=== PATIENT | male | born 1960 | race African-American/Black ===

== ENCOUNTER 2017-05-13 09:16 | Inpatient (IN) | payer OTHER ==
[2017-05-13 09:23] VITALS: BMI 32.0
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
[2017-05-13] MEDS ORDERED: hydrOXYzine PAMOATE 50 MG CAPSULE (FP) PO PRN (10:23)
[2017-05-13] MEDS ORDERED: MAGNESIUM CITRATE 300 ML BOTTLE PO PRN (10:23)
[2017-05-13] MEDS ORDERED: MAGNESIUM HYDROX 2400MG/30ML ORAL SUSPENSION 30 ML CUP PO PRN (10:23)
[2017-05-13] MEDS ORDERED: P-EPHED 60MG/TRIPROLIDI 2.5MG TABLET PO PRN (10:23)
[2017-05-13] MEDS ORDERED: IBUPROFEN 400 MG TABLET (FP) PO PRN (10:23)
[2017-05-13] MEDS ORDERED: MENTHOL/PHENOL 1 EACH UD MM PRN (10:23)
[2017-05-13] MEDS ORDERED: ACETAMINOPHEN 325 MG TABLET (FP) PO PRN (10:23)
[2017-05-13] MEDS ORDERED: MAG HYDROX/AL HYDROX/SIMETH 30 ML UNIT-DOSE CUP PO PRN (10:23)
[2017-05-13] MEDS ORDERED: LOPERAMIDE HCL 2 MG CAPSULE PO PRN (10:23)
[2017-05-13] MEDS ORDERED: guaiFENesin/D-METHORPHAN HB 10 ML UNIT-DOSE CUPS PO PRN (10:23)
[2017-05-13] MEDS ORDERED: NICOTINE POLACRILEX 2 MG GUM BUC PRN (10:23)
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
[2017-05-13] MEDS ORDERED: TUBERCULIN PPD 5 TU/0.1ML VIAL ID ONE (12:07)
[2017-05-13 13:15] LABS: HEMOGLOBIN 14.4 GM/dL (11.7-16.9); MCH 25.6 pg (25.7-33.7); MCHC 32.1 g/dl (32.0-35.9); MEAN CELL VOLUME 79.7 fl (80-96); PLATELET COUNT 255 K/MM3 (134-434); RBC 5.65 M/mm3 (4.00-5.60); RDW 15.2 % (11.9-15.9); WHITE BLOOD COUNT 7.7 K/mm3 (4.0-10.0)
[2017-05-13 13:21] LABS: ALBUMIN 3.9 g/dl (3.4-5.0); ANION GAP 10 (8-16); BILIRUBIN,TOTAL 0.5 mg/dL (0.2-1.0); BLOOD UREA NITROGEN 17 mg/dL (7-18); CALCIUM 9.5 mg/dL (8.5-10.1); CHLORIDE 107 mmol/L (98-107); CO2 27 mmol/L (21-32); CREATININE 1.3 mg/dL (0.7-1.3); GLUCOSE,RANDOM 107 mg/dL (74-106); POTASSIUM 4.2 mmol/L (3.5-5.1); SGOT/AST 160 U/L (15-37); SGPT/ALT 186 U/L (12-78); SODIUM 144 mmol/L (136-145)
[2017-05-13 13:22] LABS: ALK PHOS 106 U/L (45-117); TOT PROT 8.2 g/dl (6.4-8.2)
[2017-05-13] MEDS: NICOTINE 14 MG/24 HOURS TOPICAL PATCH TD SCH (13:36)
[2017-05-13 17:06] LABS: URINE APPEARANCE CLEAR; URINE BILIRUBIN NEGATIVE (NEGATIVE); URINE BLOOD NEGATIVE (NEGATIVE); URINE COLOR YELLOW; URINE GLUCOSE (UA) NEGATIVE (NEGATIVE); URINE KETONE NEGATIVE (NEGATIVE); URINE LEUK ESTERASE NEGATIVE (NEGATIVE); URINE NITRITE NEGATIVE (NEGATIVE); URINE PROTEIN NEGATIVE (NEGATIVE); URINE UROBILINOGEN 4.0 E.U/dl mg/dL (0.2-1.0)
[2017-05-13] MEDS: busPIRone HCL 10 MG TABLET (FP) PO SCH (21:29)
[2017-05-13] MEDS: ATORVASTATIN CA 10 MG TABLET (FP) PO SCH (21:29)
[2017-05-13] MEDS: QUEtiapine FUMARATE 300 MG TABLET PO SCH (21:29)
[2017-05-13] MEDS: THIAMINE HCL 100 MG TABLET (FP) PO SCH (21:29)
[2017-05-13] MEDS: METOPROLOL TARTRATE 25 MG TABLET (FP) PO SCH (21:47)
[2017-05-14] MEDS: PRENATAL VITAMINS W/ FOLIC ACID TABLET (FP) PO SCH (10:08)
[2017-05-14] MEDS: NICOTINE 14 MG/24 HOURS TOPICAL PATCH TD SCH (10:09)
[2017-05-14] MEDS: busPIRone HCL 10 MG TABLET (FP) PO SCH ×2 (10:09→21:30)
[2017-05-14] MEDS: METOPROLOL TARTRATE 25 MG TABLET (FP) PO SCH ×2 (10:09→21:30)
[2017-05-14] MEDS: amLODIPine BESYLATE 10 MG TABLET (FP) PO SCH (10:09)
[2017-05-14] MEDS: ASPIRIN COATED 81 MG TABLET.EC PO SCH (10:09)
--- NOTE | 2017-05-14 11:27 | EKG ---
Test Reason : Blood Pressure : / mmHG Vent. Rate : 065 BPM Atrial Rate : 065 BPM P-R Int : 174 ms QRS Dur : 086 ms QT Int : 396 ms P-R-T Axes : 063 050 032 degrees QTc Int : 411 ms NORMAL SINUS RHYTHM NORMAL ECG NO PREVIOUS ECGS AVAILABLE BASELINE ARTIFACT Confirmed by ABY CEJA, JOCE ([id number] on 05/14/2017 11:27:22 AM Referred By: Stanislaw CISNEROS Confirmed By:JOCE BADILLO MD
[2017-05-14] MEDS ORDERED: FLU VACCINE QUAD 60 MCG/0.5 ML (MDV 17-18) IM ONE (12:00)
[2017-05-14] MEDS: ATORVASTATIN CA 10 MG TABLET (FP) PO SCH (21:30)
[2017-05-14] MEDS: QUEtiapine FUMARATE 300 MG TABLET PO SCH (21:30)
[2017-05-14] MEDS: THIAMINE HCL 100 MG TABLET (FP) PO SCH (21:30)
[2017-05-15] MEDS: busPIRone HCL 10 MG TABLET (FP) PO SCH ×2 (09:44→21:53)
[2017-05-15] MEDS: ASPIRIN COATED 81 MG TABLET.EC PO SCH (09:44)
[2017-05-15] MEDS: PRENATAL VITAMINS W/ FOLIC ACID TABLET (FP) PO SCH (09:44)
[2017-05-15] MEDS: NICOTINE 14 MG/24 HOURS TOPICAL PATCH TD SCH (09:44)
[2017-05-15] MEDS: METOPROLOL TARTRATE 25 MG TABLET (FP) PO SCH ×2 (09:44→21:53)
[2017-05-15] MEDS: amLODIPine BESYLATE 10 MG TABLET (FP) PO SCH (09:44)
[2017-05-15] MEDS: ATORVASTATIN CA 10 MG TABLET (FP) PO SCH (21:54)
[2017-05-15] MEDS: THIAMINE HCL 100 MG TABLET (FP) PO SCH (21:54)
[2017-05-15] MEDS: QUEtiapine FUMARATE 300 MG TABLET PO SCH (21:54)
[2017-05-16] MEDS: PRENATAL VITAMINS W/ FOLIC ACID TABLET (FP) PO SCH (09:56)
[2017-05-16] MEDS: NICOTINE 14 MG/24 HOURS TOPICAL PATCH TD SCH (09:57)
[2017-05-16] MEDS: busPIRone HCL 10 MG TABLET (FP) PO SCH ×2 (09:57→21:28)
[2017-05-16] MEDS: ASPIRIN COATED 81 MG TABLET.EC PO SCH (09:57)
[2017-05-16] MEDS: amLODIPine BESYLATE 10 MG TABLET (FP) PO SCH (09:57)
[2017-05-16] MEDS: METOPROLOL TARTRATE 25 MG TABLET (FP) PO SCH ×2 (11:00→21:28)
[2017-05-16] MEDS: ATORVASTATIN CA 10 MG TABLET (FP) PO SCH (21:28)
[2017-05-16] MEDS: THIAMINE HCL 100 MG TABLET (FP) PO SCH (21:29)
[2017-05-16] MEDS: QUEtiapine FUMARATE 300 MG TABLET PO SCH (21:29)
[2017-05-17] MEDS: PRENATAL VITAMINS W/ FOLIC ACID TABLET (FP) PO SCH (10:08)
[2017-05-17] MEDS: amLODIPine BESYLATE 10 MG TABLET (FP) PO SCH (10:08)
[2017-05-17] MEDS: ASPIRIN COATED 81 MG TABLET.EC PO SCH (10:08)
[2017-05-17] MEDS: NICOTINE 14 MG/24 HOURS TOPICAL PATCH TD SCH (10:08)
[2017-05-17] MEDS: busPIRone HCL 10 MG TABLET (FP) PO SCH ×2 (10:08→21:43)
[2017-05-17] MEDS: METOPROLOL TARTRATE 25 MG TABLET (FP) PO SCH ×2 (10:09→21:43)
[2017-05-17] MEDS: QUEtiapine FUMARATE 300 MG TABLET PO SCH (21:43)
[2017-05-17] MEDS: ATORVASTATIN CA 10 MG TABLET (FP) PO SCH (21:43)
[2017-05-17] MEDS: THIAMINE HCL 100 MG TABLET (FP) PO SCH (21:43)
[2017-05-18] MEDS: busPIRone HCL 10 MG TABLET (FP) PO SCH ×2 (09:48→21:37)
[2017-05-18] MEDS: NICOTINE 14 MG/24 HOURS TOPICAL PATCH TD SCH (09:48)
[2017-05-18] MEDS: METOPROLOL TARTRATE 25 MG TABLET (FP) PO SCH ×2 (09:48→21:37)
[2017-05-18] MEDS: amLODIPine BESYLATE 10 MG TABLET (FP) PO SCH (09:48)
[2017-05-18] MEDS: ASPIRIN COATED 81 MG TABLET.EC PO SCH (09:48)
[2017-05-18] MEDS: PRENATAL VITAMINS W/ FOLIC ACID TABLET (FP) PO SCH (09:49)
[2017-05-18] MEDS: THIAMINE HCL 100 MG TABLET (FP) PO SCH (21:37)
[2017-05-18] MEDS: QUEtiapine FUMARATE 300 MG TABLET PO SCH (21:37)
[2017-05-18] MEDS: ATORVASTATIN CA 10 MG TABLET (FP) PO SCH (21:37)
[2017-05-19] MEDS: amLODIPine BESYLATE 10 MG TABLET (FP) PO SCH (10:19)
[2017-05-19] MEDS: busPIRone HCL 10 MG TABLET (FP) PO SCH ×2 (10:19→21:47)
[2017-05-19] MEDS: ASPIRIN COATED 81 MG TABLET.EC PO SCH (10:19)
[2017-05-19] MEDS: PRENATAL VITAMINS W/ FOLIC ACID TABLET (FP) PO SCH (10:19)
[2017-05-19] MEDS: NICOTINE 14 MG/24 HOURS TOPICAL PATCH TD SCH (10:19)
[2017-05-19] MEDS: METOPROLOL TARTRATE 25 MG TABLET (FP) PO SCH ×2 (10:19→22:48)
[2017-05-19] MEDS: THIAMINE HCL 100 MG TABLET (FP) PO SCH (21:47)
[2017-05-19] MEDS: QUEtiapine FUMARATE 300 MG TABLET PO SCH (21:47)
[2017-05-19] MEDS: ATORVASTATIN CA 10 MG TABLET (FP) PO SCH (21:47)
[2017-05-20] MEDS: PRENATAL VITAMINS W/ FOLIC ACID TABLET (FP) PO SCH (10:05)
[2017-05-20] MEDS: ASPIRIN COATED 81 MG TABLET.EC PO SCH (10:06)
[2017-05-20] MEDS: busPIRone HCL 10 MG TABLET (FP) PO SCH ×2 (10:06→21:40)
[2017-05-20] MEDS: NICOTINE 14 MG/24 HOURS TOPICAL PATCH TD SCH (10:06)
[2017-05-20] MEDS: METOPROLOL TARTRATE 25 MG TABLET (FP) PO SCH ×2 (10:06→21:40)
[2017-05-20] MEDS: amLODIPine BESYLATE 10 MG TABLET (FP) PO SCH (10:06)
--- NOTE | 2017-05-20 11:25 | PN ---
S Progress Note (SOAP) Subjective: reqeusting reveiwe of labwork on admission Objective: 05/20/17 11:23 no complaints Vital Signs - 24 hr 05/20/17 05/20/17 05/20/17 00:30 03:30 07:12 Temperature 98.1 F Pulse Rate 101 H Respiratory 16 17 18 Rate Blood Pressure 144/79 Laboratory Tests 05/13/17 05/13/17 05/13/17 11:00 11:00 11:00 WBC 7.7 D RBC 5.65 H Hgb 14.4 Hct 45.0 MCV 79.7 L MCH 25.6 L MCHC 32.1 RDW 15.2 Plt Count 255 MPV 9.0 D Sodium 144 Potassium 4.2 Chloride 107 Carbon Dioxide 27 Anion Gap 10 BUN 17 Creatinine 1.3 D Creat Clearance w eGFR 57.31 POC Glucometer Random Glucose 107 H D Calcium 9.5 Total Bilirubin 0.5 D AST 160 H D ALT 186 H D Alkaline Phosphatase 106 D Total Protein 8.2 Albumin 3.9 Urine Color Urine Appearance Urine pH Ur Specific [place] Urine Protein Urine Glucose (UA) Urine Ketones Urine Blood Urine Nitrite Urine Bilirubin Urine Urobilinogen Ur Leukocyte Esterase RPR Titer Nonreactive Hepatitis C Antibody HIV 1&2 Antibody Screen HIV P24 Antigen 05/13/17 05/13/17 05/13/17 11:00 11:00 13:00 WBC RBC Hgb Hct MCV MCH MCHC RDW Plt Count MPV Sodium Potassium Chloride Carbon Dioxide Anion Gap BUN Creatinine Creat Clearance w eGFR POC Glucometer Random Glucose Calcium Total Bilirubin AST ALT Alkaline Phosphatase Total Protein Albumin Urine Color Yellow Urine Appearance Clear Urine pH 5.0 Ur Specific [place] 1.016 Urine Protein Negative Urine Glucose (UA) Negative Urine Ketones Negative Urine Blood Negative Urine Nitrite Negative Urine Bilirubin Negative Urine Urobilinogen 4.0 e.u/dl Ur Leukocyte Esterase Negative RPR Titer Hepatitis C Antibody <0.1 HIV 1&2 Antibody Screen Negative HIV P24 Antigen Negative 05/14/17 05/15/17 05/16/17 06:32 06:18 06:24 WBC RBC Hgb Hct MCV MCH MCHC RDW Plt Count MPV Sodium Potassium Chloride Carbon Dioxide Anion Gap BUN Creatinine Creat Clearance w eGFR POC Glucometer 120 114 133 Random Glucose Calcium Total Bilirubin AST ALT Alkaline Phosphatase Total Protein Albumin Urine Color Urine Appearance Urine pH Ur Specific [place] Urine Protein Urine Glucose (UA) Urine Ketones Urine Blood Urine Nitrite Urine Bilirubin Urine Urobilinogen Ur Leukocyte Esterase RPR Titer Hepatitis C Antibody HIV 1&2 Antibody Screen HIV P24 Antigen 05/17/17 05/18/17 05/19/17 06:20 06:19 06:29 WBC RBC Hgb Hct MCV MCH MCHC RDW Plt Count MPV Sodium Potassium Chloride Carbon Dioxide Anion Gap BUN Creatinine Creat Clearance w eGFR POC Glucometer 139 121 134 Random Glucose Calcium Total Bilirubin AST ALT Alkaline Phosphatase Total Protein Albumin Urine Color Urine Appearance Urine pH Ur Specific [place] Urine Protein Urine Glucose (UA) Urine Ketones Urine Blood Urine Nitrite Urine Bilirubin Urine Urobilinogen Ur Leukocyte Esterase RPR Titer Hepatitis C Antibody HIV 1&2 Antibody Screen HIV P24 Antigen 05/19/17 05/20/17 16:46 06:23 WBC RBC Hgb Hct MCV MCH MCHC RDW Plt Count MPV Sodium Potassium Chloride Carbon Dioxide Anion Gap BUN Creatinine Creat Clearance w eGFR POC Glucometer 151 174 Random Glucose Calcium Total Bilirubin AST ALT Alkaline Phosphatase Total Protein Albumin Urine Color Urine Appearance Urine pH Ur Specific [place] Urine Protein Urine Glucose (UA) Urine Ketones Urine Blood Urine Nitrite Urine Bilirubin Urine Urobilinogen Ur Leukocyte Esterase RPR Titer Hepatitis C Antibody HIV 1&2 Antibody Screen HIV P24 Antigen Assessment: 05/20/17 11:24 hiv/hcv neg, elevated lfts, 05/20/17 11:28 dehydration, water at bedside
[2017-05-20] MEDS: ATORVASTATIN CA 10 MG TABLET (FP) PO SCH (21:40)
[2017-05-20] MEDS: QUEtiapine FUMARATE 300 MG TABLET PO SCH (21:41)
[2017-05-20] MEDS: THIAMINE HCL 100 MG TABLET (FP) PO SCH (21:41)
[2017-05-21] MEDS: METOPROLOL TARTRATE 25 MG TABLET (FP) PO SCH ×2 (10:25→21:36)
[2017-05-21] MEDS: ASPIRIN COATED 81 MG TABLET.EC PO SCH (10:25)
[2017-05-21] MEDS: busPIRone HCL 10 MG TABLET (FP) PO SCH ×2 (10:26→21:36)
[2017-05-21] MEDS: PRENATAL VITAMINS W/ FOLIC ACID TABLET (FP) PO SCH (10:26)
[2017-05-21] MEDS: NICOTINE 14 MG/24 HOURS TOPICAL PATCH TD SCH (10:26)
[2017-05-21] MEDS: amLODIPine BESYLATE 10 MG TABLET (FP) PO SCH (10:26)
[2017-05-21 11:01] LABS: BASO % 0.7 % (0-2.0); EOS % 2.1 % (0-4.5); HEMATOCRIT 43.2 % (35.4-49); HEMOGLOBIN 13.6 GM/dL (11.7-16.9); LYMPH % 26.7 % (8-40); MCH 25.1 pg (25.7-33.7); MCHC 31.6 g/dl (32.0-35.9); MEAN CELL VOLUME 79.6 fl (80-96); MEAN PLT VOLUME 9.1 fl (7.5-11.1); MONO % 9.5 % (3.8-10.2); PLATELET COUNT 198 K/MM3 (134-434); RBC 5.42 M/mm3 (4.00-5.60); RDW 15.4 % (11.9-15.9); WHITE BLOOD COUNT 5.5 K/mm3 (4.0-10.0)
[2017-05-21 11:05] LABS: ALBUMIN 3.5 g/dl (3.4-5.0); ANION GAP 6 (8-16); BILIRUBIN,TOTAL 0.6 mg/dL (0.2-1.0); BLOOD UREA NITROGEN 15 mg/dL (7-18); CALCIUM 9.3 mg/dL (8.5-10.1); CHLORIDE 107 mmol/L (98-107); CO2 30 mmol/L (21-32); GLUCOSE,RANDOM 129 mg/dL (74-106); POTASSIUM 4.3 mmol/L (3.5-5.1); SGOT/AST 50 U/L (15-37); SGPT/ALT 155 U/L (12-78); SODIUM 143 mmol/L (136-145)
[2017-05-21 11:06] LABS: ALK PHOS 77 U/L (45-117)
[2017-05-21] MEDS: THIAMINE HCL 100 MG TABLET (FP) PO SCH (21:36)
[2017-05-21] MEDS: ATORVASTATIN CA 10 MG TABLET (FP) PO SCH (21:36)
[2017-05-21] MEDS: QUEtiapine FUMARATE 300 MG TABLET PO SCH (21:37)
[2017-05-22 06:36] LABS: SERUM IRON SATURATION 30 % (15-55); TOTAL IRON BINDING CAPACITY 258 ug/dL (250-450); UIBC 181 ug/dL (111-343)
[2017-05-22] MEDS: ASPIRIN COATED 81 MG TABLET.EC PO SCH (10:00)
[2017-05-22] MEDS: PRENATAL VITAMINS W/ FOLIC ACID TABLET (FP) PO SCH (10:00)
[2017-05-22] MEDS: NICOTINE 14 MG/24 HOURS TOPICAL PATCH TD SCH (10:00)
[2017-05-22] MEDS: busPIRone HCL 10 MG TABLET (FP) PO SCH ×2 (10:00→21:27)
[2017-05-22] MEDS: METOPROLOL TARTRATE 25 MG TABLET (FP) PO SCH ×2 (10:02→21:27)
[2017-05-22] MEDS: amLODIPine BESYLATE 10 MG TABLET (FP) PO SCH (10:02)
[2017-05-22] MEDS: ATORVASTATIN CA 10 MG TABLET (FP) PO SCH (21:27)
[2017-05-22] MEDS: THIAMINE HCL 100 MG TABLET (FP) PO SCH (21:27)
[2017-05-22] MEDS: QUEtiapine FUMARATE 300 MG TABLET PO SCH (21:28)
[2017-05-23] MEDS: busPIRone HCL 10 MG TABLET (FP) PO SCH ×2 (10:13→21:42)
[2017-05-23] MEDS: NICOTINE 14 MG/24 HOURS TOPICAL PATCH TD SCH (10:13)
[2017-05-23] MEDS: amLODIPine BESYLATE 10 MG TABLET (FP) PO SCH (10:13)
[2017-05-23] MEDS: METOPROLOL TARTRATE 25 MG TABLET (FP) PO SCH ×2 (10:13→21:42)
[2017-05-23] MEDS: ASPIRIN COATED 81 MG TABLET.EC PO SCH (10:13)
[2017-05-23] MEDS: PRENATAL VITAMINS W/ FOLIC ACID TABLET (FP) PO SCH (10:14)
[2017-05-23] MEDS: THIAMINE HCL 100 MG TABLET (FP) PO SCH (21:42)
[2017-05-23] MEDS: ATORVASTATIN CA 10 MG TABLET (FP) PO SCH (21:42)
[2017-05-23] MEDS: QUEtiapine FUMARATE 300 MG TABLET PO SCH (21:43)
[2017-05-23] MEDS: TOLNAFTATE 1% CREAM 15 GM TUBE TP SCH (21:43)
[2017-05-24] MEDS: TOLNAFTATE 1% CREAM 15 GM TUBE TP SCH ×3 (09:23→21:51)
[2017-05-24] MEDS: PRENATAL VITAMINS W/ FOLIC ACID TABLET (FP) PO SCH (10:09)
[2017-05-24] MEDS: ASPIRIN COATED 81 MG TABLET.EC PO SCH (10:10)
[2017-05-24] MEDS: busPIRone HCL 10 MG TABLET (FP) PO SCH ×2 (10:10→21:50)
[2017-05-24] MEDS: NICOTINE 14 MG/24 HOURS TOPICAL PATCH TD SCH (10:10)
[2017-05-24] MEDS: METOPROLOL TARTRATE 25 MG TABLET (FP) PO SCH ×2 (10:10→21:50)
[2017-05-24] MEDS: amLODIPine BESYLATE 10 MG TABLET (FP) PO SCH (10:10)
[2017-05-24] MEDS: THIAMINE HCL 100 MG TABLET (FP) PO SCH (21:50)
[2017-05-24] MEDS: QUEtiapine FUMARATE 300 MG TABLET PO SCH (21:50)
[2017-05-24] MEDS: ATORVASTATIN CA 10 MG TABLET (FP) PO SCH (21:50)
[2017-05-25] MEDS: ASPIRIN COATED 81 MG TABLET.EC PO SCH (10:04)
[2017-05-25] MEDS: busPIRone HCL 10 MG TABLET (FP) PO SCH ×2 (10:04→21:38)
[2017-05-25] MEDS: METOPROLOL TARTRATE 25 MG TABLET (FP) PO SCH ×2 (10:04→21:38)
[2017-05-25] MEDS: PRENATAL VITAMINS W/ FOLIC ACID TABLET (FP) PO SCH (10:04)
[2017-05-25] MEDS: NICOTINE 14 MG/24 HOURS TOPICAL PATCH TD SCH (10:05)
[2017-05-25] MEDS: TOLNAFTATE 1% CREAM 15 GM TUBE TP SCH ×2 (10:05→21:38)
[2017-05-25] MEDS: amLODIPine BESYLATE 10 MG TABLET (FP) PO SCH (10:05)
[2017-05-25] MEDS: ATORVASTATIN CA 10 MG TABLET (FP) PO SCH (21:37)
[2017-05-25] MEDS: THIAMINE HCL 100 MG TABLET (FP) PO SCH (21:37)
[2017-05-25] MEDS: QUEtiapine FUMARATE 300 MG TABLET PO SCH (21:38)
[2017-05-26 06:45] VITALS: BP 126/73; PULSE 74; TEMP 98
--- NOTE | 2017-05-26 08:27 | PN ---
Psychiatric Progress Note Vital Signs: Vital Signs Period Temp Pulse Resp BP Sys/Randolph Pulse Ox Last 24 Hr 98.0 F 74-88 18-20 126-155/73-86 Date of Session: 05/26/17 Chief Complaint:: discharge visit HPI: Patient has addressed alcohol dependence, cocaine abuse comorbid Psychosis NOS. ROS: HTN medically managed. Current Medications: Active Medications Generic Name Dose Route Start Last Admin Trade Name Freq PRN Reason Stop Dose Admin Acetaminophen 650 mg 05/13/17 10:23 Tylenol - PO Q4H PRN PAIN Al Hydroxide/Mg Hydroxide 30 ml 05/13/17 10:23 Mylanta Oral Suspension - PO Q6H PRN DYSPEPSIA Amlodipine Besylate 10 mg 05/14/17 10:00 05/25/17 10:05 Norvasc - PO 10 mg DAILY AROLDO Administration Aspirin 81 mg 05/14/17 10:00 05/25/17 10:04 Ecotrin - PO 81 mg DAILY AROLDO Administration Atorvastatin Calcium 10 mg 05/13/17 22:00 05/25/17 21:37 Lipitor - PO 10 mg HS AROLDO Administration Buspirone HCl 10 mg 05/13/17 22:00 05/25/17 21:38 Buspar - PO 10 mg BID AROLDO Administration Eucalyptus/Menthol/Phenol/Sorbitol 1 each 05/13/17 10:23 Cepastat Lozenge - MM Q4H PRN SORE THROAT Guaifenesin 10 ml 05/13/17 10:23 Robitussin Dm - PO Q6H PRN COUGH Hydroxyzine Pamoate 50 mg 05/13/17 10:23 Vistaril - PO Q4H PRN AGITATION Ibuprofen 400 mg 05/13/17 10:23 Motrin - PO Q6H PRN SEVERE PAIN Loperamide HCl 4 mg 05/13/17 10:23 Imodium - PO Q6H PRN DIARRHEA Magnesium Citrate 300 ml 05/13/17 10:23 Citroma - PO Q48H PRN CONSTIPATION Magnesium Hydroxide 30 ml 05/13/17 10:23 Milk Of Magnesia - PO DAILY PRN CONSTIPATION Metoprolol Tartrate 25 mg 05/13/17 22:00 05/25/17 21:38 Lopressor - PO 25 mg BID AROLDO Administration Nicotine 14 mg 05/13/17 10:51 05/25/17 10:05 Nicoderm Patch - TD Not Given DAILY AROLDO Nicotine Polacrilex 2 mg 05/13/17 10:23 Nicorette Gum - BUC Q2H PRN NICOTINE REPLACEMENT RX Multivit/Folic Acid/Iron 1 tab 05/14/17 10:00 05/25/17 10:04 Vitamins ([facility]) - PO 1 tab DAILY AROLDO Administration Pseudoephedrine/Triprolidine 1 combo 05/13/17 10:23 Actifed - PO TID PRN NASAL CONGESTION Quetiapine Fumarate 300 mg 05/13/17 22:00 05/25/17 21:38 Seroquel - PO 300 mg HS AROLDO Administration Thiamine HCl 100 mg 05/13/17 22:00 05/25/17 21:37 Vitamin B1 - PO 100 mg HS AROLDO Administration Tolnaftate 1 applic 05/23/17 14:30 05/25/17 21:38 Tinactin 1% Cream - TP Not Given BID AROLDO Current Side Effect: No Lab tests ordered: No Lab tests reviewed: Yes Provider note:: Patient has completed today his treatment and met his goals, [facility]He verbalized understanding of the consequence of his addiction and the need to make positive changes to his lifestyle in order to maintain abstience. Patient continues to finding well to [facility] and [facility]. Scripts for 30 days supply were electronically transferred to [facility] pharmacy. He is stable for discharge today. Total face to face time:: 20 Mental Status Exam - Mental Status Exam Alert and Oriented to: Time, Place, Person Cognitive Function: Good Patient Appearance: Well Groomed Mood: Hopeful Affect: Appropriate, Mood Congruent Patient Behavior: Appropriate, Cooperative Speech Pattern: Clear, Appropriate Voice Loudness: Normal Thought Process: Intact Thought Disorder: Not Present Hallucinations: Denies Suicidal Ideation: Denies Homicidal Ideation: Denies Insight/Judgement: Fair Sleep: Fair Appetite: Fair Muscle strength/Tone: Normal Gait/Station: Normal Psychiatric Treatment Plan - Problem List (1) Unspecified psychosis Current Visit: Yes (2) Alcohol abuse Current Visit: Yes (3) Cocaine dependence Current Visit: No
[2017-05-26] MEDS: METOPROLOL TARTRATE 25 MG TABLET (FP) PO SCH (10:13)
[2017-05-26] MEDS: ASPIRIN COATED 81 MG TABLET.EC PO SCH (10:13)
[2017-05-26] MEDS: busPIRone HCL 10 MG TABLET (FP) PO SCH (10:13)
[2017-05-26] MEDS: amLODIPine BESYLATE 10 MG TABLET (FP) PO SCH (10:13)
[2017-05-26] MEDS: PRENATAL VITAMINS W/ FOLIC ACID TABLET (FP) PO SCH (10:13)
[2017-05-26] MEDS: NICOTINE 14 MG/24 HOURS TOPICAL PATCH TD SCH (10:13)
[2017-05-26] MEDS: TOLNAFTATE 1% CREAM 15 GM TUBE TP SCH (10:14)
== END 2017-05-26 10:25 | disposition home or self-care (01) | DRG 775 ==
LOC: YASAS 09:16 → Y5N 10:47
PROVIDERS: ADMIT Psychiatry & Neurology Psychiatry; ATTEND Psychiatry & Neurology Psychiatry
PROC: HZ42ZZZ Group Counseling for Substance Abuse Treatment, Cognitive-Behavioral (ICD-10-PCS; principal; 2017-05-13)
DX: F10.10 Alcohol abuse, uncomplicated (principal); F29 Unspecified psychosis not due to a substance or known physiological condition; I10 Essential (primary) hypertension; E78.00 Pure hypercholesterolemia, unspecified; E11.9 Type 2 diabetes mellitus without complications; Z79.84 Long term (current) use of oral hypoglycemic drugs; R76.11 Nonspecific reaction to tuberculin skin test without active tuberculosis
CPT/HCPCS: 36415; 71046-TC; 80053; 81003; 82962; 83036; 83540; 83550; 85025; 85027; 86593; 86803; 87389; 90688; 93005; 93010; G0008

== ENCOUNTER 2018-02-16 12:09 | Inpatient (IN) | payer OTHER ==
[2018-02-16 13:51] VITALS: BMI 31.7
[2018-02-16] MEDS ORDERED: NICOTINE POLACRILEX 2 MG GUM BUC PRN (14:35)
[2018-02-16] MEDS ORDERED: chlordiazePOXIDE HCL 25 MG CAPSULE PO PRN (14:35)
[2018-02-16] MEDS ORDERED: P-EPHED 60MG/TRIPROLIDI 2.5MG TABLET PO PRN (14:35)
[2018-02-16] MEDS ORDERED: LOPERAMIDE HCL 2 MG CAPSULE PO PRN (14:35)
[2018-02-16] MEDS ORDERED: MAG HYDROX/AL HYDROX/SIMETH 30 ML UNIT-DOSE CUP PO PRN (14:35)
[2018-02-16] MEDS ORDERED: hydrOXYzine PAMOATE 50 MG CAPSULE (FP) PO PRN (14:35)
[2018-02-16] MEDS ORDERED: IBUPROFEN 400 MG TABLET (FP) PO PRN (14:35)
[2018-02-16] MEDS ORDERED: MAGNESIUM HYDROX 2400MG/30ML ORAL SUSPENSION 30 ML CUP PO PRN (14:35)
[2018-02-16] MEDS ORDERED: guaiFENesin/D-METHORPHAN HB 10 ML UNIT-DOSE CUPS PO PRN (14:35)
[2018-02-16] MEDS ORDERED: MENTHOL/PHENOL 1 EACH UD MM PRN (14:35)
[2018-02-16] MEDS ORDERED: ACETAMINOPHEN 325 MG TABLET (FP) PO PRN (14:35)
[2018-02-16] MEDS ORDERED: MAGNESIUM CITRATE 300 ML BOTTLE PO PRN (14:35)
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
[2018-02-16] MEDS: chlordiazePOXIDE HCL 25 MG CAPSULE PO SCH ×2 (18:21→22:05)
[2018-02-16] MEDS ORDERED: MELATONIN 5 MG TABLETS PO PRN (22:00)
[2018-02-16] MEDS: THIAMINE HCL 100 MG TABLET (FP) PO SCH (22:05)
[2018-02-17] MEDS: chlordiazePOXIDE HCL 25 MG CAPSULE PO SCH ×4 (06:23→22:26)
[2018-02-17] MEDS: ASPIRIN COATED 81 MG TABLET.EC PO SCH (10:10)
[2018-02-17] MEDS: amLODIPine BESYLATE 10 MG TABLET (FP) PO SCH (10:10)
[2018-02-17] MEDS: METOPROLOL TARTRATE 25 MG TABLET (FP) PO SCH (10:10)
[2018-02-17] MEDS: NICOTINE 14 MG/24 HOURS TOPICAL PATCH TD SCH (10:11)
[2018-02-17] MEDS: PRENATAL VITAMINS W/ FOLIC ACID TABLET (FP) PO SCH (10:11)
--- NOTE | 2018-02-17 10:36 | CONSULT ---
[facility] Psychiatric Consult - Data Date of interview: 02/17/18 Admission source: [facility] Identifying data: Patient is a 57 year old single male, without children, domiciled, and is currently homeless. Patient admitted to for alcohol, PCP, and cocaine dependence. Substance Abuse History: Smoking Cessation. Smoking history: Current every day smoker. Have you smoked in the past 12 months: Yes. Aproximately how many cigarettes per day: 5. Cigars Per Day: 0. Hx Chewing Tobacco Use: No. Initiated information on smoking cessation: Yes. 'Breaking Loose' booklet given : 02/16/18. - Substance & Tx. History. Hx Alcohol Use: Yes. Hx Substance Use : Yes. Substance Use Type: Alcohol. Hx Substance Use Treatment: Yes (Last rehab [facility] May 2017.). - Substances Abused. Crack. Route: Smoking. Frequency: 1-2 times per week. Amount used: $100. Age of first use: 27. Date of Last Use: 02/14/18. PCP. Route: Smoking. Frequency: 1-3 times last 30 days. Amount used: $10. Age of first use: 19. Date of Last Use: 02/14/18. * * Alcohol-vodka/beer. Route: Oral. Frequency: 3-6 times per week. Amount used : 1 gal./1 1/2-6 pks. Age of first use: 19. Date of Last Use: 02/14/18 Medical History: hypertension, hypercholesterolemia Psychiatric History: Patient denies h/o psychiatric hospitalization. Patient reports h/o psychiatric care at [facility] in [place] approximately one year ago. He than received treated at the [facility] and was seen by Dr. Lowe who prescribed him buspar 10mg TID + Seroquel 300mg qhs. He was also tried on risperdal 0.25. Patient reports a history of auditory hallucinations of voices telling him "people are watching him". Last heard voices last week. Reports that voices started 7 months ago which contradicts what he reported to Dr. Turk in 2017. Patient reports nonadherence to OPD but is agreeable to restarting seroquel 50mg qhs. Patient denies h/o suicide atttempt. Physical/Sexual Abuse/Trauma History: denies. Mental Status Exam - Mental Status Exam Alert and Oriented to: Time, Place, Person Cognitive Function: Good Patient Appearance: Well Groomed Mood: Euthymic Affect: Mood Congruent Patient Behavior: Appropriate, Cooperative Speech Pattern: Appropriate Voice Loudness: Normal Thought Process: Intact, Goal Oriented Thought Disorder: Not Present Hallucinations: Denies Suicidal Ideation: Denies Homicidal Ideation: Denies Insight/Judgement: Poor Sleep: Poorly Appetite: Fair Muscle strength/Tone: Normal Gait/Station: Normal Psychiatric Findings - Problem List ([place] 1, 2,3) (1) Alcohol dependence with withdrawal Current Visit: Yes Status: Acute Qualifiers: Complication of substance-induced condition: uncomplicated Qualified Code(s ): F10.230 - Alcohol dependence with withdrawal, uncomplicated (2) Cocaine dependence Current Visit: No Status: Chronic (3) Substance induced mood disorder Current Visit: Yes Status: Acute (4) Schizoaffective disorder Current Visit: No Status: Suspected Qualifiers: Schizoaffective disorder type: unspecified Qualified Code(s): F25.9 - Schizoaffective disorder, unspecified - Initial Treatment Plan Initial Treatment Plan: Psychoeducation provided. Detoxification in progress. Will order Seroquel 50mg qhs. Benefits and side effects discussed. Verbal consent given.
[2018-02-17 10:58] LABS: HEMOGLOBIN 14.1 GM/dL (11.7-16.9); MCH 25.9 pg (25.7-33.7); MCHC 32.1 g/dl (32.0-35.9); MEAN CELL VOLUME 80.8 fl (80-96); MEAN PLT VOLUME 9.9 fl (7.5-11.1); PLATELET COUNT 205 K/MM3 (134-434); RBC 5.45 M/mm3 (4.00-5.60); RDW 15.5 % (11.9-15.9); WHITE BLOOD COUNT 6.2 K/mm3 (4.0-10.0)
[2018-02-17 11:51] LABS: ALBUMIN 3.8 g/dl (3.4-5.0); ALK PHOS 86 U/L (45-117); ANION GAP 10 MMOL/L (8-16); BILIRUBIN,TOTAL 0.4 mg/dL (0.2-1); BLOOD UREA NITROGEN 18 mg/dL (7-18); CALCIUM 9.7 mg/dL (8.5-10.1); CHLORIDE 110 mmol/L (98-107); CO2 26 mmol/L (21-32); CREATININE 1.3 mg/dL (0.55-1.3); GLUCOSE,RANDOM 72 mg/dL (74-106); POTASSIUM 4.7 mmol/L (3.5-5.1); SGOT/AST 47 U/L (15-37); SGPT/ALT 69 U/L (13-61); SODIUM 146 mmol/L (136-145); TOT PROT 7.8 g/dl (6.4-8.2)
[2018-02-17] MEDS ORDERED: FLU VACCINE QUAD 60 MCG/0.5 ML (MDV 18-19) IM ONE (12:00)
--- NOTE | 2018-02-17 12:33 | PN ---
[facility] CIWA - CIWA Score Nausea/Vomitin-No Nausea/No Vomiting Muscle Tremors: 1-None Visible, but [place] Anxiety: 1-Mildly Anxious Agitation: 0-Normal Activity Paroxysmal Sweats: 2 Orientation: 1-Uncertain about Date Tacttile Disturbances: 0-None Auditory Disturbances: 0-None Visual Disturbances: 0-None Headache: 1-Very Mild CIWA-Ar Total Score: 6 BHS Progress Note (SOAP) Subjective: MILD SHAKES, ANXIETY AND HEADACHE Objective: 02/17/18 12:31 Vital Signs Temperature 97.2 F L 02/17/18 09:41 Pulse Rate 70 02/17/18 09:41 Respiratory Rate 20 02/17/18 09:41 Blood Pressure 140/97 02/17/18 09:41 O2 Sat by Pulse Oximetry (%) Laboratory Tests 02/17/18 02/17/18 02/17/18 06:00 06:00 06:00 WBC 6.2 RBC 5.45 Hgb 14.1 Hct 44.0 MCV 80.8 MCH 25.9 MCHC 32.1 RDW 15.5 Plt Count 205 MPV 9.9 Sodium 146 H Potassium 4.7 Chloride 110 H Carbon Dioxide 26 Anion Gap 10 BUN 18 Creatinine 1.3 Creat Clearance w eGFR 57.10 POC Glucometer Random Glucose 72 L Calcium 9.7 Total Bilirubin 0.4 AST 47 H ALT 69 H Alkaline Phosphatase 86 Total Protein 7.8 Albumin 3.8 RPR Titer Nonreactive 02/17/18 06:29 WBC RBC Hgb Hct MCV MCH MCHC RDW Plt Count MPV Sodium Potassium Chloride Carbon Dioxide Anion Gap BUN Creatinine Creat Clearance w eGFR POC Glucometer 119 Random Glucose Calcium Total Bilirubin AST ALT Alkaline Phosphatase Total Protein Albumin RPR Titer ALERT AND ORIENTED AMB AD DAVE IN NAD EXT MILD TREMORS FELT Assessment: 02/17/18 12:32 WITHDRAWAL SYNDROME Plan: CONTINUE DETOX ORDERED CONTINUE TO MONITOR CLINICALLY ENCOURAGE ORAL FLUIDS
[2018-02-17 17:41] LABS: URINE APPEARANCE CLOUDY; URINE BILIRUBIN NEGATIVE (<2.0 mg/dL); URINE GLUCOSE (UA) NEGATIVE (NEGATIVE); URINE KETONE NEGATIVE (NEGATIVE); URINE LEUK ESTERASE NEGATIVE (NEGATIVE); URINE NITRITE NEGATIVE (NEGATIVE); URINE PROTEIN NEGATIVE (NEGATIVE); URINE UROBILINOGEN 4.0 E.U/dl mg/dL (0.2-1.0)
[2018-02-17 17:47] LABS: URINE COLOR YELLOW
[2018-02-17] MEDS: QUEtiapine FUMARATE 50 MG TABLET PO SCH (22:26)
[2018-02-17] MEDS: THIAMINE HCL 100 MG TABLET (FP) PO SCH (22:26)
[2018-02-18] MEDS: chlordiazePOXIDE HCL 25 MG CAPSULE PO SCH ×2 (05:41→10:31)
[2018-02-18] MEDS: PRENATAL VITAMINS W/ FOLIC ACID TABLET (FP) PO SCH (10:31)
[2018-02-18] MEDS: NICOTINE 14 MG/24 HOURS TOPICAL PATCH TD SCH (10:31)
[2018-02-18] MEDS: amLODIPine BESYLATE 10 MG TABLET (FP) PO SCH (10:31)
[2018-02-18] MEDS: METOPROLOL TARTRATE 25 MG TABLET (FP) PO SCH (10:31)
[2018-02-18] MEDS: ASPIRIN COATED 81 MG TABLET.EC PO SCH (10:31)
--- NOTE | 2018-02-18 12:14 | PN ---
[facility] CIWA - CIWA Score Nausea/Vomitin-No Nausea/No Vomiting Muscle Tremors: 1-None Visible, but [place] Anxiety: 2 Agitation: 2 Paroxysmal Sweats: No Perspiration Orientation: 0-Oriented Tacttile Disturbances: 0-None Auditory Disturbances: 0-None Visual Disturbances: 0-None Headache: 0-None Present CIWA-Ar Total Score: 5 S Progress Note (SOAP) Subjective: ANXIETY, MILD SHAKES Objective: 02/18/18 12:12 Laboratory Tests 02/17/18 02/17/18 02/17/18 06:00 06:00 06:00 WBC 6.2 RBC 5.45 Hgb 14.1 Hct 44.0 MCV 80.8 MCH 25.9 MCHC 32.1 RDW 15.5 Plt Count 205 MPV 9.9 Sodium 146 H Potassium 4.7 Chloride 110 H Carbon Dioxide 26 Anion Gap 10 BUN 18 Creatinine 1.3 Creat Clearance w eGFR 57.10 POC Glucometer Random Glucose 72 L Calcium 9.7 Total Bilirubin 0.4 AST 47 H ALT 69 H Alkaline Phosphatase 86 Total Protein 7.8 Albumin 3.8 Urine Color Urine Appearance Urine pH Ur Specific [place] Urine Protein Urine Glucose (UA) Urine Ketones Urine Blood Urine Nitrite Urine Bilirubin Urine Urobilinogen Ur Leukocyte Esterase RPR Titer Nonreactive 02/17/18 02/17/18 02/18/18 06:29 16:30 07:00 WBC RBC Hgb Hct MCV MCH MCHC RDW Plt Count MPV Sodium Potassium Chloride Carbon Dioxide Anion Gap BUN Creatinine Creat Clearance w eGFR POC Glucometer 119 149 Random Glucose Calcium Total Bilirubin AST ALT Alkaline Phosphatase Total Protein Albumin Urine Color Yellow Urine Appearance Cloudy Urine pH 6.0 Ur Specific [place] 1.026 Urine Protein Negative Urine Glucose (UA) Negative Urine Ketones Negative Urine Blood Negative Urine Nitrite Negative Urine Bilirubin Negative Urine Urobilinogen 4.0 e.u/dl Ur Leukocyte Esterase Negative RPR Titer Vital Signs Temperature 97.7 F 02/18/18 10:33 Pulse Rate 98 H 02/18/18 10:33 Respiratory Rate 18 02/18/18 10:33 Blood Pressure 154/95 02/18/18 10:33 O2 Sat by Pulse Oximetry (%) SKIN WARM AND DRY AMB AD DAVE EXT FULL ROM, MILD TREMORS 02/18/18 12:14 Assessment: 02/18/18 12:14 WITHDRAWAL SYMPTOMS Plan: CONTINUE DETOX ENCOURAGE ORAL FLUIDS CONTINUE TO MONITOR CLINICALLY
--- NOTE | 2018-02-18 17:33 | EKG ---
Test Reason : Blood Pressure : / mmHG Vent. Rate : 057 BPM Atrial Rate : 057 BPM P-R Int : 170 ms QRS Dur : 086 ms QT Int : 416 ms P-R-T Axes : 062 031 021 degrees QTc Int : 404 ms SINUS BRADYCARDIA OTHERWISE NORMAL ECG WHEN COMPARED WITH ECG OF 13-MAY-2017 21:02, NO SIGNIFICANT CHANGE WAS FOUND BASELINE ARTIFACT Confirmed by JOCE BADILLO MD ([id number]) on 02/18/2018 5:32:53 PM Referred By: Confirmed By:JOCE BADILLO MD
[2018-02-18] MEDS: chlordiazePOXIDE 5 MG CAPSULE PO SCH ×2 (18:01→23:26)
[2018-02-18] MEDS: THIAMINE HCL 100 MG TABLET (FP) PO SCH (23:26)
[2018-02-18] MEDS: QUEtiapine FUMARATE 50 MG TABLET PO SCH (23:26)
[2018-02-19] MEDS: chlordiazePOXIDE 5 MG CAPSULE PO SCH ×2 (06:03→10:32)
[2018-02-19] MEDS: NICOTINE 14 MG/24 HOURS TOPICAL PATCH TD SCH (10:32)
[2018-02-19] MEDS: ASPIRIN COATED 81 MG TABLET.EC PO SCH (10:32)
[2018-02-19] MEDS: PRENATAL VITAMINS W/ FOLIC ACID TABLET (FP) PO SCH (10:32)
[2018-02-19] MEDS: amLODIPine BESYLATE 10 MG TABLET (FP) PO SCH (10:32)
[2018-02-19] MEDS: METOPROLOL TARTRATE 25 MG TABLET (FP) PO SCH (10:32)
--- NOTE | 2018-02-19 12:46 | PN ---
BHS Progress Note (SOAP) Subjective: feeling better no tremor less sweat social with peers in day room Objective: 02/19/18 12:45 Vital Signs Temperature 97.9 F 02/19/18 10:29 Pulse Rate 92 H 02/19/18 10:29 Respiratory Rate 18 02/19/18 10:29 Blood Pressure 139/91 02/19/18 10:29 O2 Sat by Pulse Oximetry (%) Laboratory Last Values WBC 6.2 K/mm3 (4.0-10.0) 02/17/18 06:00 RBC 5.45 M/mm3 (4.00-5.60) 02/17/18 06:00 Hgb 14.1 GM/dL (11.7-16.9) 02/17/18 06:00 Hct 44.0 % (35.4-49) 02/17/18 06:00 MCV 80.8 fl (80-96) 02/17/18 06:00 MCH 25.9 pg (25.7-33.7) 02/17/18 06:00 MCHC 32.1 g/dl (32.0-35.9) 02/17/18 06:00 RDW 15.5 % (11.9-15.9) 02/17/18 06:00 Plt Count 205 K/MM3 (134-434) 02/17/18 06:00 MPV 9.9 fl (7.5-11.1) 02/17/18 06:00 Sodium 146 mmol/L (136-145) H 02/17/18 06:00 Potassium 4.7 mmol/L (3.5-5.1) 02/17/18 06:00 Chloride 110 mmol/L (98-107) H 02/17/18 06:00 Carbon Dioxide 26 mmol/L (21-32) 02/17/18 06:00 Anion Gap 10 MMOL/L (8-16) 02/17/18 06:00 BUN 18 mg/dL (7-18) 02/17/18 06:00 Creatinine 1.3 mg/dL (0.55-1.3) 02/17/18 06:00 Creat Clearance w eGFR 57.10 (>60) 02/17/18 06:00 POC Glucometer 137 UNITS (80-120) 02/19/18 06:05 Random Glucose 72 mg/dL (74-106) L 02/17/18 06:00 Calcium 9.7 mg/dL (8.5-10.1) 02/17/18 06:00 Total Bilirubin 0.4 mg/dL (0.2-1) 02/17/18 06:00 AST 47 U/L (15-37) H 02/17/18 06:00 ALT 69 U/L (13-61) H 02/17/18 06:00 Alkaline Phosphatase 86 U/L (45-117) 02/17/18 06:00 Total Protein 7.8 g/dl (6.4-8.2) 02/17/18 06:00 Albumin 3.8 g/dl (3.4-5.0) 02/17/18 06:00 Urine Color Yellow 02/17/18 16:30 Urine Appearance Cloudy 02/17/18 16:30 Urine pH 6.0 (5.0-8.0) 02/17/18 16:30 Ur Specific [place] 1.026 (1.010-1.035) 02/17/18 16:30 Urine Protein Negative (NEGATIVE) 02/17/18 16:30 Urine Glucose (UA) Negative (NEGATIVE) 02/17/18 16:30 Urine Ketones Negative (NEGATIVE) 02/17/18 16:30 Urine Blood Negative (NEGATIVE) 02/17/18 16:30 Urine Nitrite Negative (NEGATIVE) 02/17/18 16:30 Urine Bilirubin Negative (<2.0 mg/dL) 02/17/18 16:30 Urine Urobilinogen 4.0 e.u/dl mg/dL (0.2-1.0) 02/17/18 16:30 Ur Leukocyte Esterase Negative (NEGATIVE) 02/17/18 16:30 RPR Titer Nonreactive (NONREACTIVE) 02/17/18 06:00 lab noted Assessment: 02/19/18 12:45 mild withdrawal sx Plan: medically supervised detox
[2018-02-19] MEDS: chlordiazePOXIDE HCL 10 MG CAPSULE PO SCH ×2 (17:57→22:07)
[2018-02-19] MEDS: QUEtiapine FUMARATE 50 MG TABLET PO SCH (22:07)
[2018-02-19] MEDS: THIAMINE HCL 100 MG TABLET (FP) PO SCH (22:07)
[2018-02-20] MEDS: chlordiazePOXIDE HCL 10 MG CAPSULE PO SCH ×2 (05:50→10:44)
[2018-02-20 09:22] VITALS: BP 145/80; PULSE 90; TEMP 97.7
--- NOTE | 2018-02-20 09:50 | DS ---
[facility] Detox Discharge Summary Admission Date: 02/16/18 Discharge Date: 02/20/18 - History Present History: Alcohol Dependence Additional Comments: 57 years old male admitted on02/16/18 for alcohol withdrawal sx completed alcohol detox regimen tolerated well denies alcohol withdrawal sx alert oriented x 3 no acute distress aftercare [facility] - Physical Exam Results Vital Signs: Vital Signs Temperature 97.7 F 02/20/18 09:21 Pulse Rate 90 02/20/18 09:21 Respiratory Rate 18 02/20/18 09:21 Blood Pressure 145/80 02/20/18 09:21 O2 Sat by Pulse Oximetry (%) Pertinent Admission Physical Exam Findings: alcohol withdrawal sx Vital Signs Temperature 97.7 F 02/20/18 09:21 Pulse Rate 90 02/20/18 09:21 Respiratory Rate 18 02/20/18 09:21 Blood Pressure 145/80 02/20/18 09:21 O2 Sat by Pulse Oximetry (%) Laboratory Last Values WBC 6.2 K/mm3 (4.0-10.0) 02/17/18 06:00 RBC 5.45 M/mm3 (4.00-5.60) 02/17/18 06:00 Hgb 14.1 GM/dL (11.7-16.9) 02/17/18 06:00 Hct 44.0 % (35.4-49) 02/17/18 06:00 MCV 80.8 fl (80-96) 02/17/18 06:00 MCH 25.9 pg (25.7-33.7) 02/17/18 06:00 MCHC 32.1 g/dl (32.0-35.9) 02/17/18 06:00 RDW 15.5 % (11.9-15.9) 02/17/18 06:00 Plt Count 205 K/MM3 (134-434) 02/17/18 06:00 MPV 9.9 fl (7.5-11.1) 02/17/18 06:00 Sodium 146 mmol/L (136-145) H 02/17/18 06:00 Potassium 4.7 mmol/L (3.5-5.1) 02/17/18 06:00 Chloride 110 mmol/L (98-107) H 02/17/18 06:00 Carbon Dioxide 26 mmol/L (21-32) 02/17/18 06:00 Anion Gap 10 MMOL/L (8-16) 02/17/18 06:00 BUN 18 mg/dL (7-18) 02/17/18 06:00 Creatinine 1.3 mg/dL (0.55-1.3) 02/17/18 06:00 Creat Clearance w eGFR 57.10 (>60) 02/17/18 06:00 POC Glucometer 210 UNITS (80-120) 02/20/18 05:54 Random Glucose 72 mg/dL (74-106) L 02/17/18 06:00 Calcium 9.7 mg/dL (8.5-10.1) 02/17/18 06:00 Total Bilirubin 0.4 mg/dL (0.2-1) 02/17/18 06:00 AST 47 U/L (15-37) H 02/17/18 06:00 ALT 69 U/L (13-61) H 02/17/18 06:00 Alkaline Phosphatase 86 U/L (45-117) 02/17/18 06:00 Total Protein 7.8 g/dl (6.4-8.2) 02/17/18 06:00 Albumin 3.8 g/dl (3.4-5.0) 02/17/18 06:00 Urine Color Yellow 02/17/18 16:30 Urine Appearance Cloudy 02/17/18 16:30 Urine pH 6.0 (5.0-8.0) 02/17/18 16:30 Ur Specific [place] 1.026 (1.010-1.035) 02/17/18 16:30 Urine Protein Negative (NEGATIVE) 02/17/18 16:30 Urine Glucose (UA) Negative (NEGATIVE) 02/17/18 16:30 Urine Ketones Negative (NEGATIVE) 02/17/18 16:30 Urine Blood Negative (NEGATIVE) 02/17/18 16:30 Urine Nitrite Negative (NEGATIVE) 02/17/18 16:30 Urine Bilirubin Negative (<2.0 mg/dL) 02/17/18 16:30 Urine Urobilinogen 4.0 e.u/dl mg/dL (0.2-1.0) 02/17/18 16:30 Ur Leukocyte Esterase Negative (NEGATIVE) 02/17/18 16:30 RPR Titer Nonreactive (NONREACTIVE) 02/17/18 06:00 lab noted - Treatment Hospital Course: Detox Protocol Followed, Detoxed Safely, Responded well, Discharged Condition Good, Rehab Referral Accepted Patient has Accepted a Rehab Referral to: [facility] - Medication Discharge Medications: Ambulatory Orders Aspirin Coated [Ecotrin -] 81 mg PO DAILY #30 tablet.ec 05/25/17 Amlodipine Besylate [Norvasc -] 10 mg PO DAILY #30 tablet MDD 1 02/19/18 Metoprolol Tartrate [Lopressor -] 25 mg PO DAILY #30 tablet 02/19/18 Simvastatin [Zocor -] 20 mg PO HS #30 tablet 02/19/18 - Diagnosis (1) Alcohol dependence with withdrawal Status: Acute Qualifiers: Complication of substance-induced condition: uncomplicated Qualified Code(s ): F10.230 - Alcohol dependence with withdrawal, uncomplicated (2) Diabetes mellitus type 2 in nonobese Status: Chronic (3) Hypercholesterolemia Status: Chronic (4) PPD positive Status: Resolved (5) Essential hypertension Status: Chronic (6) Schizoaffective disorder Status: Suspected Qualifiers: Schizoaffective disorder type: unspecified Qualified Code(s): F25.9 - Schizoaffective disorder, unspecified - AMA Did Patient Leave Against Medical Advice: No
[2018-02-20] MEDS: amLODIPine BESYLATE 10 MG TABLET (FP) PO SCH (10:43)
[2018-02-20] MEDS: ASPIRIN COATED 81 MG TABLET.EC PO SCH (10:43)
[2018-02-20] MEDS: METOPROLOL TARTRATE 25 MG TABLET (FP) PO SCH (10:43)
[2018-02-20] MEDS: PRENATAL VITAMINS W/ FOLIC ACID TABLET (FP) PO SCH (10:44)
[2018-02-20] MEDS: NICOTINE 14 MG/24 HOURS TOPICAL PATCH TD SCH (10:44)
== END 2018-02-20 10:45 | disposition home or self-care (01) | DRG 774 ==
LOC: YASAS 12:09 → Y6N 15:35
PROC: HZ2ZZZZ Detoxification Services for Substance Abuse Treatment (ICD-10-PCS; principal; 2018-02-16)
DX: F10.230 Alcohol dependence with withdrawal, uncomplicated (principal); F14.20 Cocaine dependence, uncomplicated; F25.9 Schizoaffective disorder, unspecified; F19.24 Other psychoactive substance dependence with psychoactive substance-induced mood disorder; I10 Essential (primary) hypertension; E11.9 Type 2 diabetes mellitus without complications; E78.00 Pure hypercholesterolemia, unspecified; R76.11 Nonspecific reaction to tuberculin skin test without active tuberculosis
CPT/HCPCS: 36415; 80053; 81003; 82962; 85027; 86593; 90688; 93005; 93010; G0008

== ENCOUNTER 2020-02-07 08:33 | Inpatient (IN) | payer OTHER ==
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
--- OUTSIDE RECORDS SUMMARY | 2020-02-07 08:55 | XMS ---
:1960 Author Organization [facility] Care Team Providers Name Role Phone AGUSTINA MARR PATRICIA Unavailable AGUSTINA MARR PATRICIA Unavailable Zofia Gutiérrez Unavailable Nico Olea Unavailable Unavailable OYEKOLA LUMBER MATERIAL HANDLER, MOBOLAJI Unavailable OYEKOLA LUMBER MATERIAL HANDLER, MOBOLAJI Unavailable OYEKOLA LUMBER MATERIAL HANDLER, MOBOLAJI Unavailable OYEKOLA LUMBER MATERIAL HANDLER, MOBOLAJI Unavailable AGYEPONG LUMBER MATERIAL HANDLER, ISAIAS Unavailable AGYEPONG LUMBER MATERIAL HANDLER, ISAIAS Unavailable ALFREDO CRANE Unavailable Unavailable RUMA JACKSON Unavailable Unavailable NIA FLOWER Unavailable Unavailable [id number], [id number] Unavailable Unavailable ED STAFF PHYSICIAN Unavailable Unavailable SCOTT DEAN MD Unavailable SCOTT DEAN MD Unavailable GEORGE HU HABIB Unavailable Unavailable JOHNNIE CALLOWAY Unavailable Unavailable FARZANEH ADHIKARI MD Unavailable Unavailable HHCCC Unavailable Unavailable WENDY Unavailable Unavailable OKA Unavailable Unavailable MD VANESSA Unavailable ED STAFF PHYSICIAN Unavailable Unavailable SHELBYYVES MARRERO Unavailable Unavailable ALPESH CEJA, A Unavailable ALPESH CEJA, A Unavailable ALPESH CEJA, A Unavailable ALPESH CEJA, A Unavailable ALPESH ECJA, A Unavailable ALPESH CEJA, A Unavailable ALPESH CEJA, A Unavailable ALPESH CEJA, A Unavailable ALPESH CEJA, A Unavailable ALPESH CEJA, A Unavailable ALPESH CEJA, A Unavailable ALPESH CEJA, A Unavailable ALPESH CEJA, A Unavailable ALPESH CEJA, A Unavailable Other Unavailable Unavailable Hu Unavailable Unavailable SABILLON Unavailable Unavailable RUFINO CEJA Unavailable RUFINO CEJA Unavailable RUFINO CEJA Unavailable RUFINO CEJA Unavailable RUFINO CEJA Unavailable OMID CEJA Unavailable MD MANUEL Unavailable Unavailable MD MANUEL Unavailable Unavailable MD MANUEL Unavailable Unavailable MD MANUEL Unavailable Unavailable MD MANUEL Unavailable Unavailable MD MANUEL Unavailable Unavailable MD MANUEL Unavailable Unavailable MD MANUEL Unavailable Unavailable MD MANUEL Unavailable Unavailable MD MANUEL Unavailable Unavailable CARLOS EDUARDO UPTON Unavailable Unavailable Ahmet Unavailable Ahmet Unavailable Parveen Unavailable Unavailable ROSE CEJA Unavailable EMERGENCY SERVICE, X Unavailable Unavailable Shelby CEJA Unavailable Unavailable ZUNASSIGNED Unavailable Unavailable MALVIN TECH Unavailable ED STAFF PHYSICIAN Unavailable Unavailable Re-disclosure Warning The records that you are about to access may contain information from federally- assisted alcohol or drug abuse programs. If such information is present, then the following federally mandated warning applies: This information has been disclosed to you from records protected by federal confidentiality rules (42 CFR part 2). The federal rules prohibit you from making any further disclosure of this information unless further disclosure is expressly permitted by the written consent of the person to whom it pertains or as otherwise permitted by 42 CFR part 2. A general authorization for the release of medical or other information is NOT sufficient for this purpose. The Federal rules restrict any use of the information to criminally investigate or prosecute any alcohol or drug abuse patient.The records that you are about to access may contain highly sensitive health information, the redisclosure of which is protected by Article 27-F of the [facility] Public Health law. If you continue you may haveaccess to information: Regarding HIV / AIDS; Provided by facilities licensed or operated by the [facility] Office of Mental Health; or Provided by the [facility] Office for People With Developmental Disabilities. If such information is present, then the following [facility] mandated warning applies: This information has been disclosed to you from confidential records which are protected by state law. State law prohibits you from making any further disclosure of this information without the specific written consent of the person to whom it pertains, or as otherwise permitted by law. Any unauthorized further disclosure in violation of state law may result in a fine or longterm sentence or both. A general authorization for the release of medical or other information is NOT sufficient authorization for further disclosure. Allergies and Adverse Reactions Type Description Substance Reaction Status Data Source(s ) Allergy to No Known Allergies No known GREENW AY ([facility] substance allergies [facility] ) Allergy to No Known Allergies No known GREENW AY ([facility] substance allergies [facility] ) Drug allergy No Known Drug No Known Drug [facility] Allergies Allergies [facility] Allergy to No Known Allergies No known GREENW AY ([facility] substance allergies [facility] ) Allergy to No Known Allergies No known GREENW AY ([facility] substance allergies [facility] ) Allergy to No Known Allergies No known GREENW AY ([facility] substance allergies [facility] ) Allergy to No Known Allergies No known GREENW AY ([facility] substance allergies [facility] ) Allergy to No Known Allergies No known GREENW AY ([facility] substance allergies [facility] ) Allergy to No Known Allergies No known GREENW AY ([facility] substance allergies [facility] ) Allergy to No Known Allergies No known GREENW AY ([facility] substance allergies [facility] ) Allergy to No Known Allergies No known GREENW AY ([facility] substance allergies [facility] ) Allergy to No Known Allergies No known GREENW AY ([facility] substance allergies [facility] ) Allergy to No Known Allergies No known GREENW AY ([facility] substance allergies [facility] ) Allergy to No Known Allergies No known GREENW AY ([facility] substance allergies [facility] ) Allergy to No Known Allergies No known GREENW AY ([facility] substance allergies [facility] ) Allergy to No Known Allergies No known GREENW AY ([facility] substance allergies [facility] ) Allergy to No Known Allergies No known GREENW AY ([facility] substance allergies [facility] ) Encounters Encounter Providers Location Date Indications Data Source(s ) Emergency Attender: ED STAFF H 02/06/2020 [facility] PHYSICIANAttender: 08:21:00 PM Medic al Center STAFF ED STAFF EDT - PHYSICIANAdmitter: ED 02/07/2020 STAFF 04:18:00 AM PHYSICIANReferrer: EDT ZUNASSIGNED Patient discharged. Outpatient Attender: DONNELL RYAN H 01/29/2020 Jeffrey sarkar [facility] OMAIRAABAdmitter: DONNELL 12:00:00 PM EDT [facility] Center SHELBY MARRERO Attender: Donnell Ryan Positive 01/29/2020 JADE MCELROY ([facility] Directions 12:00:00 PM EDT [facility] 01/29/2020 Medical 12:00:00 PM EDT Center) Emergency Attender: ED STAFF H 12/23/2019 [facility] PHYSICIANAttender: 03:21:00 AM EDT - [facility] Center STAFF ED STAFF 12/23/2019 PHYSICIANAdmitter: ED 06:24:00 AM EDT STAFF PHYSICIAN Patient discharged. Outpatient Attender: SAVANNARClinton [facility] 12/15/2019 11:31:40 AM GSI ([facility] EDT Collaborative) Patient admitted. Emergency Attender: Zhane 5T-EMERG 12/11/2019 INTOX, LAC TO [facility] - [facility] HuAttender: Doctor 09:02:00 PM EDT - RT EYE BRO W [facility] Other 12/12/2019 12:32:00 AM EDT INTOX, LAC TO RT EYE BROW Patient discharged. Emergency Attender: 5T-EMERG 11/16/2019 04:33:00 SORES ON A IVIS S - [facility] Admission cancelled. Disregard status an d admitted date. Emergency Attender: Quique 5T-EMERG 11/16/2019 WOUND CHECK MHS - M ount LathanAttender: Doctor 02:01:00 PM EDT - [facility] Other 11/16/2019 03:35:00 PM EDT WOUND CHECK Patient discharged. Emergency Attender: Nico 5T-EMERG 11/15/2019 SUBSTANCE MHS - M ount RuvoAttender: Doctor 04:14:00 PM EDT - ABUSE, A BRASION [place] Other 11/15/2019 TO [facility] 08:14:00 PM EDT SUBSTANCE ABUSE, ABRASION TO [facility] Patient discharged. Outpatient Attender: REY [facility] 11/13/2019 04:37:57 PM GSI ([facility] EDT Collaborative) Patient admitted. Outpatient<td Attender: Marin 11/06/2019 OverweightHypertension RENSSELAER ID="encounterTypeDescriptionID0">OFFICE [place] [id number] 9:30:00 AM (systemic) ([place] VISIT</td><td>[facility]</td><td>[facility] EDT - [facility] LUMBER MATERIAL HANDLER Center 11/06/2019 Health Center</td><td>11/06/2019</td><td><content 10:3 9:56 AM Center) ID="encounterDiagnosisID0-0">Overweight</content>, EDT <content ID="encounterDiagnosisID0-1">Hypertension (systemic)</content></td> Overweight Hypertension (systemic) Outpatient Attender: 10/25/2019 [place] ROYCE, 06:00:00 AM EDT [facility] BETHAttender: Amisha UPTON Miquel CARLOS EDUARDO SeveroTorreyAdmitter: ALFREDO CRANE Outpatient Attender: CHING 10/21/[address] [facility] NEALAttender: MAYTE, 05:43:00 AM EDT [facility] HABIBAdmitter: [facility] GEORGE HU HABIB PALPITATION CHEST PAINS Emergency Attender: GEORGE HU 10/20/2019 10:35:[address] [facility] HABIBAttender: PM EDT Health Car e EMERGENCY SERVICE, Corpor ation XAdmitter: GEORGE HU HABIB PALPITATION Outpatient<td Attender: Marin 10/11/2019 Diabetes RENSSELAER ID="encounterTypeDescriptionID1">WALKINS</td><td>[facility] 02:45:00 PM MellitusDiabetes ([facility]</td><td>[facility] EDT - MellitusHypertension [facility]</td><td>10/11/2019</td><td><content LUMBER MATERIAL HANDLER Center 10/11/2019 (systemic)Hypertension Health ID="encounterDiagnosisID1-0">Hypertension 03:48 :52 PM (systemic) Center) (systemic)</content>, <content EDT ID="encounterDiagnosisID1-1">Diabetes Mellitus</content></td> Diabetes Mellitus Diabetes Mellitus Hypertension (systemic) Hypertension (systemic) Unlisted 09/03/2019 NETSMART (Ment al evaluation and 11:00:00 PM EDT - [facility] management 09/07/2019 [facility] ) service 08:00:00 PM EDT Outpatient<td Attender: Marin 08/13/2019 JOEY Gamez ount ID="encounterType [facility] 04:58:00 PM EDT [facility] DescriptionID2">* [facility] Center 08/13/2019 Neighb orhood Phone*</td><td>[place] 11:59:00 PM EDT [facility] Center) [facility] LUMBER MATERIAL HAND[facility]ER</td><td>[facility]</td><td></td><td> </td> Outpatient Attender: CNR9 08/03/2019 GSI (Tara rocha [facility] 06:24:07 AM EDT [facility]) Patient admitted. Outpatient Attender: CARLOS EDUARDO UPTON 07/19/2019 03:48:[address] [facility] AzaleaAdmitter: MANOJ UPTON [facility] CARLOS EDUARDO CORBETT Outpatient Attender: BRODIE 07/19/2019 01:45:[address] [facility] MARYAAttender: MANOJ UPTON [facility] CARLOS EDUARDO TristanAdmitter: Barrett CALLOWAY [facility] JOHNNIE CORBETT Outpatient<td Attender: Marin 06/21/2019 JOEY ID="encounterTypeDescriptionID3">*[facility] 09:59:00 A M ([place] Show*</td><td>[facility] EST - Neighborhood RD</td><td>[facility] 06/21/2019 Health Center</td><td>06/21/2019</td><td></td> 11:59:0 0 PM Center) EST Outpatient<td Attender: Marin 06/05/2019 O JOEY ID="encounterTypeDescriptionID4">OFFICE [facility] 03:00:0 0 PM b (Fabio Barrow VISIT</td><td>[facility] EST - e Neighborhood LUMBER MATERIAL HANDLER</td><td>[facility] Center 06/05/2019 Health Center</td><td>06/05/2019</td><td><rich 02:41: 07 PM i Center) nt EST t ID="encounterDiagnosisID4-0">Hypertensio y n (systemic)</content>, <content O ID="encounterDiagnosisID4-1">Obesity</co b ntent>, <content e ID="encounterDiagnosisID4-2">Hyperlipide s darren</content></td> i t y O b e s i t y O b e s i t y H y p e r l i p i d e m i a H y p e r l i p i d e m i a H y p e r l i p i d e m i a H y p e r l i p i d e m i a H y p e r t e n s i o n ( s y s t e m i c ) H y p e r t e n s i o n ( s y s t e m i c ) H y p e r t e n s i o n ( s y s t e m i c ) H y p e r t e n s i o n ( s y s t e m i c ) Obesity Obesity Obesity Obesity Hyperlipidemia Hyperlipidemia Hyperlipidemia Hyperlipidemia Hypertension (systemic) Hypertension (systemic) Hypertension (systemic) Hypertension (systemic) Unlisted evaluation 05/31/2019 06:00:00 NETSMART (Mental Health and management PM EST [facility]) Outpatient Attender: CNR9 05/25/2019 03:13:05 G SI ([facility] PM EST Care Collabora tive) Patient admitted. Outpatient<td Attender: Marin 04/26/2019 JOEY ID="encounterTypeDescriptionID5">PATIENT [facility] 01:14: 00 PM (Fabio Barrow [facility]</td><td>[facility]</td><td>[facility] 2018 Health Center</td><td>04/26/2019</td><td></td> 11:59:0 0 PM Center) EST Outpatient<td Attender: Marin 04/26/2019 O JOEY ID="encounterTypeDescriptionID6">[facility] 11[facility] AM b (Fabio Barrow /td><td>[facility] EST - e [facility]</td><td>[facility] LUMBER MATERIAL HANDLER Center 04/26/2019 s Health Center</td><td>04/26/2019</td><td><conten 11:06 :15 AM i Center) t ID="encounterDiagnosisID6-0">Elevated EST t Liver Enzymes</content>, <content y ID="encounterDiagnosisID6-1">Obesity</con E tent></td> l e v a t e d L i v e r E n z y m e s O b e s i t y E l e v a t e d L i v e r E n z y m e s O b e s i t y E l e v a t e d L i v e r E n z y m e s O b e s i t y E l e v a t e d L i v e r E n z y m e s O b e s i t y E l e v a t e d L i v e r E n z y m e s O b e s i t y E l e v a t e d L i v e r E n z y m e s Obesity Elevated Liver Enzymes Obesity Elevated Liver Enzymes Obesity Elevated Liver Enzymes Obesity Elevated Liver Enzymes Obesity Elevated Liver Enzymes Obesity Elevated Liver Enzymes Outpatient<td Attender: 04/25/2019 JOEY ID="encounterTypeDescriptionID7">*OUTREACH*</td><td>ISAIAS ESPARZA 08:45:00 AM ([facility]</td><td> [facility] </td><td>04/25/2019</td><td></td> LUMBER MATERIAL HANDLER 04/25/2019 Health 11:59:00 PM Center) EST Outpatient<td Attender: Y 04/19/2019 O JOEY ID="encounterTypeDescriptionID8">WALKINS</td><td>ISAIAS lynn 12:45:00 PM [facility]</td><td>[facility] - e [facility]</td><td>04/19/2019</td><td><content LUMBER MATERIAL HANDLER k /0 09/2018 s Health ID="encounterDiagnosisID8-0">Elevated Liver e 01: 48:05 PM i [place]) Enzymes</content>, <content r EST t ID="encounterDiagnosisID8-1">Diabetes Mellitus Type s y 2</content>, <content C E ID="encounterDiagnosisID8-2">Obesity</content></td> o l m e m v u a n t i e t d y L H i e v a e l r t E h n C z e y n m t e e s r O b e s i t y E l e v a t e d L i v e r E n z y m e s O b e s i t y E l e v a t e d L i v e r E n z y m e s O b e s i t y E l e v a t e d L i v e r E n z y m e s O b e s i t y E l e v a t e d L i v e r E n z y m e s O b e s i t y E l e v a t e d L i v e r E n z y m e s O b e s i t y E l e v a t e d L i v e r E n z y m e s O b e s i t y E l e v a t e d L i v e r E n z y m e s O b e s i t y E l e v a t e d L i v e r E n z y m e s D i a b e t e s M e l l i t u s T y p e 2 D i a b e t e s M e l l i t u s T y p e 2 D i a b e t e s M e l l i t u s T y p e 2 D i a b e t e s M e l l i t u s T y p e 2 D i a b e t e s M e l l i t u s T y p e 2 D i a b e t e s M e l l i t u s T y p e 2 D i a b e t e s M e l l i t u s T y p e 2 D i a b e t e s M e l l i t u s T y p e 2 D i a b e t e s M e l l i t u s T y p e 2 Obesity Elevated Liver Enzymes Obesity Elevated Liver Enzymes Obesity Elevated Liver Enzymes Obesity Elevated Liver Enzymes Obesity Elevated Liver Enzymes Obesity Elevated Liver Enzymes Obesity Elevated Liver Enzymes Obesity Elevated Liver Enzymes Obesity Elevated Liver Enzymes Diabetes Mellitus Type 2 Diabetes Mellitus Type 2 Diabetes Mellitus Type 2 Diabetes Mellitus Type 2 Diabetes Mellitus Type 2 Diabetes Mellitus Type 2 Diabetes Mellitus Type 2 Diabetes Mellitus Type 2 Diabetes Mellitus Type 2 Outpatient<td Attender: Marin 04/19/2019 RENSSELAER ID="encounterTypeDescriptionID9">OFFICE [facility] 12:00:0 0 PM ([place] VISIT</td><td>[facility] EST - Neighborhood RD</td><td>[facility] 04/19/2019 Health Center</td><td>04/19/2019</td><td></td> 03:05:0 5 PM Center) EST Outpatient<td Attender: Marin 03/08/2019 RENSSELAER ID="[id number]">OFFICE [facility] 03:30: 00 PM ([place] VISIT</td><td>JAQUI JOY MD Health EDT - Neighborhood MD</td><td>[facility] 03/08/2019 Health Center</td><td>03/08/2019</td><td></td> 02:59:4 5 PM Center) EDT Outpatient Attender: 03/08/2019 [place] RENETTA, 03:24:00 PM [facility] EDT Care tter: [facility] RENETTA [facility] Outpatient 02/19/2019 GSI 12:26:07 PM ([facility] EDT Health Care Collaborative ) Patient admitted. Outpatient Attender: FARZANEH ROD 02/12/2019 09:46:00 [facility] MENDEZdmitter: KINZA RAE AM EDT - 05/03/2019 [facility] 01:27:00 PM EST Patient discharged. Attender: 02/12/2019 [place] [id number] 09:46:00 AM [id number] Outpatient<td Attender: KOSTAS [facility] [place] 02/08/2019 JOEY ID="encounter Community 12:00:00 PM ([facility] onID11">NUTRI Center 02/08/2019 [facility]) TION INITIAL 01:01:17 PM VISIT</td><td EDT >KOSTAS PARRAUJA </td><td>[facility]</td><t d>02/08/2019< /td><td></td> Outpatient<td Attender: ALEJANDRINA CORRAL [place] 02/07/2019 RENSSELAER ID="encounter Community 05:32:00 PM ([facility] EDT - [facility] onID12">*OUTR Center 02/07/2019 [facility]) EACH*</td><td 11:59:00 PM >ALEJANDRINA CORRAL</td><td>Y [facility]</td><t d>02/07/2019< /td><td></td> Outpatient Attender: FARZANEH ROD 02/06/2019 Jeffrey JAMISONZOSAdmitter: RICHARD SABILLON 08:44:00 AM Hospital EDT - 02/09/2019 09:49:00 AM EDT Patient discharged. Attender: 02/06/2019 [facility] [id number] 08:44:00 AM [place] [id number] EDT Hospital Outpatient Attender: BUDDY Ray 02/01/2019 RENSSELAER <td MD Homeless 08:30:00 AM ([place] ID="encoun Accessment EDT - [facility] 02/01/2019 Health criptionID 11:59:00 PM Center) 13">OFFICE EDT VISIT</td> <td>REJI BETTS MD</td><td >Single Homeless Accessment Center</td ><td>02/01</td> <td></td> Outpatient Attender: BUDDY Ray 01/30/2019 JOEY <td MD Homeless 08:45:00 AM (Fabio Barrow ID="encoun Accessment EDT - [facility] 01/30/2019 Health criptionID 11:59:00 PM Center) 14">OFFICE EDT VISIT</td> <td>REJI BETTS MD</td><td >[facility]</td ><td>01/30</td> <td></td> Outpatient Attender: ALEJANDRINA AYALA LUMBER MATERIAL HANDLER [place] 01/29/2019 Obesi tyObe RENSSELAER <td Community 12:00:00 PM sityObesit (Fabio Barrow [facility] - [facility] 01/29/2019 [facility] criptionID 11:52:20 AM [facility]) 15">OFFICE EDT besityObes VISIT</td> ityHyperli <td>DAQUAN AYALA sityHyperl LUMBER MATERIAL HANDLER</td><t ipidemiaOb d>[facility] Health (systemic) [place]</td Hyperlipid ><td>01/29 emiaObesi</td> yHypertens <td><rich ion nt (systemic) ID="encoun Hyperlipid terDiagnos emiaObesit [id number]"> yHypertens Hypertensi ion on (systemic) (systemic) Hyperlipid </content> emiaHyperl , <content ipidemiaHy ID="encoun perlipidem terDiagnos iaHyperlip [id number]"> idemiaHype Obesity</c rlipidemia ontent>, Hyperlipid <content emiaHyperl ID="encoun ipidemiaHy terDiagnos perlipidem [id number]"> iaHyperlip Hyperlipid idemiaHype emia</cont rtension ent></td> (systemic) Hypertensi on (systemic) Hypertensi on (systemic) Hypertensi on (systemic) Hypertensi on (systemic) Hypertensi on (systemic) Hypertensi on (systemic) Hypertensi on (systemic) Hypertensi on (systemic) Hypertensi on (systemic) Obesity Obesity Obesity Obesity Obesity Obesity Obesity Obesity Obesity Hyperlipidemia Obesity Hyperlipidemia Obesity Hypertension (systemic) Hyperlipidemia Obesity Hypertension (systemic) Hyperlipidemia Obesity Hypertension (systemic) Hyperlipidemia Hyperlipidemia Hyperlipidemia Hyperlipidemia Hyperlipidemia Hyperlipidemia Hyperlipidemia Hyperlipidemia Hyperlipidemia Hypertension (systemic) Hypertension (systemic) Hypertension (systemic) Hypertension (systemic) Hypertension (systemic) Hypertension (systemic) Hypertension (systemic) Hypertension (systemic) Hypertension (systemic) Hypertension (systemic) Outpatient<td Attender: Marin 01/29/2019 JOEY ID="[id number]">EKG</td><td>[facility] 11:30:00 AM (Fabio DEAN MD</td><td>[facility] JERMAINE [facility]</td><td>01/29/2019</td><td></td> Center [address] [place] [address] 12:33:31 PM Center) EDT Unlisted evaluation and management service 01/14 NETSMART 06:00:00 PM (Mental EDT - Health 04/17/2019 Association 05:30:00 PM of [facility]) Outpatient 11/23/2018 [facility] 04:14:36 PM (Community EDT Health [facility] ) Outpatient<td Attender: Marin 07/06/2018 RENSSELAER ID="[id number]">[facility] 01:00: 00 PM (Fabio Barrow VISIT</td><td>[facility]td><td[facility] 07/[facility] Health Center</td><td>07/06/2018</td><td></td> 02:51:0 4 PM Center) EST Outpatient Attender: H 05/17/2018 [facility] MARRERO 12:00:00 PM Medical [facility] Zaira ter: DONNELL RYAN DONNELL Attender: 05/17/2018 [facility] Donnell 12:00:00 PM ([facility] [place] CEJA [facility] 05/17/2018 Medical 12:00:00 PM Center) EST Outpatient<td Attender: Marin 05/08/2018 RENSSELAER ID="[id number]">PATIENT Zofia [facility] 04:38 :00 PM ([place] ADVOCACY</td><td>Zofia Gutiérrez</td><td>[facility] 05/08/2018 Health Center</td><td>05/08/2018</td><td></td> 11:59:0 0 PM Center) EST Outpatient<td Attender: Marin 05/05/2018 O RENSSELAER ID="[id number]">OFFICE [facility] 02:30: 00 PM b ([place] VISIT</td><td>[facility] LUMBER MATERIAL HANDLER</td><td>[facility] EST [facility] Center 05/05/2018 Health Center</td><td>05/05/2018</td><td><content 02:0 2:07 PM i Center) ID="[id number]">Hypertension EST t (systemic)</content>, <content y ID="[id number]">Obesity</content></td> O b e s i t y O b e s i t y O b e s i t y O b e s i t y O b e s i t y O b e s i t y O b e s i t y O b e s i t y O b e s i t y O b e s i t y H y p e r t e n s i o n ( s y s t e m i c ) O b e s i t y H y p e r t e n s i o n ( s y s t e m i c ) O b e s i t y H y p e r t e n s i o n ( s y s t e m i c ) O b e s i t y H y p e r t e n s i o n ( s y s t e m i c ) O b e s i t y H y p e r t e n s i o n ( s y s t e m i c ) O b e s i t y H y p e r t e n s i o n ( s y s t e m i c ) H y p e r t e n s i o n ( s y s t e m i c ) H y p e r t e n s i o n ( s y s t e m i c ) H y p e r t e n s i o n ( s y s t e m i c ) H y p e r t e n s i o n ( s y s t e m i c ) H y p e r t e n s i o n ( s y s t e m i c ) H y p e r t e n s i o n ( s y s t e m i c ) H y p e r t e n s i o n ( s y s t e m i c ) H y p e r t e n s i o n ( s y s t e m i c ) H y p e r t e n s i o n ( s y s t e m i c ) H y p e r t e n s i o n ( s y s t e m i c ) Obesity Obesity Obesity Obesity Obesity Obesity Obesity Obesity Obesity Obesity Obesity Hypertension (systemic) Obesity Hypertension (systemic) Obesity Hypertension (systemic) Obesity Hypertension (systemic) Obesity Hypertension (systemic) Obesity Hypertension (systemic) Hypertension (systemic) Hypertension (systemic) Hypertension (systemic) Hypertension (systemic) Hypertension (systemic) Hypertension (systemic) Hypertension (systemic) Hypertension (systemic) Hypertension (systemic) Hypertension (systemic) Outpatient<td Attender: [place] 05/05/2018 RENSSELAER ID="[id number]">EKG</td><td>[facility] 02:00:00 PM (Fabio DEAN MD</td><td>[facility] JERMAINE CEJA Health EST - [facility]</td><td>05/05/2018</td><td></td> Center [address] [place] [address] 11:59:00 PM Center) EST Attender: 02/20/2018 [place] [id number] 04:14:00 PM Devante [id number] [facility] .[phone] [id number] Attender: 02/20/2018 [place] [id number] 12:17:00 PM Devante [id number] EDT [facility] .[phone] [id number] Outpatient<td Attender: Single 08/18/2016 JOEY ID="[id number]">OFFICE [facility] Homeless 08:30: 00 AM ([place] VISIT</td><td>[facility] RONNELL BETTS Accessment EDT - Neighborhood MD</td><td>Single Homeless Accessment [facility]</td><td>08/18/2016</td><td></td> 11:59:0 0 PM Center) EDT Outpatient<td Attender: Single 08/16/2016 JOEY ID="[id number]">OFFICE [facility] Homeless 09:00: 00 AM ([place] VISIT</td><td>[facility] RONNELL BETTS Accessment EDT - Neighborhood MD</td><td>Single Homeless Accessment [facility]</td><td>08/16/2016</td><td></td> 11:59:0 0 PM Center) EDT Outpatient<td Attender: Single 04/23/2014 RENSSELAER ID="[id number]">Follow [facility] Homeless 09:30: 00 AM ([place] Up</td><td>[facility] RONNELL BETTS MD</td><td>Single BOB BETTS Access ment EST - Neighborhood Homeless Accessment [facility] 04/23/2014 [facility]</td><td>04/23/2014</td><td></td> 11:59:0 0 PM Center) EST Outpatient<td Attender: Single 04/18/2014 RENSSELAER ID="[id number]">INITIAL [facility] Homeless 09:15 :00 AM ([place] VISIT</td><td>[facility] RONNELL BETTS Accessment EST - Neighborhood MD</td><td>Single Homeless Accessment [facility]</td><td>04/18/2014</td><td></td> 11:59:0 0 PM Center) EST Outpatient<td Attender: [facility] 10/04/2011 JOEY ID="[id number]">WALKINS</td><td>AUGUSTIN Urbanomaritza Brushn on 10:30:00 AM ([place], LUMBER MATERIAL HANDLER</td><td>[facility] EDT - [facility]</td><td>10/04/2011</td><td></td> od Health 10/04/2011 Health Center 11:59:00 PM Center) EDT Outpatient<td Attender: [facility] 10/04/2011 JOEY ID="[id number]">NUTRITION</td><td>S KOSTAS [place] 10:19:00 AM ([place] [address]SA[address]GU[address]</td><[facility]</td><td>10/04/2011</td><td></td> od Health 10/04/2011 Health Center 11:59:00 PM Center) EDT Outpatient<td Attender: [facility] 09/06/2011 JOEY ID="[id number]">NUTRITION INITIAL KOSTAS Ve rnon 11:30:00 AM ([place] VISIT</td><td>KOSTAS NGUYEN RD</td><td>[facility]arik Sanchez [facility] 09/06/2011 Healt h Center</td><td>09/06/2011</td><td></td> Center 11:59:0 0 PM Center) EDT Outpatient<td Attender: [facility] 09/06/2011 JOEY ID="[id number]">OFFICE ANUSHKA [place] 08:49: 00 AM ([place] VISIT</td><td>ANUSHKA ANNE MD</td><td>Fabio Cornejo [facility] 09/06/2011 Healt h Center</td><td>09/06/2011</td><td></td> Center 11:59:0 0 PM Center) EDT Outpatient<td Attender: [facility] 08/30/2011 JOEY ID="[id number]">OFFICE PIERCE [place] 04:35: 00 PM ([place] VISIT</td><td>PIERCE MENDEZ MD</td><td>Yohannes Gordon EDT - [facility] 08/30/2011 Health Center</td><td>08/30/2011</td><td></td> Center 11:59:0 0 PM Center) EDT Outpatient<td Attender: [facility] 08/16/2011 JOEY ID="[id number]">REGULAR BRIE [place] 12:55 :00 PM ([place] XRAY</td><td>BRIE ROSE MD</td><td>Fabio ROSE MD [facility] EDT [facility] 08/16/2011 Healt h Center</td><td>08/16/2011</td><td></td> Center 11:59:0 0 PM Center) EDT Outpatient<td Attender: [facility] 08/09/2011 JOEY ID="[id number]">REGULAR BRIE [place] 12:40 :00 PM ([place] XRAY</td><td>BRIE ROSE MD</td><td>Fabio ROSE MD [facility] EDT - [facility] 08/09/2011 Healt h Center</td><td>08/09/2011</td><td></td> Center 11:59:0 0 PM Center) EDT Outpatient<td Attender: [facility] 08/09/2011 JOEY ID="[id number]">OFFICE PIERCE [place] 12:40: 00 PM ([place] VISIT</td><td>PIERCE MENDEZ MD</td><td>Yohannes Gordon EDT - [facility] 08/09/2011 Health Center</td><td>08/09/2011</td><td></td> Center 11:59:0 0 PM Center) EDT Outpatient<td Attender: [facility] 08/09/2011 JOEY ID="[id number]">EKG</td><td>CHANDANA [place] 10:24:00 AM ([facility]</td><td>[facility] EDT - [facility]</td><td>08/09/2011</td><td></td> TECH [facility] [address] [place] [address] Center 11:59:00 PM Center) EDT Outpatient<td Attender: [facility] 08/05/2011 [facility] ID="[id number]">WALKINS</td><td>MALCOLM [place] 10:30:00 AM e ([place] MARJ JACKSON MD</td><td>[facility] EDT - t [facility]</td><td>08/05/2011</td><td><content od [facility] 07/15 a Health ID="[id number]">Hypertension Center 12:1 1:46 PM b [place]) (systemic)</content>, <content EDT o ID="[id number]">Orthopedic l Disorders</content>, <content i ID="[id number]">Metabolic c Disorders</content></td> D i s o r d e r s O r t h o p e d i c D i s o r d e r s H y p e r t e n s i o n ( s y s t e m i c ) M e t a b o l i c D i s o r d e r s O r t h o p e d i c D i s o r d e r s H y p e r t e n s i o n ( s y s t e m i c ) M e t a b o l i c D i s o r d e r s O r t h o p e d i c D i s o r d e r s H y p e r t e n s i o n ( s y s t e m i c ) M e t a b o l i c D i s o r d e r s O r t h o p e d i c D i s o r d e r s H y p e r t e n s i o n ( s y s t e m i c ) M e t a b o l i c D i s o r d e r s O r t h o p e d i c D i s o r d e r s H y p e r t e n s i o n ( s y s t e m i c ) M e t a b o l i c D i s o r d e r s O r t h o p e d i c D i s o r d e r s H y p e r t e n s i o n ( s y s t e m i c ) M e t a b o l i c D i s o r d e r s O r t h o p e d i c D i s o r d e r s H y p e r t e n s i o n ( s y s t e m i c ) M e t a b o l i c D i s o r d e r s O r t h o p e d i c D i s o r d e r s H y p e r t e n s i o n ( s y s t e m i c ) M e t a b o l i c D i s o r d e r s O r t h o p e d i c D i s o r d e r s H y p e r t e n s i o n ( s y s t e m i c ) M e t a b o l i c D i s o r d e r s O r t h o p e d i c D i s o r d e r s H y p e r t e n s i o n ( s y s t e m i c ) M e t a b o l i c D i s o r d e r s O r t h o p e d i c D i s o r d e r s H y p e r t e n s i o n ( s y s t e m i c ) M e t a b o l i c D i s o r d e r s O r t h o p e d i c D i s o r d e r s H y p e r t e n s i o n ( s y s t e m i c ) M e t a b o l i c D i s o r d e r s O r t h o p e d i c D i s o r d e r s H y p e r t e n s i o n ( s y s t e m i c ) M e t a b o l i c D i s o r d e r s O r t h o p e d i c D i s o r d e r s H y p e r t e n s i o n ( s y s t e m i c ) M e t a b o l i c D i s o r d e r s O r t h o p e d i c D i s o r d e r s H y p e r t e n s i o n ( s y s t e m i c ) M e t a b o l i c D i s o r d e r s O r t h o p e d i c D i s o r d e r s H y p e r t e n s i o n ( s y s t e m i c ) Metabolic Disorders Orthopedic Disorders Hypertension (systemic) Metabolic Disorders Orthopedic Disorders Hypertension (systemic) Metabolic Disorders Orthopedic Disorders Hypertension (systemic) Metabolic Disorders Orthopedic Disorders Hypertension (systemic) Metabolic Disorders Orthopedic Disorders Hypertension (systemic) Metabolic Disorders Orthopedic Disorders Hypertension (systemic) Metabolic Disorders Orthopedic Disorders Hypertension (systemic) Metabolic Disorders Orthopedic Disorders Hypertension (systemic) Metabolic Disorders Orthopedic Disorders Hypertension (systemic) Metabolic Disorders Orthopedic Disorders Hypertension (systemic) Metabolic Disorders Orthopedic Disorders Hypertension (systemic) Metabolic Disorders Orthopedic Disorders Hypertension (systemic) Metabolic Disorders Orthopedic Disorders Hypertension (systemic) Metabolic Disorders Orthopedic Disorders Hypertension (systemic) Metabolic Disorders Orthopedic Disorders Hypertension (systemic) Metabolic Disorders Orthopedic Disorders Hypertension (systemic) Outpatient<td Attender: [place] 07/23/2011 Essential RENSSELAER ID="[id number]">WALKINS</td><td>ALLISON P ALANAMARTHAHipolito [facility] 09:15:00 AM Hypertension ([place] NNAETUK, ANP</td><td>[facility]</td><td>07/23/2011</td><td><content ANP 01/2012 [facility] ID="[id number]">Common Cold</content>, 10:02:41 AM Hypertension Center) <content ID="[id number]">Essential EST BenignCommon Hypertension Benign</content></td> C oldEssential Hypertension BenignCommon ColdEssential Hypertension BenignCommon ColdEssential Hypertension BenignCommon ColdEssential Hypertension BenignCommon ColdEssential Hypertension BenignCommon ColdEssential Hypertension BenignCommon ColdEssential Hypertension BenignCommon ColdEssential Hypertension BenignCommon ColdEssential Hypertension BenignCommon ColdEssential Hypertension BenignCommon ColdEssential Hypertension BenignCommon ColdEssential Hypertension BenignCommon ColdEssential Hypertension BenignCommon ColdEssential Hypertension BenignCommon Cold Essential Hypertension Benign Common Cold Essential Hypertension Benign Common Cold Essential Hypertension Benign Common Cold Essential Hypertension Benign Common Cold Essential Hypertension Benign Common Cold Essential Hypertension Benign Common Cold Essential Hypertension Benign Common Cold Essential Hypertension Benign Common Cold Essential Hypertension Benign Common Cold Essential Hypertension Benign Common Cold Essential Hypertension Benign Common Cold Essential Hypertension Benign Common Cold Essential Hypertension Benign Common Cold Essential Hypertension Benign Common Cold Essential Hypertension Benign Common Cold Essential Hypertension Benign Common Cold Outpatient<td [place] 07/22/2011 RENSSELAER ID="[id number]">WALKINS</td><td> Neigh[place] rhood 01:00:00 PM ([place] </td><td>[facility]</td><td>07/22/2011</td><td></td> 07/22/2011 Health 11:59:00 PM Center) EST Immunizations Vaccine Date Status Description Data Source(s) Tdap 11/15/2019 12:00:00 completed Tdap On: 15-Nov-2019 [facility] Lot #: [id number] System As of 10/11/2019 completed Hep B, 3 10/11/2019 [facility]00 PM Adult Deltoid (Administered) [facility] ([place] [id number], a [facility] 2-dose Health hepatitis B Ce nter) schedule for adolescents (11-15 year olds) was FDA approved for Merck's Recombivax HB adult formulation. Use code 43 for the 2-dose. This code should be used for any use of standard adult formulation of hepatitis B vaccine. As of 06/05/2019 completed Hep B, 2 06/05/2019 Left Active Moun t Danial JOEY January 02:39:00 PM Adult Deltoid (Administered) [facility]ighborhood ([address] 2-dose Health hepatitis B Ce nter) schedule for adolescents (11-15 year olds) was FDA approved for Merck's Recombivax HB adult formulation. Use code 43 for the 2-dose. This code should be used for any use of standard adult formulation of hepatitis B vaccine. As of 05/03/2019 completed Hep B, 1 05/03/2019 Right Active Moun t Danial JOEY January 03:15:00 PM Adult Deltoid (Administered) [facility] ([address] 2-dose Health hepatitis B Ce nter) schedule for adolescents (11-15 year olds) was FDA approved for Merck's Recombivax HB adult formulation. Use code 43 for the 2-dose. This code should be used for any use of standard adult formulation of hepatitis B vaccine. Pneumococcal 03/03/2015 completed Pneumococcal conjugate PCV 13 On: [facility] conjugate PCV 12:00:00 AM Lot #: [id number], [id number] 03-Mar-2015 Health System 13 EDT IIV3. This 03/03/2015 completed Influenza, seaso nal, injectable, preservative free On: [facility] vaccine code is 12:00:00 AM Lot #: [id number], [employer] [facility] System one of two EDT which replace CVX 15, influenza, split virus. Medications Medication Brand Start Product Dose Route Administrative Pharmacy [facility] Indications Reaction Description Data Name Date Form Instructions Instructions Source(s) Trazodone traZOD 1.5 Oral active NETS MART Hydrochlori one 2019 Table (Mental de 50 MG hydroc 04:00: t Health Oral Tablet hlorid 00 AM Assoc iatio e EDT n of [place]) Escitalopra Escita 1.0 Oral active NE TSMART m 20 MG lopram 2019 Table (Mental Oral Tablet Oxalat 04:00: t Heal th e 00 AM Associatio EDT n of [place]) Aspirin Aspiri 10/19/ 81 mg UNK active Aspirin W estcheste Chewable n 2019 Chewable r Count y Or Chewab 11:13: Oral 81 mg Healt h le Or 17 PM PO x 4 Care EDT Corporatio n Medication administered onsite atorvastatin Atorvastatin 10/11/2019 UNIT 1 active Atorvastatin JOEY 10 MG Oral Calcium 10MG 12:00:00 AM Calcium ([place] Tablet Oral Tablet EDT [facility] Atorvastatin Health Calcium 10MG [place]) Oral Tablet Norvasc 10MG Norvasc 10MG 10/11/2019 UNIT 1 active Norvasc JOEY Oral Tablet Oral Tablet 12:00:00 AM ([facility]) Metoprolol Metoprolol 10/11/2019 UNIT 1 active Metoprolol JOEY Tartrate 25 MG Tartrate 25MG 12:00:00 AM Tartrate ([place] Oral Tablet Oral Tablet EDT [facility] Metoprolol Health Tartrate 25MG [place] ) Oral Tablet Trazodone traZODone 10/04/2019 1.0 O active NETSMART Hydrochloride hydrochloride 04:00:00 AM Tab r (Mental 50 MG Oral EDT [facility]) Escitalopram Escitalopram 10/04/2019 1.0 O active NETSMART 10 MG Oral Oxalate 04:00:00 AM Tab r (Mental Tablet EDT [facility]) atorvastatin Atorvastatin 08/13/2019 UNIT 1 suspend Atorvastatin JOEY 10 MG Oral Calcium 10MG 12:00:00 AM ed Calcium ([place] Tablet Oral Tablet EDT [facility] Atorvastatin Health Calcium 10MG [place]) Oral Tablet Metoprolol Metoprolol 08/13/2019 UNIT 1 suspend Metoprolol JOEY Tartrate 25 MG Tartrate 25MG 12:00:00 AM ed Tartrate ([place] Oral Tablet Oral Tablet EDT [facility] Metoprolol Health Tartrate 25MG [place] ) Oral Tablet Norvasc 10MG Norvasc 10MG 08/13/2019 UNIT 1 suspend Norvasc JOEY Oral Tablet Oral Tablet 12:00:00 AM ed ([facility]) Simvastatin 40 Simvastatin 06/05/2019 UNIT 1 suspend Simvastatin JOEY MG Oral Tablet 40MG Oral 12:00:00 AM ed ([place] Simvastatin Tablet EST [facility] 40MG Oral Health Tablet [place]) Norvasc 10MG Norvasc 10MG 06/05/2019 UNIT 1 suspend Norvasc JOEY Oral Tablet Oral Tablet 12:00:00 AM ed ([facility]) Metoprolol Metoprolol 06/05/2019 UNIT 1 suspend Metoprolol JOEY Tartrate 25 MG Tartrate 25MG 12:00:00 AM ed Tartrate ([place] Oral Tablet Oral Tablet EST N [facility] Metoprolol Health Tartrate 25MG [place] ) Oral Tablet atorvastatin Atorvastatin 06/05/2019 UNIT 1 suspend Atorvastatin JOEY 10 MG Oral Calcium 10MG 12:00:00 AM ed Calcium ([place] Tablet Oral Tablet EST [facility] Atorvastatin Health Calcium 10MG [place]) Oral Tablet Aspirin 81 MG Aspirin 81 04/19/2019 UNIT 1 complet [place] JOEY Chewable Oral Tablet 12:00:00 AM ed As pirin ([place] Tablet Aspirin Chewable EST N [facility] 81 Oral Tablet Healt h Chewable [place]) Simvastatin 40 Simvastatin 04/19/2019 UNIT 1 suspend Simvastatin JOEY MG Oral Tablet 40MG Oral 12:00:00 AM ed ([place] Simvastatin Tablet EST [facility] 40MG Oral Health Tablet [place]) Norvasc 10MG Norvasc 10MG 04/19/2019 UNIT 1 suspend Norvasc JOEY Oral Tablet Oral Tablet 12:00:00 AM ed ([facility]) Metoprolol Metoprolol 04/19/2019 UNIT 1 suspend Metoprolol JOEY Tartrate 25 MG Tartrate 25MG 12:00:00 AM ed Tartrate ([place] Oral Tablet Oral Tablet EST N [facility] Metoprolol Health Tartrate 25MG [place] ) Oral Tablet Simvastatin 40 Simvastatin 01/29/2019 UNIT 1 suspend Simvastatin JOEY MG Oral Tablet 40MG Oral 12:00:00 AM ed ([place] Simvastatin Tablet EDT [facility] orhood 40MG Oral Health Tablet [place]) Norvasc 10MG Norvasc 10MG 01/29/2019 UNIT 1 suspend Norvasc JOEY Oral Tablet Oral Tablet 12:00:00 AM ed ([facility]) Aspirin 81 MG Aspirin 81 01/29/2019 UNIT 1 suspend [place] JOEY Chewable Oral Tablet 12:00:00 AM ed As pirin ([place] Tablet [facility]t Healt h Chewable [place]) Norvasc 10MG Norvasc 10MG 01/29/2019 UNIT 1 suspend Norvasc JOEY Oral Tablet Oral Tablet 12:00:00 AM ed ([place] [facility]) Simvastatin 40 Simvastatin 01/29/2019 UNIT 1 suspend Simvastatin JOEY MG Oral Tablet 40MG Oral 12:00:00 AM ed ([place] Simvastatin Tablet EDT [facility] orhood 40MG Oral Health Tablet [place]) Metoprolol Metoprolol 01/29/2019 UNIT 1 suspend Metoprolol JOEY Tartrate 25 MG Tartrate 25MG 12:00:00 AM ed Tartrate ([place] Oral Tablet Oral Tablet EDT N [facility] Metoprolol Health Tartrate 25MG [place] ) Oral Tablet Metoprolol Metoprolol 01/29/2019 UNIT 1 suspend Metoprolol JOEY Tartrate 25 MG Tartrate 25MG 12:00:00 AM ed Tartrate ([place] Oral Tablet Oral Tablet EDT N [facility] Metoprolol Health Tartrate 25MG [place] ) Oral Tablet Aspirin 81 MG Aspirin 81 05/05/2018 UNIT 1 suspend [place] JOEY Chewable Oral Tablet 12:00:00 AM ed As pirin ([place] Tablet Aspirin Chewable EST N [facility] 81 Oral Tablet Healt h Chewable [place]) Metoprolol Metoprolol 05/05/2018 UNIT 1 suspend Metoprolol JOEY Tartrate 25 MG Tartrate 25MG 12:00:00 AM ed Tartrate ([place] Oral Tablet Oral Tablet EST N [facility] Metoprolol Health Tartrate 25MG [place] ) Oral Tablet Simvastatin 40 Simvastatin 05/05/2018 UNIT 1 suspend Simvastatin JOEY MG Oral Tablet 40MG Oral 12:00:00 AM ed ([place] Simvastatin Tablet EST [facility] orhood 40MG Oral Health Tablet [place]) Norvasc 10MG Norvasc 10MG 05/05/2018 UNIT 1 suspend Norvasc JOEY Oral Tablet Oral Tablet 12:00:00 AM ed ([facility]) Aspirin 81 MG Aspirin 81 05/05/2018 UNIT 1 suspend [place] JOEY Chewable Oral Tablet 12:00:00 AM ed As pirin ([place] Tablet Aspirin Chewable EST N [facility] 81 Oral Tablet Healt h Chewable [place]) Norvasc 10MG Norvasc 10MG 05/05/2018 UNIT 1 suspend Norvasc JOEY Oral Tablet Oral Tablet 12:00:00 AM ed ([place] [facility]) Metoprolol Metoprolol 05/05/2018 UNIT 1 suspend Metoprolol JOEY Tartrate 25 MG Tartrate 25MG 12:00:00 AM ed Tartrate (Fabio [place] Oral Tablet Oral Tablet EST N [facility] Metoprolol Health Tartrate 25MG [place] ) Oral Tablet Simvastatin 40 Simvastatin 05/05/2018 UNIT 1 suspend Simvastatin JOEY MG Oral Tablet 40MG Oral 12:00:00 AM ed (Fabio B[place] Simvastatin Tablet EST [facility] 40MG Oral Health Tablet [place]) Metoprolol Metoprolol 03/03/2018 1 O complet Metoprolol [facility] Tartrate 25 MG Tartrate - 25 12:00:00 AM Tab R ed Tartrate - 25 [facility] Oral Tablet MG ORAL Tablet EDT let A [facility] ORAL Hospital L Tablet Simvastatin 20 simvastatin 20 11/19/2016 1 C active Simvastatin [facility] MG Oral Tablet mg oral tablet 09:51:08 AM {ta 3 Health System simvastatin 20 EDT b(s 8 mg oral tablet )} 2 8 8 Avoid grapefruit and grapefruit juice wh ile taking this medication.Do not take this drug if you are .It is very impo rtant that you take or use this exactly as directed. Do not skip doses or disconti nue unless directed by your doctor.Obtain medical advice before taking any non-pre scription drugs as some may affect the action of this medication.Take with food or mil k. Metoprolol metoprolol 11/19/2016 1 [id number] active Metoprolol [facility] Tartrate 25 tartrate 25 09:50:54 AM {tab(s)} Tartrate Health MG Oral mg oral EDT System Tablet tablet metoprolol tartrate 25 mg oral tablet It is very important that you take or us e this exactly as directed. Do not skip doses or discontinue unless directed by your doctor.May cause drowsiness. Alcohol may intensify this effect. Use care whe n operating dangerous machinery.Some non-prescription drugs may aggravate you r condition. Read all labels carefully. If a warning appears, check with your docto r before taking.Take with food or milk.This drug may impair the ability to drive or operate machinery. Use care until you become familiar with its effects. Aspirin aspirin 11/19/2016 1 {tab(s)} [id number] active Halfprin [facility] 81 MG 81 mg 09:50:44 AM Health Oral oral EDT System Tablet tablet aspirin 81 mg oral tablet Take with food or milk. Amlodipine amLODIPine 11/19/2016 1 [id number] active AmLODIPine [facility] 10 MG Oral 10 mg oral 09:50:20 AM {tab(s)} [facility] Tablet tablet EDT System amLODIPine 10 mg oral tablet It is very important that you take or us e this exactly as directed. Do not skip doses or discontinue unless directed by your doctor.Some non-prescription drugs may aggravate your condition. Read all labe ls carefully. If a warning appears, check with your doctor before taking. Amlodipine amLODIPine 08/03/2016 1 [id number] aborted AmLODIPine [facility] 10 MG Oral 10 mg oral 01:41:47 PM {tab(s)} [facility] Tablet tablet EDT System amLODIPine 10 mg oral tablet It is very important that you take or us e this exactly as directed. Do not skip doses or discontinue unless directed by your doctor.Some non-prescription drugs may aggravate your condition. Read all labe ls carefully. If a warning appears, check with your doctor before taking. Betamethasone 0.5 MG/ML / betamethasone-clotrimazole 05/22/2015 1 [id number] aborted Lotrisone [facility] Clotrimazole 10 MG/ML 0.05%-1% topical cream 02:02:24 PM {tish} Health Topical Cream EST System betamethasone-clotrimazole 0.05%-1% topical cream For external use only. Hydrochlorothiazide hydrochlorothiazide 05/22/2015 1 [id number] aborted Hydrochlorothiazide [facility] 12.5 MG Oral Tablet 12.5 mg oral tablet 02:01:49 PM {tab(s)} Health hydrochlorothiazide EST System 12.5 mg oral tablet Furosemide Lasix 05/22/2015 1 [id number] aborted Lasix 20 mg oral tablet; 1 tab(s) orally once x 1 days Ordered: 22-May-2015 Start: 22-May-2015 End: 23-May-2015 [facility] 20 MG Oral 20 mg 01:40:52 PM {tab(s)} Qu antity: 1 Kimberly Mckeon Status: Discontinued Health Tablet oral EST Refills: 0 Ge neric Substitution Allowed System [Lasix] tablet Comme nts: Avoid prolonged or excessive exposure to direct and/or artificial sunlight while taking this medication.It is very important that you take or use this exactly as directed. Do not skip doses or disconti Lasix 20 mg oral tablet Avoid prolonged or excessive exposure to direct and/or artificial sunlight while taking this medication.It is very import ant that you take or use this exactly as directed. Do not skip doses or disconti nue unless directed by your doctor.It may be advisable to drink a full glass orange j uice or eat a banana daily while taking this medication. pneumococcal [id number] 03/03/2015 0.5 [id number] aborted Prevnar [facility] 13-valent 02:07:16 PM mL 13 Hea lth conjugate EDT System vaccine intramuscular suspension Refrigerate and shake well. Expires____ influenza virus [id number] 03/03/2015 0.5 [id number] aborted Fluzone [facility] vaccine, 02:06:17 PM mL High-Dose Health inactivated EDT [id number] Sys tem high-dose preservative-free trivalent intramuscular suspension Refrigerate and shake well. Expires____ atorvastatin atorvastatin 11/04/2014 1 [id number] aborted Lipitor [facility] 10 MG Oral 10 mg oral 03:07:39 PM {tab(s)} Health Tablet tablet EDT System atorvastatin 10 mg oral tablet Avoid grapefruit and grapefruit juice wh ile taking this medication.Do not take this drug if you are .It is very impo rtant that you take or use this exactly as directed. Do not skip doses or disconti nue unless directed by your doctor.Obtain medical advice before taking any non-pre scription drugs as some may affect the action of this medication.Take with food or mil k. Chlorpromazine chlorproMAZINE 05/20/2014 1 [id number] aborted ChlorproMAZINE [facility] hydrochloride 25 mg oral 11:31:05 AM {tab(s)} Hydrochloride Health 25 MG Oral tablet EST System Tablet chlorproMAZINE 25 mg oral tablet Avoid prolonged or excessive exposure to direct and/or artificial sunlight while taking this medication.Do not take dairy products, antacids, or iron preparations within one hour of this medication.It is very important that you take or use this exactly as directed. Do not skip doses or discontinue unless directed by your doctor.May cause drowsiness. Alcohol ma y intensify this effect. Use care when operating dangerous machinery.Obtain [facility] advice before taking any non-prescription drugs as some may affec t the action of this medication. Acetaminophen 325 MG / acetaminophen-HYDROcodone 04/13/2014 1 [id number] aborted acetaminophen-HYDROcodone 32 5 mg-5 mg oral tablet; 1 tab(s) orally every 6 hours, As Needed - PRN PAIN Ordered: 13-Apr-2014 Start: 13-Apr-2014 End: 16-Apr-2014 [facility] Hydrocodone Bitartrate 5 325 mg-5 mg oral tablet 07:29:18 PM {tab(s) } Quantity: 12 Юлия Rome Status: Discontinued Health MG Oral Tablet EST Refills: 0 Generic Substitution Allowed System acetaminophen-HYDROcodone Comments: Caution federal law prohibits the transfer of this drug to any person other than the person for whom it was prescribed.May cause drowsiness. Alcohol may intensify this effect. Use care when operating 325 mg-5 mg oral tablet Caution federal law prohibits the transf er of this drug to any person other than the person for whom it was prescribed.May ca use drowsiness. Alcohol may intensify this effect. Use care when operating dangero us machinery.This product contains acetaminophen. Do not use with any oth er product containing acetaminophen to prevent possible liver damage.Using more of this medication than prescribed may cause serious breathing problems. Levofloxacin levofloxacin 04/13/2014 1 [id number] aborte d levofloxacin 500 mg oral tablet; 1 tab(s) orally once a day Ordered: 13-Apr-2014 Start: 2013 End: 23-Apr-2014 [facility] 500 MG Oral 500 mg oral 07:23:54 PM {tab(s)} Quantity: 10 Юлия [place] Status: Discontinued Health Tablet tablet EST Refills: 0 Generic Substitution Allowed System levofloxacin Co mments: Avoid prolonged or excessive exposure to direct and/or artificial sunlight while taking this medication.Do not take dairy products, antacids, or iron preparations within one hour of this med ication.Fini 500 mg oral tablet Avoid prolonged or excessive exposure to direct and/or artificial sunlight while taking this medication.Do not take dairy products, antacids, or iron preparations within one hour of this medication.Finis h all this medication unless otherwise directed by prescriber.May cause drowsin ess or dizziness.Medication should be taken with plenty of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 high 12:00:00 [facility]) NUTRITION THERAPY INITIAL NUTRITION THERAPY 02/08/2019 [place] ([facility] INITIAL 12:00:00 [facility]) No intolerance to milk No intolerance to 02/08/2019 [place] ([facility] products milk products 12:00:00 [facility]) No prior serious illness No prior serious 01/31/2019 [place] ([facility] illness 12:00:00 [facility]) Bmi is documented above BMI > NORMAL 01/29/2019 KATHRINE CHATTERJEE ([facility] normal parameters and a DOCUMENTED W F/U 12:00:00 [place] follow-up plan is PLAN AM EDT [place] documented Health Center) EKG EKG 01/29/2019 [place] ([facility] N[facility]ITION THERAPY INITIAL NUTRITION THERAPY 07/06/2018 [place] ([facility] INITIAL 12:00:00 [facility]) No intolerance to milk No intolerance to 07/06/2018 [place] ([facility] products milk products 12:00:00 [facility]) History of Eyes: normal History of Eyes: 05/05/2018 [place] ([facility] normal 12:00:00 [facility]) Bmi is documented above BMI > NORMAL 05/05/2018 [facility] ([facility] normal parameters and a DOCUMENTED W F/U 12:00:00 [place] follow-up plan is PLAN AM EST [place] documented [facility]) Tobacco assessment or Tobacco Assessment 05/05/2018 [place] ([facility] tobacco cessation 12:00:00 Danial intervention not AM EST Yohanneso d performed, reason not Health Center) otherwise specified EKG EKG 05/05/2018 [place] ([facility] 12:00:00 [facility]) No prior serious illness No prior serious 05/05/2018 [place] ([facility] illness 12:00:00 [facility]) Venipuncture 11/19/2016 [facility] 11:01:22 System AM EDT - 11/19/2016 01:00:10 PM EDT Venipuncture 10/24/2015 [facility] 07:43:38 System AM EDT - 10/24/2015 09:00:02 AM EDT Protein, Spot Urine 10/21/2015 [facility] Protein, Spot Urine 07:52:00 System AM EDT - 10/21/2015 07:52:00 AM EDT Venipuncture 10/21/2015 [facility] 07:52:00 System AM EDT - 10/21/2015 09:00:05 AM EDT XR Chest PA and Left 07/29/2015 [facility] Lateral XR Chest PA and 09:41:00 Syst em Left Lateral AM EDT - 07/29/2015 09:41:00 AM EDT Venipuncture 05/26/2015 [facility] 08:29:00 System AM EST - 05/26/2015 10:00:06 AM EST Venipuncture 02/18/2015 [facility] 08:22:37 System AM EDT - 02/18/2015 10:00:07 AM EDT Venipuncture 11/27/2014 [facility] 08:18:41 System AM EDT - 11/27/2014 10:00:05 AM EDT Venipuncture 05/20/2014 [facility] 12:16:40 System PM EST - 05/20/2014 02:00:07 PM EST Electrocardiographic 05/20/2014 [facility] procedure (procedure) 11:56:00 System AM EST - 05/20/2014 11:57:00 AM EST US Scrotum US Scrotum 04/13/2014 [facility] 02:37:00 System PM EST - 04/13/2014 02:37:00 PM EST Venipuncture 12/06/2013 [facility] 08:28:50 System AM EDT - 12/06/2013 10:00:04 AM EDT XR Chest PA and Left 09/13/2013 [facility] Lateral XR Chest PA and 09:38:00 Syst em Left Lateral AM EDT - 09/13/2013 09:38:00 AM EDT Venipuncture 09/13/2013 [facility] 09:32:39 System AM EDT - 09/13/2013 12:00:00 AM EDT MRI Lumbar Spine without 09/16/2011 [facility] Contrast MRI Lumbar Spine 10:44:00 Sy stem without Contrast AM EDT - 09/16/2011 10:44:00 AM EDT History of No carotid History of No 08/05/2011 KATHYA DANIEL ([place] bruits carotid bruits 12:00:00 Danial AM EDT [facility]) Results ID Date Data Source [id number] 12/12/2019 02:42:12 AM EDT [facility] System Name Value Range Interpretation Description Data Sup porting Code Source(s) Document(s ) Erythrocytes 5.80 Normal (applies RBC Count [facility] [#/volume] in {10^6_uL to non-numeric Health Blood by } results) System Automated count Leukocytes 5.6 Normal (applies WBC Count [facility] [#/volume] in {10^3_uL to non-numeric Health Unspecified } results) System specimen by Automated count Hemoglobin 15.2 Normal (applies Hemoglobin, [facility] [Mass/volume] in {gm/dL} to non-numeric Whole Blood Health Blood results) System Hematocrit 46.5 % Normal (applies Hematocrit, [facility] [Volume to non-numeric Whole Blood Health Fraction] of results) System Blood Erythrocyte mean 32.7 Below low normal [facility] corpuscular {gm/dL} Health hemoglobin System concentration [Mass/volume] by Automated count Erythrocyte 15.9 % Above high normal RDW [facility] distribution Health width [Entitic System volume] by Automated count Erythrocyte mean 80.2 fl Below low normal [facility] corpuscular Health volume [Entitic System volume] by Automated count Erythrocyte mean 26.2 pg Normal (applies [facility]CH [facility] corpuscular to non-numeric Health hemoglobin results) System [Entitic mass] by Automated count Platelets 238 Normal (applies Platelet [facility] [#/volume] in {10^3_uL to non-numeric Count Health Plasma by } results) System Automated count Platelet mean 11.2 fl Above high normal [facility]PV [facility] volume [Entitic Health volume] in Blood System by Automated count Neutrophils 3.1 Normal (applies Absolute [facility] [#/volume] in {10^3_uL to non-numeric Neutrophil Health Body fluid } results) Count System Eosinophils 0.1 Normal (applies Eosinophil [facility] [#/volume] in {10^3_uL to non-numeric Count Blood Health Blood } results) System Monocytes 0.4 Normal (applies Monocyte [facility] [#/volume] in {10^3_uL to non-numeric Count Health Blood by Manual } results) System count Neutrophils/100 55.8 % Normal (applies Neutrophil % Chris kris leukocytes in to non-numeric Health Blood by results) System Automated count Lymphocyte 2.0 Normal (applies Lymphocyte [facility] percent {10^3_uL to non-numeric Absolute Health differential } results) System count (procedure) Monocytes/100 6.7 % Normal (applies Monocyte % [facility] leukocytes in to non-numeric Health Blood results) System Eosinophils/100 2.0 % Normal (applies Eosinophil % Chris kris leukocytes in to non-numeric Health Unspecified results) System specimen Basophils 0.0 Normal (applies Basophil [facility] [#/volume] in {10^3_uL to non-numeric Count Health Blood by } results) System Automated count Lymphocytes 35.1 % Normal (applies Lymphocyte % [facility] [#/volume] in to non-numeric Health Blood by results) System Automated count Basophils/100 0.4 % Normal (applies Basophil % [facility] leukocytes in to non-numeric Health Unspecified results) System specimen by Manual count ID Date Data Source [id number] 12/12/2019 02:42:12 AM EDT [facility] System Name Value Range Interpretation Description Data Sup porting Code Source(s) Document(s ) Potassium 4.7 Normal (applies Potassium, [facility] [Mass/volume] in mmol/L to non-numeric Serum Health Serum or Plasma results) System Sodium 143 Normal (applies Sodium, Serum [facility] [Moles/volume] in mmol/L to non-numeric Health Serum or Plasma results) System Chloride 106 Normal (applies Chloride, [facility] [Moles/volume] in mmol/L to non-numeric Serum Health Serum or Plasma results) System Urea nitrogen 15 Normal (applies Blood Urea [facility] [Mass/volume] in mg/dl to non-numeric Nitrogen, Health Serum or Plasma results) Serum System Carbon dioxide, 28.0 Normal (applies CO2, Serum [facility] total mmol/L to non-numeric Health [Moles/volume] in results) System Serum or Plasma TotalProtein 7.6 Normal (applies Total Protein [facility] mg/dl to non-numeric Health results) System Glucose 101 Normal (applies Glucose, [facility] [Mass/volume] in mg/dL to non-numeric Serum Health Serum or Plasma results) System Alkaline 75 Normal (applies Alkaline [facility] phosphatase {IU/L} to non-numeric Phosphatase, Health isoenzymes results) Serum System [Enzymatic activity/volume] in Serum or Plasma by Heat stability Aspartate 32 Normal (applies Aspartate [facility] aminotransferase {IU/L} to non-numeric Transaminase, Heal th [Enzymatic results) Serum System activity/volume] in Serum or Plasma by With P-5'-P Creatinine 1.50 Normal (applies Creatinine, [facility] [Mass/volume] in mg/dl to non-numeric Serum Health Serum or Plasma results) System Bilirubin.total 0.6 Normal (applies Bilirubin, [facility] [Mass/volume] in mg/dl to non-numeric Serum Total Health Serum or Plasma results) System I.Phosphorus 3.0 Normal (applies I. Phosphorus [facility] mg/dl to non-numeric Health results) System Albumin 4.1 Normal (applies Albumin, [facility] [Mass/volume] in {gm/dl} to non-numeric Serum Health Serum or Plasma results) System Alanine 54 Normal (applies Alanine [facility] aminotransferase {IU/L} to non-numeric Aminotransfer Heal th [Enzymatic results) ase, Serum System activity/volume] in Serum or Plasma Calcium 9.6 Normal (applies Calcium, [facility] [Mass/volume] in mg/dl to non-numeric Total Serum Health Serum or Plasma results) System Anion gap in Serum 9.00 Normal (applies Anion Gap Chris kris or Plasma mmol/L to non-numeric Health results) System Urate 7.4 Normal (applies Uric Acid, [facility] [Mass/volume] in mg/dl to non-numeric Serum Health Serum or Plasma results) System Glomerular 49.00 Normal (applies GFR [facility] filtration to non-numeric Health rate/1.73 sq results) System M.predicted [Volume Rate/Area] in Serum or Plasma by Creatinine-based formula (CKD-EPI) eGFR will provide clinicians with a more accurate indicator of renal function then the serum creatinine. The eGFR is automa tically calculated from an empiric formula (endorsed by the National [employer] ion) which incorporates age, sex, and race.Clinicians may notice surprisingly low GFR's with serum creatinine valueswithin normal range- particularly in elderly wo men (with low muscle mass).In the hospital setting, the eGFR should add an element of safety in drug dosing, in assessing the risk of IV contrast administration, and in assessing vascular risk.The NKF staging system is as follows:Normal: eGFR >90 with no kidney markersStage 1: eGFR >90 with kidney markers*Stage 2: eGFR 60- 89Stage 3: eGFR 30-59Stage 4: eGFR 15-29Stage 5: eGFR <15 (usually requir ing dialysis)*Markers include: Proteinuria, Hematuria, abnormal imaging-studies, or other blood or urine test abnormalities A/GRatio 1.17 Normal (applies to non-numeric A/G R atio [facility] results) ID Date Data Source [id number] 12/12/2019 02:42:12 AM EDT Tracy escobar System Name Value Range Interpretation Description Data Sup porting Code Source(s) Document(s ) Cholesterol 250 Above high normal Cholesterol, [facility] [Mass/volume] mg/dl Serum Health System in Serum or Plasma <200 mg/dL = [id number] - 239 md/dL = Borderline>240 mg/dL = High Risk Triglyceride 118 mg/dl Normal (applies Triglycerides, Serum [facility] [Mass/volume] in to non-numeric Health S ystem Serum or Plasma results) Optimal = < 100 mg/dLBoderline High = 15 0 - 199 mg/dLHigh = 200 - 499 mg/dLVery High = > 500 mg/dL Cholesterol in VLDL 23.6 Normal (applies to VLDL, Serum [facility] [Mass/volume] in non-numeric Health Syst em Serum or Plasma results) CHDRisk 6.10 Above high normal CHD Risk [facility] Cholesterol in LDL 185.4 mg/dL Normal (applies to Low Densit y [facility] [Mass/volume] in non-numeric Lipoprotein, Health S yste Serum or Plasma results) Calculated OPTIMAL: LESS THAN 100 mg/dLNEAR OPTIMAL : 100 - 129 mg/dLBODERLINE HIGH: 130 - 150 mg/dL Cholesterol in HDL 41.0 mg/dL Normal (applies HDL Cholestero l, [facility] [Mass/volume] in to non-numeric Serum Health S yste Serum or Plasma results) ID Date Data Source [id number] 12/12/2019 02:42:12 AM EDMo escobar System Name Value Range Interpretation Description Data Sup porting Code Source(s) Document(s ) Triglyceride 136 Normal (applies Triglycerides, [facility] [Mass/volume] mg/dl to non-numeric Serum Health in Serum or results) System Plasma Optimal = < 100 mg/dLBoderline High = 15 0 - 199 mg/dLHigh = 200 - 499 mg/dLVery High = > 500 mg/dL Cholesterol 185 mg/dl Normal (applies Cholesterol, Serum [facility] [Mass/volume] in to non-numeric Health [facility] [place] [facility] [place] Serum or Plasma results) <200 mg/dL = [id number] - 239 md/dL = Borderline>240 mg/dL = High Risk Cholesterol in HDL 37.0 mg/dL Normal (applies HDL Cholestero l, [facility] [Mass/volume] in to non-numeric Serum Health S yste Serum or Plasma results) Cholesterol in VLDL 27.2 Normal (applies VLDL, Serum [facility] [Mass/volume] in to non-numeric Health S yste Serum or Plasma results) Cholesterol in LDL 120.8 mg/dL Normal (applies Low Density [facility] [Mass/volume] in to non-numeric Lipoprotein, Healt h System Serum or Plasma results) Calculated OPTIMAL: LESS THAN 100 mg/dLNEAR OPTIMAL : 100 - 129 mg/dLBODERLINE HIGH: 130 - 150 mg/dL CHDRisk 5.00 Normal (applies to non-numeric CHD Risk [facility] results) ID Date Data Source [id number] 12/12/2019 02:42:12 AM EDT [facility] System Name Value Range Interpretation Description Data Sup porting Code Source(s) Document(s ) Deprecated NO GROWTH Aerobic [facility] Bacteria Culture, Urine Health System identified in Urine by Aerobe culture ID Date Data Source [id number] 12/12/2019 02:42:12 AM EDT [facility] System Name Value Range Interpretation Description Data Sup porting Code Source(s) Document(s ) Specific gravity 1.023 Normal (applies Urine Specific [facility] of Urine to non-numeric [facility] results) System Appearance of CLEAR Normal (applies Urine [facility] Urine to non-numeric Appearance Health results) System Color Yellow Normal (applies Color [facility] to non-numeric Health results) System pH.. 5.0 Normal (applies pH.. [facility] {pH_unit to non-numeric Health s} results) System Protein NEG Normal (applies Protein [facility] [Mass/volume] in to non-numeric Health Serum or Plasma results) System Glucose,UA NEG Normal (applies Glucose, UA [facility] to non-numeric Health results) System BilirubinUrine NEG Normal (applies Bilirubin [facility] to non-numeric Urine Health results) System Ketones NEG Normal (applies Ketones UA [facility] [Mass/volume] in to non-numeric Health Urine results) System Urobilinogen < 2.0 Normal (applies Urobilinogen [facility] [Mass/volume] in to non-numeric UA Health Urine results) System Reference Range: Negative or <=2.0 Leukocyte esterase NEG Normal (applies Leukocyte Adrianna ase [facility] [Units/volume] in to non-numeric Concentration [facility] System Urine results) Leukocytes 1 {/HPF} Normal (applies White Blood Cells Chris kris [#/volume] in to non-numeric Health Syst em Unspecified specimen results) by Automated count Nitrate+Nitrite Negative Normal (applies Nitrite [facility] [Mass/volume] in to non-numeric Health S ystem Unspecified specimen results) UrineBlood NEG Normal (applies Urine Blood [facility] to non-numeric [facility] System results) Mucus RARE Normal (applies Mucus [facility] to non-numeric [facility] results) Epithelial cells < 1 /HPF Normal (applies Epithelial Cells [facility] [Presence] in to non-numeric Health Syst em Unspecified specimen results) by Wet preparation ID Date Data Source [id number] 12/12/2019 02:42:12 AM EDT [facility] Name Value Range Interpretation Description Data Sup porting Code Source(s) Document(s ) Erythrocytes 5.52 10 Normal (applies RBC Count [facility] [#/volume] in to non-numeric Health Blood by results) System Automated count Leukocytes 8.3 10 Normal (applies WBC Count [facility] [#/volume] in to non-numeric Health Unspecified results) System specimen by Automated count Erythrocyte mean 79.0 fl Below low normal MCV [facility] corpuscular Health volume [Entitic System volume] by Automated count Hemoglobin 14.9 Normal (applies Hemoglobin [facility] [Mass/volume] in {gm/dL} to non-numeric Health Blood results) System Hematocrit 43.6 % Normal (applies Hematocrit [facility] [Volume to non-numeric Health Fraction] of results) System Blood Erythrocyte mean 34.2 Normal (applies MCHC [facility] corpuscular {gm/dL} to non-numeric Health hemoglobin results) System concentration [Mass/volume] by Automated count Erythrocyte 14.3 % Normal (applies RDW-CV [facility] distribution to non-numeric Health width [Entitic results) System volume] by Automated count Erythrocyte mean 27.0 pg Normal (applies MCH [facility] corpuscular to non-numeric Health hemoglobin results) System [Entitic mass] by Automated count Platelet mean 10.3 fl Normal (applies MPV [facility] volume [Entitic to non-numeric Health volume] in Blood results) System by Automated count Platelets 228 10 Normal (applies Platelet Count [facility] [#/volume] in to non-numeric Health Plasma by results) System Automated count Nucleated 0.0 Normal (applies NRBC % [facility] erythrocytes {/100_WB to non-numeric Health [#/volume] in C} results) System Body fluid Neutrophils/100 64.1 % Normal (applies Neutrophil % [facility] leukocytes in to non-numeric Health Blood by results) System Automated count NRBC# 0.00 10 Normal (applies NRBC # [facility] to non-numeric [facility] results) System Neutrophils 5.3 10 Normal (applies Neutrophil # [facility] [#/volume] in to non-numeric Health Body fluid results) System Lymphocyte 2.0 10 Normal (applies Lymphocyte # [facility] percent to non-numeric Health differential results) System count (procedure) Lymphocytes 23.9 % Normal (applies Lymphocyte % [facility] [#/volume] in to non-numeric Health Blood by results) System Automated count Monocytes/100 8.1 % Normal (applies Monocyte % [facility] leukocytes in to non-numeric [facility] Blood results) System Monocytes 0.7 10 Normal (applies Monocyte # [facility] [#/volume] in to non-numeric Health Blood by Manual results) System count Eosinophils/100 3.0 % Above high Eosinophil % [facility] leukocytes in normal Health Unspecified System specimen Basophils 0.04 10 Normal (applies Basophil # [facility] [#/volume] in to non-numeric Health Blood by results) System Automated count Eosinophils 0.25 10 Normal (applies Eosinophil # [facility] [#/volume] in to non-numeric Health Blood results) System Basophils/100 0.5 % Normal (applies Basophil % [facility] leukocytes in to non-numeric [facility] Unspecified results) System specimen by Manual count ImmatureGranuloc 0.4 % Normal (applies Immature [facility] ytes% to non-numeric Granulocytes % Health results) System ImmatureGranuloc 0.03 10 Normal (applies Immature [facility] ytes# to non-numeric Granulocytes # Health results) System ID Date Data Source [id number] 12/12/2019 02:42:12 AM EDT [facility] Name Value Range Interpretation Description Data Sup porting Code Source(s) Document(s ) Sodium 139 Normal (applies Sodium, Serum [facility] [Moles/volume] in mmol/L to non-numeric Health Serum or Plasma results) System Potassium 4.3 Normal (applies Potassium, [facility] [Mass/volume] in mmol/L to non-numeric Serum Health Serum or Plasma results) System Chloride 106 Normal (applies Chloride, [facility] [Moles/volume] in mmol/L to non-numeric Serum Health Serum or Plasma results) System Carbon dioxide, 26.9 Normal (applies CO2, Serum [facility] total mmol/L to non-numeric Health [Moles/volume] in results) System Serum or Plasma Glucose 98 Normal (applies Glucose, [facility] [Mass/volume] in mg/dL to non-numeric Serum Health Serum or Plasma results) System TotalProtein 7.2 Normal (applies Total Protein [facility] mg/dl to non-numeric Health results) System Urea nitrogen 14 Normal (applies Blood Urea [facility] [Mass/volume] in mg/dl to non-numeric Nitrogen, Health Serum or Plasma results) Serum System Alkaline 77 Normal (applies Alkaline [facility] phosphatase {IU/L} to non-numeric Phosphatase, Health isoenzymes results) Serum System [Enzymatic activity/volume] in Serum or Plasma by Heat stability Creatinine 1.14 Normal (applies Creatinine, [facility] [Mass/volume] in mg/dl to non-numeric Serum Health Serum or Plasma results) System DirectBilirubin 0.1 Normal (applies Direct [facility] mg/dl to non-numeric Bilirubin Health results) System Bilirubin.total 0.7 Normal (applies Bilirubin, [facility] [Mass/volume] in mg/dl to non-numeric Serum Total Health Serum or Plasma results) System Aspartate 38 Normal (applies Aspartate [facility] aminotransferase {IU/L} to non-numeric Transaminase, Heal th [Enzymatic results) Serum System activity/volume] in Serum or Plasma by With P-5'-P I.Phosphorus 3.6 Normal (applies I. Phosphorus [facility] mg/dl to non-numeric Health results) System Alanine 76 Above high Alanine [facility] aminotransferase {IU/L} normal Aminotransfer Health [Enzymatic ase, Serum System activity/volume] in Serum or Plasma Albumin 4.3 Normal (applies Albumin, [facility] [Mass/volume] in {gm/dl} to non-numeric Serum Health Serum or Plasma results) System Calcium 9.5 Normal (applies Calcium, [facility] [Mass/volume] in mg/dl to non-numeric Total Serum Health Serum or Plasma results) System A/GRatio 1.48 Normal (applies A/G Ratio [facility] to non-numeric Health results) System Anion gap in Serum 6.10 Normal (applies Anion Gap [facility] or Plasma mmol/L to non-numeric Health results) System Urate 5.7 Normal (applies Uric Acid, [facility] [Mass/volume] in mg/dl to non-numeric Serum Health Serum or Plasma results) System Glomerular 67.00 Normal (applies GFR [facility] filtration to non-numeric Health rate/1.73 sq results) System M.predicted [Volume Rate/Area] in Serum or Plasma by Creatinine-based formula (CKD-EPI) eGFR will provide clinicians with a more accurate indicator of renal function then the serum creatinine. The eGFR is automa tically calculated from an empiric formula (endorsed by the [employer] ion) which incorporates age, sex, and race.Clinicians may notice surprisingly low GFR's with serum creatinine valueswithin normal range- particularly in elderly wo men (with low muscle mass).In the hospital setting, the eGFR should add an element of safety in drug dosing, in assessing the risk of IV contrast administration, and in assessing vascular risk.The NKF staging system is as follows:Normal: eGFR >90 with no kidney markersStage 1: eGFR >90 with kidney markers*Stage 2: eGFR 60- 89Stage 3: eGFR 30-59Stage 4: eGFR 15-29Stage 5: eGFR <15 (usually requir ing dialysis)*Markers include: Proteinuria, Hematuria, abnormal imaging-studies, or other blood or urine test abnormalities ID Date Data Source [id number] 12/12/2019 02:42:12 AM EDT [facility] Name Value Range Interpretation Description Data Sup porting Code Source(s) Document(s ) Bacteria NO GROWTH Culture [facility] identified in Bacteria Blood Health Syst em Blood by [facility] culture ID Date Data Source [id number] 12/12/2019 02:42:12 AM EDT [facility] Name Value Range Interpretation Description Data Sup porting Code Source(s) Document(s ) Bacteria NO GROWTH Culture [facility] identified in Bacteria Blood [facility] Syst [facility] Blood by [facility] culture ID Date Data Source [id number] 12/12/2019 02:42:12 AM EDT [facility] Name Value Range Interpretation Description Data Sup porting Code Source(s) Document(s ) N.Gono Not Normal (applies N. Gonorrhea [facility] rrheab DetectedReference to non-numeric by LCR [facility] yLCR Range: Not Detected results) System This test was performed using the APTIMA COMBO2(R) Assay (GEN-PROBE(R)). Test Performed at: [facility], [place] [address] Felix Tijerina.Trac Not Normal (applies C. [facility] homati DetectedReference to non-numeric [facility] sAmp Range: Not Detected results) Amp System ID Date Data Source [id number] 12/12/2019 02:42:12 AM EDT [facility] Name Value Range Interpretation Description Data Sup porting Code Source(s) Document(s ) Erythrocytes 5.66 10 Normal (applies RBC Count [facility] [#/volume] in to non-numeric Health Blood by results) System Automated count Leukocytes 8.0 10 Normal (applies WBC Count [facility] [#/volume] in to non-numeric Health Unspecified results) System specimen by Automated count Hemoglobin 15.5 Normal (applies Hemoglobin [facility] [Mass/volume] in {gm/dL} to non-numeric Health Blood results) System Hematocrit 45.9 % Normal (applies Hematocrit [facility] [Volume to non-numeric Health Fraction] of results) System Blood Erythrocyte mean 27.4 pg Normal (applies MCH [facility] corpuscular to non-numeric Health hemoglobin results) System [Entitic mass] by Automated count Erythrocyte mean 81.1 fl Below low normal MCV [facility] corpuscular [facility] volume [Ent[facility] System volume] by Automated count Erythrocyte 15.5 % Above high normal RDW-CV [facility] distribution Health width [Entitic System volume] by Automated count Erythrocyte mean 33.8 Normal (applies MCHC [facility] corpuscular {gm/dL} to non-numeric Health hemoglobin results) System concentration [Mass/volume] by Automated count Platelets 245 10 Normal (applies Platelet [facility] [#/volume] in to non-numeric Count Health Plasma by results) System Automated count Monocytes 0.5 10 Normal (applies Monocyte # [facility] [#/volume] in to non-numeric Health Blood by Manual results) System count Platelet mean 11.5 fl Above high normal MPV [facility] volume [Entitic [facility] volume] in Blood System by Automated count Eosinophils 0.32 10 Above high normal Eosinophil # [facility] [#/volume] in Health Blood System Neutrophils 4.9 10 Normal (applies Neutrophil # [facility] [#/volume] in to non-numeric Health Body fluid results) System Basophils 0.03 10 Normal (applies Basophil # [facility] [#/volume] in to non-numeric Health Blood by results) System Automated count Neutrophils/100 61.1 % Normal (applies Neutrophil % [facility] leukocytes in to non-numeric Health Blood by results) System Automated count Lymphocyte 2.2 10 Normal (applies Lymphocyte # [facility] percent to non-numeric Health differential results) System count (procedure) Eosinophils/100 4.0 % Above high normal Eosinophil % [facility] leukocytes in [facility] Unspecified System specimen Monocytes/100 6.6 % Normal (applies Monocyte % [facility] leukocytes in to non-numeric Health Blood results) System Basophils/100 0.4 % Normal (applies Basophil % [facility] leukocytes in to non-numeric Health Unspecified results) System specimen by Manual count Lymphocytes 27.9 % Normal (applies Lymphocyte % [facility] [#/volume] in to non-numeric Health Blood by results) System Automated count ID Date Data Source [id number] 12/12/2019 02:42:12 AM EDT [facility] Name Value Range Interpretation Description Data Sup porting Code Source(s) Document(s ) Sodium 142 Normal (applies Sodium, Serum [facility] [Moles/volume] in mmol/L to non-numeric Health Serum or Plasma results) System Chloride 106 Normal (applies Chloride, [facility] [Moles/volume] in mmol/L to non-numeric Serum Health Serum or Plasma results) System Potassium 4.6 Normal (applies Potassium, [facility] [Mass/volume] in mmol/L to non-numeric Serum Health Serum or Plasma results) System Carbon dioxide, 26.0 Normal (applies CO2, Serum [facility] total mmol/L to non-numeric Health [Moles/volume] in results) System Serum or Plasma TotalProtein 8.3 Above high Total Protein [facility] mg/dl normal Health System Glucose 99 Normal (applies Glucose, [facility] [Mass/volume] in mg/dL to non-numeric Serum Health Serum or Plasma results) System Urea nitrogen 15 Normal (applies Blood Urea [facility] [Mass/volume] in mg/dl to non-numeric Nitrogen, Health Serum or Plasma results) Serum System Alkaline 100 Normal (applies Alkaline [facility] phosphatase {IU/L} to non-numeric Phosphatase, Health isoenzymes results) Serum System [Enzymatic activity/volume] in Serum or Plasma by Heat stability Creatinine 1.30 Normal (applies Creatinine, [facility] [Mass/volume] in mg/dl to non-numeric Serum Health Serum or Plasma results) System DirectBilirubin 0.4 Normal (applies Direct [facility] mg/dl to non-numeric Bilirubin Health results) System Bilirubin.total 1.1 Normal (applies Bilirubin, [facility] [Mass/volume] in mg/dl to non-numeric Serum Total Health Serum or Plasma results) System Aspartate 31 Normal (applies Aspartate [facility] aminotransferase {IU/L} to non-numeric Transaminase, Heal th [Enzymatic results) Serum System activity/volume] in Serum or Plasma by With P-5'-P Albumin 4.5 Normal (applies Albumin, [facility] [Mass/volume] in {gm/dl} to non-numeric Serum Health Serum or Plasma results) System I.Phosphorus 3.0 Normal (applies I. Phosphorus [facility] mg/dl to non-numeric Health results) System Calcium 9.7 Normal (applies Calcium, [facility] [Mass/volume] in mg/dl to non-numeric Total Serum Health Serum or Plasma results) System Alanine 49 Normal (applies Alanine [facility] aminotransferase {IU/L} to non-numeric Aminotransfer Heal th [Enzymatic results) ase, Serum System activity/volume] in Serum or Plasma Urate 6.7 Normal (applies Uric Acid, [facility] [Mass/volume] in mg/dl to non-numeric Serum Health Serum or Plasma results) System A/GRatio 1.18 Normal (applies A/G Ratio [facility] to non-numeric Health results) System Anion gap in Serum 10.00 Normal (applies Anion Gap [facility]i k[facility] or Plasma mmol/L to non-numeric Health results) System Glomerular 58.00 Normal (applies GFR [facility] filtration to non-numeric Health rate/1.73 sq results) System M.predicted [Volume Rate/Area] in Serum or Plasma by Creatinine-based formula (CKD-EPI) eGFR will provide clinicians with a more accurate indicator of renal function then the serum creatinine. The eGFR is automa tically calculated from an empiric formula (endorsed by the [employer]) which incorporates age, sex, and race.Clinicians may notice surprisingly low GFR's with serum creatinine valueswithin normal range- particularly in elderly wo men (with low muscle mass).In the hospital setting, the eGFR should add an element of safety in drug dosing, in assessing the risk of IV contrast administration, and in assessing vascular risk.The NKF staging system is as follows:Normal: eGFR >90 with no kidney markersStage 1: eGFR >90 with kidney markers*Stage 2: eGFR 60- 89Stage 3: eGFR 30-59Stage 4: eGFR 15-29Stage 5: eGFR <15 (usually requir ing dialysis)*Markers include: Proteinuria, Hematuria, abnormal imaging-studies, or other blood or urine test abnormalities ID Date Data Source [id number] 12/12/2019 02:42:12 AM [facility] System Name Value Range Interpretation Description Data Sup porting Code Source(s) Document(s ) Triglyceride 126 Normal (applies Triglycerides, [facility] [Mass/volume] mg/dl to non-numeric Serum Health in Serum or results) System Plasma Optimal = < 100 mg/dLBoderline High = 15 0 - 199 mg/dLHigh = 200 - 499 mg/dLVery High = > 500 mg/dL Cholesterol 168 mg/dl Normal (applies Cholesterol, Serum [facility] [Mass/volume] in to non-numeric Health S ystem Serum or Plasma results) <200 mg/dL = [id number] - 239 md/dL = Borderline>240 mg/dL = High Risk Cholesterol in LDL 97.8 mg/dL Normal (applies Low Density [facility] [Mass/volume] in to non-numeric Lipoprotein, Healt h System Serum or Plasma results) Calculated OPTIMAL: LESS THAN 100 mg/dLNEAR OPTIMAL : 100 - 129 mg/dLBODERLINE HIGH: 130 - 150 mg/dL Cholesterol in HDL 45.0 mg/dL Normal (applies HDL Cholestero l, [facility] [Mass/volume] in to non-numeric Serum Health S ystem Serum or Plasma results) Cholesterol in VLDL 25.2 Normal (applies VLDL, Serum [facility] [Mass/volume] in to non-numeric Health S ystem Serum or Plasma results) CHDRisk 3.73 Normal (applies CHD Risk [facility] to non-numeric Health System results) ID Date Data Source [id number] 12/12/2019 02:42:12 AM EDT [facility] Name Value Range Interpretation Code Description Data Tammy rce(s) Supporting Document(s ) HbA1C 6.4 % Above high normal HbA1C [facility] ID Date Data Source [id number] 12/12/2019 02:42:12 AM EDT [facility] Name Value Range Interpretation Description Data Sup porting Code Source(s) Document(s ) Erythrocytes 5.57 Normal (applies RBC Count [facility] [#/volume] in {10^6_uL to non-numeric Health Blood by } results) System Automated count Leukocytes 8.0 Normal (applies WBC Count [facility] [#/volume] in {10^3_uL to non-numeric Health Unspecified } results) System specimen by Automated count Hemoglobin 14.7 Normal (applies Hemoglobin [facility] [Mass/volume] in {gm/dL} to non-numeric Health Blood results) System Hematocrit 44.4 % Normal (applies Hematocrit [facility] [Volume to non-numeric Health Fraction] of results) System Blood Erythrocyte mean 79.7 fl Below low normal MCV [facility] corpuscular Health volume [Entitic System volume] by Automated count Erythrocyte mean 26.4 pg Normal (applies MCH [facility] corpuscular to non-numeric Health hemoglobin results) System [Entitic mass] by Automated count Erythrocyte 16.1 % Above high normal RDW-CV [facility] distribution Health width [Entitic System volume] by Automated count Erythrocyte mean 33.1 Normal (applies MCHC [facility] corpuscular {gm/dL} to non-numeric Health hemoglobin results) System concentration [Mass/volume] by Automated count Platelet mean 11.2 fl Above high normal MPV [facility] volume [Entitic [facility] volume] in Blood System by Automated count Platelets 235 Normal (applies Platelet [facility] [#/volume] in {10^3_uL to non-numeric Count Health Plasma by } results) System Automated count Monocytes 0.6 Normal (applies Monocyte # [facility] [#/volume] in {10^3_uL to non-numeric Health Blood by Manual } results) System count Eosinophils 0.19 Normal (applies Eosinophil # [facility] [#/volume] in {10^3_uL to non-numeric Health Blood } results) System Neutrophils 5.2 Normal (applies Neutrophil # [facility] [#/volume] in {10^3_uL to non-numeric Health Body fluid } results) System Basophils 0.03 Normal (applies Basophil # [facility] [#/volume] in {10^3_uL to non-numeric Health Blood by } results) System Automated count Neutrophils/100 64.6 % Normal (applies Neutrophil % [facility] leukocytes in to non-numeric Health Blood by results) System Automated count Lymphocyte 2.0 Normal (applies Lymphocyte # [facility] percent {10^3_uL to non-numeric Health differential } results) System count (procedure) Monocytes/100 7.2 % Normal (applies Monocyte % [facility] leukocytes in to non-numeric Health Blood results) System Eosinophils/100 2.4 % Normal (applies Eosinophil % [facility] leukocytes in to non-numeric Health Unspecified results) System specimen Lymphocytes 25.4 % Normal (applies Lymphocyte % [facility] [#/volume] in to non-numeric Health Blood by results) System Automated count Basophils/100 0.4 % Normal (applies Basophil % [facility] leukocytes in to non-numeric Health Unspecified results) System specimen by Manual count ID Date Data Source [id number] 12/12/2019 02:42:12 AM EDT [facility] System Name Value Range Interpretation Description Data Sup porting Code Source(s) Document(s ) Sodium 144 Normal (applies Sodium, Serum [facility] [Moles/volume] in mmol/L to non-numeric Health Serum or Plasma results) System Chloride 109 Above high Chloride, [facility] [Moles/volume] in mmol/L normal Serum Health Serum or Plasma System Potassium 4.3 Normal (applies Potassium, [facility] [Mass/volume] in mmol/L to non-numeric Serum Health Serum or Plasma results) System Carbon dioxide, 23.0 Normal (applies CO2, Serum [facility] total mmol/L to non-numeric Health [Moles/volume] in results) System Serum or Plasma TotalProtein 7.6 Normal (applies Total Protein [facility] mg/dl to non-numeric Health results) System Glucose 103 Normal (applies Glucose, [facility] [Mass/volume] in mg/dL to non-numeric Serum Health Serum or Plasma results) System Urea nitrogen 15 Normal (applies Blood Urea [facility] [Mass/volume] in mg/dl to non-numeric Nitrogen, Health Serum or Plasma results) Serum System Creatinine 1.40 Normal (applies Creatinine, [facility] [Mass/volume] in mg/dl to non-numeric Serum Health Serum or Plasma results) System Alkaline 80 Normal (applies Alkaline [facility] phosphatase {IU/L} to non-numeric Phosphatase, Health isoenzymes results) Serum System [Enzymatic activity/volume] in Serum or Plasma by Heat stability Bilirubin.total 0.7 Normal (applies Bilirubin, [facility] [Mass/volume] in mg/dl to non-numeric Serum Total Health Serum or Plasma results) System Aspartate 34 Normal (applies Aspartate [facility] aminotransferase {IU/L} to non-numeric Transaminase, Heal th [Enzymatic results) Serum System activity/volume] in Serum or Plasma by With P-5'-P DirectBilirubin 0.2 Normal (applies Direct [facility] mg/dl to non-numeric Bilirubin Health results) System Albumin 4.4 Normal (applies Albumin, [facility] [Mass/volume] in {gm/dl} to non-numeric Serum Health Serum or Plasma results) System I.Phosphorus 3.9 Normal (applies I. Phosphorus [facility] mg/dl to non-numeric Health results) System Alanine 43 Normal (applies Alanine [facility] aminotransferase {IU/L} to non-numeric Aminotransfer Heal th [Enzymatic results) ase, Serum System activity/volume] in Serum or Plasma Calcium 9.7 Normal (applies Calcium, [facility] [Mass/volume] in mg/dl to non-numeric Total Serum Health Serum or Plasma results) System A/GRatio 1.38 Normal (applies A/G Ratio [facility] to non-numeric Health results) System Urate 6.4 Normal (applies Uric Acid, [facility] [Mass/volume] in mg/dl to non-numeric Serum Health Serum or Plasma results) System Anion gap in Serum 12.00 Normal (applies Anion Gap [facility] k[facility] or Plasma mmol/L to non-numeric Health results) System Glomerular 53.00 Normal (applies GFR [facility] filtration to non-numeric Health rate/1.73 sq results) System M.predicted [Volume Rate/Area] in Serum or Plasma by Creatinine-based formula (CKD-EPI) eGFR will provide clinicians with a more accurate indicator of renal function then the serum creatinine. The eGFR is automa tically calculated from an empiric formula (endorsed by the [employer] ion) which incorporates age, sex, and race.Clinicians may notice surprisingly low GFR's with serum creatinine valueswithin normal range- particularly in elderly wo men (with low muscle mass).In the hospital setting, the eGFR should add an element of safety in drug dosing, in assessing the risk of IV contrast administration, and in assessing vascular risk.The NKF staging system is as follows:Normal: eGFR >90 with no kidney markersStage 1: eGFR >90 with kidney markers*Stage 2: eGFR 60- 89Stage 3: eGFR 30-59Stage 4: eGFR 15-29Stage 5: eGFR <15 (usually requir ing dialysis)*Markers include: Proteinuria, Hematuria, abnormal imaging-studies, or other blood or urine test abnormalities ID Date Data Source [id number] 12/12/2019 02:42:12 AM [facility] System Name Value Range Interpretation Description Data Sup porting Code Source(s) Document(s ) Triglyceride 91 mg/dl Normal (applies Triglycerides, [facility] [Mass/volume] to non-numeric Serum Health in Serum or results) System Plasma Optimal = < 100 mg/dLBoderline High = 15 0 - 199 mg/dLHigh = 200 - 499 mg/dLVery High = > 500 mg/dL Cholesterol 172 mg/dl Normal (applies Cholesterol, Serum [facility] [Mass/volume] in to non-numeric Health S ystem Serum or Plasma results) <200 mg/dL = [id number] - 239 md/dL = Borderline>240 mg/dL = High Risk Cholesterol in HDL 45.0 mg/dL Normal (applies HDL Cholestero l, [facility] [Mass/volume] in to non-numeric Serum Health S ystem Serum or Plasma results) Cholesterol in LDL 108.8 mg/dL Normal (applies Low Density [facility] [Mass/volume] in to non-numeric Lipoprotein, Healt h System Serum or Plasma results) Calculated OPTIMAL: LESS THAN 100 mg/dLNEAR OPTIMAL : 100 - 129 mg/dLBODERLINE HIGH: 130 - 150 mg/dL CHDRisk 3.82 Normal (applies to [facility] non-numeric results) System Cholesterol in VLDL 18.2 Normal (applies to VLDL, Serum [facility] [Mass/volume] in Serum non-numeric results) System or Plasma ID Date Data Source [id number] 12/12/2019 02:42:12 AM EDT [facility] System Name Value Range Interpretation Code Description Data Tammy rce(s) Supporting Document(s ) HbA1C 5.6 % Normal (applies to HbA1C [facility] non-numeric results) System ID Date Data Source [id number] 12/12/2019 02:42:12 AM EDT [facility] Name Value Range Interpretation Description Data Sup porting Code Source(s) Document(s ) Leukocytes 6.3 Normal (applies WBC Count [facility] [#/volume] in {10^3_uL to non-numeric Health Unspecified } results) System specimen by Automated count Erythrocytes 5.69 Normal (applies RBC Count [facility] [#/volume] in {10^6_uL to non-numeric Health Blood by } results) System Automated count Hemoglobin 15.3 Normal (applies Hemoglobin [facility] [Mass/volume] in {gm/dL} to non-numeric Health Blood results) System Hematocrit 45.5 % Normal (applies Hematocrit [facility] [Volume to non-numeric Health Fraction] of results) System Blood Erythrocyte mean 80.0 fl Below low normal MCV [facility] corpuscular Health volume [Entitic System volume] by Automated count Erythrocyte mean 26.9 pg Normal (applies MCH [facility] corpuscular to non-numeric Health hemoglobin results) System [Entitic mass] by Automated count Erythrocyte mean 33.6 Normal (applies MCHC [facility] corpuscular {gm/dL} to non-numeric Health hemoglobin results) System concentration [Mass/volume] by Automated count Platelets 276 Normal (applies Platelet [facility] [#/volume] in {10^3_uL to non-numeric Count Health Plasma by } results) System Automated count Erythrocyte 16.3 % Above high normal RDW-CV [facility] distribution Health width [Entitic System volume] by Automated count Platelet mean 11.2 fl Above high normal MPV [facility] volume [Entitic Health volume] in Blood System by Automated count Monocytes 0.5 Normal (applies Monocyte # [facility] [#/volume] in {10^3_uL to non-numeric Health Blood by Manual } results) System count Eosinophils 0.19 Normal (applies Eosinophil # [facility] [#/volume] in {10^3_uL to non-numeric Health Blood } results) System Neutrophils 3.8 Normal (applies Neutrophil # [facility] [#/volume] in {10^3_uL to non-numeric Health Body fluid } results) System Basophils 0.02 Normal (applies Basophil # [facility] [#/volume] in {10^3_uL to non-numeric Health Blood by } results) System Automated count Lymphocyte 1.8 Normal (applies Lymphocyte # [facility] percent {10^3_uL to non-numeric Health differential } results) System count (procedure) Neutrophils/100 60.4 % Normal (applies Neutrophil % [facility] k[facility] leukocytes in to non-numeric Health Blood by results) System Automated count Monocytes/100 7.3 % Normal (applies Monocyte % [facility] leukocytes in to non-numeric Health Blood results) System Basophils/100 0.3 % Normal (applies Basophil % [facility] leukocytes in to non-numeric Health Unspecified results) System specimen by Manual count Eosinophils/100 3.0 % Normal (applies Eosinophil % [facility] k[facility] leukocytes in to non-numeric Health Unspecified results) System specimen Lymphocytes 29.0 % Normal (applies Lymphocyte % [facility] [#/volume] in to non-numeric Health Blood by results) System Automated count ID Date Data Source [id number] 12/12/2019 02:42:12 AM EDT Tracy escobar System Name Value Range Interpretation Description Data Sup porting Code Source(s) Document(s ) Sodium 145 Normal (applies Sodium, Serum [facility] [Moles/volume] in mmol/L to non-numeric Health Serum or Plasma results) System Potassium 4.3 Normal (applies Potassium, [facility] [Mass/volume] in mmol/L to non-numeric Serum Health Serum or Plasma results) System Chloride 108 Above high Chloride, [facility] [Moles/volume] in mmol/L normal Serum Health Serum or Plasma System Carbon dioxide, 24.0 Normal (applies CO2, Serum [facility] total mmol/L to non-numeric Health [Moles/volume] in results) System Serum or Plasma TotalProtein 7.9 Normal (applies Total Protein [facility] mg/dl to non-numeric Health results) System Glucose 80 Normal (applies Glucose, [facility] [Mass/volume] in mg/dL to non-numeric Serum Health Serum or Plasma results) System Urea nitrogen 13 Normal (applies Blood Urea [facility] [Mass/volume] in mg/dl to non-numeric Nitrogen, Health Serum or Plasma results) Serum System Creatinine 1.18 Normal (applies Creatinine, [facility] [Mass/volume] in mg/dl to non-numeric Serum Health Serum or Plasma results) System Alkaline 85 Normal (applies Alkaline [facility] phosphatase {IU/L} to non-numeric Phosphatase, Health isoenzymes results) Serum System [Enzymatic activity/volume] in Serum or Plasma by Heat stability Bilirubin.total 0.9 Normal (applies Bilirubin, [facility] [Mass/volume] in mg/dl to non-numeric Serum Total Health Serum or Plasma results) System Aspartate 41 Above high Aspartate [facility] aminotransferase {IU/L} normal Transaminase, Health [Enzymatic Serum System activity/volume] in Serum or Plasma by With P-5'-P DirectBilirubin 0.3 Normal (applies Direct [facility] mg/dl to non-numeric Bilirubin Health results) System I.Phosphorus 3.1 Normal (applies I. Phosphorus [facility] mg/dl to non-numeric Health results) System Albumin 4.4 Normal (applies Albumin, [facility] [Mass/volume] in {gm/dl} to non-numeric Serum Health Serum or Plasma results) System Alanine 63 Above high Alanine [facility] aminotransferase {IU/L} normal Aminotransfer Health [Enzymatic ase, Serum System activity/volume] in Serum or Plasma A/GRatio 1.26 Normal (applies A/G Ratio [facility] to non-numeric Health results) System Calcium 9.6 Normal (applies Calcium, [facility] [Mass/volume] in mg/dl to non-numeric Total Serum Health Serum or Plasma results) System Urate 6.2 Normal (applies Uric Acid, [facility] [Mass/volume] in mg/dl to non-numeric Serum Health Serum or Plasma results) System Anion gap in Serum 13.00 Above high Anion Gap [facility] or Plasma mmol/L normal Health System Glomerular 65.00 Normal (applies GFR [facility] filtration to non-numeric Health rate/1.73 sq results) System M.predicted [Volume Rate/Area] in Serum or Plasma by Creatinine-based formula (CKD-EPI) eGFR will provide clinicians with a more accurate indicator of renal function then the serum creatinine. The eGFR is automa tically calculated from an empiric formula (endorsed by the National [employer] ion) which incorporates age, sex, and race.Clinicians may notice surprisingly low GFR's with serum creatinine valueswithin normal range- particularly in elderly wo men (with low muscle mass).In the hospital setting, the eGFR should add an element of safety in drug dosing, in assessing the risk of IV contrast administration, and in assessing vascular risk.The NKF staging system is as follows:Normal: eGFR >90 with no kidney markersStage 1: eGFR >90 with kidney markers*Stage 2: eGFR 60- 89Stage 3: eGFR 30-59Stage 4: eGFR 15-29Stage 5: eGFR <15 (usually requir ing dialysis)*Markers include: Proteinuria, Hematuria, abnormal imaging-studies, or other blood or urine test abnormalities ID Date Data Source [id number] 12/12/2019 02:42:12 AM EDT Tracy escobar System Name Value Range Interpretation Description Data Sup porting Code Source(s) Document(s ) Triglyceride 160 Normal (applies Triglycerides, [facility] [Mass/volume] mg/dl to non-numeric Serum Health in Serum or results) System Plasma Optimal = < 100 mg/dLBoderline High = 15 0 - 199 mg/dLHigh = 200 - 499 mg/dLVery High = > 500 mg/dL Cholesterol 186 mg/dl Normal (applies Cholesterol, Serum [facility] [Mass/volume] in to non-numeric Health S ystem Serum or Plasma results) <200 mg/dL = [id number] - 239 md/dL = Borderline>240 mg/dL = High Risk Cholesterol in LDL 105 mg/dL Normal (applies Low Density [facility] [Mass/volume] in to non-numeric Lipoprotein, Healt h System Serum or Plasma results) Calculated OPTIMAL: LESS THAN 100 mg/dLNEAR OPTIMAL : 100 - 129 mg/dLBODERLINE HIGH: 130 - 150 mg/dL Cholesterol in HDL 49.0 mg/dL Normal (applies HDL Cholestero l, [facility] [Mass/volume] in to non-numeric Serum Health S ystem Serum or Plasma results) Cholesterol in VLDL 32 Normal (applies VLDL, Serum [facility] [Mass/volume] in to non-numeric Health S yste Serum or Plasma results) CHDRisk 3.80 Normal (applies CHD Risk [facility] to non-numeric Health System results) ID Date Data Source [id number] 12/12/2019 02:42:12 AM EDT [facility] Name Value Range Interpretation Description Data Sup porting Code Source(s) Document(s ) Erythrocytes 5.80 Normal (applies RBC Count [facility] [#/volume] in {10^6_uL to non-numeric Health Blood by } results) System Automated count Leukocytes 7.3 Normal (applies WBC Count [facility] [#/volume] in {10^3_uL to non-numeric Health Unspecified } results) System specimen by Automated count Hemoglobin 15.9 Normal (applies Hemoglobin [facility] [Mass/volume] in {gm/dL} to non-numeric Health Blood results) System Hematocrit 48.2 % Normal (applies Hematocrit [facility] [Volume to non-numeric Health Fraction] of results) System Blood Erythrocyte mean 27.4 pg Normal (applies MCH [facility] corpuscular to non-numeric Health hemoglobin results) System [Entitic mass] by Automated count Erythrocyte mean 83.1 fl Normal (applies MCV [facility] corpuscular to non-numeric Health volume [Entitic results) System volume] by Automated count Erythrocyte mean 33.0 Normal (applies MCHC [facility] corpuscular {gm/dL} to non-numeric Health hemoglobin results) System concentration [Mass/volume] by Automated count Erythrocyte 16.1 % Above high normal RDW-CV [facility] distribution Health width [Entitic System volume] by Automated count Platelets 260 Normal (applies Platelet [facility] [#/volume] in {10^3_uL to non-numeric Count Health Plasma by } results) System Automated count Platelet mean 11.8 fl Above high normal MPV [facility] volume [Entitic Health volume] in Blood System by Automated count Monocytes 0.5 Normal (applies Monocyte # [facility] [#/volume] in {10^3_uL to non-numeric Health Blood by Manual } results) System count Eosinophils 0.30 Normal (applies Eosinophil # [facility] [#/volume] in {10^3_uL to non-numeric Health Blood } results) System Neutrophils 3.9 Normal (applies Neutrophil # [facility] [#/volume] in {10^3_uL to non-numeric Health Body fluid } results) System Lymphocyte 2.6 Normal (applies Lymphocyte # [facility] percent {10^3_uL to non-numeric Health differential } results) System count (procedure) Basophils 0.02 Normal (applies Basophil # [facility] [#/volume] in {10^3_uL to non-numeric Health Blood by } results) System Automated count Neutrophils/100 53.2 % Normal (applies Neutrophil % Chris kris leukocytes in to non-numeric Health Blood by results) System Automated count Eosinophils/100 4.1 % Above high normal Eosinophil % [facility] leukocytes in Health Unspecified System specimen Monocytes/100 7.4 % Normal (applies Monocyte % [facility] leukocytes in to non-numeric Health Blood results) System Basophils/100 0.3 % Normal (applies Basophil % [facility] leukocytes in to non-numeric Health Unspecified results) System specimen by Manual count Lymphocytes 35.0 % Normal (applies Lymphocyte % [facility] [#/volume] in to non-numeric Health Blood by results) System Automated count ID Date Data Source [id number] 12/12/2019 02:42:12 AM EDMo escobar System Name Value Range Interpretation Description Data Sup porting Code Source(s) Document(s ) Sodium 144 Normal (applies Sodium, Serum [facility] [Moles/volume] in mmol/L to non-numeric Health Serum or Plasma results) System Potassium 4.5 Normal (applies Potassium, [facility] [Mass/volume] in mmol/L to non-numeric Serum Health Serum or Plasma results) System Chloride 103 Normal (applies Chloride, [facility] [Moles/volume] in mmol/L to non-numeric Serum Health Serum or Plasma results) System Carbon dioxide, 29.0 Normal (applies CO2, Serum [facility] total mmol/L to non-numeric Health [Moles/volume] in results) System Serum or Plasma TotalProtein 7.8 Normal (applies Total Protein [facility] mg/dl to non-numeric Health results) System Urea nitrogen 12 Normal (applies Blood Urea [facility] [Mass/volume] in mg/dl to non-numeric Nitrogen, Health Serum or Plasma results) Serum System Glucose 109 Normal (applies Glucose, [facility] [Mass/volume] in mg/dL to non-numeric Serum Health Serum or Plasma results) System Creatinine 1.30 Normal (applies Creatinine, [facility] [Mass/volume] in mg/dl to non-numeric Serum Health Serum or Plasma results) System Bilirubin direct 1.1 Normal (applies Bilirubin, [facility] and total panel mg/dl to non-numeric Serum Total Health [Mass/volume] - results) System Serum or Plasma Alkaline 76 Normal (applies Alkaline [facility] phosphatase {IU/L} to non-numeric Phosphatase, Health isoenzymes results) Serum System [Enzymatic activity/volume] in Serum or Plasma by Heat stability DirectBilirubin 0.4 Normal (applies Direct [facility] mg/dl to non-numeric Bilirubin Health results) System Albumin 4.4 Normal (applies Albumin, [facility] [Mass/volume] in {gm/dl} to non-numeric Serum Health Serum or Plasma results) System Aspartate 28 Normal (applies Aspartate [facility] aminotransferase {IU/L} to non-numeric Transaminase, Heal th [Enzymatic results) Serum System activity/volume] in Serum or Plasma by With P-5'-P I.Phosphorus 3.5 Normal (applies I. Phosphorus [facility] mg/dl to non-numeric Health results) System Alanine 34 Normal (applies Alanine [facility] aminotransferase {IU/L} to non-numeric Aminotransfer Heal th [Enzymatic results) ase, Serum System activity/volume] in Serum or Plasma Calcium 9.9 Normal (applies Calcium, [facility] [Mass/volume] in mg/dl to non-numeric Total Serum Health Serum or Plasma results) System A/GRatio 1.29 Normal (applies A/G Ratio [facility] to non-numeric Health results) System Urate 7.1 Normal (applies Uric Acid, [facility] [Mass/volume] in mg/dl to non-numeric Serum Health Serum or Plasma results) System Anion gap in Serum 12.00 Normal (applies Anion Gap Chris kris or Plasma mmol/L to non-numeric Health results) System Glomerular 58.00 Normal (applies GFR [facility] filtration to non-numeric Health rate/1.73 sq results) System M.predicted [Volume Rate/Area] in Serum or Plasma by Creatinine-based formula (CKD-EPI) eGFR will provide clinicians with a more accurate indicator of renal function then the serum creatinine. The eGFR is automa tically calculated from an empiric formula (endorsed by the National [employer] ion) which incorporates age, sex, and race.Clinicians may notice surprisingly low GFR's with serum creatinine valueswithin normal range- particularly in elderly wo men (with low muscle mass).In the hospital setting, the eGFR should add an element of safety in drug dosing, in assessing the risk of IV contrast administration, and in assessing vascular risk.The NKF staging system is as follows:Normal: eGFR >90 with no kidney markersStage 1: eGFR >90 with kidney markers*Stage 2: eGFR 60- 89Stage 3: eGFR 30-59Stage 4: eGFR 15-29Stage 5: eGFR <15 (usually requir ing dialysis)*Markers include: Proteinuria, Hematuria, abnormal imaging-studies, or other blood or urine test abnormalities ID Date Data Source [id number] 12/12/2019 02:42:12 AM EDT Tracy escobar System Name Value Range Interpretation Description Data Sup porting Code Source(s) Document(s ) Triglyceride 92 mg/dl Normal (applies Triglycerides, [facility] [Mass/volume] to non-numeric Serum Health in Serum or results) System Plasma Optimal = < 100 mg/dLBoderline High = 15 0 - 199 mg/dLHigh = 200 - 499 mg/dLVery High = > 500 mg/dL Cholesterol 171 mg/dl Normal (applies Cholesterol, Serum [facility] [Mass/volume] in to non-numeric Health S ystem Serum or Plasma results) <200 mg/dL = [id number] - 239 md/dL = Borderline>240 mg/dL = High Risk Cholesterol in HDL 50.0 mg/dL Normal (applies HDL Cholestero l, [facility] [Mass/volume] in to non-numeric Serum Health S ystem Serum or Plasma results) Cholesterol in LDL 102.6 mg/dL Normal (applies Low Density [facility] [Mass/volume] in to non-numeric Lipoprotein, Healt h System Serum or Plasma results) Calculated OPTIMAL: LESS THAN 100 mg/dLNEAR OPTIMAL : 100 - 129 mg/dLBODERLINE HIGH: 130 - 150 mg/dL Cholesterol in VLDL 18.4 Normal (applies to VLDL, Serum [facility] [Mass/volume] in Serum non-numeric results) System or Plasma CHDRisk 3.42 Normal (applies to [facility] non-numeric results) System ID Date Data Source [id number] 12/12/2019 02:42:12 AM EDT [facility] System Name Value Range Interpretation Description Data Source(s ) Supporting Code Document(s ) Blood,Oc Negative Normal (applies to Blood, Occult [facility] cultFece non-numeric Feces Health System s results) ID Date Data Source [id number] 12/12/2019 02:42:12 AM EDT [facility] System Name Value Range Interpretation Description Data Source(s ) Supporting Code Document(s ) Microalb 3 Normal (applies to Microalbumin: [facility] umin:CRR {mcg/mg_C non-numeric CR Ratio Health System atio re} results) UNITS: mcg/mg CreatThe ADA defines abnor malities in albumin excretion asfollows:Category: Result (mcg/mg creatinine)Normal <30Microalbuminuria 30-299Clini cheryl albuminuria > or = 300The ADA recommends that at least two of three sp ecimenscollected within a 3-6 month period be abnormal before considering a patient to be within a diagnostic category. Microalbumin 0.8 mg/dL Normal (applies Microalbumin, Urine [facility] [Mass/volume] in to non-numeric Health S ystem Urine results) Reference Range: Not Established Creatinine,Urine. 241.00 Normal (applies to Creatinine , Urine. [facility] ScalIT non-numeric System results) Test Performed at:[facility] [place], [place] [address]ElzzzmkcNagi Grigsby M.D. ID Date Data Source [id number] 12/12/2019 02:42:12 AM EDT [facility] System Name Value Range Interpretation Description Data Sup porting Code Source(s) Document(s ) Color YELLOW Normal (applies Color [facility] to non-numeric Health results) System Specific gravity 1.025 Normal (applies Urine Specific [facility] of Urine to non-numeric [facility] results) System Appearance of CLEAR Normal (applies Urine [facility] Urine to non-numeric Appearance Health results) System pH.. 6.0 Normal (applies pH.. [facility] {pH_units} to non-numeric Health results) System Glucose,UA NEGATIVE Normal (applies Glucose, UA [facility] to non-numeric Health results) System BilirubinUrine NEGATIVE Normal (applies Bilirubin [facility] to non-numeric Urine Health results) System Protein NEGATIVE Normal (applies Protein [facility] [Mass/volume] in to non-numeric Health Serum or Plasma results) System Urobilinogen 0.2 mg/dL Normal (applies Urobilinogen [facility] [Mass/volume] in to non-numeric UA Health Urine results) System Ketones NEGATIVE Normal (applies Ketones UA [facility] [Mass/volume] in to non-numeric Health Urine results) System Nitrate+Nitrite NEGATIVE Normal (applies Nitrite [facility] [Mass/volume] in to non-numeric Health Unspecified results) System specimen Leukocyte NEGATIVE Normal (applies Leukocyte [facility] esterase to non-numeric Esterase Health [Units/volume] results) Concentration System in Urine Leukocytes 0-2 Normal (applies White Blood [facility] [#/volume] in to non-numeric Cells Health Unspecified results) System specimen by Automated count RedBloodCells 0-2 Normal (applies Red Blood [facility] to non-numeric Cells Health results) System UrineBlood NEGATIVE Normal (applies Urine Blood [facility] to non-numeric Health results) System ID Date Data Source [id number] 12/12/2019 02:42:12 AM EDT [facility] System Name Value Range Interpretation Description Data Sup porting Code Source(s) Document(s ) Leukocytes 5.9 Normal (applies WBC Count [facility] [#/volume] in {10^3_uL to non-numeric Health Unspecified } results) System specimen by Automated count Erythrocytes 5.23 Normal (applies RBC Count [facility] [#/volume] in {10^6_uL to non-numeric Health Blood by } results) System Automated count Hemoglobin 14.4 Normal (applies Hemoglobin [facility] [Mass/volume] in {gm/dL} to non-numeric Health Blood results) System Hematocrit 42.9 % Normal (applies Hematocrit [facility] [Volume to non-numeric Health Fraction] of results) System Blood Erythrocyte mean 82.0 fl Below low normal MCV [facility] corpuscular Health volume [Entitic System volume] by Automated count Erythrocyte mean 27.5 pg Normal (applies MCH [facility] corpuscular to non-numeric Health hemoglobin results) System [Entitic mass] by Automated count Erythrocyte 15.9 % Above high normal RDW-CV [facility] distribution Health width [Entitic System volume] by Automated count Erythrocyte mean 33.6 Normal (applies MCHC [facility] corpuscular {gm/dL} to non-numeric Health hemoglobin results) System concentration [Mass/volume] by Automated count Platelets 223 Normal (applies Platelet [facility] [#/volume] in {10^3_uL to non-numeric Count Health Plasma by } results) System Automated count Platelet mean 11.1 fl Above high normal MPV [facility] volume [Entitic Health volume] in Blood System by Automated count Monocytes 0.5 Normal (applies Monocyte # [facility] [#/volume] in {10^3_uL to non-numeric Health Blood by Manual } results) System count Neutrophils 3.3 Normal (applies Neutrophil # [facility] [#/volume] in {10^3_uL to non-numeric Health Body fluid } results) System Eosinophils 0.29 Normal (applies Eosinophil # [facility] [#/volume] in {10^3_uL to non-numeric Health Blood } results) System Basophils 0.03 Normal (applies Basophil # [facility] [#/volume] in {10^3_uL to non-numeric Health Blood by } results) System Automated count Lymphocyte 1.8 Normal (applies Lymphocyte # [facility] percent {10^3_uL to non-numeric Health differential } results) System count (procedure) Neutrophils/100 55.4 % Normal (applies Neutrophil % Chris kris leukocytes in to non-numeric Health Blood by results) System Automated count Monocytes/100 8.5 % Normal (applies Monocyte % [facility] leukocytes in to non-numeric Health Blood results) System Eosinophils/100 4.9 % Above high normal Eosinophil % [facility] leukocytes in Health Unspecified System specimen Basophils/100 0.5 % Normal (applies Basophil % [facility] leukocytes in to non-numeric Health Unspecified results) System specimen by Manual count Lymphocytes 30.7 % Normal (applies Lymphocyte % [facility] [#/volume] in to non-numeric Health Blood by results) System Automated count ID Date Data Source [id number] 12/12/2019 02:42:12 AM EDMo escobar System Name Value Range Interpretation Description Data Sup porting Code Source(s) Document(s ) Thyrotropin 2.311 Normal (applies Thyroid [facility] [Mass/volume] {mIU/mL} to non-numeric Stimulating Health Sy stem in Serum or results) Hormone, Serum Plasma ID Date Data Source [id number] 12/12/2019 02:42:12 AM EDT [facility] System Name Value Range Interpretation Description Data Sup porting Code Source(s) Document(s ) Sodium 142 Normal (applies Sodium, Serum [facility] [Moles/volume] in mmol/L to non-numeric Health Serum or Plasma results) System Potassium 4.7 Normal (applies Potassium, [facility] [Mass/volume] in mmol/L to non-numeric Serum Health Serum or Plasma results) System Chloride 109 Above high Chloride, [facility] [Moles/volume] in mmol/L normal Serum Health Serum or Plasma System Carbon dioxide, 25.0 Normal (applies CO2, Serum [facility] total mmol/L to non-numeric Health [Moles/volume] in results) System Serum or Plasma TotalProtein 6.9 Normal (applies Total Protein [facility] mg/dl to non-numeric Health results) System Glucose 110 Normal (applies Glucose, [facility] [Mass/volume] in mg/dL to non-numeric Serum Health Serum or Plasma results) System Creatinine 1.20 Normal (applies Creatinine, [facility] [Mass/volume] in mg/dl to non-numeric Serum Health Serum or Plasma results) System Urea nitrogen 14 Normal (applies Blood Urea [facility] [Mass/volume] in mg/dl to non-numeric Nitrogen, Health Serum or Plasma results) Serum System Alkaline 67 Normal (applies Alkaline [facility] phosphatase {IU/L} to non-numeric Phosphatase, Health isoenzymes results) Serum System [Enzymatic activity/volume] in Serum or Plasma by Heat stability Bilirubin direct 0.6 Normal (applies Bilirubin, [facility] and total panel mg/dl to non-numeric Serum Total Health [Mass/volume] - results) System Serum or Plasma DirectBilirubin 0.3 Normal (applies Direct [facility] mg/dl to non-numeric Bilirubin Health results) System Aspartate 35 Normal (applies Aspartate [facility] aminotransferase {IU/L} to non-numeric Transaminase, Heal th [Enzymatic results) Serum System activity/volume] in Serum or Plasma by With P-5'-P Albumin 4.1 Normal (applies Albumin, [facility] [Mass/volume] in {gm/dl} to non-numeric Serum Health Serum or Plasma results) System I.Phosphorus 3.4 Normal (applies I. Phosphorus [facility] mg/dl to non-numeric Health results) System Alanine 52 Normal (applies Alanine [facility] aminotransferase {IU/L} to non-numeric Aminotransfer Heal th [Enzymatic results) ase, Serum System activity/volume] in Serum or Plasma Calcium 9.1 Normal (applies Calcium, [facility] [Mass/volume] in mg/dl to non-numeric Total Serum Health Serum or Plasma results) System A/GRatio 1.46 Normal (applies A/G Ratio [facility] to non-numeric Health results) System Anion gap in Serum 8.00 Normal (applies Anion Gap Chris kris or Plasma mmol/L to non-numeric Health results) System Urate 5.8 Normal (applies Uric Acid, [facility] [Mass/volume] in mg/dl to non-numeric Serum Health Serum or Plasma results) System Glomerular 63.00 Normal (applies GFR [facility] filtration to non-numeric Health rate/1.73 sq results) System M.predicted [Volume Rate/Area] in Serum or Plasma by Creatinine-based formula (CKD-EPI) eGFR will provide clinicians with a more accurate indicator of renal function then the serum creatinine. The eGFR is automa tically calculated from an empiric formula (endorsed by the [employer] ion) which incorporates age, sex, and race.Clinicians may notice surprisingly low GFR's with serum creatinine valueswithin normal range- particularly in elderly wo men (with low muscle mass).In the hospital setting, the eGFR should add an element of safety in drug dosing, in assessing the risk of IV contrast administration, and in assessing vascular risk.The NKF staging system is as follows:Normal: eGFR >90 with no kidney markersStage 1: eGFR >90 with kidney markers*Stage 2: eGFR 60- 89Stage 3: eGFR 30-59Stage 4: eGFR 15-29Stage 5: eGFR <15 (usually requir ing dialysis)*Markers include: Proteinuria, Hematuria, abnormal imaging-studies, or other blood or urine test abnormalities ID Date Data Source [id number] 12/12/2019 02:42:12 AM EDMo escobar System Name Value Range Interpretation Description Data Sup porting Code Source(s) Document(s ) Triglyceride 94 mg/dl Normal (applies Triglycerides, [facility] [Mass/volume] to non-numeric Serum Health in Serum or results) System Plasma Optimal = < 100 mg/dLBoderline High = 15 0 - 199 mg/dLHigh = 200 - 499 mg/dLVery High = > 500 mg/dL Cholesterol 156 mg/dl Normal (applies Cholesterol, Serum [facility] [Mass/volume] in to non-numeric Health S yste Serum or Plasma results) <200 mg/dL = [id number] - 239 md/dL = Borderline>240 mg/dL = High Risk Cholesterol in HDL 52.0 mg/dL Normal (applies HDL Cholestero l, [facility] [Mass/volume] in to non-numeric Serum Health S yste Serum or Plasma results) Cholesterol in LDL 85.2 mg/dL Normal (applies Low Density [facility] [Mass/volume] in to non-numeric Lipoprotein, Healt h System Serum or Plasma results) Calculated OPTIMAL: LESS THAN 100 mg/dLNEAR OPTIMAL : 100 - 129 mg/dLBODERLINE HIGH: 130 - 150 mg/dL Cholesterol in VLDL 18.8 Normal (applies to VLDL, Serum [facility] [Mass/volume] in Serum non-numeric results) System or Plasma CHDRisk 3.00 Normal (applies to CHD Risk [facility] non-numeric results) System ID Date Data Source [id number] 12/12/2019 02:42:12 AM EDT [facility] System Name Value Range Interpretation Code Description Data Tammy rce(s) Supporting Document(s ) HbA1C 5.6 % Normal (applies to HbA1C TMMI ([employer] Health non-numeric results) System ID Date Data Source [id number] 12/12/2019 02:42:12 AM EDT [facility] Name Value Range Interpretation Description Data Sup porting Code Source(s) Document(s ) Creatinine 1.20 Normal (applies Creatinine, [facility] [Mass/volume] mg/dl to non-numeric Serum Health Syst em in Serum or results) Plasma Creatinine 117.5 Normal (applies Creatinine, [facility] [Mass/volume] mg/dl to non-numeric Urine Health Syst em in Urine results) TotalVolume. 200 mL Normal (applies Total Volume. [facility] to non-numeric Health System results) CreatinineCle 14 Below low normal Creatinine [facility] arance. mL/min Clearance. Health System Creatinine,24 0.24 Below low normal Creatinine, 24 [facility] HourUrine. {gm/24hr Hour Urine. Health System } ID Date Data Source [id number] 12/12/2019 02:42:12 AM EDT [facility] Name Value Range Interpretation Code Description Data Tammy rce(s) Supporting Document(s ) [id number] 189.80 Normal (applies to [id number] [facility] non-numeric results) Health Sy stem tHbWB 3788.06 Normal (applies to tHbWB [facility] non-numeric results) Health Sy stem %HbA1C 6.74 % Above high normal %HbA1C [facility] ID Date Data Source [id number] 12/12/2019 02:42:12 AM EDT [facility] System Name Value Range Interpretation Description Data Sup porting Code Source(s) Document(s ) Color YELLOW Normal (applies Color [facility] to non-numeric Health results) System Appearance of CLEAR Normal (applies Urine [facility] Urine to non-numeric Appearance Health results) System Specific gravity 1.025 Normal (applies Urine Specific [facility] of Urine to non-numeric [facility] results) System pH.. 6.0 Normal (applies pH.. [facility] {pH_units} to non-numeric Health results) System Glucose,UA NEGATIVE Normal (applies Glucose, UA [facility] to non-numeric Health results) System Protein NEGATIVE Normal (applies Protein [facility] [Mass/volume] in to non-numeric Health Serum or Plasma results) System BilirubinUrine NEGATIVE Normal (applies Bilirubin [facility] to non-numeric Urine Health results) System Urobilinogen 0.2 mg/dL Normal (applies Urobilinogen [facility] [Mass/volume] in to non-numeric UA Health Urine results) System Ketones NEGATIVE Normal (applies Ketones UA [facility] [Mass/volume] in to non-numeric Health Urine results) System Nitrate+Nitrite NEGATIVE Normal (applies Nitrite [facility] [Mass/volume] in to non-numeric Health Unspecified results) System specimen Leukocyte NEGATIVE Normal (applies Leukocyte [facility] esterase to non-numeric Esterase Health [Units/volume] results) Concentration System in Urine UrineBlood NEGATIVE Normal (applies Urine Blood [facility] to non-numeric Health results) System ID Date Data Source [id number] 12/12/2019 02:42:12 AM EDT [facility] System Name Value Range Interpretation Description Data Sup porting Code Source(s) Document(s ) Leukocytes 6.9 Normal (applies WBC Count [facility] [#/volume] in {10^3_uL to non-numeric Health Unspecified } results) System specimen by Automated count Erythrocytes 5.53 Normal (applies RBC Count [facility] [#/volume] in {10^6_uL to non-numeric Health Blood by } results) System Automated count Hemoglobin 14.6 Normal (applies Hemoglobin [facility] [Mass/volume] in {gm/dL} to non-numeric Health Blood results) System Hematocrit 44.9 % Normal (applies Hematocrit [facility] [Volume to non-numeric Health Fraction] of results) System Blood Erythrocyte mean 81.2 fl Below low normal MCV [facility] corpuscular Health volume [Entitic System volume] by Automated count Erythrocyte mean 26.4 pg Normal (applies MCH [facility] corpuscular to non-numeric Health hemoglobin results) System [Entitic mass] by Automated count Erythrocyte mean 32.5 Below low normal MCHC [facility] corpuscular {gm/dL} Health hemoglobin System concentration [Mass/volume] by Automated count Erythrocyte 15.3 % Above high RDW-CV [facility] distribution normal Health width [Entitic System volume] by Automated count Platelet mean 11.3 fl Above high MPV [facility] volume [Entitic normal Health volume] in Blood System by Automated count Platelets 225 Normal (applies Platelet Count [facility] [#/volume] in {10^3_uL to non-numeric Health Plasma by } results) System Automated count Monocytes 0.6 Normal (applies Monocyte # [facility] [#/volume] in {10^3_uL to non-numeric Health Blood by Manual } results) System count Neutrophils 4.0 Normal (applies Neutrophil # [facility] [#/volume] in {10^3_uL to non-numeric Health Body fluid } results) System Eosinophils 0.20 Normal (applies Eosinophil # [facility] [#/volume] in {10^3_uL to non-numeric Health Blood } results) System Basophils 0.03 Normal (applies Basophil # [facility] [#/volume] in {10^3_uL to non-numeric Health Blood by } results) System Automated count Lymphocyte 2.0 Normal (applies Lymphocyte # [facility] percent {10^3_uL to non-numeric Health differential } results) System count (procedure) Neutrophils/100 58.3 % Normal (applies Neutrophil % Chris kris leukocytes in to non-numeric Health Blood by results) System Automated count Monocytes/100 8.4 % Normal (applies Monocyte % [facility] leukocytes in to non-numeric Health Blood results) System Eosinophils/100 2.9 % Normal (applies Eosinophil % [facility] kris leukocytes in to non-numeric Health Unspecified results) System specimen Basophils/100 0.4 % Normal (applies Basophil % [facility] leukocytes in to non-numeric Health Unspecified results) System specimen by Manual count Lymphocytes 29.1 % Normal (applies Lymphocyte % [facility] [#/volume] in to non-numeric Health Blood by results) System Automated count ImmatureGranuloc 0.9 % Above high Immature [facility] ytes% normal Granulocytes % Health System Nucleated 0.0 Normal (applies NRBC % [facility] erythrocytes {/100_WB to non-numeric Health [#/volume] in C} results) System Body fluid ImmatureGranuloc 0.06 Normal (applies Immature [facility] ytes# {10^3_uL to non-numeric Granulocytes # Health } results) System NRBC# 0.00 Below low normal NRBC # [facility] {10^3_uL Health } System ID Date Data Source [id number] 12/12/2019 02:42:12 AM EDT [facility] System Name Value Range Interpretation Description Data Sup porting Code Source(s) Document(s ) Thyrotropin 1.826 Normal (applies Thyroid [facility] [Mass/volume] {mIU/mL} to non-numeric Stimulating Health Sy stem in Serum or results) Hormone, Serum Plasma ID Date Data Source [id number] 12/12/2019 02:42:12 AM EDT [facility] Name Value Range Interpretation Description Data Sup porting Code Source(s) Document(s ) Sodium 145 Normal (applies Sodium, Serum [facility] [Moles/volume] in mmol/L to non-numeric Health Serum or Plasma results) System Potassium 4.8 Normal (applies Potassium, [facility] [Mass/volume] in mmol/L to non-numeric Serum Health Serum or Plasma results) System Chloride 108 Above high Chloride, [facility] [Moles/volume] in mmol/L normal Serum Health Serum or Plasma System Carbon dioxide, 28.0 Normal (applies CO2, Serum [facility] total mmol/L to non-numeric Health [Moles/volume] in results) System Serum or Plasma TotalProtein 7.7 Normal (applies Total Protein [facility] mg/dl to non-numeric Health results) System Glucose 109 Normal (applies Glucose, [facility] [Mass/volume] in mg/dL to non-numeric Serum Health Serum or Plasma results) System Urea nitrogen 14 Normal (applies Blood Urea [facility] [Mass/volume] in mg/dl to non-numeric Nitrogen, Health Serum or Plasma results) Serum System Creatinine 1.30 Normal (applies Creatinine, [facility] [Mass/volume] in mg/dl to non-numeric Serum Health Serum or Plasma results) System Alkaline 79 Normal (applies Alkaline [facility] phosphatase {IU/L} to non-numeric Phosphatase, Health isoenzymes results) Serum System [Enzymatic activity/volume] in Serum or Plasma by Heat stability Bilirubin.total 0.5 Normal (applies Bilirubin, [facility] [Mass/volume] in mg/dl to non-numeric Serum Total Health Serum or Plasma results) System DirectBilirubin 0.2 Normal (applies Direct [facility] mg/dl to non-numeric Bilirubin Health results) System Aspartate 26 Normal (applies Aspartate [facility] aminotransferase {IU/L} to non-numeric Transaminase, Heal th [Enzymatic results) Serum System activity/volume] in Serum or Plasma by With P-5'-P Albumin 4.4 Normal (applies Albumin, [facility] [Mass/volume] in {gm/dl} to non-numeric Serum Health Serum or Plasma results) System I.Phosphorus 3.6 Normal (applies I. Phosphorus [facility] mg/dl to non-numeric Health results) System Alanine 47 Normal (applies Alanine [facility] aminotransferase {IU/L} to non-numeric Aminotransfer Heal th [Enzymatic results) ase, Serum System activity/volume] in Serum or Plasma Calcium 10.0 Normal (applies Calcium, [facility] [Mass/volume] in mg/dl to non-numeric Total Serum Health Serum or Plasma results) System A/GRatio 1.33 Normal (applies A/G Ratio [facility] to non-numeric Health results) System Urate 6.2 Normal (applies Uric Acid, [facility] [Mass/volume] in mg/dl to non-numeric Serum Health Serum or Plasma results) System Anion gap in Serum 9.00 Normal (applies Anion Gap Chris kris or Plasma mmol/L to non-numeric Health results) System Glomerular 57.00 Normal (applies GFR [facility] filtration to non-numeric Health rate/1.73 sq results) System M.predicted [Volume Rate/Area] in Serum or Plasma by Creatinine-based formula (CKD-EPI) eGFR will provide clinicians with a more accurate indicator of renal function then the serum creatinine. The eGFR is automa tically calculated from an empiric formula (endorsed by the National Kid[employer] ion) which incorporates age, sex, and race.Clinicians may notice surprisingly low GFR's with serum creatinine valueswithin normal range- particularly in elderly wo men (with low muscle mass).In the hospital setting, the eGFR should add an element of safety in drug dosing, in assessing the risk of IV contrast administration, and in assessing vascular risk.The NKF staging system is as follows:Normal: eGFR >90 with no kidney markersStage 1: eGFR >90 with kidney markers*Stage 2: eGFR 60- 89Stage 3: eGFR 30-59Stage 4: eGFR 15-29Stage 5: eGFR <15 (usually requir ing dialysis)*Markers include: Proteinuria, Hematuria, abnormal imaging-studies, or other blood or urine test abnormalities ID Date Data Source [id number] 12/12/2019 02:42:12 AM EDT [facility] escobar System Name Value Range Interpretation Description Data Sup porting Code Source(s) Document(s ) Triglyceride 135 Normal (applies Triglycerides, [facility] [Mass/volume] mg/dl to non-numeric Serum Health in Serum or results) System Plasma Optimal = < 100 mg/dLBoderline High = 15 0 - 199 mg/dLHigh = 200 - 499 mg/dLVery High = > 500 mg/dL Cholesterol 190 mg/dl Normal (applies Cholesterol, Serum [facility] [Mass/volume] in to non-numeric Health S ystem Serum or Plasma results) <200 mg/dL = Qortvullc309 - 239 md/dL = Borderline>240 mg/dL = High Risk Cholesterol in HDL 38.0 mg/dL Normal (applies HDL Cholestero l, [facility] [Mass/volume] in to non-numeric Serum [facility] S te Serum or Plasma results) Cholesterol in LDL 125 mg/dL Normal (applies Low Density [facility] [Mass/volume] in to non-numeric Lipoprotein, Healt h System Serum or Plasma results) Calculated OPTIMAL: LESS THAN 100 mg/dLNEAR OPTIMAL : 100 - 129 mg/dLBODERLINE HIGH: 130 - 150 mg/dL Cholesterol in VLDL 27 Normal (applies to VLDL, Serum [facility] [Mass/volume] in Serum non-numeric results) System or Plasma CHDRisk 5.00 Normal (applies to CHD Risk [facility] non-numeric results) System ID Date Data Source [id number] 12/12/2019 02:42:12 AM [facility] System Name Value Range Interpretation Description Data Sup porting Code Source(s) Document(s ) Amphetamine Negative Normal (applies Amphetamine [facility] [Mass/volume] to non-numeric Level, Urine Health in Urine results) System Cut-off = 1000 ng/mL Barbiturates Negative Normal (applies to Barbiturate [facility] [Mass/volume] in non-numeric Screen, Urine Health System Urine by Screen results) method Cut-off = 200 ng/mL Benzodiazepines Negative Normal (applies Benzodiazepines, [facility] [Mass/volume] in to non-numeric [facility]) Cut-off = 200 ng/mL Cocaine Negative Normal (applies Cocaine [facility] metabolites.other to non-numeric Metabolite Health System [Mass/volume] in Urine results) Screen, Urine Cut-off = 300 ng/mL Methadone Negative Normal (applies to Methadone Level, [facility] Health [Mass/volume] in non-numeric Urine System Urine results) Cut-off = 300 ng/mL [id number],Urine Negative Normal (applies to Opiate 300, [facility] non-numeric results) Urine System Cut-off = 300 ng/mL Phencyclidine Positive Abnormal (applies Phencyclidine, Uri ne [facility] [Mass/volume] in to non-numeric [facility]) Cut-off = 25 ng/mL Cannabinoid(THC) Negative Normal (applies to Cannabinoid (THC) [facility] non-numeric System results) Cutt-off = 50These results are for medic al treatment only. The positive findings are unconfirmed. Request confirmatory/quanti tative test if needed. ID Date Data Source [id number] 12/12/2019 02:42:12 AM EDT [facility] System Name Value Range Interpretation Description Data Sup porting Code Source(s) Document(s ) Leukocytes 12.5 Above high WBC Count [facility] [#/volume] in {10^3_uL normal Health Unspecified } System specimen by Automated count Erythrocytes 5.58 Normal (applies RBC Count [facility] [#/volume] in {10^6_uL to non-numeric Health Blood by } results) System Automated count Hemoglobin 14.8 Normal (applies Hemoglobin [facility] [Mass/volume] in {gm/dL} to non-numeric Health Blood results) System Hematocrit 45.6 % Normal (applies Hematocrit [facility] [Volume to non-numeric Health Fraction] of results) System Blood Erythrocyte mean 81.7 fl Below low normal MCV [facility] corpuscular Health volume [Entitic System volume] by Automated count Erythrocyte mean 26.5 pg Normal (applies MCH [facility] corpuscular to non-numeric Health hemoglobin results) System [Entitic mass] by Automated count Erythrocyte mean 32.5 Below low normal MCHC [facility] corpuscular {gm/dL} Health hemoglobin System concentration [Mass/volume] by Automated count Erythrocyte 15.8 % Above high RDW-CV [facility] distribution normal Health width [Entitic System volume] by Automated count Platelets 244 Normal (applies Platelet Count [facility] [#/volume] in {10^3_uL to non-numeric Health Plasma by } results) System Automated count Platelet mean 11.1 fl Above high MPV [facility] volume [Entitic normal Health volume] in Blood System by Automated count Monocytes 0.8 Normal (applies Monocyte # [facility] [#/volume] in {10^3_uL to non-numeric Health Blood by Manual } results) System count Eosinophils 0.02 Below low normal Eosinophil # [facility] [#/volume] in {10^3_uL Health Blood } System Neutrophils 10.8 Above high Neutrophil # [facility] [#/volume] in {10^3_uL normal Health Body fluid } System Basophils 0.04 Normal (applies Basophil # [facility] [#/volume] in {10^3_uL to non-numeric Health Blood by } results) System Automated count Lymphocyte 0.8 Below low normal Lymphocyte # [facility] percent {10^3_uL Health differential } System count (procedure) Neutrophils/100 86.5 % Above high Neutrophil % [facility] leukocytes in normal Health Blood by System Automated count Monocytes/100 6.4 % Normal (applies Monocyte % [facility] leukocytes in to non-numeric Health Blood results) System Eosinophils/100 0.2 % Normal (applies Eosinophil % Chris kris leukocytes in to non-numeric Health Unspecified results) System specimen Basophils/100 0.3 % Normal (applies Basophil % [facility] leukocytes in to non-numeric Health Unspecified results) System specimen by Manual count Lymphocytes 6.1 % Below low normal Lymphocyte % [facility] [#/volume] in Health Blood by System Automated count ImmatureGranuloc 0.5 % Normal (applies Immature [facility] ytes% to non-numeric Granulocytes % Health results) System Nucleated 0.0 Normal (applies NRBC % [facility] erythrocytes {/100_WB to non-numeric Health [#/volume] in C} results) System Body fluid ImmatureGranuloc 0.06 Normal (applies Immature [facility] ytes# {10^3_uL to non-numeric Granulocytes # Health } results) System NRBC# 0.00 Below low normal NRBC # [facility] {10^3_uL Health } System ID Date Data Source [id number] 12/12/2019 02:42:12 AM EDT [facility] System Name Value Range Interpretation Description Data Source(s ) Supporting Code Document(s ) AlcoholE 52.6 Normal (applies to Alcohol Ethyl, [facility] thyl,Blo mg/dl non-numeric Blood Health System od results) None Detected ID Date Data Source [id number] 12/12/2019 02:42:12 AM EDT [facility] System Name Value Range Interpretation Description Data Source(s ) Supporting Code Document(s ) Lipase 18 U/L Normal (applies to Lipase, Serum [facility] [Enzymatic non-numeric Health System activity/vo results) lume] in Serum or Plasma ID Date Data Source [id number] 12/12/2019 02:42:12 AM EDT [facility] System Name Value Range Interpretation Description Data Sup porting Code Source(s) Document(s ) Sodium 146 Above high Sodium, Serum [facility] [Moles/volume] in mmol/L normal Health Serum or Plasma System Potassium 4.1 Normal (applies Potassium, [facility] [Mass/volume] in mmol/L to non-numeric Serum Health Serum or Plasma results) System Chloride 109 Above high Chloride, [facility] [Moles/volume] in mmol/L normal Serum Health Serum or Plasma System Carbon dioxide, 23.0 Normal (applies CO2, Serum [facility] total mmol/L to non-numeric Health [Moles/volume] in results) System Serum or Plasma TotalProtein 8.0 Normal (applies Total Protein [facility] mg/dl to non-numeric Health results) System Glucose 91 Normal (applies Glucose, [facility] [Mass/volume] in mg/dL to non-numeric Serum Health Serum or Plasma results) System Urea nitrogen 12 Normal (applies Blood Urea [facility] [Mass/volume] in mg/dl to non-numeric Nitrogen, Health Serum or Plasma results) Serum System Creatinine 1.40 Normal (applies Creatinine, [facility] [Mass/volume] in mg/dl to non-numeric Serum Health Serum or Plasma results) System Alkaline 77 Normal (applies Alkaline [facility] phosphatase {IU/L} to non-numeric Phosphatase, Health isoenzymes results) Serum System [Enzymatic activity/volume] in Serum or Plasma by Heat stability Bilirubin.total 0.5 Normal (applies Bilirubin, [facility] [Mass/volume] in mg/dl to non-numeric Serum Total Health Serum or Plasma results) System DirectBilirubin 0.3 Normal (applies Direct [facility] mg/dl to non-numeric Bilirubin Health results) System Aspartate 83 Above high Aspartate [facility] aminotransferase {IU/L} normal Transaminase, Health [Enzymatic Serum System activity/volume] in Serum or Plasma by With P-5'-P Albumin 4.6 Normal (applies Albumin, [facility] [Mass/volume] in {gm/dl} to non-numeric Serum Health Serum or Plasma results) System I.Phosphorus 2.8 Normal (applies I. Phosphorus [facility] mg/dl to non-numeric Health results) System Alanine 67 Above high Alanine [facility] aminotransferase {IU/L} normal Aminotransfer Health [Enzymatic ase, Serum System activity/volume] in Serum or Plasma Calcium 9.7 Normal (applies Calcium, [facility] [Mass/volume] in mg/dl to non-numeric Total Serum Health Serum or Plasma results) System A/GRatio 1.35 Normal (applies A/G Ratio [facility] to non-numeric Health results) System Urate 7.5 Normal (applies Uric Acid, [facility] [Mass/volume] in mg/dl to non-numeric Serum Health Serum or Plasma results) System Anion gap in Serum 14.00 Above high Anion Gap [facility] or Plasma mmol/L normal Health System Glomerular 52.00 Normal (applies GFR [facility] filtration to non-numeric Health rate/1.73 sq results) System M.predicted [Volume Rate/Area] in Serum or Plasma by Creatinine-based formula (CKD-EPI) eGFR will provide clinicians with a more accurate indicator of renal function then the serum creatinine. The eGFR is automa tically calculated from an empiric formula (endorsed by the National Kidney Foundat ion) which incorporates age, sex, and race.Clinicians may notice surprisingly low GFR's with serum creatinine valueswithin normal range- particularly in elderly wo men (with low muscle mass).In the hospital setting, the eGFR should add an element of safety in drug dosing, in assessing the risk of IV contrast administration, and in assessing vascular risk.The NKF staging system is as follows:Normal: eGFR >90 with no kidney markersStage 1: eGFR >90 with kidney markers*Stage 2: eGFR 60- 89Stage 3: eGFR 30-59Stage 4: eGFR 15-29Stage 5: eGFR <15 (usually requir ing dialysis)*Markers include: Proteinuria, Hematuria, abnormal imaging-studies, or other blood or urine test abnormalities ID Date Data Source [id number] 12/12/2019 02:42:12 AM EDT [facility] alth System Name Value Range Interpretation Description Data Source(s ) Supporting Code Document(s ) Troponin 0.07 Above high normal Troponin I [facility] IQuantit ng/mL [facility] ative-MV MV Only Only The Troponin I result is consistent with Severe Cardiac Ischemia. ID Date Data Source [id number] 12/12/2019 02:42:12 AM EDT [facility] alth System Name Value Range Interpretation Description Data Sup porting Code Source(s) Document(s ) 84538-3 NEGATIVE Testing Normal (applies COVID-19.. [facility] was performed to non-numeric Health Syst em using Mejia ID results) NOW COVID-19, an isothermal nucleic acid amplification technology for the qualitative detection of nucleic acid from the SARS-CoV-2 viral RNA in respiratory specimens. The ID NOW COVID-19 test has been approved by the Food and Drug Administration (FDA) under an Emergency Use Authorization for use by authorized laboratories. Reference Range: NEGATIVE . ID Date Data Source [id number] 12/12/2019 02:42:12 AM EDT [facility] al[facility] System Name Value Range Interpretation Description Data Source(s ) Supporting Code Document(s ) PH* 7.388 Normal (applies to PH* [facility] {pH_units} non-[facility] Health System results) PCO2* 43.9 Normal (applies to PCO2* [facility] {mm_Hg} non-numeric Health System results) BaseExces 1.40 Normal (applies to Base Excess* [facility] s* {mEq/L} non-[facility] Health System results) HCO3* 26.4 Normal (applies to HCO3* [facility] mmol/L non-numeric Health System results) Chloride, 112 mmol/L Above high normal Chloride, [facility] Health System Lactate. 2.1 mmol/L Above upper panic Lactate. [facility] Result Reporting|Telephone|FRANCI VANESSA| at 10:31 PMCalled to:FRANCI Vora Name:Huey by:FRANCI VANESSA 12/11/2019 / 10:31 PM Glucose,VB 101 mg/dL Normal (applies to Glucose, [facility] non-numeric System results) Potassium,VB 4.0 mmol/L Normal (applies to Potassium, [facility] results) Sodium,VB 149 mmol/L Above high normal Sodium, [facility] System IonizedCalcium,VB 1.23 mmol/L Normal (applies to [facility]ized [facility] non-numeric Calcium, System results) [id number]* 78.50 % Normal (applies to O2 Saturation* [facility] n[facility] non-numeric System results) ID Date Data Source [id number] 12/12/2019 02:42:12 AM EDT [facility] System Name Value Range Interpretation Description Data Sup porting Code Source(s) Document(s ) Amphetamine Negative Normal (applies Amphetamine [facility] [Mass/volume] to non-numeric Level, Urine Health in Urine results) System Cut-off = 1000 ng/mL Barbiturates Negative Normal (applies to Barbiturate [facility] [Mass/volume] in non-numeric Screen, Urine Health System Urine by Screen results) method Cut-off = 200 ng/mL Benzodiazepines Negative Normal (applies Benzodiazepines, [facility] [Mass/volume] in to non-numeric Urine [facility] S yste Urine results) Cut-off = 200 ng/mL Cocaine Positive Abnormal (applies Cocaine [facility] metabolites.other to non-numeric Metabolite [facility] System [Mass/volume] in Urine results) Screen, Urine Cut-off = 300 ng/mL Methadone Negative Normal (applies to Methadone Level, [facility] [Mass/volume] in non-numeric Urine System Urine results) Cut-off = 300 ng/mL [id number],Urine Negative Normal (applies to Opiate 300, [facility] non-numeric results) Urine System Cut-off = 300 ng/mL Phencyclidine Positive Abnormal (applies Phencyclidine, Uri ne [facility] [Mass/volume] in to [facility] results) Cut-off = 25 ng/mL Cannabinoid(THC) Negative Normal (applies to Cannabinoid (THC) [facility] non-numeric System results) Cutt-off = 50These results are for medic al treatment only. The positive findings are unconfirmed. Request confirmatory/quanti tative test if needed. ID Date Data Source [id number] 12/12/2019 02:42:12 AM EDT [facility] Name Value Range Interpretation Description Data Sup porting Code Source(s) Document(s ) Leukocytes 7.4 Normal (applies WBC Count [facility] [#/volume] in {10^3_uL to non-[facility] Health Unspecified } results) System specimen by Automated count Erythrocytes 4.98 Normal (applies RBC Count [facility] [#/volume] in {10^6_uL to non-[facility] Health Blood by } results) System Automated count Hemoglobin 13.5 Below low normal Hemoglobin [facility] [Mass/volume] in {gm/dL} Health Blood System Hematocrit 41.3 % Normal (applies Hematocrit [facility] [Volume to non-numeric Health Fraction] of results) System Blood Erythrocyte mean 82.9 fl Below low normal MCV [facility] corpuscular Health volume [Entitic System volume] by Automated count Erythrocyte mean 27.1 pg Normal (applies MCH [facility] corpuscular to non-numeric Health hemoglobin results) System [Entitic mass] by Automated count Erythrocyte mean 32.7 Below low normal MCHC [facility] corpuscular {gm/dL} Health hemoglobin System concentration [Mass/volume] by Automated count Erythrocyte 17.0 % Above high RDW-CV [facility] distribution normal Health width [Entitic System volume] by Automated count Platelets 239 Normal (applies Platelet Count [facility] [#/volume] in {10^3_uL to non-numeric Health Plasma by } results) System Automated count Platelet mean 11.5 fl Above high MPV [facility] volume [Entitic normal Health volume] in Blood System by Automated count Monocytes 0.6 Normal (applies Monocyte # [facility] [#/volume] in {10^3_uL to non-numeric Health Blood by Manual } results) System count Eosinophils 0.04 Below low normal Eosinophil # [facility] [#/volume] in {10^3_uL Health Blood } System Neutrophils 4.9 Normal (applies Neutrophil # [facility] [#/volume] in {10^3_uL to non-numeric Health Body fluid } results) System Basophils 0.02 Normal (applies Basophil # [facility] [#/volume] in {10^3_uL to non-numeric Health Blood by } results) System Automated count Lymphocyte 1.7 Normal (applies Lymphocyte # [facility] percent {10^3_uL to non-numeric Health differential } results) System count (procedure) Neutrophils/100 66.8 % Normal (applies Neutrophil % Chris kris leukocytes in to non-numeric Health Blood by results) System Automated count Monocytes/100 8.2 % Normal (applies Monocyte % [facility] leukocytes in to non-numeric Health Blood results) System Eosinophils/100 0.5 % Normal (applies Eosinophil % Chris kris leukocytes in to non-numeric Health Unspecified results) System specimen Basophils/100 0.3 % Normal (applies Basophil % [facility] leukocytes in to non-numeric Health Unspecified results) System specimen by Manual count Lymphocytes 23.4 % Normal (applies Lymphocyte % [facility] [#/volume] in to non-numeric Health Blood by results) System Automated count ImmatureGranuloc 0.8 % Normal (applies Immature [facility] ytes% to non-numeric Granulocytes % Health results) System Nucleated 0.0 Normal (applies NRBC % [facility] erythrocytes {/100_WB to non-numeric Health [#/volume] in C} results) System Body fluid ImmatureGranuloc 0.06 Normal (applies Immature [facility] ytes# {10^3_uL to non-numeric Granulocytes # Health } results) System NRBC# 0.00 Below low normal NRBC # [facility] {10^3_uL Health } System ID Date Data Source [id number] 12/12/2019 02:42:12 AM EDT [facility] Name Value Range Interpretation Description Data Source(s ) Supporting Code Document(s ) AlcoholE 139.7 Normal (applies to Alcohol Ethyl, [facility] thyl,Blo mg/dl non-numeric Blood Health System od results) None Detected ID Date Data Source [id number] 12/12/2019 02:42:12 AM EDT [facility] Name Value Range Interpretation Description Data Source(s ) Supporting Code Document(s ) Lipase 19 U/L Normal (applies to Lipase, Serum [facility] [Enzymatic non-numeric Health System activity/vo results) lume] in Serum or Plasma ID Date Data Source [id number] 12/12/2019 02:42:12 AM EDT [facility] Name Value Range Interpretation Description Data Sup porting Code Source(s) Document(s ) Amylase 593 Above high normal Amylase, Serum [facility] [Enzymatic {IU/L} Health System activity/vo lume] in Serum or Plasma ID Date Data Source [id number] 12/12/2019 02:42:12 AM EDT [facility] Name Value Range Interpretation Description Data Sup porting Code Source(s) Document(s ) Sodium 144 Normal (applies Sodium, Serum [facility] [Moles/volume] in mmol/L to non-numeric Health Serum or Plasma results) System Potassium 4.2 Normal (applies Potassium, [facility] [Mass/volume] in mmol/L to non-numeric Serum Health Serum or Plasma results) System Chloride 109 Above high Chloride, [facility] [Moles/volume] in mmol/L normal Serum Health Serum or Plasma System Carbon dioxide, 21.0 Below low normal CO2, Serum [facility] total mmol/L Health [Moles/volume] in System Serum or Plasma TotalProtein 7.4 Normal (applies Total Protein [facility] mg/dl to non-numeric Health results) System Glucose 93 Normal (applies Glucose, [facility] [Mass/volume] in mg/dL to non-numeric Serum Health Serum or Plasma results) System Urea nitrogen 15 Normal (applies Blood Urea [facility] [Mass/volume] in mg/dl to non-numeric Nitrogen, Health Serum or Plasma results) Serum System Creatinine 1.30 Normal (applies Creatinine, [facility] [Mass/volume] in mg/dl to non-numeric Serum Health Serum or Plasma results) System Alkaline 71 Normal (applies Alkaline [facility] phosphatase {IU/L} to non-numeric Phosphatase, Health isoenzymes results) Serum System [Enzymatic activity/volume] in Serum or Plasma by Heat stability Bilirubin.total 0.3 Normal (applies Bilirubin, [facility] [Mass/volume] in mg/dl to non-numeric Serum Total Health Serum or Plasma results) System DirectBilirubin 0.2 Normal (applies Direct [facility] mg/dl to non-numeric Bilirubin Health results) System Aspartate 31 Normal (applies Aspartate [facility] aminotransferase {IU/L} to non-numeric Transaminase, Heal th [Enzymatic results) Serum System activity/volume] in Serum or Plasma by With P-5'-P Albumin 4.1 Normal (applies Albumin, [facility] [Mass/volume] in {gm/dl} to non-numeric Serum Health Serum or Plasma results) System I.Phosphorus 4.2 Normal (applies I. Phosphorus [facility] mg/dl to non-numeric Health results) System Alanine 32 Normal (applies Alanine [facility] aminotransferase {IU/L} to non-numeric Aminotransfer Heal th [Enzymatic results) ase, Serum System activity/volume] in Serum or Plasma Calcium 9.5 Normal (applies Calcium, [facility] [Mass/volume] in mg/dl to non-numeric Total Serum Health Serum or Plasma results) System A/GRatio 1.24 Normal (applies A/G Ratio [facility] to non-numeric Health results) System Urate 7.4 Normal (applies Uric Acid, [facility] [Mass/volume] in mg/dl to non-numeric Serum Health Serum or Plasma results) System Anion gap in Serum 14.00 Above high Anion Gap [facility] or Plasma mmol/L normal Health System Glomerular 57.00 Normal (applies GFR [facility] filtration to non-numeric Health rate/1.73 sq results) System M.predicted [Volume Rate/Area] in Serum or Plasma by Creatinine-based formula (CKD-EPI) eGFR will provide clinicians with a more accurate indicator of renal function then the serum creatinine. The eGFR is automa tically calculated from an empiric formula (endorsed by the National Kidney Foundat ion) which incorporates age, sex, and race.Clinicians may notice surprisingly low GFR's with serum creatinine valueswithin normal range- particularly in elderly wo men (with low muscle mass).In the hospital setting, the eGFR should add an element of safety in drug dosing, in assessing the risk of IV contrast administration, and in assessing vascular risk.The NKF staging system is as follows:Normal: eGFR >90 with no kidney markersStage 1: eGFR >90 with kidney markers*Stage 2: eGFR 60- 89Stage 3: eGFR 30-59Stage 4: eGFR 15-29Stage 5: eGFR <15 (usually requir ing dialysis)*Markers include: Proteinuria, Hematuria, abnormal imaging-studies, or other blood or urine test abnormalities ID Date Data Source [id number] 12/12/2019 02:42:12 AM EDT [facility] Name Value Range Interpretation Description Data Source(s ) Supporting Code Document(s ) Troponin 0.04 Normal (applies to Troponin I [facility] IQuantit ng/mL non-numeric Quantitative - Health System ative-MV results) MV Only Only ID Date Data Source [id number] 12/12/2019 02:42:12 AM EDT [facility] Name Value Range Interpretation Description Data Sup porting Code Source(s) Document(s ) aPTT in Blood 24.9 Normal (applies Activated [facility] by Coagulation {Seconds to non-numeric Partial Health assay } results) Thromboplastin System Time ID Date Data Source [id number] 12/12/2019 02:42:12 AM EDT [facility] Name Value Range Interpretation Description Data Sup porting Code Source(s) Document(s ) Prothrombintim 10.90 Normal (applies Prothrombin [facility](PT) {seconds to non-numeric time (PT) Health System } results) INR in Blood 1.04 Normal (applies INR Result [facility] by Coagulation {Ratio} to non-numeric Health Sys tem assay results) Normal = 0.7-1.1Therapeutic = 2.0-3.0Mec hanical Heart = 3.0-4.5 ID Date Data Source [id number] 12/11/2019 10:14:00 PM EDT [facility] HISTORY: right facial laceration s/p fal l;CT scan of the facial bones without contrast, 520 images.Coronal and sagitta l reformatted images obtained.FINDINGS:The bony structures are intactwith no fractu res.The mandible is intact and the mandibular condyles are welllocated bilaterally.The paranasal sinuses are well aerated.The orbits are bilaterally symmetrical.The retro-or bital fat is withinnormal limits.There is minimal soft tissue swelling over the ri ght orbit. Noradiopaque foreign bodies areidentified.IMPRESSION:No osseous abno rmalities of the facial bones. There are nofracturesidentified.Minimal soft tissu e swelling over the right orbit.Individualized dose optimization t echniqueswere used for thisCT. at 2314Reported and signed by: Zack Bishop MDEntanner medical center villa ricaion [facility] DR ZACK BISHOP [phone] Mariajose d:Zack Bishop MD at 23:12 [phone], Service support [phone], [phone] Name Value Range Interpretation Code Description Data Tammy rce(s) Supporting Document(s ) ID Date Data Source [id number] 12/11/2019 10:15:00 PM EDT [facility] HISTORY: head injury;CT scan of the head without contrast, 87 images.FINDINGS:There is no evidence of hemorrhage, mass-produ cing lesion, orextra-axial fluid collections.There is no midlineshift.The ventricular system and cortical sulci are within normallimits.There are no areas o f abnormalattenuation in the brainparenchyma.The calvarium is intact. The visualized paranasal sinuses and mastoidair cells are wellaerated.IMPRESS ION:No acute intracranial abnormality.Individualizeddose optimizat ion techniques were used for thisCT. at 2303 Reported and signed by: Zack Bishop MDEnvision P hysicianServicesSAINT JOHN'S BREE[facility] DR ZACK BISHOP [phone] Signed: Zack Bishop MD at 23:02 EDTTel , Service support , [phone] Name Value Range Interpretation Code Description Data Tammy rce(s) Supporting Document(s ) ID Date Data Source [id number] 12/11/2019 09:40:00 PM EDT [facility] Name Value Range Interpretation Code Description Data Tammy rce(s) Supporting Document(s ) COVID-19.. [facility] This lab was ordered by [facility] and reported by [facility]. ID Date Data Source [id number] 2019 12:00:00 AM EDT [facility] Name Value Range Interpretation Code Description Data Tammy rce(s) Supporting Document(s ) [facility] RNA XXX VALARIE+probe- Imp This lab was ordered by [facility] and reported by [employer] ID Date Data Source [id number] 10/30/2019 09:28:00 AM EDT JOEY ([facility]) Name Value Range Interpretation Description Data Source(s ) Supporting Code Document(s ) Prostate 2.0 Prostate RENSSELAER ([facility] specific Ag ng/mL Specific Ag, Dan[place] [Mass/volum Serum Neighborhood e] in [facility]) or Plasma Note: [place] ECLIA methodology.According to the [place] [employer], Serum PSA shoulddecrease and remain at undetec table levels after radicalprostatectomy. The AUA defines biochemical recurrence as an initialPSA value 0.2 ng/mL or greater followed by a subsequent confirmatoryPSA value 0.2 ng/mL or greater.Values obtained with different assay methods or kits can not be usedinterchangeably. Results cannot be interpreted as absolute evidenceof the p resence or absence of malignant disease. ID Date Data Source [id number] 10/30/2019 09:28:00 AM EDT RENSSELAER ([facility]) Name Value Range Interpretation Description Data Source(s ) Supporting Code Document(s ) Thyrotropin 1.060 TSH JOEY ([facility] [Units/volume] uIU/mL [place] in Serum or Neighborhood Plasma [facility]) Detection limit <= 0.05 mIU/L ID Date Data Source [id number] 10/30/2019 09:28:00 AM EDT JOEY ([facility]) Name Value Range Interpretation Description Data Source(s ) Supporting Code Document(s ) Thyroxine 1.25 T4,Free(Direct JOEY ([facility] (T4) free ng/dL ) [facility] [Mass/volume Neighborhood ] in [facility]) or Plasma ID Date Data Source [id number] 10/30/2019 09:28:00 AM EDT RENSSELAER ([facility]) Name Value Range Interpretation Description Data Source(s ) Supporting Code Document(s ) Hemoglobin 6.1 % Above high normal Hemoglobin A1c [facility] ([facility] A1c/Hemoglobi Danial n.total in [facility] Blood [facility]) Note: Prediabetes: 5.7 - 6.4 Diabetes: >6.4 Glycemic control for adults with diabetes: <7.0 ID Date Data Source [id number] 10/30/2019 09:28:00 AM EDT RENSSELAER ([facility]) Name Value Range Interpretation Description Data Source(s ) Supporting Code Document(s ) Cholesterol 158 Cholesterol, JOEY [Mass/volume] mg/dL Total ([place] in Serum or [facility] Plasma [facility]) Triglyceride 86 Triglycerides JOEY [Mass/volume] mg/dL ([place] in Serum or [facility]) Cholesterol in 51 HDL Cholesterol JOEY HDL mg/dL ([place] [Mass/volume] [facility] in Serum or [facility]) Plasma Cholesterol in 1.8 LDL/HDL Ratio JOEY LDL/Cholestero ratio ([place] l in HDL [Mass Neighborhood Ratio] in Health [place]) Serum or Plasma Note: LDL/HDL Ratio Men Women 1/2 Avg.Risk 1.0 1.5 Avg.Risk 3.6 3.2 2X Avg.Risk 6.2 5.0 3X Avg.Risk 8.0 6.1 Laboratory comment N/A Comment: JOEY (Severo Barrow [Text] in Report [facility]) Cholesterol in VLDL 17 mg/dL VLDL Cholesterol Cheryl JOEY ([place] [Mass/volume] in Serum [facility] or Plasma by calculation Cente r) Cholesterol in LDL 90 mg/dL LDL Cholesterol Calc JOEY ([place] [Mass/volume] in Serum [facility] or Plasma by calculation Cente r) ID Date Data Source [id number] 10/30/2019 09:28:00 AM EDT JOEY ([facility]) Name Value Range Interpretation Description Data Sup porting Code Source(s) Document(s ) Calcium 9.5 Calcium JOEY [Mass/volume] in mg/dL ([place] Serum or Plasma [facility]) Urea nitrogen 15 BUN JOEY [Mass/volume] in mg/dL ([place] Serum or [facility]) Glucose 113 Above high Glucose JOEY [Mass/volume] in mg/dL normal ([facility]) Albumin 4.4 Albumin JOEY [Mass/volume] in g/dL ([facility]) Protein 7.4 Protein, JOEY [Mass/volume] in g/dL Total ([facility]) Bilirubin.total 0.4 Bilirubin, JOEY [Mass/volume] in mg/dL Total ([place] Serum or [facility]) Alkaline 68 IU/L Alkaline JOEY phosphatase Phosphatase ([place] [Enzymatic Neighborhood activity/volume] Health in Serum or Plasma [place]) Aspartate 29 IU/L AST (SGOT) JOEY aminotransferase ([place] [Enzymatic Neighborhood activity/volume] [facility] in Serum or Plasma [place]) Sodium 140 Sodium JOEY [Moles/volume] in mmol/L ([facility] Serum [facility]) Potassium 4.5 Potassium JOEY [Moles/volume] in mmol/L ([facility]) Chloride 104 Chloride JOEY [Moles/volume] in mmol/L ([facility] n Serum or Plasma [facility]) Creatinine 1.10 Creatinine JOEY [Mass/volume] in mg/dL ([place] Serum or Plasma [facility]) Carbon dioxide, 22 Carbon JOEY total mmol/L Dioxide, ([place] [Moles/volume] in Total [facility] Serum or [facility]) Alanine 30 IU/L ALT (SGPT) JOEY aminotransferase ([place] [Enzymatic [facility] activity/volume] Health in Serum or Plasma [place]) Globulin 3.0 Globulin, JOEY [Mass/volume] in g/dL Total ([place] Serum by [facility]) Urea 14 BUN/Creatinin JOEY nitrogen/Creatinin e Ratio ([facility] on e [Mass Ratio] in [facility] Serum or [facility]) Albumin/Globulin 1.5 A/G Ratio JOEY [Mass Ratio] in ([place] Serum or Plasma [facility]) eGFR If Africn Am 86 eGFR If JOEY mL/min/ Africn Am ([address]) eGFR If NonAfricn 74 eGFR If JOEY Am mL/min/ NonAfricn Am ([address]) ID Date Data Source [id number] 10/21/2019 08:12:00 AM EDT [facility] [id number] Corporation Name Value Range Interpretation Description Data Sup porting Code Source(s) Document(s ) Hemoglobin 14.7 g/dL 14.0-18 <td> [place] [Mass/volume] .0 g/dL 10/21/2019 [facility] in Blood 08:12</td><t Health Care d> HGB [facility] </td><td> 14.7
(14.0-18.0) g/dL </td> Leukocytes 6.4 k/mm3 4.8-10. <td> [place] [#/volume] in 8 k/mm3 10/21/2019 [facility] Blood by 08:12</td><t Health Care Automated count d> WBC [facility] </td><td> 6.4
(4.8-10.8) k/mm3 </td> Hematocrit 46.8 % 40.8-46 <td> [place] [Volume .9 % 10/21/2019 [facility] Fraction] of 08:12</td><t Health Care Blood by d> HCT Corporation Automated count </td><td> 46.8
(40.8-46.9) % </td> Erythrocytes 5.71 m/mm3 4.70-6. <td> [place] [#/volume] in 10 10/21/2019 [facility] Blood m/mm3 08:12</td><t Health Care d> RBC Corporation </td><td> 5.71
(4.70-6.10) m/mm3 </td> Platelet mean 10.9 fL 9.8-12. <td> [place] volume [Entitic 8 fL 10/21/2019 [facility] volume] in 08:12</td><t Health Care Blood by d> MPV [employer] Automated count </td><td> 10.9
(9.8-12.8) fL </td> Erythrocyte 31.4 % 32.0-36 <td> [place] mean .0 % 10/21/2019 [facility] corpuscular 08:12</td><t Health Care hemoglobin d> MCHC [employer] concentration </td><td><pa [Mass/volume] ragraph in Blood from styleCode="B Fetus by old"> Automated count 31.4 L </paragraph>
(32.0-36.0) % </td> Erythrocyte 82.0 fL 80.0-94 <td> [place] mean .0 fL 10/21/2019 [facility] corpuscular 08:12</td><t Health Care volume [Entitic d> MCV [employer] volume] by </td><td> Automated count 82.0
(80.0-94.0) fL </td> Platelets 210 k/mm3 160-410 <td> [place] [#/volume] in k/mm3 10/21/2019 [facility] Blood by 08:12</td><t Health Care Automated count d> Platelet Corporation Count </td><td> 210
(160-410) k/mm3 </td> Erythrocyte 25.7 pg 27.0-31 <td> [place] mean .5 pg 10/21/2019 [facility] corpuscular 08:12</td><t Health Care hemoglobin d> MCH [employer] [Entitic mass] </td><td><pa by Automated ragraph count styleCode="B old"> 25.7 L </paragraph>
(27.0-31.5) pg </td> Erythrocyte 15.5 % 11.5-14 <td> [place] distribution .5 % 10/21/2019 [facility] [Entitic 08:12</td><t Health Care volume] by d> RDW [facility] Automated count </td><td><pa ragraph styleCode="B old"> 15.5 H </paragraph>
(11.5-14.5) % </td> Carbon dioxide, 26 mEq/L 22-30 <td> [place] total mEq/L 10/21/2019 [facility] [Moles/volume] 08:12</td><t Health Care in Serum or d> CO2 [facility] Plasma </td><td> 26
(22-30) mEq/L </td> Glucose 102 mg/dL 70-105 <td> [place] [Mass/volume] mg/dL 10/21/2019 [facility] in Blood 08:12</td><t Health Care d> [facility] Glucose-Seru m </td><td> 102
(70-105) mg/dL </td> Potassium 4.0 mEq/L 3.5-5.1 <td> [place] [Moles/volume] mEq/L 10/21/2019 [facility] in Serum or 08:12</td><t Health Care Plasma d> [facility] Potassium-Se rum </td><td> 4.0
(3.5-5.1) mEq/L </td> Urea nitrogen 16 mg/dL 6-22 <td> [place] [Mass/volume] mg/dL 10/21/2019 [facility] in Blood 08:12</td><t Health Care d> BUN Corporation </td><td> 16
(6-22) mg/dL </td> Sodium 141 mEq/L 135-145 <td> [place] [Moles/volume] mEq/L 10/21/2019 [facility] in Serum or 08:12</td><t Health Care Plasma d> Corporation Sodium-Serum </td><td> 141
(135-145) mEq/L </td> Chloride 107 mEq/L 98-107 <td> [place] [Moles/volume] mEq/L 10/21/2019 [facility] in Serum or 08:12</td><t Health Care Plasma d> Chloride Corporation </td><td> 107
(98-107) mEq/L </td> Hemolysis index No <td> [facility] Serum or Hemolysis 10/21/2019 [facility] Plasma 08:12</td><t Health Care d> Hemolysis Corporation Index </td><td> No Hemolysis
</td> Creatinine 1.14 mg/dL 0.72-1. <td> [place] [Moles/volume] 25 10/21/2019 [facility] in Serum or mg/dL 08:12</td><t Health Care Plasma d> [facility] Creatinine. </td><td> 1.14
(0.72-1.25) mg/dL </td> Calcium 9.0 mg/dL 8.6-10. <td> [place] [Mass/volume] 2 mg/dL 10/21/2019 [facility] in Blood 08:12</td><t Health Care d> Calcium Corporation </td><td> 9.0
(8.6-10.2) mg/dL </td> Lipemic index No Lipemia <td> [facility] or 10/21/2019 [facility] Plasma 08:12</td><t Health Care d> Lipemia Corporation Index </td><td> No Lipemia
</td> Anion gap in 8 mEq/L 7-13 <td> [place] Serum or Plasma mEq/L 10/21/2019 [facility] 08:12</td><t Health Care d> Anion Gap [facility] </td><td> 8
(7-13) mEq/L </td> Icteric index Non Icteric <td> [facility] Serum or 10/21/2019 [facility] Plasma 08:12</td><t Health Care d> Icteric Corporation Index </td><td> Non Icteric
</td> ID Date Data Source [id number] 10/21/2019 12:00:00 AM EDT [facility] Name Value Range Interpretation Code Description Data Tammy rce(s) Supporting Document(s ) SARS-COV-2 [place] RNA RT-PCR [facility] This lab was ordered by [facility] and reported by [facility]. ID Date Data Source [id number] 04/19/2019 12:00:00 AM EST JOEY ([facility]) Name Value Range Interpretation Description Data Source(s ) Supporting Code Document(s ) Hepatitis B Negative Hep Be Ag JOEY virus e Ag ([place] [Presence] in Neighborhood Serum or Health Center) Plasma by Immunoassay ID Date Data Source [id number] 04/19/2019 12:00:00 AM EST JOEY ([facility]) Name Value Range Interpretation Description Data Source(s ) Supporting Code Document(s ) Hepatitis B Negative HBsAg Screen JOEY virus surface ([place] Ag [Presence] Neighborhood in Serum or Health Center) Plasma by Immunoassay ID Date Data Source [id number] 04/19/2019 12:00:00 AM EST JOEY ([facility]) Name Value Range Interpretation Description Data Source(s ) Supporting Code Document(s ) Ferritin 89 ng/mL Ferritin, JOEY ([place] [Mass/volum Serum Danial e] in Serum [facility] or [facility]) ID Date Data Source [id number] 04/19/2019 12:00:00 AM EST JOEY ([facility]) Name Value Range Interpretation Description Data Source(s ) Supporting Code Document(s ) Microalbumin 5.6 Albumin, JOEY [Mass/volume] ug/mL Urine ([place] in Urine [facility]) ID Date Data Source [id number] 04/19/2019 12:00:00 AM EST JOEY ([facility]) Name Value Range Interpretation Description Data Source(s ) Supporting Code Document(s ) Hepatitis C <0.1 Hep C Virus JOEY virus Ab s/co_rat Ab ([place] Signal/Cutoff io Neighborhood in Serum or Health Center) Plasma by Immunoassay Note: Negative: < 0.8 Indeterm inate: 0.8 - 0.9 Positive: > 0.9 The CDC recommends that a positive HCV antibody result be followed up with a HCV Nucleic Acid Amplification test (84532 3). ID Date Data Source [id number] 04/19/2019 12:00:00 AM [facility] ([facility]) Name Value Range Interpretation Description Data Source(s ) Supporting Code Document(s ) Hepatitis B Non Hep B Surface JOEY virus Reactive Ab, Qual ([place] surface Ab [facility] [[facility]] [facility]) in Serum Note: Non R eactive: Inconsistent with immunity, less th an 10 mIU/mL Reactive: Consistent with immunity, greater than 9.9 mIU/mL ID Date Data Source [id number] 04/19/2019 12:00:00 AM EST JOEY ([facility]) Name Value Range Interpretation Description Data Source(s ) Supporting Code Document(s ) Hemoglobin 6.4 % Above high normal Hemoglobin A1c GREENW AY ([facility] A1c/Hemoglobi [place] n.total in [facility] Blood [facility]) Note: Prediabetes: 5.7 - 6.4 Diabetes: >6.4 Glycemic control for adults with diabetes: <7.0 ID Date Data Source [id number] 04/19/2019 12:00:00 AM EST [facility] ([facility]) Name Value Range Interpretation Description Data Sup porting Code Source(s) Document(s ) Calcium 9.5 Calcium JOEY [Mass/volume] in mg/dL ([facility]) Glucose 100 Above high Glucose JOEY [Mass/volume] in mg/dL normal ([facility]) Urea nitrogen 16 BUN JOEY [Mass/volume] in mg/dL ([facility]) Protein 7.4 Protein, JOEY [Mass/volume] in g/dL Total ([facility]) Albumin 4.5 Albumin JOEY [Mass/volume] in g/dL ([facility]) Bilirubin.total 0.3 Bilirubin, JOEY [Mass/volume] in mg/dL Total ([facility]) Alkaline 66 IU/L Alkaline JOEY phosphatase Phosphatase ([place] [Enzymatic [facility] activity/volume] Health in Serum or Plasma Center) Aspartate 37 IU/L AST (SGOT) JOEY aminotransferase ([place] [Enzymatic [facility] activity/volume] [facility] in Serum or Plasma [place]) Potassium 4.5 Potassium JOEY [Moles/volume] in mmol/L ([facility] or [facility]) Sodium 141 Sodium JOEY [Moles/volume] in mmol/L ([facility] or [facility]) Chloride 101 Chloride JOEY [Moles/volume] in mmol/L ([facility] or [facility]) Creatinine 1.04 Creatinine JOEY [Mass/volume] in mg/dL ([facility]) Carbon dioxide, 24 Carbon JOEY total mmol/L Dioxide, ([place] [Moles/volume] in Total [facility]) Alanine 57 IU/L Above high ALT (SGPT) JOEY aminotransferase normal ([place] [Enzymatic [facility] activity/volume] [facility] in Serum or Plasma [place]) Urea 15 BUN/Creatinin JOEY nitrogen/Creatinin e Ratio ([facility] on e [Mass Ratio] in [facility] Serum or [facility]) Globulin 2.9 Globulin, RENS[place]LAER [Mass/volume] in g/dL Total ([place] Serum by [facility]) Albumin/Globulin 1.6 A/G Ratio JOEY [Mass Ratio] in ([facility]) eGFR If NonAfricn 79 eGFR If JOEY Am mL/min/ NonAfricn Am ([address]) eGFR If Africn Am 92 eGFR If JOEY mL/min/ Africn Am ([address]) ID Date Data Source [id number] 02/07/2019 05:33:26 PM EDT GHAZAL Sol[employer]ario ([place] [id number] [facility]) Name Value Range Interpretation Description Data Source(s ) Supporting Code Document(s ) No Results No Results No Results JOEY ([facility]) ID Date Data Source [id number] 02/02/2019 09:12:00 AM EDT JOEY ([facility]) Name Value Range Interpretation Description Data Source(s ) Supporting Code Document(s ) Urate 5.6 mg/dL Uric Acid JOEY ([place] [Mass/volu Danial me] in Neighborhood Serum or Health Center) Plasma Note: Therapeu tic target for gout patients: <6.0 ID Date Data Source [id number] 02/02/2019 09:12:00 AM EDT JOEY (Kristina nt Danial [facility]) Name Value Range Interpretation Description Data Source(s ) Supporting Code Document(s ) Microalbumin 5.6 Albumin, JOEY [Mass/volume] ug/mL Urine ([place] in Urine [facility]) ID Date Data Source [id number] 02/02/2019 09:12:00 AM EDT JOEY ([facility]ristina nt [place]ial [facility]) Name Value Range Interpretation Description Data Source(s ) Supporting Code Document(s ) Calcidiol 27.8 Below low normal Vitamin D, JOEY (Mo unt [Mass/volume ng/mL 25-Hydroxy Danial ] in Serum Neighborhood or Plasma [facility]) Note: Vitamin D deficiency has been defi jose by the [facility] and an Endocrine Society practice guideline as alevel of serum 25-OH vitamin D less than 20 ng/mL (1,2).The Endocrine Society went o n to further define vitamin Dinsufficiency as a level between 21 and 29 ng/mL (2).1. I OM ([facility]). 2010. Dietary reference intakes for calcium and D. [place]: The National Academies Press.2. Perico MF, Kameron NC, Jm Pires WEST, et al. Evaluation, treatment, and prevention of vitamin D deficiency : an Endocrine Society clinical practice guideline. JCEM. 2010; 96(7):1911-30 . ID Date Data Source [id number] 02/02/2019 09:12:00 AM EDT JOEY ([facility]ristina nt [facility]) Name Value Range Interpretation Description Data Source(s ) Supporting Code Document(s ) Thyrotropin 1.830 TSH JOEY ([place] [Units/volume] uIU/mL [place] in Serum or Neighborhood Plasma by [facility]) Detection limit <= 0.05 mIU/L ID Date Data Source [id number] 02/02/2019 09:12:00 AM EDT JOEY (Kristina [facility]) Name Value Range Interpretation Description Data Source(s ) Supporting Code Document(s ) Hemoglobin 6.4 % Above high normal Hemoglobin A1c GREENW AY ([facility] A1c/Hemoglobi [place] n.total in [facility] Blood [facility]) Note: Prediabetes: 5.7 - 6.4 Diabetes: >6.4 Glycemic control for adults with diabetes: <7.0 ID Date Data Source [id number] 02/02/2019 09:12:00 AM EDT JOEY ([facility]) Name Value Range Interpretation Description Data Source(s ) Supporting Code Document(s ) Cholesterol 159 Cholesterol, JOEY [Mass/volume] mg/dL Total ([place] in Serum or [facility] Plasma [facility]) Triglyceride 66 Triglycerides JOEY [Mass/volume] mg/dL ([place] in Serum or [facility] Plasma [facility]) Cholesterol in 44 HDL Cholesterol JOEY HDL mg/dL ([place] [Mass/volume] [facility] in Serum or Health [place]) Plasma Laboratory N/A Comment: JOEY comment [Text] (Fabio Barrow in Report [facility]) Cholesterol in 2.3 LDL/HDL Ratio JOEY LDL/Cholestero ratio ([place] l in HDL [Mass Neighborhood Ratio] in [facility]) Serum or Plasma Note: LDL/HDL Ratio Men Women 1/2 Avg.Risk 1.0 1.5 Avg.Risk 3.6 3.2 2X Avg.Risk 6.2 5.0 3X Avg.Risk 8.0 6.1 Cholesterol in LDL 102 mg/dL Above high LDL Cholesterol GREE NWAY ([facility] [Mass/volume] in normal Calc Danial Neighb orhood Serum or Plasma by Health Cent er) calculation Cholesterol in VLDL 13 mg/dL VLDL Cholesterol GRE ENWAY ([facility] [Mass/volume] in Cheryl Danial Neighb orhood Serum or Plasma by Health Cent er) calculation ID Date Data Source [id number] 02/02/2019 09:12:00 AM EDT JOEY ([facility]) Name Value Range Interpretation Description Data Sup porting Code Source(s) Document(s ) Calcium 9.2 Calcium JEOY [Mass/volume] in mg/dL ([place] Serum or Plasma [facility]) Glucose 94 Glucose JOEY [Mass/volume] in mg/dL ([place] Serum or Plasma [facility]) Urea nitrogen 18 BUN JOEY [Mass/volume] in mg/dL ([facility]) Protein 7.1 Protein, JOEY [Mass/volume] in g/dL Total ([facility]) Albumin 4.3 Albumin JOEY [Mass/volume] in g/dL ([facility]) Aspartate 33 IU/L AST (SGOT) JEOY aminotransferase ([place] [Enzymatic [facility] activity/volume] [facility] in Serum or [facility]) Alkaline 75 IU/L Alkaline JOEY phosphatase Phosphatase ([place] [Enzymatic [facility] activity/volume] [facility] in Serum or [facility]) Bilirubin.total 0.4 Bilirubin, JOEY [Mass/volume] in mg/dL Total ([facility]) Sodium 142 Sodium JOEY [Moles/volume] in mmol/L ([facility]) Potassium 4.7 Potassium JOEY [Moles/volume] in mmol/L ([facility]) Chloride 106 Chloride JOEY [Moles/volume] in mmol/L ([facility]) Creatinine 1.18 Creatinine JOEY [Mass/volume] in mg/dL ([facility]) Alanine 46 IU/L Above high ALT (SGPT) JOEY aminotransferase normal ([place] [Enzymatic [facility] activity/volume] [facility] in Serum or [facility]) Carbon dioxide, 24 Carbon JOEY total mmol/L Dioxide, ([place] [Moles/volume] in Total [facility]) Urea 15 BUN/Creatinin JOEY nitrogen/Creatinin e Ratio ([facility] on e [Mass Ratio] in [facility] or [facility]) Globulin 2.8 Globulin, JOEY [Mass/volume] in g/dL Total ([facility] by [facility]) Albumin/Globulin 1.5 A/G Ratio JOEY [Mass Ratio] in ([facility]) eGFR If Africn Am 79 eGFR If JOEY mL/min/ Africn Am ([address]) eGFR If NonAfricn 68 eGFR If JOEY Am mL/min/ NonAfricn Am ([address]) ID Date Data Source [id number] 01/31/2019 09:24:02 AM EDT GREENWA Y ([place] [id number] [facility]) Name Value Range Interpretation Description Data Source(s ) Supporting Code Document(s ) No Results No Results No Results JOEY ([facility] Recorded For [place] Specified [facility]) ID Date Data Source [id number] 01/30/2019 12:00:00 AM EDT JOEY ([facility]) Name Value Range Interpretation Description Data Source(s ) Supporting Code Document(s ) Creatinine 190.2 Creatinine, JOEY [Mass/volume] mg/dL Urine ([place] in Urine [facility]) ID Date Data Source [id number] 01/30/2019 12:00:00 AM EDT JOEY ([facility]) Name Value Range Interpretation Description Data Source(s ) Supporting Code Document(s ) Cannabinoids Negative Synthetic JOEY synthetic ng/mL Cannabinoids, ([place] [Presence] in Urine [facility]) specimen by Screen method Note: This test was developed and its pe rformance characteristicsdetermined by [facility]. ID Date Data Source [id number] 01/30/2019 12:00:00 AM EDT JOEY ([facility]) Name Value Range Interpretation Description Data Source(s ) Supporting Code Document(s ) Ethanol Negative Ethanol U, JOEY [Presence] mg/dL Qual ([place] in Urine [facility] by [facility]) method Note: This analysis is performed by [employer] assay. Positive findings areunconfirmed analytical test results; if results do n ot supportexpected clinical finding, confirmation by an alternate methodology isrecommended. Patient metabolic variables, specific drug chemistry, andspecimen ben racteristics can affect test outcome.Technical consultation is rachel roberts at [email or web address], or panfilo velez [phone]. ID Date Data Source [id number] 01/30/2019 12:00:00 AM EDT JOEY ([facility]) Name Value Range Interpretation Description Data Source(s ) Supporting Code Document(s ) Amphetamines Negative Amphetamines, JOEY [Presence] in ng/mL Urine ([place] Urine by [facility]) Note: Amphetamine test includes Amphetam ine and Methamphetamine. ID Date Data Source [id number] 01/30/2019 12:00:00 AM EDT JOEY ([facility]) Name Value Range Interpretation Description Data Source(s ) Supporting Code Document(s ) Prostate 1.5 Prostate JOEY ([place] specific Ag ng/mL Specific Ag, Danial [Mass/volum Serum Neighborhood e] in [facility]) or Plasma Note: [place] ECLIA methodology.According to the [place] [employer], Serum PSA shoulddecrease and remain at undetec table levels after radicalprostatectomy. The AUA defines biochemical recurrence as an initialPSA value 0.2 ng/mL or greater followed by a subsequent confirmatoryPSA value 0.2 ng/mL or greater.Values obtained with different assay methods or kits can not be usedinterchangeably. Results cannot be interpreted as absolute evidenceof the p resence or absence of malignant disease. ID Date Data Source [id number] 01/30/2019 12:00:00 AM EDT JOEY ([facility]) Name Value Range Interpretation Description Data Source(s ) Supporting Code Document(s ) Hemoglobin 6.3 % Above high normal Hemoglobin A1c GREEN AY ([place] A1c/Hemoglobi Danial n.total in [facility]) Note: Prediabetes: 5.7 - 6.4 Diabetes: >6.4 Glycemic control for adults with diabetes: <7.0 ID Date Data Source [id number] 01/30/2019 12:00:00 AM EDT JOEY ([facility]) Name Value Range Interpretation Description Data Source(s ) Supporting Code Document(s ) Opiates Negative Opiates JOEY ([place] [Presence] ng/mL [place]ial in Urine Neighborhood [facility]) method Note: Opiate test includes Codeine, Morp josh, Hydromorphone, Hydrocodone. ID Date Data Source [id number] 01/30/2019 12:00:00 AM EDT JOEY ([facility]) Name Value Range Interpretation Description Data Source(s ) Supporting Code Document(s ) Methadone Negative Methadone JOEY [Presence] ng/mL Screen, Urine ([place] in Urine by [facility]) method ID Date Data Source [id number] 01/30/2019 12:00:00 AM EDT JOEY ([facility]) Name Value Range Interpretation Description Data Source(s ) Supporting Code Document(s ) Cannabinoids Negative Cannabinoid JOEY [Presence] in ng/mL ([place] Urine by [facility]) ID Date Data Source [id number] 01/30/2019 12:00:00 AM EDT JOEY ([facility]) Name Value Range Interpretation Description Data Sup porting Code Source(s) Document(s ) Phencyclidine Negative Phencyclidine JOEY [Presence] in ng/mL ([place] Urine [facility]) ID Date Data Source [id number] 01/30/2019 12:00:00 AM EDT JOEY ([facility]) Name Value Range Interpretation Description Data Source(s ) Supporting Code Document(s ) Oxycodone Negative Oxycodone/Oxym JOEY ([place] +Oxymorph ng/mL orphone, Urine [facility]) ] in Urine by Screen method Note: Test includes Oxycodone and Oxymor phone ID Date Data Source [id number] 01/30/2019 12:00:00 AM EDT JOEY ([facility]) Name Value Range Interpretation Description Data Sup porting Code Source(s) Document(s ) Benzodiazepine Negative Benzodiazepines JOEY s [Presence] ng/mL ([place] in Urine [facility]) ID Date Data Source [id number] 01/30/2019 12:00:00 AM EDT JOEY ([facility]) Name Value Range Interpretation Description Data Source(s ) Supporting Code Document(s ) Barbiturates Negative Barbiturates JOEY [Presence] in ng/mL ([place] Urine by [facility]) ID Date Data Source [id number] 01/30/2019 12:00:00 AM EDT JOEY ([facility]) Name Value Range Interpretation Description Data Source(s ) Supporting Code Document(s ) Drug See Note Drug Screen JOEY ([facility] Comment: Danial Comment: [facility]) Note: This analysis is performed by immu noassay. Positive findings areunconfirmed analytical test results; if results do n ot supportexpected clinical finding, confirmation by an alternate methodology isrecommended. Patient metabolic variables, specific drug chemistry, andspecimen ben racteristics can affect test outcome.Technical consultation is rachel roberts at [email or web address], or panfilo velez [phone]. Benzoylecgonine Positive ng/mL Abnormal Cocaine JOEY ([place] [Presence] in Urine (applies to (Metab.) Danial non-numeric [facility] results) [facility]) ID Date Data Source [id number] 01/30/2019 12:00:00 AM EDT JOEY ([facility]) Name Value Range Interpretation Description Data Source(s ) Supporting Code Document(s ) Cholesterol 185 Cholesterol, JOEY [Mass/volume] mg/dL Total ([place] in Serum or [facility] Plasma [facility]) Cholesterol in 43 HDL Cholesterol JOEY HDL mg/dL ([place] [Mass/volume] [facility] in Serum or [facility]) Plasma Triglyceride 159 Above high Triglycerides JOEY [Mass/volume] mg/dL normal ([place] in Serum or [facility] Plasma [facility]) Cholesterol in 32 VLDL JOEY VLDL mg/dL Cholesterol Cheryl ([place] [Mass/volume] [facility] in Serum or [facility]) Plasma by calculation Laboratory N/A Comment: JOEY comment [Text] ([place] in Report [facility]) Cholesterol in 2.6 LDL/HDL Ratio JOEY LDL/Cholestero ratio ([place] l in HDL [Mass Neighborhood Ratio] in [facility]) Serum or Plasma Note: LDL/HDL Ratio Men Women 1/2 Avg.Risk 1.0 1.5 Avg.Risk 3.6 3.2 2X Avg.Risk 6.2 5.0 3X Avg.Risk 8.0 6.1 Cholesterol in LDL 110 mg/dL Above high LDL Cholesterol GREE NWAY ([place] [Mass/volume] in normal Calc [place] Serum or Plasma by [facility]) calculation ID Date Data Source [id number] 01/30/2019 12:00:00 AM EDT JOEY ([facility]) Name Value Range Interpretation Description Data Sup porting Code Source(s) Document(s ) Calcium 9.9 Calcium JOEY [Mass/volume] in mg/dL ([place] Serum or Plasma [facility]) Urea nitrogen 16 BUN JOEY [Mass/volume] in mg/dL ([facility]) Glucose 117 Above high Glucose JOEY [Mass/volume] in mg/dL normal ([facility]) Protein 7.3 Protein, JOEY [Mass/volume] in g/dL Total ([facility]) Bilirubin.total 0.4 Bilirubin, JOEY [Mass/volume] in mg/dL Total ([facility]) Albumin 4.2 Albumin JOEY [Mass/volume] in g/dL ([facility]) Alkaline 70 IU/L Alkaline JOEY phosphatase Phosphatase ([place] [Enzymatic [facility] activity/volume] [facility] in Serum or [facility]) Aspartate 27 IU/L AST (SGOT) JOEY aminotransferase ([place] [Enzymatic [facility] activity/volume] [facility] in [facility] or [facility]) Chloride 106 Chloride JOEY [Moles/volume] in mmol/L ([facility]) Sodium 142 Sodium JOEY [Moles/volume] in mmol/L ([facility]) Potassium 4.2 Potassium JOEY [Moles/volume] in mmol/L ([facility]) Alanine 47 IU/L Above high ALT (SGPT) JOEY aminotransferase normal ([place] [Enzymatic [facility] activity/volume] [facility] in [facility] or [facility]) Creatinine 1.25 Creatinine JOEY [Mass/volume] in mg/dL ([facility]) Carbon dioxide, 22 Carbon JOEY total mmol/L Dioxide, ([place] [Moles/volume] in Total [facility]) Urea 13 BUN/Creatinin JOEY nitrogen/Creatinin e Ratio ([facility] on e [Mass Ratio] in [facility]) Globulin 3.1 Globulin, JOEY [Mass/volume] in g/dL Total ([facility]) Albumin/Globulin 1.4 A/G Ratio JOEY [Mass Ratio] in ([facility]) ID Date Data Source [id number] 01/30/2019 12:00:00 AM EDT JOEY ([facility]) Name Value Range Interpretation Description Data Source(s ) Supporting Code Document(s ) Leukocytes 6.1 WBC JOEY [#/volume] in x10E3/u ([place] Blood by [facility] Automated count [facility] [place]) Hemoglobin 13.5 Hemoglobin JOEY [Mass/volume] g/dL ([place] in Blood [facility]) Erythrocytes 5.21 RBC JOEY [#/volume] in x10E6/u ([place] Blood by [facility] Automated count [facility] [place]) Erythrocyte 81 fL MCV JOEY mean ([place] [facility] [place]) volume] by Automated count Erythrocyte 25.9 pg Below low normal MCH JOEY mean ([place] corpuscular [facility] hemoglobin [facility]) [Entitic mass] by Automated count Hematocrit 42.1 % Hematocrit JOEY [Volume ([place] Fraction] of [facility] Blood [facility]) Automated count Erythrocyte 32.1 MCHC JOEY mean g/dL ([place] corpuscular [facility] hemoglobin [facility]) concentration [Mass/volume] by Automated count Neutrophils/100 67 % Neutrophils JOEY leukocytes in ([place] Blood by [facility]) Monocytes/100 10 % Monocytes JOEY leukocytes in ([place] Blood by [facility] count [facility]) Immature 0 % Immature JOEY granulocytes/10 Granulocytes ([facility] on 0 leukocytes in [facility] Blood [facility]) Lymphocytes/100 22 % Lymphs JOEY leukocytes in ([place] Blood by [facility] count [facility]) Eosinophils/100 1 % Eos JOEY leukocytes in ([place] Blood by [facility]) Basophils/100 0 % Basos JOEY leukocytes in ([place] Blood by [facility]) Neutrophils 4.0 Neutrophils JOEY [#/volume] in x10E3/u (Absolute) ([place] Blood by [facility] Automated count [facility] [place]) Morphology N/A Hematology JOEY [Interpretation Comments: ([place] ] in Blood [facility] Narrative [facility]) Platelets 193 Platelets JOEY [#/volume] in x10E3/u ([place] Blood by [facility] Automated count [facility] [place]) Immature 0.0 Immature Grans JOEY granulocytes x10E3/u (Abs) ([place] [#/volume] in [facility] Blood [facility]) Lymphocytes 1.3 Lymphs JOEY [#/volume] in x10E3/u (Absolute) ([place] Blood by [facility] Automated count [facility] [place]) Monocytes 0.6 Monocytes(Abso JOEY [#/volume] in x10E3/u lute) ([place] Blood by [facility] Automated count [facility]) Eosinophils 0.1 Eos (Absolute) JOEY [#/volume] in x10E3/u ([place] Blood by [facility] count [facility]) Basophils 0.0 Baso JOEY [#/volume] in x10E3/u (Absolute) ([place] Blood by [facility] Automated count [facility]) Nucleated N/A NRBC JOEY erythrocytes/10 ([place] 0 leukocytes Neighborhood [Ratio] in Health Center) Blood by Automated count Erythrocyte 16.1 % Above high RDW JOEY distribution normal ([place] width [Ratio] Neighborhood by [facility]) count Immature cells N/A Immature Cells JOEY [#/volume] in ([facility]) ID Date Data Source [id number] 07/06/2018 01:49:12 PM EST GREENTIFFANIE Y ([place] [id number] [facility]) Name Value Range Interpretation Description Data Source(s ) Supporting Code Document(s ) No Results No Results No Results JOEY ([facility]) ID Date Data Source [id number] 05/25/2018 04:40:16 PM EST GREENTIFFANIE Y ([place] [id number] [facility]) Name Value Range Interpretation Description Data Source(s ) Supporting Code Document(s ) No Results No Results No Results JOEY ([facility]) ID Date Data Source [id number] 05/11/2018 08:02:00 AM EST [facility] 0 Name Value Range Interpretation Description Data Sup porting Code Source(s) Document(s ) Glucose NEGATIVE <content Saint [Mass/volume] styleCode="Elvira Regulo in Urine by d">Urine Medical Test strip Glucose Center </content>NEGA TIVE MG/DL<content styleCode="Fiona lics"> (NEGATIVE MG/DL)</conten t> Color of Urine YELLOW <content Saint styleCode="Elvira Regulo d">Color, Medical Urine Center </content>YELL OW <content styleCode="Fiona lics"> (YELLOW )</content> UNK CLEAR <content Saint styleCode="Elvira Locks d">Urine Medical Clarity Center </content>LAVINIA R <content styleCode="Fiona lics"> (CLEAR )</content> Specific 1.015-1.02 <content Saint gravity of 5 styleCode="Elvira Rajput Urine by Test d">Urine Medical strip Specific Center [place] </content>1.02 0 NM<content styleCode="Fiona lics"> (1.015-1.025 NM)</content> Ketones NEGATIVE <content Saint [Mass/volume] styleCode="Elvira Locks in Urine by d">Urine Medical Test strip Ketone Center </content>NEGA TIVE MG/DL<content styleCode="Fiona lics"> (NEGATIVE MG/DL)</conten t> UNK NEGATIVE <content Saint styleCode="Elvira Locks d">Urine Medical Bilirubin Center </content>NEGA TIVE <content styleCode="Fiona lics"> (NEGATIVE )</content> pH of Urine by 4.5-8.0 <content Saint Test strip styleCode="Elvira Locks d">Urine pH Medical </content>6.0 Center NM<content styleCode="Fiona lics"> (4.5-8.0 NM)</content> Hemoglobin NEGATIVE <content Saint [Presence] in styleCode="Elvira Rajput Urine by Test d">Urine Blood Medical strip </content>NEGA Center TIVE <content styleCode="Fiona lics"> (NEGATIVE )</content> Protein NEGATIVE <content Saint [Mass/volume] styleCode="Elvira Locks in Urine by d">Urine Medical Test strip Protein Center </content>NEGA TIVE MG/DL<content styleCode="Fiona lics"> (NEGATIVE MG/DL)</conten t> Urobilinogen 0.2-1.0 <content Saint [Units/volume] styleCode="Elvira Locks in Urine by d">Urine Medical Test strip Urobilinogen Center </content>0.2 MG/DL<content styleCode="Fiona lics"> (0.2-1.0 MG/DL)</conten t> Nitrite NEGATIVE <content Saint [Presence] in styleCode="Elvira Rajput Urine by Test d">Urine Medical strip Nitrite Center </content>NEGA TIVE <content styleCode="Fiona lics"> (NEGATIVE )</content> Leukocyte NEGATIVE <content Saint esterase styleCode="Elvira Rajput [Presence] in d">Urine Medical Urine by Test Leukocyte Center strip </content>NEGA TIVE <content styleCode="Fiona lics"> (NEGATIVE )</content> ID Date Data Source Liver 05/11/2018 08:02:00 AM EST [facility] Profile.[id number] Name Value Range Interpretation Description Data Sup porting Code Source(s) Document(s ) Aspartate 17-59 <content Saint aminotransferase styleCode="Bold"> Fred hs [Enzymatic Aspartate Medical activity/volume] Aminotransferase Center in Serum or Plasma (AST) </content>38 IU/L<content styleCode="Italic s"> (17-59 IU/L)</content> Alanine 7-50 Above high <content [facility] aminotransferase normal styleCode="Bold"> Fred hs [Enzymatic Alanine Medical activity/volume] Aminotransferase Center in Serum or Plasma (ALT) </content>56 IU/L H<content styleCode="Italic s"> (7-50 IU/L)</content> UNK 0.0-0.3 <content Saint styleCode="Bold"> Regulo Bilirubin, Direct Medical </content>< 0.2 Center MG/DL<content styleCode="Italic s"> (0.0-0.3 MG/DL)</content> Alkaline 38-126 <content Saint phosphatase styleCode="Bold"> Regulo [Enzymatic Alkaline Medical activity/volume] Phosphatase (ALP) Cente r in Serum or Plasma </content>68 IU/L<content styleCode="Italic s"> (38-126 IU/L)</content> Bilirubin.total 0.2-1.3 <content [facility] [Mass/volume] in styleCode="Bold"> Fred hs Serum or Plasma Bilirubin Total Medical </content>0.9 Center MG/DL<content styleCode="Italic s"> (0.2-1.3 MG/DL)</content> Albumin 3.5-5.0 <content [facility] [Mass/volume] in styleCode="Bold"> Fred hs Serum or Plasma Albumin Medical </content>4.6 Center G/DL<content styleCode="Italic s"> (3.5-5.0 G/DL)</content> ID Date Data Source [id number] 05/11/2018 08:02:00 AM EST [facility] Center Name Value Range Interpretation Description Data Sup porting Code Source(s) Document(s ) Cholesterol -<200 <content [facility] [Mass/volume] in styleCode="Elvira Regulo Serum or Plasma d">Cholesterol Medical </content>177 Center MG/DL<content styleCode="Fiona lics"> (-<200 MG/DL)</conten t> Triglyceride < 150 <content Saint [Mass/volume] in styleCode="Elvira Regulo Serum or Plasma d">Triglycerid [facility] Center </content>132 MG/DL<content styleCode="Fiona lics"> (< 150 MG/DL)</conten t> UNK > 60 Below low normal <content Saint styleCode="Elvira Regulo d">HDL- Medical Cholesterol Center </content>52 MG/DL L<content styleCode="Fiona lics"> (> 60 MG/DL)</conten t> UNK < 100 <content Saint styleCode="Elvira Regulo d">LDL-Cholest [facility] [place] </content>99 MG/DL<content styleCode="Fiona lics"> (< 100 MG/DL)</conten t> ID Date Data Source [id number] 05/11/2018 08:02:00 AM EST [facility] Center Name Value Range Interpretation Description Data Sup porting Code Source(s) Document(s ) Thyroxine (T4) 0.78-2.1 <content Saint free 9 styleCode="Elvira Regulo [Mass/volume] d">T4 Free Medical in Serum or </content>1.26 Center Plasma NG/DL<content styleCode="Fiona lics"> (0.78-2.19 NG/DL)</conten t> Thyrotropin 0.465-4. <content Saint [Units/volume] 68 styleCode="Elvira Regulo in Serum or d">Thyroid Medical Plasma by Stimulating Center Detection Hormone limit <= 0.05 </content>3.54 mIU/L MIU/L<content styleCode="Fiona lics"> (0.465-4.68 MIU/L)</conten t> ID Date Data Source HematologyRou.[id number] 05/11/2018 08:02:00 AM MANOJ [facility] 0500 Name Value Range Interpretation Description Data Sup porting Code Source(s) Document(s ) Erythrocytes 4.4-5.9 <content Saint [#/volume] in styleCode="Bold Regulo Blood by ">Red Blood Medical Automated count Cell Count Center </content>5.87 MCUMM<content styleCode="Ital ics"> (4.4-5.9 MCUMM)</content > Leukocytes 4.4-11.0 <content Saint [#/volume] in styleCode="Bold Regulo Blood by ">White Blood Medical Automated count Cell Count Center </content>9.26 KCUMM<content styleCode="Ital ics"> (4.4-11.0 KCUMM)</content > Hemoglobin 13.5-17. <content [facility] [Mass/volume] in 5 styleCode="Bold Regulo Blood ">Hemoglobin Medical </content>15.1 Center G/DL<content styleCode="Ital ics"> (13.5-17.5 G/DL)</content> Hematocrit 41.0-53. <content Saint [Volume 0 styleCode="Bold Regulo Fraction] of ">Hematocrit Medical Blood by </content>45.8 Center Automated count %<content styleCode="Ital ics"> (41.0-53.0 %)</content> Erythrocyte mean 26.0-34. Below low normal <content [facility] corpuscular 0 styleCode="Bold Regulo hemoglobin ">Mean Medical [Entitic mass] Corposcular Center by Automated Hemoglobin count </content>25.7 PG L<content styleCode="Ital ics"> (26.0-34.0 PG)</content> Erythrocyte mean 80.0-100 <content [facility] corpuscular .0 styleCode="Bold Regulo volume [Entitic ">Mean Medical volume] by Corpuscular Center Automated count Volume </content>78.0 FL<content styleCode="Ital ics"> (80.0-100.0 FL)</content> Platelets 130-400 <content Saint [#/volume] in styleCode="Bold Regulo Blood by ">Platelet Medical Automated count Count Center </content>249 KCUMM<content styleCode="Ital ics"> (130-400 KCUMM)</content > Erythrocyte mean 32.0-37. <content [facility] corpuscular 0 styleCode="Bold Regulo hemoglobin ">Mean Corpus. Medical concentration Hgb Center [Mass/volume] by Concentration Automated count (MCHC) </content>33.0 G/DL<content styleCode="Ital ics"> (32.0-37.0 G/DL)</content> Erythrocyte 11.5-14. Above high <content Saint distribution 5 normal styleCode="Bold Regulo width [Ratio] by ">Red Cell Medical Automated count Distribution Center Width </content>15.9 % H<content styleCode="Ital ics"> (11.5-14.5 %)</content> Neutrophils 36-66 Above high <content Saint [#/volume] in normal styleCode="Bold Regulo Blood by ">Neutrophil Medical Automated count </content>70.8 Center % H<content styleCode="Ital ics"> (36-66 %)</content> Platelet mean 8.0-11.0 Above high <content Saint volume [Entitic normal styleCode="Bold Regulo volume] in Blood ">Mean Platelet Medical by Automated Volume Center count </content>11.3 FL H<content styleCode="Ital ics"> (8.0-11.0 FL)</content> UNK 1.6-7.3 <content Saint styleCode="Bold Regulo ">Neutrophil Medical Count Center </content>6.54 KCUMM<content styleCode="Ital ics"> (1.6-7.3 KCUMM)</content > Monocytes 3.0-10.0 <content Saint [#/volume] in styleCode="Bold Regulo Blood by ">Monocyte Medical Automated count </content>7.2 Center %<content styleCode="Ital ics"> (3.0-10.0 %)</content> Lymphocytes 24.0-44. Below low normal <content Saint [#/volume] in 0 styleCode="Bold Regulo Blood by ">Lymphocyte Medical Automated count </content>19.5 Center % L<content styleCode="Ital ics"> (24.0-44.0 %)</content> UNK 1.0-4.8 <content Saint styleCode="Bold Regulo ">Lymphocyte Medical Count Center </content>1.81 KCUMM<content styleCode="Ital ics"> (1.0-4.8 KCUMM)</content > UNK 0.0-0.6 <content Saint styleCode="Bold Regulo ">Eosinophil Medical Count Center </content>0.16 KCUMM<content styleCode="Ital ics"> (0.0-0.6 KCUMM)</content > UNK 0.2-0.9 <content Saint styleCode="Bold Regulo ">Monocyte Medical Count Center </content>0.67 KCUMM<content styleCode="Ital ics"> (0.2-0.9 KCUMM)</content > Eosinophils 0-5.0 <content Saint [#/volume] in styleCode="Bold Regulo Blood by ">Eosinophil Medical Automated count </content>1.7 Center %<content styleCode="Ital ics"> (0-5.0 %)</content> UNK 0 <content Saint styleCode="Bold Regulo ">Nucleated Red Medical Blood Cell Center </content>0.0 /100<content styleCode="Ital ics"> (0 /100)</content> UNK 0.0-0.3 <content Saint styleCode="Bold Regulo ">Basophil Medical Count Center </content>0.03 KCUMM<content styleCode="Ital ics"> (0.0-0.3 KCUMM)</content > Basophils 0.0-1.0 <content Saint [#/volume] in styleCode="Bold Regulo Blood by ">Basophil Medical Automated count </content>0.3 Center %<content styleCode="Ital ics"> (0.0-1.0 %)</content> UNK < 1 <content Saint styleCode="Bold Regulo ">Immature Medical Granulocyte Center Ratio </content>0.5 %<content styleCode="Ital ics"> (< 1 %)</content> UNK 0-0.1 <content Saint styleCode="Bold Regulo ">Immature Medical Granulocyte Center Count </content>0.05 KCUMM<content styleCode="Ital ics"> (0-0.1 KCUMM)</content > UNK 0.0 <content Saint styleCode="Bold Regulo ">Nucleated Red Medical Blood Cell Center Count </content>0.00 KCUMM<content styleCode="Ital ics"> (0.0 KCUMM)</content > ID Date Data Source GFR(Creatinine).[id number] 05/11/2018 08:02:00 AM MANOJ [facility] 0-0500 Name Value Range Interpretation Code Description Data Tammy rce(s) Supporting Document(s ) UNK > 60 <content [facility] styleCode="Bold"> Medical Cent er EGFR </content>81 GFR<content styleCode="Italic s"> (> 60 GFR)</content> ID Date Data Source CHMROUTINECCDA.[id number] 05/11/2018 08:02:00 AM [facility] -0500 Name Value Range Interpretation Description Data Sup porting Code Source(s) Document(s ) UNK 2.3-3.5 <content [facility] styleCode="Bold Medical ">Globulin Center </content>3.2 G/DL<content styleCode="Ital ics"> (2.3-3.5 G/DL)</content> UNK >= 1.0 <content [facility] Regulo styleCode="Bold Medical ">AG Ratio Center </content>1.4 NM<content styleCode="Ital ics"> (>= 1.0 NM)</content> UNK 4.2-5.8 Above high normal <content [place] styleCode="Bold Medical ">Hemoglobin Center A1C </content>6.4 % H<content styleCode="Ital ics"> (4.2-5.8 %)</content> Protein 6.3-8.2 <content [facility] Regulo [Mass/volum styleCode="Bold Medical e] in Serum ">Total Protein Center or Plasma </content>7.8 G/DL<content styleCode="Ital ics"> (6.3-8.2 G/DL)</content> ID Date Data Source [facility].[id number] 05/11/2018 08:02:00 AM EST [facility] Center Name Value Range Interpretation Description Data Sup porting Code Source(s) Document(s ) Potassium 3.5-5.3 <content Saint [Moles/volume] in styleCode="Bold"> [facility] Serum or Plasma Potassium Medical </content>4.2 Center MEQ/L<content styleCode="Italic s"> (3.5-5.3 MEQ/L)</content> Sodium 137-145 <content Saint [Moles/volume] in styleCode="Bold"> [facility] Serum or Plasma Sodium Medical </content>142 Center MEQ/L<content styleCode="Italic s"> (137-145 MEQ/L)</content> Carbon dioxide, 22-30 <content Saint total styleCode="Bold"> Regulo [Moles/volume] in Carbon Dioxide Medical Serum or Plasma </content>25 Center MEQ/L<content styleCode="Italic s"> (22-30 MEQ/L)</content> UNK 9-20 <content Saint styleCode="Bold"> Regulo BUN </content>14 Medical MG/DL<content Center styleCode="Italic s"> (9-20 MG/DL)</content> Chloride 98-107 <content Saint [Moles/volume] in styleCode="Bold"> Stan phs Serum or Plasma Chloride Medical </content>107 Center MEQ/L<content styleCode="Italic s"> (98-107 MEQ/L)</content> UNK > 60 <content Saint styleCode="Bold"> Regulo EGFR </content>81 Medical GFR<content Center styleCode="Italic s"> (> 60 GFR)</content> Glucose 74-106 Above high <content Saint [Mass/volume] in normal styleCode="Bold"> Fred hs Serum or Plasma Glucose Medical </content>115 Center MG/DL H<content styleCode="Italic s"> (74-106 MG/DL)</content> Calcium 8.4-10. <content Saint [Mass/volume] in 2 styleCode="Bold"> Fred hs Serum or Plasma Calcium Medical </content>9.9 Center MG/DL<content styleCode="Italic s"> (8.4-10.2 MG/DL)</content> Creatinine 0.5-1.3 <content Saint [Mass/volume] in styleCode="Bold"> Fred hs Serum or Plasma Creatinine Medical </content>1.2 Center MG/DL<content styleCode="Italic s"> (0.5-1.3 MG/DL)</content> Alkaline 38-126 <content Saint phosphatase styleCode="Bold"> Regulo [Enzymatic Alkaline Medical activity/volume] Phosphatase (ALP) Cente r in Serum or Plasma </content>68 IU/L<content styleCode="Italic s"> (38-126 IU/L)</content> Aspartate 17-59 <content Saint aminotransferase styleCode="Bold"> Fred hs [Enzymatic Aspartate Medical activity/volume] Aminotransferase Center in Serum or Plasma (AST) </content>38 IU/L<content styleCode="Italic s"> (17-59 IU/L)</content> Alanine 7-50 Above high <content Saint aminotransferase normal styleCode="Bold"> Fred hs [Enzymatic Alanine Medical activity/volume] Aminotransferase Center in Serum or Plasma (ALT) </content>56 IU/L H<content styleCode="Italic s"> (7-50 IU/L)</content> Bilirubin.total 0.2-1.3 <content Saint [Mass/volume] in styleCode="Bold"> Fred hs Serum or Plasma Bilirubin Total Medical </content>0.9 Center MG/DL<content styleCode="Italic s"> (0.2-1.3 MG/DL)</content> Albumin 3.5-5.0 <content Saint [Mass/volume] in styleCode="Bold"> Fred hs Serum or Plasma Albumin Medical </content>4.6 Center G/DL<content styleCode="Italic s"> (3.5-5.0 G/DL)</content> ID Date Data Source Urinalysis 05/11/2018 08:02:00 AM EST [facility] Name Value Range Interpretation Description Data Sup porting Code Source(s) Document(s ) UNK CLEAR <content Saint styleCode="Elvira Regulo d">Urine Medical Clarity Center </content>LAVINIA R <content styleCode="Fiona lics"> (CLEAR )</content> Color of Urine YELLOW <content [facility]">Color, Medical Urine Center </content>YELL OW <content styleCode="Fiona lics"> (YELLOW )</content> Ketones NEGATIVE <content Saint [Mass/volume] styleCode="Elvira Locks in Urine by d">Urine Medical Test strip Ketone Center </content>NEGA TIVE MG/DL<content styleCode="Fiona lics"> (NEGATIVE MG/DL)</conten t> Glucose NEGATIVE <content Saint [Mass/volume] styleCode="Elvira Regulo in Urine by d">Urine Medical Test strip Glucose Center </content>NEGA TIVE MG/DL<content styleCode="Fiona lics"> (NEGATIVE MG/DL)</conten t> UNK NEGATIVE <content Saint styleCode="Elvira Regulo d">Urine Medical Bilirubin Center </content>NEGA TIVE <content styleCode="Fiona lics"> (NEGATIVE )</content> Specific 1.015-1.02 <content Saint gravity of 5 styleCode="Elvira Regulo Urine by Test d">Urine Medical strip Specific Center [place] </content>1.02 0 NM<content styleCode="Fiona lics"> (1.015-1.025 NM)</content> pH of Urine by 4.5-8.0 <content Saint Test strip styleCode="Elvira Regulo d">Urine pH Medical </content>6.0 Center NM<content styleCode="Fiona lics"> (4.5-8.0 NM)</content> Protein NEGATIVE <content Saint [Mass/volume] styleCode="Elvira Regulo in Urine by d">Urine Medical Test strip Protein Center </content>NEGA TIVE MG/DL<content styleCode="Ifona lics"> (NEGATIVE MG/DL)</conten t> Hemoglobin NEGATIVE <content Saint [Presence] in styleCode="Elvira Regulo Urine by Test d">Urine Blood Medical strip </content>NEGA Center TIVE <content styleCode="Fiona lics"> (NEGATIVE )</content> Urobilinogen 0.2-1.0 <content Saint [Units/volume] styleCode="Elvira Regulo in Urine by d">Urine Medical Test strip Urobilinogen Center </content>0.2 MG/DL<content styleCode="Fiona lics"> (0.2-1.0 MG/DL)</conten t> Leukocyte NEGATIVE <content Saint esterase styleCode="Elvira Regulo [Presence] in d">Urine Medical Urine by Test Leukocyte Center strip </content>NEGA TIVE <content styleCode="Fiona lics"> (NEGATIVE )</content> Nitrite NEGATIVE <content Saint [Presence] in styleCode="Elvira Regulo Urine by Test d">Urine Medical strip Nitrite Center </content>NEGA TIVE <content styleCode="Fiona lics"> (NEGATIVE )</content> ID Date Data Source Liver Profile 05/11/2018 08:02:00 AM EST [facility] Name Value Range Interpretation Description Data Sup porting Code Source(s) Document(s ) Aspartate 17-59 <content Saint aminotransferase styleCode="Bold"> Fred hs [Enzymatic Aspartate Medical activity/volume] Aminotransferase Center in Serum or Plasma (AST) </content>38 IU/L<content styleCode="Italic s"> (17-59 IU/L)</content> UNK 0.0-0.3 <content Saint styleCode="Bold"> Regulo Bilirubin, Direct Medical </content>< 0.2 Center MG/DL<content styleCode="Italic s"> (0.0-0.3 MG/DL)</content> Bilirubin.total 0.2-1.3 <content Saint [Mass/volume] in styleCode="Bold"> Fred hs Serum or Plasma Bilirubin Total Medical </content>0.9 Center MG/DL<content styleCode="Italic s"> (0.2-1.3 MG/DL)</content> Alanine 7-50 Above high <content Saint aminotransferase normal styleCode="Bold"> Fred hs [Enzymatic Alanine Medical activity/volume] Aminotransferase Center in Serum or Plasma (ALT) </content>56 IU/L H<content styleCode="Italic s"> (7-50 IU/L)</content> Alkaline 38-126 <content [facility] phosphatase styleCode="Bold"> Regulo [Enzymatic Alkaline Medical activity/volume] Phosphatase (ALP) Cente r in Serum or Plasma </content>68 IU/L<content styleCode="Italic s"> (38-126 IU/L)</content> Albumin 3.5-5.0 <content [facility] [Mass/volume] in styleCode="Bold"> Fred hs Serum or Plasma Albumin Medical </content>4.6 Center G/DL<content styleCode="Italic s"> (3.5-5.0 G/DL)</content> ID Date Data Source LIPID 05/11/2018 08:02:00 AM EST [facility] Name Value Range Interpretation Description Data Sup porting Code Source(s) Document(s ) Triglyceride < 150 <content Saint [Mass/volume] in styleCode="[facility] Serum or Plasma d">Triglycerid Medical es Center </content>132 MG/DL<content styleCode="Fiona lics"> (< 150 MG/DL)</conten t> Cholesterol -<200 <content Saint [Mass/volume] in styleCode="Elvira Regulo Serum or Plasma d">Cholesterol Medical </content>177 Center MG/DL<content styleCode="Fiona lics"> (-<200 MG/DL)</conten t> UNK > 60 Below low normal <content Saint styleCode="Elvira Regulo d">HDL- Medical Cholesterol Center </content>52 MG/DL L<content styleCode="Fiona lics"> (> 60 MG/DL)</conten t> UNK < 100 <content Saint styleCode="Elvira Regulo d">LDL-Cholest Medical [facility]key Center </content>99 MG/DL<content styleCode="Fiona lics"> (< 100 MG/DL)</conten t> ID Date Data Source Hormones 05/11/2018 08:02:00 AM [facility] Name Value Range Interpretation Description Data Sup porting Code Source(s) Document(s ) Thyrotropin 0.465-4. <content Saint [Units/volume] 68 styleCode="Elvira Regulo in Serum or d">Thyroid Medical Plasma by Stimulating Center Detection Hormone limit <= 0.05 </content>3.54 mIU/L MIU/L<content styleCode="Fiona lics"> (0.465-4.68 MIU/L)</conten t> Thyroxine (T4) 0.78-2.1 <content Saint free 9 styleCode="Elvira Regulo [Mass/volume] d">T4 Free Medical in Serum or </content>1.26 Center Plasma NG/DL<content styleCode="Fiona lics"> (0.78-2.19 NG/DL)</conten t> ID Date Data Source HematologyRou 05/11/2018 08:02:00 AM [facility] Name Value Range Interpretation Description Data Sup porting Code Source(s) Document(s ) Leukocytes 4.4-11.0 <content Saint [#/volume] in styleCode="Anyi Regulo Blood by ">White Blood Medical Automated count Cell Count Center </content>9.26 KCUMM<content styleCode="Ital ics"> (4.4-11.0 KCUMM)</content > Hemoglobin 13.5-17. <content [facility] [Mass/volume] in 5 styleCode="Bold Regulo Blood ">Hemoglobin Medical </content>15.1 Center G/DL<content styleCode="Ital ics"> (13.5-17.5 G/DL)</content> Hematocrit 41.0-53. <content Saint [Volume 0 styleCode="Bold Regulo Fraction] of ">Hematocrit Medical Blood by </content>45.8 Center Automated count %<content styleCode="Ital ics"> (41.0-53.0 %)</content> Erythrocytes 4.4-5.9 <content Saint [#/volume] in styleCode="Bold Regulo Blood by ">Red Blood Medical Automated count Cell Count Center </content>5.87 MCUMM<content styleCode="Ital ics"> (4.4-5.9 MCUMM)</content > Erythrocyte 11.5-14. Above high <content Saint distribution 5 normal styleCode="Bold Regulo width [Ratio] by ">Red Cell Medical Automated count Distribution Center Width </content>15.9 % H<content styleCode="Ital ics"> (11.5-14.5 %)</content> Erythrocyte mean 80.0-100 <content Saint corpuscular .0 styleCode="Bold Regulo volume [Entitic ">Mean Medical volume] by Corpuscular Center Automated count Volume </content>78.0 FL<content styleCode="Ital ics"> (80.0-100.0 FL)</content> Erythrocyte mean 32.0-37. <content [facility] corpuscular 0 styleCode="Bold Regulo hemoglobin ">Mean Corpus. Medical concentration Hgb Center [Mass/volume] by Concentration Automated count (MCHC) </content>33.0 G/DL<content styleCode="Ital ics"> (32.0-37.0 G/DL)</content> Erythrocyte mean 26.0-34. Below low normal <content Saint corpuscular 0 styleCode="Bold Regulo hemoglobin ">Mean Medical [Entitic mass] Corposcular Center by Automated Hemoglobin count </content>25.7 PG L<content styleCode="Ital ics"> (26.0-34.0 PG)</content> UNK 1.6-7.3 <content Saint styleCode="Bold Regulo ">Neutrophil Medical Count Center </content>6.54 KCUMM<content styleCode="Ital ics"> (1.6-7.3 KCUMM)</content > Platelets 130-400 <content Saint [#/volume] in styleCode="Bold Regulo Blood by ">Platelet Medical Automated count Count Center </content>249 KCUMM<content styleCode="Ital ics"> (130-400 KCUMM)</content > Platelet mean 8.0-11.0 Above high <content Saint volume [Entitic normal styleCode="Bold Regulo volume] in Blood ">Mean Platelet Medical by Automated Volume Center count </content>11.3 FL H<content styleCode="Ital ics"> (8.0-11.0 FL)</content> Neutrophils 36-66 Above high <content Saint [#/volume] in normal styleCode="Bold Regulo Blood by ">Neutrophil Medical Automated count </content>70.8 Center % H<content styleCode="Ital ics"> (36-66 %)</content> UNK 0.2-0.9 <content Saint styleCode="Bold Regulo ">Monocyte Medical Count Center </content>0.67 KCUMM<content styleCode="Ital ics"> (0.2-0.9 KCUMM)</content > UNK 1.0-4.8 <content Saint styleCode="Bold Regulo ">Lymphocyte Medical Count Center </content>1.81 KCUMM<content styleCode="Ital ics"> (1.0-4.8 KCUMM)</content > Lymphocytes 24.0-44. Below low normal <content Saint [#/volume] in 0 styleCode="Bold Regulo Blood by ">Lymphocyte Medical Automated count </content>19.5 Center % L<content styleCode="Ital ics"> (24.0-44.0 %)</content> Eosinophils 0-5.0 <content Saint [#/volume] in styleCode="Bold Regulo Blood by ">Eosinophil Medical Automated count </content>1.7 Center %<content styleCode="Ital ics"> (0-5.0 %)</content> Monocytes 3.0-10.0 <content Saint [#/volume] in styleCode="Bold Regulo Blood by ">Monocyte Medical Automated count </content>7.2 Center %<content styleCode="Ital ics"> (3.0-10.0 %)</content> UNK 0.0-0.6 <content Saint styleCode="Bold Regulo ">Eosinophil Medical Count Center </content>0.16 KCUMM<content styleCode="Ital ics"> (0.0-0.6 KCUMM)</content > Basophils 0.0-1.0 <content Saint [#/volume] in styleCode="Bold Regulo Blood by ">Basophil Medical Automated count </content>0.3 Center %<content styleCode="Ital ics"> (0.0-1.0 %)</content> UNK 0.0-0.3 <content Saint styleCode="Bold Regulo ">Basophil Medical Count Center </content>0.03 KCUMM<content styleCode="Ital ics"> (0.0-0.3 KCUMM)</content > UNK 0 <content Saint styleCode="Bold Regulo ">Nucleated Red Medical Blood Cell Center </content>0.0 /100<content styleCode="Ital ics"> (0 /100)</content> UNK < 1 <content Saint styleCode="Bold Regulo ">Immature Medical Granulocyte Center Ratio </content>0.5 %<content styleCode="Ital ics"> (< 1 %)</content> UNK 0.0 <content Saint styleCode="Bold Regulo ">Nucleated Red Medical Blood Cell Center Count </content>0.00 KCUMM<content styleCode="Ital ics"> (0.0 KCUMM)</content > UNK 0-0.1 <content Saint styleCode="Bold Regulo ">Immature Medical Granulocyte Center Count </content>0.05 KCUMM<content styleCode="Ital ics"> (0-0.1 KCUMM)</content > ID Date Data Source GFR(Creatinine) 05/11/2018 08:02:00 AM [facility] Name Value Range Interpretation Code Description Data Tammy rce(s) Supporting Document(s ) UNK > 60 <content [facility] styleCode="Bold"> Medical Cent er EGFR </content>81 GFR<content styleCode="Italic s"> (> 60 GFR)</content> ID Date Data Source [id number] 05/11/2018 08:02:00 AM [facility] Name Value Range Interpretation Description Data Sup porting Code Source(s) Document(s ) UNK 4.2-5.8 Above high normal <content [facility] styleCode="Bold Medical ">Hemoglobin Center A1C </content>6.4 % H<content styleCode="Ital ics"> (4.2-5.8 %)</content> UNK >= 1.0 <content [facility] styleCode="Bold Medical ">AG Ratio Center </content>1.4 NM<content styleCode="Ital ics"> (>= 1.0 NM)</content> UNK 2.3-3.5 <content [facility] styleCode="Bold Medical ">Globulin Center </content>3.2 G/DL<content styleCode="Ital ics"> (2.3-3.5 G/DL)</content> Protein 6.3-8.2 <content [facility] [Mass/volum styleCode="Bold Medical e] in Serum ">Total Protein Center or Plasma </content>7.8 G/DL<content styleCode="Ital ics"> (6.3-8.2 G/DL)</content> ID Date Data Source BMP 05/11/2018 08:02:00 AM [facility] Name Value Range Interpretation Description Data Sup porting Code Source(s) Document(s ) Sodium 137-145 <content [facility] [Moles/volume] in styleCode="Bold"> Stan phs Serum or Plasma Sodium Medical </content>142 Center MEQ/L<content styleCode="Italic s"> (137-145 MEQ/L)</content> Potassium 3.5-5.3 <content [facility] [Moles/volume] in styleCode="Bold"> [facility] Serum or Plasma Potassium Medical </content>4.2 Center MEQ/L<content styleCode="Italic s"> (3.5-5.3 MEQ/L)</content> UNK 9-20 <content [facility] styleCode="Bold"> Regulo BUN </content>14 Medical MG/DL<content Center styleCode="Italic s"> (9-20 MG/DL)</content> Carbon dioxide, 22-30 <content [facility] total styleCode="Bold"> Regulo [Moles/volume] in Carbon Dioxide Medical Serum or Plasma </content>25 Center MEQ/L<content styleCode="Italic s"> (22-30 MEQ/L)</content> Chloride 98-107 <content [facility] [Moles/volume] in styleCode="Bold"> [facility] Serum or Plasma Chloride Medical </content>107 Center MEQ/L<content styleCode="Italic s"> (98-107 MEQ/L)</content> Glucose 74-106 Above high <content [facility] [Mass/volume] in normal styleCode="Bold"> Fred hs Serum or Plasma Glucose Medical </content>115 Center MG/DL H<content styleCode="Italic s"> (74-106 MG/DL)</content> UNK > 60 <content [facility] styleCode="Bold"> Regulo EGFR </content>81 Medical GFR<content Center styleCode="Italic s"> (> 60 GFR)</content> Aspartate 17-59 <content [facility] aminotransferase styleCode="Bold"> Fred hs [Enzymatic Aspartate Medical activity/volume] Aminotransferase Center in Serum or Plasma (AST) </content>38 IU/L<content styleCode="Italic s"> (17-59 IU/L)</content> Calcium 8.4-10. <content [facility] [Mass/volume] in 2 styleCode="Bold"> Fred hs Serum or Plasma Calcium Medical </content>9.9 Center MG/DL<content styleCode="Italic s"> (8.4-10.2 MG/DL)</content> Creatinine 0.5-1.3 <content [facility] [Mass/volume] in styleCode="Bold"> Fred hs Serum or Plasma Creatinine Medical </content>1.2 Center MG/DL<content styleCode="Italic s"> (0.5-1.3 MG/DL)</content> Albumin 3.5-5.0 <content [facility] [Mass/volume] in styleCode="Bold"> Fred hs Serum or Plasma Albumin Medical </content>4.6 Center G/DL<content styleCode="Italic s"> (3.5-5.0 G/DL)</content> Bilirubin.total 0.2-1.3 <content [facility] [Mass/volume] in styleCode="Bold"> Fred hs Serum or Plasma Bilirubin Total Medical </content>0.9 Center MG/DL<content styleCode="Italic s"> (0.2-1.3 MG/DL)</content> Alkaline 38-126 <content [facility] phosphatase styleCode="Bold"> Regulo [Enzymatic Alkaline Medical activity/volume] Phosphatase (ALP) Cente r in Serum or Plasma </content>68 IU/L<content styleCode="Italic s"> (38-126 IU/L)</content> Alanine 7-50 Above high <content [facility] aminotransferase normal styleCode="Bold"> Fred hs [Enzymatic Alanine Medical activity/volume] Aminotransferase Center in Serum or Plasma (ALT) </content>56 IU/L H<content styleCode="Italic s"> (7-50 IU/L)</content> ID Date Data Source [id number] 05/05/2018 03:47:50 PM EST GHAZAL Solitario (Fabio Barrow [id number] [facility]) Name Value Range Interpretation Description Data Source(s ) Supporting Code Document(s ) No Results No Results No Results JOEY ([facility] Recorded For Danial Specified [facility]) Procedure Social History Code Duration Value Status Description Data Source(s ) Smoking 04/26/2019 Smokes tobacco completed Smokes tobacco GREENW AY ([facility] 10:59:24 AM daily (finding) daily (finding) [facility]) Smoking 04/19/2019 Smokes tobacco completed Smokes tobacco GREENW AY ([facility] 01:26:06 PM daily (finding) daily (finding) [facility] non [facility]) Smoking 08/05/2011 Smokes tobacco completed Smokes tobacco GREENW AY ([facility] 11:45:27 AM daily (finding) daily (finding) [facility] EDT [facility]) Smoking Unknown if ever completed Unknown if ever Naz Rajput smoked smoked [facility] Center Assertion Smoker (finding) completed Smoker (finding) GR EENWAY ([facility]) Assertion Dietary finding completed Dietary finding GREE NWAY ([facility] (finding) (finding) [facility]) Assertion Oral hygiene completed Oral hygiene RENSSELAER ( [facility] finding (finding) finding [place] [facility]) [facility]) Assertion Finding of life completed Finding of life GREE NWAY ([facility] event (finding) event (finding) [facility]) Assertion Finding of completed Finding of JOEY (Moun t functional functional [place] performance and performance and Neig hborhood activity ([facility]) activity [facility]) (finding) Assertion Eats junk food ++ completed Eats junk food GRE ENWAY ([facility] (finding) ++ (finding) [facility]) Assertion sexual history completed JOEY ( [facility]) Assertion High sodium diet completed High sodium diet GR EENWAY ([facility] (finding) ([facility]) [facility]) Assertion current diet completed RENSSELAER ([facility] frequency of meals [place] ___ snacks per day [facility]) Assertion Tobacco user completed Tobacco user JOEY ( [facility] (finding) (finding) [facility]) Assertion social history completed JOEY ( [facility] unchanged [facility]) Assertion Irregular meal completed Irregular meal GREENAaron AY ([facility] frequency frequency Danial ([facility]) ([facility]) [facility]) Assertion Dietary intake completed Dietary intake GREENAaron AY ([facility] finding (finding) finding [place] ([facility]) [facility]) Assertion Inadequate food completed Inadequate food GREE NWAY ([facility] diet (finding) diet (finding) [facility]) Assertion Physical handicap completed Physical GREENWA Y ([facility] ([facility]) handicap [place] ([facility]) [facility]) Assertion Excessive dietary completed Excessive GREENWA Y ([facility] intake of fat dietary intake Danial ([facility]) of fat ([facility]) [facility]) Assertion meals taken at completed JOEY ( [facility] home (___ Danial times/week) [facility] Assertion frequent high completed JOEY (M ount carbohydrate meals [facility]) Assertion Exercises completed Exercises JOEY (Moun t regularly regularly Danial ([facility]) ([facility]) [facility]) Assertion dietary excesses completed JOEY ([facility] juices [facility]) Assertion Eats snacks completed Eats snacks JOEY (Mo unt frequently frequently [place] ([facility]) ([facility]) [facility]) Assertion dietary excesses completed JOEY ([facility]) Assertion Nutritional completed 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) [facility]) Assertion Excessive dietary completed Excessive GREENWA Y ([facility] caloric intake dietary caloric [place] (finding) intake ([facility]) [facility]) Assertion Excessive dietary completed Excessive GREENWA Y ([facility] intake of fat dietary intake Danial ([facility]) of fat ([facility]) [facility]) Assertion High fat diet completed High fat diet JOEY ([facility] ([facility]) ([facility]) [facility]) Assertion High fat diet completed High fat diet JOEY ([facility] ([facility]) ([facility]) [facility]) Assertion High fat diet completed High fat diet JOEY ([facility] ([facility]) ([facility]) [facility]) Assertion Caffeine user completed Caffeine user JOEY ([facility] ([facility]) ([facility]) [facility]) Assertion High sugar diet completed High sugar diet GREE NWAY ([facility] ([facility]) ([facility]) [facility]) Assertion High sugar diet completed High sugar diet GREE NWAY ([facility] ([facility]) ([facility]) [facility]) Assertion High sugar diet completed High sugar diet GREE NWAY ([facility] ([facility]) ([facility]) [facility]) Assertion High residue diet completed High residue GREEN WAY ([facility] ([facility]) diet ([facility]) [facility]) Assertion current diet completed JOEY (Mo unt frequency of meals Danial ___ per day [facility]) Assertion Exercise history completed Exercise history GR EENWAY ([place] (finding) finding [place] ([facility]) [facility]) Assertion Finding of completed Finding of JOEY (Moun t activity of daily activity of Danial living (finding) daily living [facility] ([facility]) Assertion Finding relating completed Finding relating GR EENWAY ([facility] to drug misuse to drug misuse Danial behavior (finding) behavior [facility] ([facility]) [facility]) Assertion Current drinker of completed Current drinker G REENWAY ([facility] alcohol (finding) of alcohol [place] ([facility]) [facility]) Smoking Current every day completed Current every [place] smoker day smoker [facility] Assertion Finding relating completed Finding relating GR EENWAY ([facility] to drug misuse to drug misuse Danial behavior (finding) behavior [facility] ([facility]) [facility]) Assertion Current drinker of completed Current drinker G REENWAY ([facility] alcohol (finding) of alcohol [place] ([facility]) [facility]) Assertion Exercise history completed Exercise history GR EENWAY ([facility] finding (finding) finding [place] ([facility]) [facility]) Assertion Finding relating completed Finding relating GR EENWAY ([facility] to drug misuse to drug misuse Danial behavior (finding) behavior [facility] ([facility]) [facility]) Assertion Current drinker of completed Current drinker G REENWAY ([facility] alcohol (finding) of alcohol [place] ([facility]) [facility]) Assertion Finding of completed Finding of JOEY (Moun t activity of daily activity of Danial living (finding) daily living [facility] ([facility]) [facility]) Assertion meals taken at completed JOEY ( [facility] (___ Danial times/week) [facility] ) Assertion frequent high completed JOEY (M ount carbohydrate meals [facility]) Assertion Exercises completed Exercises JOEY (Moun t regularly regularly Danial (finding) ([facility]) [facility]) Assertion Eats snacks completed Eats snacks JOEY (Mo unt frequently frequently Danial (finding) (finding) [facility]) Assertion dietary excesses completed JOEY ([facility]) Assertion Nutritional completed 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) [facility]) Assertion Excessive dietary completed Excessive GREENWA Y ([facility] caloric intake dietary caloric [place] ([facility]) intake ([facility]) [facility]) Assertion Excessive dietary completed Excessive GREEN Y ([facility] intake of fat dietary intake Danial (finding) of fat ([facility]) [facility]) Assertion High fat diet completed High fat diet JOEY ([facility] (finding) (finding) [facility]) Assertion High fat diet completed High fat diet JOEY ([facility] (finding) (finding) [facility]) Assertion High fat diet completed High fat diet JOEY ([facility] (finding) (finding) [facility]) Assertion Caffeine user completed Caffeine user JOEY ([facility] ([facility]) ([facility]) [facility]) Assertion High sugar diet completed High sugar diet GREE NWAY ([facility] ([facility]) ([facility]) [facility]) Assertion High sugar diet completed High sugar diet GREE NWAY ([facility] ([facility]) ([facility]) [facility]) Assertion High sugar diet completed High sugar diet GREE NWAY ([facility] ([facility]) ([facility]) [facility]) Assertion High residue diet completed High residue GREEN WAY ([facility] ([facility]) diet ([facility]) [facility]) Assertion current diet completed JOEY (Co unt frequency of meals [place] ___ per day [facility]) Assertion Finding of completed Finding of JOEY (Moun t activity of daily activity of Danial living ([facility]) daily living [facility] ([facility]) [facility]) Assertion Finding relating completed Finding relating GR EENWAY ([facility] to drug misuse to drug misuse Danial behavior ([facility]) behavior [facility]) Assertion Finding of completed Finding of JOEY (Moun t activity of daily activity of Danial living ([facility]) daily living [facility]) Assertion Current drinker of completed Current drinker G KELECHI ([facility] alcohol (finding) of alcohol [place] ([facility]) [facility]) Assertion Tobacco user completed Tobacco user JOEY ( [facility] (finding) (finding) [facility]) Assertion Tobacco user completed Tobacco user JOEY ( [facility] (finding) (finding) [facility]) Assertion social history completed JOEY ( [facility] unchanged [facility]) Assertion Dietary intake completed Dietary intake MELL AY ([facility] finding (finding) finding [place] ([facility]) [facility]) Assertion Inadequate food completed Inadequate food GREE NWAY ([facility] diet ([facility]) diet ([facility]) [facility]) Assertion Finding of completed Finding of JOEY (Moun t activity of daily activity of [place] living (finding) daily living Neighb orhood ([facility]) Assertion social history completed JOEY ( [facility] unchanged [facility]) Assertion Irregular meal completed Irregular meal GREENW AY ([facility] frequency frequency Danial ([facility]) ([facility]) [facility]) Assertion Dietary intake completed Dietary intake GREENW AY ([facility] finding (finding) finding [place] ([facility]) Assertion Inadequate food completed Inadequate food GREE NWAY ([facility] diet ([facility]) diet ([facility]) [facility]) Assertion Physical handicap completed Physical GREENWA Y ([facility] ([facility]) handicap [place] ([facility]) Assertion Excessive dietary completed Excessive GREENWA Y ([facility] intake of fat dietary intake Danial ([facility]) of fat ([facility]) [facility]) Assertion dietary excesses completed JOEY ([facility] juices [facility]) Assertion Physical handicap completed Physical GREENWA Y ([facility] ([facility]) handicap [place] ([facility]) Assertion Irregular meal completed Irregular meal GREENW AY ([facility] frequency frequency [place] ([facility]) ([facility]) Assertion meals taken at completed JOEY ( [facility] home (___ [place] times/week) [facility] Assertion frequent high completed JOEY (M ount carbohydrate meals [facility]) Assertion Exercises completed Exercises JOEY (Moun t regularly regularly [place] ([facility]) ([facility]) Assertion dietary excesses completed JOEY ([facility] juices [facility]) Assertion Eats snacks completed Eats snacks JOEY (Mo unt frequently frequently [place] ([facility]) ([facility]) [facility]) Assertion dietary excesses completed JOEY ([facility]) Assertion Nutritional completed Nutritional JOEY (Mo unt deficiency deficiency [place] disorder disorder [facility] Assertion Excessive dietary completed Excessive GREENWA Y ([facility] caloric intake dietary caloric [place] (finding) intake ([facility]) [facility]) Assertion Excessive dietary completed Excessive GREENWA Y ([facility] intake of fat dietary intake Danial (finding) of fat (finding) [facility]) Assertion High fat diet completed High fat diet JOEY ([facility] ([facility]) ([facility]) [facility]) Assertion High fat diet completed High fat diet JOEY ([facility] ([facility]) ([facility]) [facility]) Assertion Caffeine user completed Caffeine user JOEY ([facility] ([facility]) ([facility]) [facility]) Assertion Current drinker of completed Current drinker Tevin LORENZ ([facility] alcohol (finding) of alcohol [place] ([facility]) [facility]) Assertion High sugar diet completed High sugar diet GREE NWAY ([facility] ([facility]) ([facility]) [facility]) Assertion High sugar diet completed High sugar diet GREE NWAY ([facility] ([facility]) ([facility]) [facility]) Assertion High sugar diet completed High sugar diet GREE NWAY ([facility] ([facility]) ([facility]) [facility]) Assertion High sodium diet completed High sodium diet GR EENWAY ([facility] ([facility]) ([facility]) [facility]) Assertion High residue diet completed High residue GREEN WAY ([facility] ([facility]) diet ([facility]) [facility]) Assertion Excessive dietary completed Excessive GREENWA Y ([facility] intake of fat dietary intake [place] ([facility]) of fat ([facility]) [facility]) Assertion current diet completed JOEY (Mo unt frequency of meals Danial ___ snacks per day [facility]) Assertion current diet completed JOEY (Mo unt frequency of meals [place]ial ___ per day [facility]) Assertion sexual history completed JOEY ( [facility]) Assertion Tobacco user completed Tobacco user JOEY ( [facility] ([facility]) ([facility]) [facility]) Assertion Current drinker of completed Current drinker Tevin LORENZ ([facility] alcohol (finding) of alcohol [place] ([facility]) [facility]) Assertion social history completed JOEY ( [facility]) Assertion Finding of completed Finding of JOEY (Moun t activity of daily activity of [place] living (finding) daily living [facility] ([facility]) Assertion Physical handicap completed Physical GREENWA Y ([facility] (finding) handicap [place] ([facility]) [facility]) Vital Signs ID Date Data Source UNK Name Value Range Interpretation Code Description Data Source(s) Heart rate 69 /min 69 /min [facility] Diastolic blood 94 mm[Hg] 94 mm[Hg] [facility] pressure Medical Center Systolic blood 157 mm[Hg] 157 mm[Hg] [facility] Center Body temperature 36.034653 [id number] St[facility] Center Respiratory rate 18 /min 18 /min [facility] Oxygen 97 % 97 % [facility] saturation in Medical [address] Arterial blood by Pulse oximetry Heart rate 71 /min 71 /min [facility] Diastolic blood 96 mm[Hg] 96 mm[Hg] [facility] pressure [facility] Center Systolic blood 175 mm[Hg] 175 mm[Hg] [facility] Body surface 2.2 m2 2.2 m2 [facility] area Derived System from formula Body mass index 29.8 kg/m2 29.8 kg/m2 [facility] (BMI) [Ratio] System Body weight 99.79 kg 99.79 kg [facility] System Body height 182.88 cm 182.88 cm [facility] System Body temperature 98 [degF] 0 - 200 Normal (applies to 98 [degF] [facility] ScalIT non-numeric System results) Body temperature 36.6 Staci 0 - 99.9 Normal (applies to 36.6 Staci [facility] ScalIT non-numeric System results) Diastolic blood 86 mm[Hg] 0 - 999 Above high normal 86 mm[Hg] [facility] pressure System Systolic blood 134 mm[Hg] 0 - 999 Normal (applies to 134 mm[Hg] [facility] ScalIT pressure non-numeric System results) Oxygen 99 % 0 - 999 Normal (applies to 99 % [facility] [employer] ScalIT saturation in non-numeric System Arterial blood results) by Pulse oximetry Respiratory rate 18 0 - 999 Above high normal 18 M [facility] System Heart rate 86 0 - 999 Normal (applies to 86 [facility]numeric System results) Body surface 2.2 m2 2.2 m2 [facility] area Derived System from formula Body mass index 29.8 kg/m2 29.8 kg/m2 [facility] ScalIT (BMI) [Ratio] System Body weight 99.79 kg 99.79 kg [facility] System Body height 182.88 cm 182.88 cm [facility] alth System Body temperature 98.8 0 - 200 Normal (applies to 98.8 [degF] [facility] Health [degF] non-numeric System results) Body temperature 37.1 Staci 0 - 99.9 Normal (applies to 37.1 Staci [facility] ScalIT non-numeric System results) Diastolic blood 90 mm[Hg] 0 - 999 Above high normal 90 mm[Hg] [facility] pressure System Systolic blood 162 mm[Hg] 0 - 999 Above high normal 162 mm[Hg] [facility] Health pressure System Oxygen 98 % 0 - 999 Normal (applies to 98 % [facility] [employer] ScalIT saturation in non-numeric System Arterial blood results) by Pulse oximetry Respiratory rate 17 0 - 999 Normal (applies to 17 [facility] ScalIT non-numeric System results) Heart rate 88 0 - 999 Normal (applies to 88 [facility] [employer] Health non-numeric System results) Body surface 2.2 m2 2.2 m2 [facility] ealth area Derived System from formula Body mass index 29.8 kg/m2 29.8 kg/m2 [facility] ScalIT (BMI) [Ratio] System Body weight 99.79 kg 99.79 kg [facility] alth System Body height 182.88 cm 182.88 cm [facility] alth System Body temperature 97.7 0 - 200 Normal (applies to 97.7 [degF] [facility] ScalIT [degF] non-numeric System results) Body temperature 36.5 Staci 0 - 99.9 Normal (applies to 36.5 Staci [facility] ScalIT non-numeric System results) Diastolic blood 66 mm[Hg] 0 - 999 Below low normal 66 mm[Hg] [facility] System Systolic blood 117 mm[Hg] 0 - 999 Normal (applies to 117 mm[Hg] [facility] pressure non-numeric System results) Oxygen 94 % 0 - 999 Normal (applies to 94 % [facility] [employer] ScalIT saturation in non-numeric System Arterial blood results) by Pulse oximetry Respiratory rate 17 0 - 999 Normal (applies to 17 [facility] ScalIT non-numeric System results) Heart rate 100 0 - 999 Above high normal 100 [facility] ScalIT System PhenX - pain, 0 0 JOEY (M ount abdominal - type Danial and intensity [facility]) Pt presents today for follow up Body surface area Derived from 2.21 m2 2.21 m2 JOEY ([facility]) Pt presents today for follow up Body mass index (BMI) 29.6 kg/m2 29.6 kg/m2 KATHRINE CHATTERJEE ([place] [[facility]] [facility] Pt presents today for follow up Body weight 218 [lb_av] 218 [lb_av] JOEY (M ount [facility]) Pt presents today for follow up Body height 72 [in_us] 72 [in_us] JOEY (Kristina nt [facility]) Pt presents today for follow up Body temperature 98.5 [degF] 98.5 [degF] ARLINGTONW AY ([facility]) Pt presents today for follow up Heart rate 83 /min 83 /min JOEY ([facility] t [facility]) Pt presents today for follow up Diastolic blood pressure 81 mm[Hg] 81 mm[Hg] JOEY ([facility]) Pt presents today for follow up Systolic blood pressure 134 mm[Hg] 134 mm[Hg] G REENWAY ([facility]) Pt presents today for follow up Diastolic blood 65 {} Normal (applies to 65 {} [facility] pressure non-numeric results) [facility] Systolic blood 147 {} Normal (applies to 147 {} [facility] pressure non-numeric results) [facility] First Respiration 16.0000 {} Normal (applies to 16.0000 {} [facility] rate Set non-numeric results) [facility] Heart rate 65.0000 {} Normal (applies to 65.0000 {} [facility] non-numeric results) [facility] Body temperature 97.6000 {} Normal (applies to 97.6000 {} [facility] non-numeric results) [facility] wt - obtain Normal (applies to {} [facility] non-numeric results) [facility] weight - kg 100.0000 {} Normal (applies to 100.0000 {} [facility] non-numeric results) [facility] Oxygen saturation in 98 % 98 % SHAYY PIÑA ([facility] Arterial blood by [facility] Pulse oximetry Health [address]) Pt state He's here for Hep B Vaccine. PhenX - pain, abdominal - type and 0 0 JOEY ([facility]) Pt state He's here for Hep B Vaccine. Body surface area Derived from 2.25 m2 2.25 m2 RENSSELAER ([facility]) Pt state He's here for Hep B Vaccine. Body mass index (BMI) 31.0 kg/m2 31.0 kg/m2 [facility] ENWAY ([place] [[facility]] [facility]) Pt state He's here for Hep B Vaccine. Body weight 228.375 [lb_av] 228.375 [lb_av] [facility]) Pt state He's here for Hep B Vaccine. Body height 72 [in_us] 72 [in_us] JOEY ([facility]) Pt state He's here for Hep B Vaccine. Body temperature 97.1 [degF] 97.1 [degF] GREENW AY ([facility]) Pt state He's here for Hep B Vaccine. Heart rate rhythm 1 1 GREENWA Y ([facility]) Pt state He's here for Hep B Vaccine. Heart rate 69 /min 69 /min [place] ([facility]) Pt state He's here for Hep B Vaccine. Diastolic blood pressure 75 mm[Hg] 75 mm[Hg] R[place]LA[place] ([facility]) Pt state He's here for Hep B Vaccine. Systolic blood pressure 130 mm[Hg] 130 mm[Hg] [facility]) Pt state He's here for Hep B Vaccine. Body weight 237 [lb_av] 237 [lb_av] [facility] pt needs refills for some medicine Body height 72 [in_us] 72 [in_us] [place] ([facility]) pt needs refills for some medicine Body temperature 97.3 [degF] 97.3 [degF] GREENW AY ([facility]) pt needs refills for some medicine Respiratory rate 18 /min 18 /min R[place] ([facility]) pt needs refills for some medicine Heart rate 73 /min 73 /min [place] ([facility]) pt needs refills for some medicine Diastolic blood pressure 78 mm[Hg] 78 mm[Hg] JOEY ([facility]) pt needs refills for some medicine Systolic blood pressure 131 mm[Hg] 131 mm[Hg] [facility]) pt needs refills for some medicine PhenX - pain, abdominal - type and 0 0 JOEY ([facility]) pt needs refills for some medicine Body surface area Derived from 2.29 m2 2.29 m2 JOEY ([facility]) pt needs refills for some medicine Body mass index (BMI) 32.1 kg/m2 32.1 kg/m2 GRE ENWAY ([place] [[facility]] [facility]) pt needs refills for some medicine PhenX - pain, abdominal - type and 0 0 RENS[place]LA[place] ([facility]) Pt is here for lab results. Body surface area Derived from 2.24 m2 2.24 m2 RENS[place]LA[place] ([facility]) Pt is here for lab results. Body mass index (BMI) 33.7 kg/m2 33.7 kg/m2 [facility] ([place] [[facility]] [facility]) Pt is here for lab results. Body weight 235 [lb_av] 235 [lb_av] [place] ([facility]) Pt is here for lab results. Body height 70 [in_us] 70 [in_us] [place] ([facility]) Pt is here for lab results. Body temperature 97.2 [degF] 97.2 [degF] [facility] ([facility]) Pt is here for lab results. Heart rate 66 /min 66 /min [place] ([facility]) Pt is here for lab results. Diastolic blood pressure 83 mm[Hg] 83 mm[Hg] JOEY ([facility]) Pt is here for lab results. Systolic blood pressure 139 mm[Hg] 139 mm[Hg] [facility]) Pt is here for lab results. Body surface area Derived 2.22 m2 2.22 m2 JOEY ([facility]) Body mass index (BMI) 33.1 kg/m2 33.1 kg/m2 GRE ENWAY ([place] [[facility]] [facility]) Body weight 231 [lb_av] 231 [lb_av] JOEY ([facility]) Body height 70 [in_us] 70 [in_us] JOEY ([facility]) PhenX - pain, abdominal - 3 3 JOEY ([place] type and intensity protocol [facility]) Pt. presenting for f/u. Body surface area Derived from 2.24 m2 2.24 m2 JOEY ([facility]) Pt. presenting for f/u. Body mass index (BMI) 33.7 kg/m2 33.7 kg/m2 GRE ENWAY ([place] [[facility]] [facility]) Pt. presenting for f/u. Body weight 235 [lb_av] 235 [lb_av] JOEY ([facility]) Pt. presenting for f/u. Body height 70 [in_us] 70 [in_us] JOEY ([facility]) Pt. presenting for f/u. Body temperature 97.5 [degF] 97.5 [degF] [facility] ([facility]) Pt. presenting for f/u. Respiratory rate 18 /min 18 /min JOEY ([facility]) Pt. presenting for f/u. Heart rate 61 /min 61 /min JOEY ([facility]) Pt. presenting for f/u. Diastolic blood pressure 78 mm[Hg] 78 mm[Hg] JOEY ([facility]) Pt. presenting for f/u. Systolic blood pressure 120 mm[Hg] 120 mm[Hg] G REENWAY ([facility]) Pt. presenting for f/u. PhenX - pain, abdominal - type and 0 0 JOEY ([facility]) pt is here to f/u with security officer Body surface area Derived from 2.24 m2 2.24 m2 JOEY ([facility]) pt is here to f/u with security officer Body mass index (BMI) 33.7 kg/m2 33.7 kg/m2 [place] ENWAY ([place] [facility] pt is here to f/u with security officer Body weight 235.2 [lb_av] 235.2 [lb_av] GREENWA Y ([facility]) pt is here to f/u with security officer Body height 70 [in_us] 70 [in_us] JOEY ([facility]) pt is here to f/u with security officer Body temperature 97.8 [degF] 97.8 [degF] ARLINGTONW AY ([facility]) pt is here to f/u with security officer Respiratory rate 18 /min 18 /min JOEY ([facility]) pt is here to f/u with security officer Heart rate 69 /min 69 /min JOEY ([facility]) pt is here to f/u with security officer Diastolic blood pressure 71 mm[Hg] 71 mm[Hg] JOEY ([facility]) pt is here to f/u with security officer Systolic blood pressure 119 mm[Hg] 119 mm[Hg] G REENWAY ([facility]) pt is here to f/u with security officer Body surface area Derived 2.23 m2 2.23 m2 JOEY ([place] [facility]) Body mass index (BMI) 33.4 kg/m2 33.4 kg/m2 [facility] ([place] [facility]] [facility]) Body weight 233 [lb_av] 233 [lb_av] JOEY ( [facility]unt [facility]) Body height 70 [in_us] 70 [in_us] JOEY ([facility]) PhenX - pain, abdominal - 0 0 JOEY ([place] type and intensity protocol [facility]) pt is here today for a f/u with provider and need Rx refill Body surface area Derived from 2.25 m2 2.25 m2 JOEY ([facility]) pt is here today for a f/u with provider and need Rx refill Body mass index (BMI) 34.1 kg/m2 34.1 kg/m2 GRE ENWAY ([place] [Ratio] [facility]) pt is here today for a f/u with provider and need Rx refill Body weight 237.8 [lb_av] 237.8 [lb_av] GREENWA Y ([facility]) pt is here today for a f/u with provider and need Rx refill Body height 70 [in_us] 70 [in_us] JOEY ([facility]) pt is here today for a f/u with provider and need Rx refill Body temperature 96.8 [degF] 96.8 [degF] GREENW AY ([facility]) pt is here today for a f/u with provider and need Rx refill Respiratory rate 18 /min 18 /min JOEY ([facility]) pt is here today for a f/u with provider and need Rx refill Heart rate 62 /min 62 /min JOEY ([facility]) pt is here today for a f/u with provider and need Rx refill Diastolic blood pressure 75 mm[Hg] 75 mm[Hg] JOEY ([facility]) pt is here today for a f/u with provider and need Rx refill Systolic blood pressure 123 mm[Hg] 123 mm[Hg] G REENWAY ([facility]) pt is here today for a f/u with provider and need Rx refill Body surface area Derived 2.24 m2 2.24 m2 JOEY ([facility]) Body mass index (BMI) 33.7 kg/m2 33.7 kg/m2 [facility] EN[facility]AY ([place] [[facility]] [facility]) Body weight 235 [lb_av] 235 [lb_av] JOEY (M ount [facility]) Body height 70 [in_us] 70 [in_us] JOEY ([facility]) PhenX - pain, abdominal - 0 0 JOEY ([place] type and intensity protocol [facility]) PT here for medication refills and medic al examination. Body surface area Derived from 2.24 m2 2.24 m2 JOEY ([facility]) PT here for medication refills and medic al examination. Body mass index (BMI) 33.7 kg/m2 33.7 kg/m2 GRE ENWAY ([place] [Ratio] [facility]) PT here for medication refills and medic al examination. Body weight 235 [lb_av] 235 [lb_av] [facility] PT here for medication refills and medic al examination. Body height 70 [in_us] 70 [in_us] JOEY ([facility]) PT here for medication refills and medic al examination. Body temperature 98 [degF] 98 [degF] JOEY ([facility]) PT here for medication refills and medic al examination. Heart rate 65 /min 65 /min JOEY ([facility]) PT here for medication refills and medic al examination. Diastolic blood pressure 75 mm[Hg] 75 mm[Hg] RENSSELAER ([facility]) PT here for medication refills and medic al examination. Systolic blood pressure 148 mm[Hg] 148 mm[Hg] [facility]) PT here for medication refills and medic al examination. Diastolic blood pressure 84 mmHg 84 mmHg [facility] Systolic blood pressure 151 mmHg 151 mmHg [facility] Respiratory rate 18 bpm 18 bpm [facility] Heart rate 78 bpm 78 bpm [facility] Body temperature 97.4 [facility] Diastolic blood pressure 76 mmHg 76 mmHg [facility] Systolic blood pressure 135 mmHg 135 mmHg [facility] Respiratory rate 18 bpm 18 bpm [facility] Heart rate 90 bpm 90 bpm [facility] Body temperature 97.8 F[facility]heit 97.8 [facility] Heart rate 80 bpm 80 bpm [facility] Body temperature 98.9 Fahrenheit 98.9 [facility] Diastolic blood pressure 68 mmHg 68 mmHg [facility] Systolic blood pressure 140 mmHg 140 mmHg [facility] Respiratory rate 18 bpm 18 bpm [facility] Diastolic blood pressure 85 mmHg 85 mmHg [facility] Systolic blood pressure 133 mmHg 133 mmHg [facility] Respiratory rate 18 bpm 18 bpm [facility] Heart rate 85 bpm 85 bpm [facility] Body temperature 97.9 [facility] 97.9 [facility] Di[facility] blood pressure 91 mmHg 91 mmHg [facility] Systolic blood pressure 150 mmHg 150 mmHg S [facility] Respiratory rate 18 bpm 18 bpm [facility] Heart rate 80 bpm 80 bpm [facility] Body temperature 97.2 F[facility]heit 97.2 [facility] Diastolic blood pressure 85 mmHg 85 mmHg [facility] Systolic blood pressure 137 mmHg 137 mmHg S [facility] Respiratory rate 18 bpm 18 bpm [facility] Heart rate 73 bpm 73 bpm [facility] Body temperature 98 Fahrenheit 98 Fahrenheit [facility] Diastolic blood pressure 100 mmHg 100 mmHg [facility] Systolic blood pressure 149 mmHg 149 mmHg S [facility] Respiratory rate 18 bpm 18 bpm [facility] Heart rate 79 bpm 79 bpm [facility] Body temperature 97.9 F[facility]heit 97.9 [facility] Body weight Measured 240 lbs 240 lbs [facility] Diastolic blood pressure 82 mmHg 82 mmHg [facility] Systolic blood pressure 140 mmHg 140 mmHg S [facility] Respiratory rate 18 bpm 18 bpm [facility] Heart rate 89 bpm 89 bpm [facility] Body temperature 98.6 Fahrenheit 98.6 [facility] Patient Treatment Plan of Care Planned Activity Planned Date Details Description Data Source (s) Aspirin Chewable Or 10/20/2019 [facility] 11:13:17 PM [facility] Metoprolol Tartrate 25 MG 10/11/2019 [place] ([place] Oral Tablet 12:00:00 AM [facility]) atorvastatin 10 MG Oral 10/11/2019 [place] ([place] Tablet 12:00:00 AM [facility]) Norvasc 10MG Oral Tablet 10/11/2019 [place] ([place] 12:00:00 AM [facility]) atorvastatin 10 MG Oral 08/13/2019 [place] ([place] Tablet 12:00:00 AM [facility]) Norvasc 10MG Oral Tablet 08/13/2019 [place] ([place] 12:00:00 AM [facility]) Metoprolol Tartrate 25 MG 08/13/2019 [place] [facility] [facility] Norvasc 10MG Oral Tablet 06/05/2019 [place] ([place] 12:00:00 AM [facility]) Simvastatin 40 MG Oral 06/05/[address] ([place] Tablet 12:00:00 AM [facility]) atorvastatin 10 MG Oral 06/05/2019 [place] ([place] Tablet 12:00:00 AM [facility]) Metoprolol Tartrate 25 MG 06/05/2019 [place] ([place] Oral Tablet 12:00:00 AM [facility]) Metoprolol Tartrate 25 MG 04/19/2019 [place] ([place] Oral Tablet 12:00:00 AM [facility]) Simvastatin 40 MG Oral 04/19/[address] ([place] Tablet 12:00:00 AM [facility]) Norvasc 10MG Oral Tablet 04/19/2019 [place] ([place] 12:00:00 AM [facility]) Aspirin 81 MG Chewable 04/19/[address] ([place] Tablet 12:00:00 AM [facility]) Simvastatin 40 MG Oral 01/29/[address] ([place] Tablet 12:00:00 AM [facility]) Norvasc 10MG Oral Tablet 01/29/2019 [place] ([place] 12:00:00 AM [facility]) Metoprolol Tartrate 25 MG 01/29/2019 [place] ([place] Oral Tablet 12:00:00 AM [facility]) Simvastatin 40 MG Oral 01/29/[address] ([place] Tablet 12:00:00 AM [facility]) Norvasc 10MG Oral Tablet 01/29/2019 [place] ([place] 12:00:00 AM [facility]) Metoprolol Tartrate 25 MG 01/29/2019 [place] ([place] Oral Tablet 12:00:00 AM [facility]) Aspirin 81 MG Chewable 01/29/[address] ([place] Tablet 12:00:00 AM [facility]) Aspirin 81 MG Chewable 05/05/[address] ([place] Tablet 12:00:00 AM EST [facility]) Metoprolol Tartrate 25 MG 05/05/2018 [place] ([place] Oral Tablet 12:00:00 AM EST [facility]) Norvasc 10MG Oral Tablet 05/05/2018 [place] ([place] 12:00:00 AM EST [facility]) Simvastatin 40 MG Oral 05/05/[address] ([place] Tablet 12:00:00 AM EST [facility]) Simvastatin 20 MG Oral 11/19/2016 [facility] Tablet 09:51:08 AM EDT System Metoprolol Tartrate 25 MG 11/19/2016 [facility] Oral Tablet 09:50:54 AM EDT System Aspirin 81 MG Oral Tablet 11/19/2016 [facility] 09:50:44 AM EDT System Amlodipine 10 MG Oral Tablet 11/19/2016 [facility] 09:50:20 AM EDT System Amlodipine 10 MG Oral Tablet 08/03/2016 [facility] 01:41:47 PM EDT System Betamethasone 0.5 MG/ML / 05/22/2015 [facility] Clotrimazole 10 MG/ML 02:02:24 PM EST Sys tem Topical Cream Hydrochlorothiazide 12.5 MG 05/22/2015 [facility] Oral Tablet 02:01:49 PM EST System Furosemide 20 MG Oral Tablet 05/22/2015 [facility] [Lasix] 01:40:52 PM EST System pneumococcal 13-valent 03/03/2015 [facility] conjugate vaccine 02:07:16 PM EDT System intramuscular suspension influenza virus vaccine, 03/03/2015 [facility] inactivated high-dose 02:06:17 PM EDT Sys tem preservative-free trivalent intramuscular suspension atorvastatin 10 MG Oral 11/04/2014 [facility] Tablet 03:07:39 PM EDT System Chlorpromazine hydrochloride 05/20/2014 [facility] 25 MG Oral Tablet 11:31:05 AM EST System Acetaminophen 325 MG / 04/13/2014 [facility] Hydrocodone Bitartrate 5 MG 07:29:18 PM EST System Oral Tablet Levofloxacin 500 MG Oral 04/13/2014 [facility] Tablet 07:23:54 PM EST System Levofloxacin 500 MG Oral 04/13/2014 [facility] Tablet [Levaquin] 04:50:44 PM EST System Amlodipine 5 MG Oral Tablet 07/23/2011 JOEY [facility] 12:00:00 AM [facility] Dextromethorphan 07/23/2011 JOEY ( ount Hydrobromide 2 MG/ML / 12:00:00 AM EST [facility] Guaifenesin 20 MG/ML Oral [facility]) Solution Ibuprofen 800 MG Oral Tablet [facility] Sim[facility]in [facility]
[2020-02-07 08:58] VITALS: BMI 30.1
[2020-02-07] MEDS ORDERED: MAG HYDROX/AL HYDROX/SIMETH 30 ML UNIT-DOSE CUP PO PRN (09:15)
[2020-02-07] MEDS ORDERED: NICOTINE POLACRILEX 2 MG GUM BUC PRN (09:15)
[2020-02-07] MEDS ORDERED: ACETAMINOPHEN 325 MG TABLET (FP) PO PRN ×2 (09:15)
[2020-02-07] MEDS ORDERED: METHOCARBAMOL 500 MG TABLET PO PRN (09:15)
[2020-02-07] MEDS ORDERED: IBUPROFEN 400 MG TABLET (FP) PO PRN (09:15)
[2020-02-07] MEDS ORDERED: chlordiazePOXIDE HCL 25 MG CAPSULE PO PRN (09:15)
[2020-02-07] MEDS ORDERED: MAGNESIUM HYDROX 2400MG/30ML ORAL SUSPENSION 30 ML CUP PO PRN (09:15)
[2020-02-07] MEDS ORDERED: MAGNESIUM CITRATE 300 ML BOTTLE PO PRN (09:15)
[2020-02-07] MEDS ORDERED: MENTHOL/PHENOL 1 EACH UD MM PRN (09:15)
[2020-02-07] MEDS ORDERED: BISMUTH SUBSALICYLATE 262 MG/15 ML BTL PO PRN (09:15)
[2020-02-07] MEDS ORDERED: ONDANSETRON *ODT* 4 MG TABLET SL PRN (09:15)
--- OUTSIDE RECORDS SUMMARY | 2020-02-07 09:50 | XMS ---
:1960 [facility] Providers Name Role Phone AGUSTINA MARR PATRICIA Unavailable AGUSTINA MARR PATRICIA Unavailable Zofia Gutiérrez Unavailable Nico Olea Unavailable Unavailable OYEKOLA EFFICIENCY MINER, MOBOLAJI Unavailable OYEKOLA EFFICIENCY MINER, MOBOLAJI Unavailable OYEKOLA EFFICIENCY MINER, MOBOLAJI Unavailable OYEKOLA EFFICIENCY MINER, MOBOLAJI Unavailable AGYEPONG EFFICIENCY MINER, ISAIAS Unavailable AGYEPONG EFFICIENCY MINER, ISAIAS Unavailable ALFREDO CRANE Unavailable Unavailable RUMA JACKSON Unavailable Unavailable NIA FLOWER Unavailable Unavailable [id number], [id number] Unavailable Unavailable ED STAFF PHYSICIAN Unavailable Unavailable SCOTT DEAN MD Unavailable SCOTT DEAN MD Unavailable GEORGE HU Unavailable Unavailable JOHNNIE CALLOWAY Unavailable Unavailable FARZANEH ADHIKARI MD Unavailable Unavailable [facility] Unavailable Unavailable WENDY Unavailable Unavailable OKA Unavailable Unavailable MD VNAESSA Unavailable ED STAFF PHYSICIAN Unavailable Unavailable SHELBYYVES [...] is protected by Article 27-F of the [facility] Public Health law. If you continue you may haveaccess to information: Regarding HIV / AIDS; Provided by facilities licensed or operated by the [facility] Office of Mental Health; or Provided by the [facility] Office for People With Developmental Disabilities. If such information is present, then the following [facility] mandated warning applies: This information has been [...] law may result in a fine or penitentiary sentence or both. A general authorization for the release of medical or other information is NOT sufficient authorization for further disclosure. Allergies and Adverse Reactions Type Description Substance Reaction Status Data Source(s ) Allergy to No Known Allergies No known GREENW AY ([facility] substance allergies [facility] ) Allergy to No Known Allergies No known GREENW AY ([facility] substance allergies [facility] ) Drug allergy No Known Drug No Known Drug [facility] Allergies Allergies [facility] Allergy to No Known Allergies No known GREENW AY ([facility] substance allergies [facility] ) Allergy to No Known Allergies No known GREENW AY ([facility] substance allergies [facility] ) Allergy to No Known Allergies No known GREENW AY ([facility] substance allergies [facility] ) Allergy to No Known Allergies No known GREENW AY ([facility] substance allergies [facility] ) Allergy to No Known Allergies No known GREENW AY ([facility] substance allergies [facility] ) Allergy to No Known Allergies No known GREENW AY ([facility] substance allergies [facility] ) Allergy to No Known Allergies No known GREENW AY ([facility] substance allergies [facility] ) Allergy to No Known Allergies No known GREENW AY ([facility] substance allergies [facility] ) Allergy to No Known Allergies No known GREENW AY ([facility] substance allergies [facility] ) Allergy to No Known Allergies No known GREENW AY ([facility] substance allergies [facility] ) Allergy to No Known Allergies No known GREENW AY ([facility] substance allergies [facility] ) Allergy to No Known Allergies No known GREENW AY ([facility] substance allergies [facility] ) Allergy to No Known Allergies No known GREENW AY ([facility] substance allergies [facility] ) Allergy to No Known Allergies No known GREENW AY ([facility] substance allergies [facility] ) Encounters Encounter Providers Location Date Indications Data Source(s ) Emergency Attender: ED STAFF H 02/06/2020 [facility] PHYSICIANAttender: 08:21:00 PM Medic al Center STAFF ED STAFF EDT - PHYSICIANAdmitter: ED 02/07/2020 STAFF 04:18:00 AM PHYSICIANReferrer: EDT ZUNASSIGNED Patient discharged. Outpatient Attender: DONNELL Torres 01/29/2020 Jeffrey sarkar [facility] OMAIRAABAdmitter: DONNELL 12:00:00 PM EDT [facility] SHELBY MARRERO Attender: Donnell Ryan Positive 01/29/2020 JADE MCELROY ([facility] Directions 12:00:00 PM EDT [facility] 01/29/2020 Medical 12:00:00 PM EDT Center) Emergency Attender: ED STAFF H 12/23/2019 [facility] PHYSICIANAttender: 03:21:00 AM EDT - Medical Center STAFF ED STAFF 12/23/2019 PHYSICIANAdmitter: ED 06:24:00 AM EDT STAFF PHYSICIAN Patient discharged. Outpatient Attender: [facility] 12/15/2019 11:31:40 AM GSI ([facility] EDT Collaborative) Patient admitted. Emergency Attender: Zhane 5T-EMERG 12/11/2019 INTOX, LAC TO S - [facility] HuAttender: Doctor 09:02:00 PM EDT - RT EYE BRO W [facility] Other 12/12/2019 12:32:00 AM EDT INTOX, LAC TO RT EYE BROW Patient discharged. Emergency Attender: 5T-EMERG 11/16/2019 04:33:00 SORES ON A IVIS S - [facility] Other PM EDT [facility] l SORES ON ARMS Admission cancelled. Disregard status an d admitted date. Emergency Attender: Quique 5T-EMERG 11/16/2019 WOUND CHECK MHS - M ount LathanAttender: Doctor 02:01:00 PM EDT - [facility] Other 11/16/2019 03:35:00 PM EDT WOUND CHECK Patient discharged. Emergency Attender: Nioc 5T-EMERG 11/15/2019 SUBSTANCE MHS - M ount RuvoAttender: Doctor 04:14:00 PM EDT - ABUSE, A BRASION [place] Other 11/15/[address] [facility] 08:14:00 PM EDT SUBSTANCE ABUSE, ABRASION TO [facility] Patient discharged. Outpatient Attender: [facility] 11/13/2019 04:37:57 PM GSI ([facility] EDT [facility]) Patient admitted. Outpatient<td Attender: Marin 11/06/2019 OverweightHypertension [place] ID="encounterTypeDescriptionID0">OFFICE [facility] 0 9:30:00 AM (systemic) (Purvis VISIT</td><td>[facility]</td><td>[facility] EDT - [facility] EFFICIENCY MINER Center 11/06/2019 Health Center</td><td>11/06/2019</td><td><content 10:3 9:56 AM Center) ID="encounterDiagnosisID0-0">Overweight</content>, EDT <content ID="encounterDiagnosisID0-1">Hypertension (systemic)</content></td> Overweight Hypertension (systemic) Outpatient Attender: 10/25/2019 Noble ROYCE, 06:00:00 AM EDT [facility] BETHAttender: Amisha UPTON Miquel CARLOS EDUARDO SeveroTorreyAdmitter: ALFREDO CRANE Outpatient Attender: CHING 10/21/2019 PALPITATION CHEST [facility] NEALAttender: MAYTE, 05:43:00 AM EDT [facility] AAB HABIBAdmitter: [facility] [employer] GEORGE HU HABIB PALPITATION CHEST PAINS Emergency Attender: GEORGE HU 10/20/2019 10:35:00 PALP ITATION [facility] HABIBAttender: PM EDT Health Car e EMERGENCY SERVICE, Corpor ation XAdmitter: GEORGE HU HABIB PALPITATION Outpatient<td Attender: Marin 10/11/2019 Diabetes [place] ID="encounterTypeDescriptionID1">WALKINS</td><td>[facility] 02:45:00 PM MellitusDiabetes ([facility]</td><td>[facility] EDT - MellitusHypertension [facility]</td><td>10/11/2019</td><td><content EFFICIENCY MINER Center 10/11/2019 (systemic)Hypertension Health ID="encounterDiagnosisID1-0">Hypertension 03:48 :52 PM (systemic) Center) (systemic)</content>, <content EDT ID="encounterDiagnosisID1-1">Diabetes Mellitus</content></td> Diabetes Mellitus Diabetes Mellitus Hypertension (systemic) Hypertension (systemic) Unlisted 09/03/2019 NETSMART (Ment al evaluation and 11:00:00 PM EDT - [facility] Association management 09/07/2019 [facility] ) service 08:00:00 PM EDT Outpatient<td Attender: Marin 08/13/2019 JOEY (Severo ount ID="encounterType [facility] 04:58:00 PM EDT [facility] DescriptionID2">* [facility] Center 08/13/2019 Neighb orhood Phone*</td><td>[place] 11:59:00 PM EDT [facility]) [facility] MIN[facility]</td><td>[facility]</td><td></td><td> </td> Outpatient Attender: CNR9 08/03/2019 GSI (Tara rocha [facility] 06:24:07 AM EDT Health [facility]) Patient admitted. Outpatient Attender: CARLOS EDUARDO UPTON 07/19/2019 03:48:00 PM ARIC [facility] AzaleaAdmitter: MANOJ UPTON [facility] CARLOS EDUARDO CORBETT Outpatient Attender: BRODIE 07/19/2019 01:45:00 PM ARIC [facility] Marytender: MANOJ UPTON [facility] CARLOS EDUARDO TristanAdmitter: Barrett CALLOWAY [facility] [place] JOHNNIE CORBETT Outpatient<td Attender: Marin 06/21/2019 JOEY ID="encounterTypeDescriptionID3">*[facility] 09:59:00 A M (Purvis Show*</td><td>[email or web address] EST - Neighborhood RD</td><td>[facility] 06/21/2019 Health Center</td><td>06/21/2019</td><td></td> 11:59:0 0 PM Center) EST Outpatient<td Attender: Marin 06/05/2019 O JOEY ID="encounterTypeDescriptionID4">OFFICE [facility] 03:00:0 0 PM b (Purvis VISIT</td><td>[facility] EST - e Neighborhood EFFICIENCY MINER</td><td>[facility] 06/05/2019 Health Center</td><td>06/05/2019</td><td><rich 02:41: 07 PM i [...] Health and management PM EST Associatio n [facility]) Outpatient Attender: CNR9 05/25/2019 03:13:05 G SI ([facility] PM EST Care Collabora ti) Patient admitted. Outpatient<td Attender: Marin 04/26/2019 JOEY ID="encounterTypeDescriptionID5">PATIENT [facility] 01:14: 00 PM (Fabio Barrow [facility]</td><td>[facility]</td><td>[facility] 2018 Health Center</td><td>04/26/2019</td><td></td> 11:59:0 0 PM Center) EST Outpatient<td Attender: Marin 04/26/2019 O JOEY ID="encounterTypeDescriptionID6">[facility] 11:[facility] :00 AM b (Fabio Barrow /td><td>[facility] EST - e [facility] EFFICIENCY MINER</td><td>[facility] EFFICIENCY MINER Center 04/26/2019 [facility] Center</td><td>04/26/2019</td><td><conten 11:06 :15 AM i [place]) t ID="encounterDiagnosisID6-0">Elevated EST t Liver Enzymes</content>, <content [...] Attender: 04/25/2019 JOEY ID="encounterTypeDescriptionID7">*OUTREACH*</td><td>ISAIAS ESPARZA 08:45:00 AM (Purvis [facility]</td><td> [facility] EST [facility] </td><td>04/25/2019</td><td></td> [facility] 04/25/2019 Health 11:59:00 PM Center) EST Outpatient<td Attender: Y 04/19/2019 O JOEY ID="encounterTypeDescriptionID8">WALKINS</td><td>ISAIAS lynn 12:45:00 PM b (Purvis [facility]</td><td>[facility] E ST e [facility]</td><td>04/19/2019</td><td><content EFFICIENCY MINER k 09/2018 s Health ID="encounterDiagnosisID8-0">Elevated Liver e 01: 48:05 PM i [place]) Enzymes</content>, <content r EST t ID="encounterDiagnosisID8-1">Diabetes Mellitus [...] Mellitus Type 2 Outpatient<td Attender: Marin 04/19/2019 [place] ID="encounterTypeDescriptionID9">OFFICE [facility] 12:00:0 0 PM (Fabio Barrow VISIT</td><td>[email or web address] EST - [address]ighborhood [address]</td><td>[facility] 04/19/2019 Health Center</td><td>04/19/2019</td><td></td> 03:05:0 5 PM Center) EST Outpatient<td Attender: Marin 03/08/2019 [place] ID="[id number]">OFFICE [facility] 03:30: 00 PM (Purvis VISIT</td><td>JAQUI JOY MD Health EDT - Neighborhood MD</td><td>[facility] 03/08/2019 Health Center</td><td>03/08/2019</td><td></td> 02:59:4 5 PM Center) EDT Outpatient Attender: 03/08/2019 Noble RENETTA, 03:24:00 PM [facility] EDT Care [facility]ter[facility] 02/19/2019 GSI 12:26:07 PM ([facility] EDT Health Care Collaborative ) Patient admitted. Outpatient Attender: FARZANEH ROD 02/12/2019 09:46:00 [facility] MENDEZdmitter: KINZA RAE AM EDT - 05/03/2019 [facility] 01:27:00 PM EST Patient discharged. Attender: 02/12/2019 Saint [facility] [id number] 09:46:[address] [facility] [id number] EDT Outpatient<td Attender: KOSTAS WENDY [place] 02/08/2019 [place] ID="encounter Community 12:00:00 PM ([facility] EDT [facility] onID11">NUTRI Center 02/08/2019 Health [facility]) TION INITIAL 01:01:17 PM VISIT</td><td EDT >[address]AS [address]RAU[address] RD</td><td>[facility]</td><t d>02/08/2019< /td><td></td> Outpatient<td Attender: ALEJANDRINA CORRAL [place] 02/07/2019 [place] ID="encounter Community 05:32:00 PM ([facility] EDT [facility] onID12">*OUTR Center 02/07/2019 [facility]) EACH*</td><td 11:59:00 PM >ALEJANDRINA CORRAL</td><td>Y [facility]</td><t d>02/07/2019< /td><td></td> Outpatient Attender: FARZANEH ROD 02/06/2019 Jeffrey FRANKSAdmitter: RICHARD SABILLON 08:44:00 AM Hospital EDT - 02/09/2019 09:49:00 AM EDT Patient discharged. Attender: 02/06/2019 [facility] [id number] 08:44:00 AM Devante [id number] EDT Hospital Outpatient Attender: BUDDY Ray 02/01/2019 [place] <td MD Homeless 08:30:00 AM (Purvis ID="encoun Accessment EDT - [facility] 02/01/2019 Health criptionID 11:59:00 PM Center) 13">OFFICE EDT VISIT</td> <td>REJI BETTS MD</td><td >Single Homeless Accessment Center</td ><td>02/01</td> <td></td> Outpatient Attender: BUDDY Ray 01/30/2019 JOEY <td MD Homeless 08:45:00 AM (Fabio Barrow ID="encoun Accessment EDT - [facility] 01/30/2019 Health criptionID 11:59:00 PM Center) 14">OFFICE EDT VISIT</td> <td>REJI JOHNSON RONNELL BETTS MD</td><td >[facility]</td ><td>01/30</td> <td></td> Outpatient Attender: ALEJANDRINA AYALA EFFICIENCY MINER [place] 01/29/2019 Obesi Obe [place] <td Community 12:00:00 PM sityObesit ([facility]T [facility] criptionID 11:52:20 AM [facility]) 15">OFFICE EDT besityObes VISIT</td> ityHyperli <td>DAQUAN AYALA sityHyperl EFFICIENCY MINER</td><t ipidemiaOb d>[facility] tension Health (systemic) [place]</td Hyperlipid ><td>01/29 emiaObesi</td> yHypertens <td><rich ion nt (systemic) ID="encoun Hyperlipid terDiagnos emiaObesit [id number]"> yHypertens Hypertensi ion on (systemic) (systemic) Hyperlipid </content> emiaHyperl , <content ipidemiaHy ID="encoun perlipidem terDiagnos iaHyperlip [id number]"> idemiaHype Obesity</c rlipidemia ontent>, Hyperlipid <content emiaHyperl ID="encoun ipidemiaHy terDiagnos perlipidem vsFN91-3"> iaHyperlip Hyperlipid idemiaHype emia</cont rtension ent></td> (systemic) [...] Hypertension (systemic) Outpatient<td Attender: Marin 01/29/2019 JOEY ID="[id number]">EKG</td><td>[facility] 11:30:00 AM (Fabio DEAN MD</td><td>[facility] JERMAINE CEJA [facility]</td><td>01/29/2019</td><td></td> Center [address] [place] [address] 12:33:31 PM Center) EDT Unlisted evaluation and management service 01/14 NETSMART 06:00:00 PM (Mental EDT - Health 04/17/2019 Association 05:30:00 PM [facility]) Outpatient 11/23/2018 GSI 04:14:36 PM [facility] ) Outpatient<td Attender: Marin 07/06/2018 [place] ID="[id number]">OFFICE [facility] 01:00: 00 PM (Fabio Barrow VISIT</td><td>[facility]</td><td>[facility] 07/06/2018 Health Center</td><td>07/06/2018</td><td></td> 02:51:0 4 PM Center) EST Outpatient Attender: H 05/17/2018 [facility] MARRERO 12:00:00 PM Medical [facility] Zaira ter: DONNELL RYAN DONNELL Attender: 05/17/2018 [facility] Donnell 12:00:00 PM ([facility] CEJA [facility] 05/17/2018 Medical 12:00:00 PM Center) EST Outpatient<td Attender: Marin 05/08/2018 JOEY ID="[id number]">PATIENT [facility] 04:38 :00 PM (Fabio Barrow ADVOCACY</td><td>Zofia Gutiérrez</td><td>[facility] 05/08/2018 Health Center</td><td>05/08/2018</td><td></td> 11:59:0 0 PM Center) EST Outpatient<td Attender: Marin 05/05/2018 O JOEY ID="ne[id number]">OFFICE [facility] 02:30: 00 PM b (Fabio Barrow VISIT</td><td>[facility] EFFICIENCY MINER</td><td>[facility] EST [facility] Center 05/05/2018 Health Center</td><td>05/05/2018</td><td><content 02:0 2:07 PM i Center) ID="uxighelylKwhigctqbWX36-0">Hypertension EST t (systemic)</content>, <content y ID="vnwywwnrfFybulrnnfLI83-7">Obesity</content></td> O b e s i t y [...] (systemic) Hypertension (systemic) Outpatient<td Attender: Marin 05/05/2018 [place] ID="gk[id number]">EKG</td><td>[facility] 02:00:00 PM (PurvisDanial DEAN MD</td><td>[facility] JERMAINE CEJA Health EST - [facility] Center</td><td>05/05/2018</td><td></td> Center [address] [place] [address] 11:59:00 PM Center) EST Attender: 02/20/2018 [place] [id number] 04:14:00 PM Devante [id number] [facility] .[id number] NETSMART_6 766 Attender: 02/20/2018 [place] [id number] 12:17:00 PM Devante .[id number] [facility] .[id number] [facility]_6 766 Outpatient<td Attender: Single 08/18/2016 JOEY ID="o[id number]">OFFICE [facility] Homeless 08:30: 00 AM (Purvis VISIT</td><td>[facility] RONNELL BETTS Accessment EDT - Neighborhood MD</td><td>Single Homeless Accessment [facility] 7 Health Center</td><td>08/18/2016</td><td></td> 11:59:0 0 PM Center) EDT Outpatient<td Attender: Single 08/16/2016 JOEY ID="m[id number]">OFFICE [facility] Homeless 09:00: 00 AM (Purvis VISIT</td><td>[facility] RONNELL BETTS Accessment EDT - Neighborhood MD</td><td>Single Homeless Accessment [facility] Health Center</td><td>08/16/2016</td><td></td> 11:59:0 0 PM Center) EDT Outpatient<td Attender: Single 04/23/2014 JOEY ID="[id number]">Follow [facility] Homeless 09:30: 00 AM (Purvis Up</td><td>[facility] RONNELL BETTS MD</td><td>Single BOB BETTS Access ment EST - Neighborhood Homeless Accessment OR Center 04/23/2014 Healt Center</td><td>04/23/2014</td><td></td> 11:59:0 0 PM Center) EST Outpatient<td Attender: Single 04/18/2014 JOEY ID="ro[id number]">INITIAL [facility] Homeless 09:15 :00 AM (Purvis VISIT</td><td>[facility] RONNELL BETTS Accessment EST - Neighborhood </td><td>Single Homeless Accessment OR Center 4 Health Center</td><td>04/18/2014</td><td></td> 11:59:0 0 PM Center) EST Outpatient<td Attender: [facility] 10/04/2011 JOEY ID="[id number]">WALKINS</td><td>AUGUSTIN [place] on 10:30:00 AM (Purvis [place], EFFICIENCY MINER</td><td>[facility] EDT [facility]</td><td>10/04/2011</td><td></td> od Health 10/04/2011 Health Center 11:59:00 PM Center) EDT Outpatient<td Attender: [facility] 10/04/2011 JOEY ID="[id number]">NUTRITION</td><td>S KOSTAS Barrow 10:19:00 AM (Purvis [address] NGUY[address]</td><td>[facility]</td><td>10/04/2011</td><td></td> od Health 10/04/2011 Health Center 11:59:00 PM Center) EDT Outpatient<td Attender: [facility] 09/06/2011 JOEY ID="le[id number]">NUTRITION INITIAL KOSTAS Ve rnon 11:30:00 AM (Purvis VISIT</td><td>KOSTAS NGUYEN RD</td><td>PurvisDanial Sanchez [facility] od Health 09/06/2011 Healt h Center</td><td>09/06/2011</td><td></td> Center 11:59:0 0 PM Center) EDT Outpatient<td Attender: [facility] 09/06/2011 JOEY ID="[id number]">OFFICE ANUSHKA Barrow 08:49: 00 AM (Purvis VISIT</td><td>ANUSHKA ANNE MD</td><td>Fabio ANNE MD Neighb [facility] od Health 09/06/2011 Healt h Center</td><td>09/06/2011</td><td></td> Center 11:59:0 0 PM Center) EDT Outpatient<td Attender: [facility] 08/30/2011 JOEY ID="[id number]">OFFICE PIERCE Barrow 04:35: 00 PM (Purvis VISIT</td><td>PIERCE MENDEZ MD</td><td>Yohannes Gordon EDT - [facility] Health 08/30/2011 Health Center</td><td>08/30/2011</td><td></td> Center 11:59:0 0 PM Center) EDT Outpatient<td Attender: [facility] 08/16/2011 JOEY ID="[id number]">REGULAR BRIE Barrow 12:55 :00 PM (Purvis XRAY</td><td>BRIE ROSE MD</td><td>Fabio ROSE MD [facility] EDT [facility] Health 08/16/2011 Healt h Center</td><td>08/16/2011</td><td></td> Center 11:59:0 0 PM Center) EDT Outpatient<td Attender: [facility] 08/09/2011 JOEY ID="cs[id number]">REGULAR BRIE Brushnon 12:40 :00 PM (Purvis XRAY</td><td>BRIE ROSE MD</td><td>Fabio ROSE MD [facility] EDT [facility] Health 08/09/2011 Healt h Center</td><td>08/09/2011</td><td></td> Center 11:59:0 0 PM Center) EDT Outpatient<td Attender: [facility] 08/09/2011 JOEY ID="[id number]">OFFICE PIERCE Barrow 12:40: 00 PM (Fabio Barrow VISIT</td><td>PIERCE MENDEZ MD</td><td>Yohannes Gordon EDT - [facility] Health 08/09/2011 Health Center</td><td>08/09/2011</td><td></td> Center 11:59:0 0 PM Center) EDT Outpatient<td Attender: [facility] 08/09/2011 JOEY ID="[id number]">EKG</td><td>CHANDANA Barrow 10:24:00 AM ([facility]</td><td>[facility]</td><td>08/09/2011</td><td></td> TECH [facility] Health Center 11:59:00 PM Center) EDT Outpatient<td Attender: [facility] 08/05/2011 [facility] ID="[id number]">WALKINS</td><td>MALCOLM Brushnon 10:30:00 AM e (Purvis MARJ JACKSON MD</td><td>[facility] MANUEL CEJA [facility]</td><td>08/05/2011</td><td><content od Health 07/15 a Health ID="[id number]">Hypertension Center 12:1 1:46 PM b Center) (systemic)</content>, <content EDT o ID="[id number]">Orthopedic l Disorders</content>, <content i ID="[id number]">Metabolic c Disorders</content></td> D i s o r [...] n ( s y s t e i c ) M e t a [...] Disorders Orthopedic Disorders Hypertension (systemic) Outpatient<td Attender: Purvis 07/23/2011 Essential [place] ID="[id number]">WALKINS</td><td>ALLISON Del Toro ALANALEANNE [facility] 09:15:00 AM Hypertension (Purvis NNAETUK, ANP</td><td>[facility]</td><td>07/23/2011</td><td><content ANP 01/2012 [facility] ID="[id number]">Common Cold</content>, 10:02:41 AM Hypertension Center) <content ID="[id number]">Essential EST BenignCommon Hypertension Benign</content></td> C oldEssential Hypertension [...] Cold Essential Hypertension Benign Common Cold Outpatient<td Purvis 07/22/2011 [place] ID="[id number]">WALKINS</td><td> [place] 01:00:00 PM (Purvis </td><td>[facility]</td><td>07/22/2011</td><td></td> 07/22/2011 Health 11:59:00 PM Center) EST Immunizations Vaccine Date Status Description Data Source(s) Tdap 11/15/2019 12:00:00 completed Tdap On: 15-Nov-2019 [facility] EDT Lot #: [id number] System As of 10/11/2019 completed Hep B, 3 10/11/2019 Left Active Leticia [facility] January 03:52:00 PM Adult Deltoid (Administered) [facility] B [facility]) [...] January 02:39:00 PM Adult Deltoid (Administered) Neighborhood ([address] 2-dose Health hepatitis B Ce nter) [...] JOEY January 03:15:00 PM Adult Deltoid (Administered) Neighborhood ([address] 2-dose Health hepatitis B Ce nter) schedule for adolescents (11-15 year olds) was FDA approved for Merck's Recombivax HB adult formulation. Use code 43 for the 2-dose. This code should be used for any use of standard adult formulation of hepatitis B vaccine. Pneumococcal 03/03/2015 completed Pneumococcal conjugate PCV 13 On: [facility] conjugate PCV 12:00:00 AM Lot #: [id number], [place] 03-Mar-2015 [facility] 13 EDT IIV3. This 03/03/2015 completed Influenza, seaso nal, injectable, preservative free On: [facility] vaccine code is 12:00:00 AM Lot #: [id number], [place] [facility] one of two EDT which replace CVX 15, influenza, split virus. Medications Medication Brand Start Product Dose Route Administrative Pharmacy [facility] Indications Reaction Description Data Name Date Form [...] EDT n of Rosy [place]) Aspirin Aspiri 81 mg UNK active Aspirin W estcheste Chewable n 2019 Chewable r Count y Or Chewab 11:13: Oral 81 mg Healt h le Or 17 PM PO x 4 Care EDT Corporatio n Medication administered onsite atorvastatin Atorvastatin 10/11/2019 UNIT 1 active Atorvastatin JOEY 10 MG Oral Calcium 10MG 12:00:00 AM Calcium (Purvis Tablet Oral Tablet EDT [facility] Atorvastatin Health Calcium 10MG [place]) Oral Tablet Norvasc 10MG Norvasc 10MG 10/11/2019 UNIT 1 active Norvasc JOEY Oral Tablet Oral Tablet 12:00:00 AM ([facility]) Metoprolol Metoprolol 10/11/2019 UNIT 1 active Metoprolol JOEY Tartrate 25 MG Tartrate 25MG 12:00:00 AM Tartrate (Purvis Oral Tablet Oral Tablet EDT [facility] Metoprolol Health Tartrate 25MG [place] ) Oral Tablet Trazodone traZODone 10/04/2019 1.0 O active [facility] Hydrochloride hydrochloride 04:00:00 AM Tab r (Mental 50 MG Oral EDT let [facility]) Escitalopram Escitalopram 10/04/2019 1.0 O active [facility] 10 MG Oral Oxalate 04:00:00 AM Tab r (Mental Tablet EDT [facility]) atorvastatin Atorvastatin 08/13/2019 UNIT 1 suspend Atorvastatin JOEY 10 MG Oral Calcium 10MG 12:00:00 AM ed Calcium (Purvis Tablet Oral Tablet EDT [facility] Atorvastatin Health Calcium 10MG [place]) Oral Tablet Metoprolol Metoprolol 08/13/2019 UNIT 1 suspend Metoprolol JOEY Tartrate 25 MG Tartrate 25MG 12:00:00 AM ed Tartrate (Purvis Oral Tablet Oral Tablet EDT [facility] Metoprolol Health Tartrate 25MG [place] ) Oral Tablet Norvasc 10MG Norvasc 10MG 08/13/2019 UNIT 1 suspend Norvasc JOEY Oral Tablet Oral Tablet 12:00:00 AM ed ([facility]) Simvastatin 40 Simvastatin 06/05/2019 UNIT 1 suspend Simvastatin JOEY MG Oral Tablet 40MG Oral 12:00:00 AM ed (Purvis Simvastatin Tablet EST [facility] 40MG Oral Health Tablet [place]) Norvasc 10MG Norvasc 10MG 06/05/2019 UNIT 1 suspend Norvasc JOEY Oral Tablet Oral Tablet 12:00:00 AM ed ([facility]) Metoprolol Metoprolol 06/05/2019 UNIT 1 suspend Metoprolol JOEY Tartrate 25 MG Tartrate 25MG 12:00:00 AM ed Tartrate (Purvis Oral Tablet Oral Tablet EST N [facility] Metoprolol Health Tartrate 25MG [place] ) Oral Tablet atorvastatin Atorvastatin 06/05/2019 UNIT 1 suspend Atorvastatin JOEY 10 MG Oral Calcium 10MG 12:00:00 AM ed Calcium (Purvis Tablet Oral Tablet EST [facility] Atorvastatin Health Calcium 10MG [place]) Oral Tablet Aspirin 81 MG Aspirin 81 04/19/2019 UNIT 1 complet [facility] JOEY Chewable Oral Tablet 12:00:00 AM ed As pirin (Purvis Tablet Aspirin Chewable EST N [facility] 81 Oral Tablet Healt h Chewable [place]) Simvastatin 40 Simvastatin 04/19/2019 UNIT 1 suspend Simvastatin JOEY MG Oral Tablet 40MG Oral 12:00:00 AM ed (Purvis Simvastatin Tablet EST [facility] 40MG Oral Health Tablet [place]) Norvasc 10MG Norvasc 10MG 04/19/2019 UNIT 1 suspend Norvasc JOEY Oral Tablet Oral Tablet 12:00:00 AM ed ([facility]) Metoprolol Metoprolol 04/19/2019 UNIT 1 suspend Metoprolol JOEY Tartrate 25 MG Tartrate 25MG 12:00:00 AM ed Tartrate (Purvis Oral Tablet Oral Tablet EST N [facility] Metoprolol Health Tartrate 25MG [place] ) Oral Tablet Simvastatin 40 Simvastatin 01/29/2019 UNIT 1 suspend Simvastatin JOEY MG Oral Tablet 40MG Oral 12:00:00 AM ed (Purvis Simvastatin Tablet T [facility] orhood 40MG Oral Health Tablet [place]) Norvasc 10MG Norvasc 10MG 01/29/2019 UNIT 1 suspend Norvasc JOEY Oral Tablet Oral Tablet 12:00:00 AM ed ([facility]) Aspirin 81 MG Aspirin 81 01/29/2019 UNIT 1 suspend [facility] JOEY Chewable Oral Tablet 12:00:00 AM ed As pirin (Purvis Tablet [facility] Tablet Healt h Chewable [place]) Norvasc 10MG Norvasc 10MG 01/29/2019 UNIT 1 suspend Norvasc JOEY Oral Tablet Oral Tablet 12:00:00 AM ed (Purvis [facility]) Simvastatin 40 Simvastatin 01/29/2019 UNIT 1 suspend Simvastatin JOEY MG Oral Tablet 40MG Oral 12:00:00 AM ed (Fabio Barrow Simvastatin Tablet EDT [facility] orhood 40MG Oral Health Tablet [place]) Metoprolol Metoprolol 01/29/2019 UNIT 1 suspend Metoprolol JOEY Tartrate 25 MG Tartrate 25MG 12:00:00 AM ed Tartrate (Purvis Oral Tablet Oral Tablet EDT N [facility] Metoprolol Health Tartrate 25MG [place] ) Oral Tablet Metoprolol Metoprolol 01/29/2019 UNIT 1 suspend Metoprolol JOEY Tartrate 25 MG Tartrate 25MG 12:00:00 AM ed Tartrate (Purvis Oral Tablet Oral Tablet EDT N [facility] Metoprolol Health Tartrate 25MG [place] ) Oral Tablet Aspirin 81 MG Aspirin 81 05/05/2018 UNIT 1 suspend [facility] JOEY Chewable Oral Tablet 12:00:00 AM ed As pirin ([facility]vis Tablet Aspirin Chewable EST [facility] Oral Tablet Healt h Chewable [place]) Metoprolol Metoprolol 05/05/2018 UNIT 1 suspend Metoprolol JOEY Tartrate 25 MG Tartrate 25MG 12:00:00 AM ed Tartrate (Purvis Oral Tablet Oral Tablet EST N [facility] Metoprolol Health Tartrate 25MG [place] ) Oral Tablet Simvastatin 40 Simvastatin 05/05/2018 UNIT 1 suspend Simvastatin JOEY MG Oral Tablet 40MG Oral 12:00:00 AM ed (Purvis Simvastatin Tablet EST [facility] orhood 40MG Oral Health Tablet [place]) Norvasc 10MG Norvasc 10MG 05/05/2018 UNIT 1 suspend Norvasc JOEY Oral Tablet Oral Tablet 12:00:00 AM ed (Purvis [facility]) Aspirin 81 MG Aspirin 81 05/05/2018 UNIT 1 suspend [facility] JOEY Chewable Oral Tablet 12:00:00 AM ed As pirin (Purvis Tablet Aspirin Chewable EST N [facility] 81 Oral Tablet Healt h Chewable [place]) Norvasc 10MG Norvasc 10MG 05/05/2018 UNIT 1 suspend Norvasc JOEY Oral Tablet Oral Tablet 12:00:00 AM ed (Fabio Barrow [facility]) Metoprolol Metoprolol 05/05/2018 UNIT 1 suspend Metoprolol JOEY Tartrate 25 MG Tartrate 25MG 12:00:00 AM ed Tartrate (Fabio Barrow Oral Tablet Oral Tablet EST N [facility] Metoprolol Health Tartrate 25MG [place] ) Oral Tablet Simvastatin 40 Simvastatin 05/05/2018 UNIT 1 suspend Simvastatin JOEY MG Oral Tablet 40MG Oral 12:00:00 AM ed (Fabio Barrow Simvastatin Tablet EST [facility] 40MG Oral Health Tablet [place]) Metoprolol Metoprolol 03/03/2018 1 O complet Metoprolol [...] or mil k. Metoprolol metoprolol 11/19/2016 1 [id number] active Metoprolol [facility] Tartrate 25 tartrate 25 [...] its effects. Aspirin aspirin 11/19/2016 1 {tab(s)} Q25096 active Halfprin [facility] 81 MG 81 mg 09:50:44 AM Health Oral oral EDT System Tablet tablet aspirin 81 mg oral tablet Take with food or milk. Amlodipine amLODIPine 11/19/2016 1 [id number] active AmLODIPine [facility] 10 MG Oral 10 [...] doctor before taking. Amlodipine amLODIPine 08/03/2016 1 [id number] aborted AmLODIPine [facility] 10 MG Oral 10 [...] Betamethasone 0.5 MG/ML / betamethasone-clotrimazole 05/22/2015 1 [id number] aborted Lotrisone [facility] Clotrimazole 10 MG/ML 0.05%-1% topical cream 02:02:24 PM {tish} Health Topical Cream EST System betamethasone-clotrimazole 0.05%-1% topical cream For external use only. Hydrochlorothiazide hydrochlorothiazide 05/22/2015 1 [id number] aborted Hydrochlorothiazide [facility] 12.5 MG Oral Tablet 12.5 mg oral tablet 02:01:49 PM {tab(s)} Health hydrochlorothiazide EST System 12.5 mg oral tablet Furosemide Lasix 05/22/2015 1 [id number] aborted Lasix 20 mg oral tablet; 1 [...] banana daily while taking this medication. pneumococcal [id number] 03/03/2015 0.5 [id number] aborted Prevnar [facility] 13-valent 02:07:16 PM mL 13 Hea lth conjugate EDT System vaccine intramuscular suspension Refrigerate and shake well. Expires____ influenza virus [id number] 03/03/2015 0.5 [id number] aborted Fluzone [facility] vaccine, 02:06:17 PM mL High-Dose Health inactivated EDT [id number] Sys tem high-dose preservative-free trivalent intramuscular suspension Refrigerate and shake well. Expires____ atorvastatin atorvastatin 11/04/2014 1 [id number] aborted Lipitor [facility] 10 MG Oral 10 [...] or mil k. Chlorpromazine chlorproMAZINE 05/20/2014 1 [id number] aborted ChlorproMAZINE [facility] hydrochloride 25 mg oral [...] effect. Use care when operating dangerous machinery.Obtain [facility] advice before taking any non-prescription drugs as some may affec t the action of this medication. Acetaminophen 325 MG / acetaminophen-HYDROcodone 04/13/2014 1 [id number] aborted acetaminophen-HYDROcodone 32 5 mg-5 mg oral [...] serious breathing problems. Levofloxacin levofloxacin 04/13/2014 1 [id number] aborte d levofloxacin 500 mg oral tablet; [...] plenty of water. Levofloxacin Levaquin 04/13/2014 1 [id number] aborted Levaquin 500 mg oral tablet; 1 [...] Oral Besylate 5MG 12:00:00 AM Be sylate ([facility]vis Tablet OR TABS EST [place] od amLODIPine Health Besylate 5MG [place]) OR TABS Dextromethor Dextromethor 07/23/2011 CAPFUL active Dextromethor [place]FEN 12:00:00 AM DOSING pha n-guaiFEN (Purvis Hydrobromide esin EST UNIT esin [place] 2 MG/ML / 10-100MG/5ML He alth Guaifenesin OR SYRP Cente r) 20 MG/ML Oral Solution Dextromethor [place]-guaiFEN esin 10-100MG/5ML OR SYRP Ibuprofen ibuprofen 1 completed [facility] 800 MG Oral 800 mg Medica l Tablet Tablet, Center ibuprofen Ordered By: 800 mg Zeke Tablet, Yo, Ordered By: DODirections Zeke : 1 tablet Yo, oral every DODirections eight hours : 1 tablet PRN oral every pain-moderat eight hours e PRN pain-moderat e Amlodipine Norvasc 999 or completed Norvas c [place] 2.5 MG Oral MG [facility] Tablet Care [Norvasc] Corporatio n metoprolol 999 or completed metoprolo l [place] succinate MG al succinate Count y [facility] Escitalopram Lexapro completed [place] 10 MG Oral (Escitalopra [facility] Tablet m) [10 mg Care Lexapro Tablet]: 1 Corpor ation (Escitalopra Tablet Oral m) [10 mg DAILY IN Tablet]: 1 MORNING Tablet Oral DAILY IN MORNING Simvastatin simvastatin 999 or completed s imvastatin [place] simvastatin MG [facility] Norvasc 0 [id number] aborted Norvasc; or ally Ordered: 13-Apr-2014 Status: Discontinued [facility] Quantity: 0 Sinkkone n, [facility] Refills: 0 System Simvastatin simv 0 [id number] aborted simvasta tin; orally Ordered: 13-Apr-2014 Status: Discontinued [facility] simvastatin aurelia Quantity: 0 S inkkonen, Carline [employer] tin Refills: 0 System Aspirin 81 MG Adult Low Dose completed [facility] Delayed Release Aspirin (Aspirin) Health Care Oral Tablet Adult [81 mg]: 1 Tablet [employer] Low Dose Aspirin Oral DAILY IN (Aspirin) [81 mg]: MORNING 1 Tablet Oral DAILY IN MORNING Aspirin Aspir 0 [id number] aborted Aspir 81; orally Ordered: 13-Apr-2014 Status: Discontinued [facility] Aspir 81 81 Quantity: 0 Sink konen, [employer] Refills: 0 System Amlodipine 5 MG Amlodipine [5 mg completed [facility] Oral Tablet Tablet]: 1 Tablet Health Care Amlodipine [5 mg Oral DAILY Corporation Tablet]: 1 Tablet Oral DAILY Simvastatin 40 MG Simvastatin [40 mg complete d [facility] Oral Tablet Tablet]: 1 Tablet Health Care Simvastatin [40 mg Oral DAILY IN Corporation Tablet]: 1 Tablet EVENING Oral DAILY IN EVENING Insurance Providers Payer name Policy type / Policy ID Covered Covered republican's Policy Plan Coverage type republican ID relationship to [place] Information hoskins [facility] [id number] SP [id number] STRGY-AFF [place] O [id number] 01 [id number] HEALTH-AFFINI TY CLMS W [id number] AFFINITY O [id number] HEALTH PLAN Affinity Medicaid [id number] Health Plan Medicaid Medicaid [id number] Affinity Medicaid [id number] Health Plan MVP Medicaid Medicaid [id number] UNK UNK Affinity Individual 0 Self 0 Health Plan Policy Affinity Individual 0 Self 0 Health Plan Policy Affinity Individual 0 Self 0 Health Plan Policy [facility] [id number] SP [id number]-AFF Affinity Individual 0 Self 0 Health Plan Policy AFFINITY [id number] SP [id number] Affinity Individual 0 Self 0 Health Plan Policy Affinity Individual 0 Self 0 Health Plan Policy Affinity Individual 0 Self 0 Health Plan Policy Affinity Individual 0 Self 0 Health Plan Policy Affinity Individual 0 Self 0 Health Plan Policy Affinity Individual 0 Self 0 Health Plan Policy SELF PAY 00 Self 00 MEDICAID OP [id number] Self [id number] [id number] Self [id number] [facility] SELF PAY 00 Self 00 MEDICAID OP [id number] Self [id number] Affinity Individual 0 Self 0 Health Plan Policy Affinity MKD [id number] S [id number] Managed Care Superior [id number] S [id number] Vision MKD Pengilly Hlth [id number] S [id number] Options MKD Dental [id number] S [id number] Dentaquest MKD Affinity MKD [id number] S [id number] Managed Care Dental [id number] S [id number] Healthplex MKD Superior [id number] S [id number] Vision MKD Pengilly Hlth [id number] S [id number] Options MKD MVP Medicaid [id number] S [id number] Managed Care MVP Medicaid [id number] S [id number] R Managed Care [place] Hlth [id number] S [id number] FFS Medicaid Medicaid [id number] S [id number] Wrap Claims Medicaid [id number] S [id number] Regular Clinic Visit MVP [id number] S [id number] Harmonious Health Care Plan -- HARP Affinity Individual 0 Self 0 Health Plan Policy [place] O [id number] 01 [id number] HEALTH-AFFINI TY [facility] BEACON O [id number] 01 [id number] HEALTH-AFFINI TY [facility] O [id number] 01 [id number] OPTIONS MVP Health Individual 0 Self 0 Plan of New Policy [place] [facility] [id number] self [id number] OPTIONS MVP Health Individual 0 Self 0 Plan of New Policy [place] MVP Health Individual 0 Self 0 Plan of New Policy [place] Problems, Conditions, and Diagnoses Code Display Name Description Problem Type Effective Data Sour ce(s) Dates F19.10 Polysubstance abuse Polysubstance abuse 56296-6 020 [facility] 12:00:00 AM Health System EDT S01.111A Laceration of right Laceration of right 26887-2 020 [facility] eyebrow, initial eyebrow, initial 12:00:00 AM [facility] encounter encounter EDT S09.93XA Facial injury, Facial injury, 53814-6 12/12/2019 [facility] initial encounter initial encounter 12:00:00 AM Health System EDT W19.XXXA Fall, initial Fall, initial 88838-6 12/12/2019 [facility] re encounter encounter 12:00:00 AM [facility] EDT 8442521 PCP abuse PCP abuse Complaint 12/05/2019 [facility] 07:20:00 [facility] Z51.89 Visit for wound Visit for wound 79182-0 11/16/2019 [facility] check check 12:00:00 AM [facility] EDT Z53.29 Left against Left against 52514-7 11/15/2019 [facility] medical advice medical advice [facility]:00:[facility] F19.10 Polysubstance abuse Polysubstance abuse 11783-9 020 [facility] 12:00:00 AM [facility] EDT R79.89 Elevated troponin Elevated troponin 56790-1 11/15/2019 [facility] 12:00:00 AM [facility] EDT [id number] Alcohol abuse Alcohol abuse Complaint 09/04/2019 [facility] 01:05:00 [facility] 1085305 Severe bipolar Severe bipolar Complaint 06/27/2019 NETSMA RT disorder with disorder with 04:50:00 PM (Mental Health psychotic features psychotic features [facility]) [id number] Cocaine abuse Cocaine abuse Complaint 06/18/2019 [facility]SMART 05:00:00 PM (Mental Healt h [facility]) 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 GREE NWAY organic mental Disorders 12:00:00 AM ([place] (disorder) [facility]) 81170903 Alcohol abuse Alcohol Abuse Problem 04/26/2019 JOEY (disorder) 12:00:00 AM ([facility]) 71365816 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 GREE NWAY organic mental Disorders 12:00:00 AM ([place] disorder [place]disorder) [facility]) 93158020 Alcohol abuse Alcohol Abuse Problem 04/26/2019 JOEY (disorder) 12:00:00 AM ([facility]) 91482375 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 GREE NWAY organic mental Disorders 12:00:00 AM ([place]disorder) [facility]) 45750718 Alcohol abuse Alcohol Abuse Problem 04/26/2019 JOEY (disorder) 12:00:00 AM ([facility]) 11684049 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 GREE NWAY organic mental Disorders 12:00:00 AM ([place]disorder) [facility]) 42780212 Alcohol abuse Alcohol Abuse Problem 04/26/2019 JOEY (disorder) 12:00:00 AM ([facility]) 43420242 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 GREE NWAY organic mental Disorders 12:00:00 AM ([place] disorder [place]disorder) [facility]) 46476143 Alcohol abuse Alcohol Abuse Problem 04/26/2019 JOEY (disorder) 12:00:00 AM ([facility]) 01546423 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 GREE NWAY organic mental Disorders 12:00:00 AM ([place] disorder [place]disorder) [facility]) 04585307 Alcohol abuse Alcohol Abuse Problem 04/26/2019 JOEY (disorder) 12:00:00 AM ([facility]) 40342747 Hyperlipidemia Hyperlipidemia Problem 08/16/2016 GREENW AY (disorder) 12:00:00 AM ([facility]) 88019547 Diabetes mellitus Diabetes Mellitus Problem 08/16/2016 JOEY type 2 (disorder) Type 2 12:00:00 AM ([facility]) 35804788 Hyperlipidemia Hyperlipidemia Problem 08/16/2016 GREENW AY (disorder) 12:00:00 AM ([facility]) 65403606 Diabetes mellitus Diabetes Mellitus Problem 08/16/2016 JOEY type 2 (disorder) Type 2 12:00:00 AM ([facility]) 05032047 Hyperlipidemia Hyperlipidemia Problem 08/16/2016 GREENW AY (disorder) 12:00:00 AM ([facility]) 39860213 Diabetes mellitus Diabetes Mellitus Problem 08/16/2016 JOEY type 2 (disorder) Type 2 12:00:00 AM ([facility]) 37928809 Hyperlipidemia Hyperlipidemia Problem 08/16/2016 GREENW AY (disorder) 12:00:00 AM ([facility]) 92714550 Diabetes mellitus Diabetes Mellitus Problem 08/16/2016 JOEY type 2 (disorder) Type 2 12:00:00 AM ([facility]) 44412998 Hyperlipidemia Hyperlipidemia Problem 08/16/2016 GREENW AY (disorder) 12:00:00 AM ([facility]) 65034545 Diabetes mellitus Diabetes Mellitus Problem 08/16/2016 JOEY type 2 (disorder) Type 2 12:00:00 AM ([facility]) 06089213 Hyperlipidemia Hyperlipidemia Problem 08/16/2016 GREENW AY (disorder) 12:00:00 AM ([facility]) 87867845 Diabetes mellitus Diabetes Mellitus Problem 08/16/2016 JOEY type 2 (disorder) Type 2 12:00:00 AM ([facility]) 24493828 Hyperlipidemia Hyperlipidemia Problem 08/16/2016 GREENW AY (disorder) 12:00:00 AM ([facility]) 19081853 Diabetes mellitus Diabetes Mellitus Problem 08/16/2016 JOEY type 2 (disorder) Type 2 12:00:00 AM ([facility]) 23215392 Hyperlipidemia Hyperlipidemia Problem 08/16/2016 GREENW AY (disorder) 12:00:00 AM ([facility]) 35182709 Diabetes mellitus Diabetes Mellitus Problem 08/16/2016 JOEY type 2 (disorder) Type 2 12:00:00 AM ([facility]) 58838929 Hyperlipidemia Hyperlipidemia Problem 08/16/2016 GREENW AY (disorder) 12:00:00 AM ([facility]) 89654857 Diabetes mellitus Diabetes Mellitus Problem 08/16/2016 JOEY type 2 (disorder) Type 2 12:00:00 AM ([facility]) 12540969 Benign hypertension Benign Hypertension Problem 012 JOEY (disorder) 12:00:00 AM ([facility]) 90138281 Benign hypertension Benign Hypertension Problem 012 JOEY (disorder) 12:00:00 AM ([facility]) 15819573 Benign hypertension Benign Hypertension Problem 012 JOEY (disorder) 12:00:00 AM ([facility]) 52261574 Benign hypertension Benign Hypertension Problem 012 JOEY (disorder) 12:00:00 AM ([facility]) 85666344 Benign hypertension Benign Hypertension Problem 012 JOEY (disorder) 12:00:00 AM ([facility]) 55376933 Benign hypertension Benign Hypertension Problem 012 JOEY (disorder) 12:00:00 AM ([facility]) 21830981 Benign hypertension Benign Hypertension Problem 012 JOEY (disorder) 12:00:00 AM ([facility]) 27964435 Benign hypertension Benign Hypertension Problem 012 JOEY (disorder) 12:00:00 AM ([facility]) 10544126 Benign hypertension Benign Hypertension Problem 012 JOEY (disorder) 12:00:00 AM ([facility]) 401.1 HYPERTENSION,BENIGN HYPERTENSION,BENIGN Problem 012 JOEY 12:00:00 AM ([facility]) 33607507 Benign hypertension Benign Hypertension Problem 012 JOEY (disorder) 12:00:00 AM ([facility]) 401.1 HYPERTENSION,BENIGN HYPERTENSION,BENIGN Problem 012 JOEY 12:00:00 AM ([facility]) 401.1 HYPERTENSION,BENIGN HYPERTENSION,BENIGN Problem 012 JOEY 12:00:00 AM ([facility]) 401.1 HYPERTENSION,BENIGN HYPERTENSION,BENIGN Problem 012 JOEY 12:00:00 AM ([facility]) 401.1 HYPERTENSION,BENIGN HYPERTENSION,BENIGN Problem 012 JOEY 12:00:00 AM ([facility]) 401.1 HYPERTENSION,BENIGN HYPERTENSION,BENIGN Problem 012 JOEY 12:00:00 AM ([facility]) F10.20 Alcohol dependence, ALCOHOL DEPENDENCE, Diagnosis 020 [facility] uncomplicated UNCOMPLICATED 12:00:00 PM Medical Center EDT 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/29/2020 [facility] dependence, DEPENDENCE, 12:00:[address] uncomplicated UNCOMPLICATED EDT F14.20 Cocaine dependence, COCAINE DEPENDENCE, Diagnosis 020 [facility] uncomplicated UNCOMPLICATED 12:00:00 PM Medical Center EDT I10 Essential (primary) ESSENTIAL (PRIMARY) Diagnosis 020 [facility] hypertension HYPERTENSION 03:21:00 AM Medical C enter EDT E11.9 Type 2 diabetes TYPE 2 DIABETES Diagnosis 12/23/2019 Naz ayers [place] mellitus without MELLITUS WITHOUT 03:21:00 AM edical Center complications COMPLICATIONS EDT R40.2410 Catina coma scale CATINA COMA SCALE Diagnosis 0 [facility] score 13-15, SCORE 13-15, 03:21:00 AM Medical C enter unspecified time UNSPECIFIED TIME EDT Y99.9 Unspecified UNSPECIFIED Diagnosis 12/23/2019 [facility] external cause EXTERNAL CAUSE 03:21:00 AM Medic al Center status STATUS EDT Y92.[address] AND Diagnosis 12/23/2019 S aint [place] and highway as the HIGHWAY PL[address] 03:21:[address] of occurrence EDT of the external cause Y93.9 Activity, ACTIVITY, Diagnosis 12/23/2019 [facility] unspecified UNSPECIFIED 03:21:[address] EDT X58.XXXA Exposure to other EXPOSURE TO OTHER Diagnosis 12/23/2019 [facility] specified factors, SPECIFIED FACTORS, 03:21:00 AM Medical Center initial encounter INITIAL ENCOUNTER EDT S00.81XA Abrasion of other ABRASION OF OTHER Diagnosis 12/23/2019 [facility] part of head, PART OF HEAD, 03:21:00 AM Medical Center initial encounter INITIAL ENCOUNTER EDT S01.81XA Laceration without LACERATION W/O Diagnosis 12/23/2019 [facility] foreign body of FOREIGN BODY OF OTH 03:21:00 AM Medical Center other part of head, PART OF HEAD, INIT EDT initial encounter ENCNTR R40.20 Unspecified coma UNSPECIFIED COMA Diagnosis 12/23/2019 [facility] 03:21:00 AM Medical Cente r EDT S09.93XA Unspecified injury Facial injury, Diagnosis 12/11/2019 [facility] [place] of face, initial initial encounter 09:02:00 PM [place] encounter EDT Hospital W19.XXXA Unspecified fall, Fall, initial Diagnosis 12/11/2019 S - [facility] initial encounter encounter 09:02:00 PM [facility] Y92.89 Other specified Other specified Diagnosis 12/11/2019 [facility] places as the place places as place of 09:02:00 PM [place] of occurrence of occurrence of EDT Hospi leonel the external cause external cause F19.10 Other psychoactive Polysubstance abuse Diagnosis 12/11/19 20 S - [facility] substance abuse, 09:02:00 PM [place] uncomplicated EDT Hospital S01.111A Laceration without Laceration of right Diagnosis 12/11/19 20 [facility] - [facility] foreign body of eyebrow, initial 09:02:00 PM Ve rnon right eyelid and encounter EDT Hospital periocular area, initial encounter INTOX, LAC TO RT INTOX, LAC TO RT Diagnosis 12/11/2019 [facility] [place] EYE BROW EYE BROW 09:02:00 PM [facility] W01.0XXA Fall on same level Fall on [...] 12/11/2019 [facility] [place] specified 09:02:00 PM [facility] SORES ON ARMS SORES ON ARMS Diagnosis 11/16/2019 [facility] - [facility] unt 04:33:00 PM [facility] WOUND CHECK WOUND CHECK Diagnosis 11/16/2019 [facility] 02:01:00 PM [facility] Y35.813D Legal intervention Legal intervention Diagnosis 0 [...] subsequent 02:01:00 PM [facility] encounter encounter EDT Hospital SUBSTANCE ABUSE, SUBSTANCE ABUSE, Diagnosis 11/15/2019 MH [...] treatment not carried out because 04:14:00 PM Jasmyn taylor carried out because of patient's EDT Hos pital of patient's decision decision for unspecified reasons Z53.29 Procedure and Left against Diagnosis 11/15/2019 [facility] - Kristina nt treatment not medical advice 04:14:00 PM [place] carried out because EDT Hospi leonel of patient's decision for other reasons Y92.481 Parking lot as the Parking lot as Diagnosis 11/15/2019 S - [facility] place of occurrence place [...] or 04:14:00 PM Trudi non poisoning EDT [facility] Z23 Encounter for Encounter for Diagnosis 11/15/2019 [facility] - [facility] immunization immunization 04:14:00 PM [facility] S80.811A Abrasion, right Abrasion, right Diagnosis 11/15/2019 [facility] [place] lower leg, initial lower leg, initial 04:14:00 PM [place] encounter encounter T [facility] S80.812A Abrasion, left Abrasion, left Diagnosis 11/15/2019 [facility] [place] lower leg, initial lower leg, initial 04:14:00 PM [place] encounter encounter EDT [facility] S00.01XA Abrasion of scalp, Abrasion of scalp, Diagnosis 0 [facility] [place] initial encounter initial encounter 04:14:00 PM [facility] S50.311A Abrasion of right Abrasion of right Diagnosis 11/15/2019 [facility] [place] elbow, initial elbow, initial 04:14:00 PM [facility] encounter encounter T [facility] S50.312A Abrasion of left Abrasion of left Diagnosis 11/15/2019 [facility] [place] elbow, initial elbow, initial 04:14:00 PM [facility] encounter encounter EDT Hospital E78.5 Hyperlipidemia, HYPERLIPIDEMIA, Diagnosis 10/25/2019 [place] unspecified UNSPECIFIED 06:00:00 AM [facility] EDT Care [employer] I10 Essential (primary) ESSENTIAL (PRIMARY) Diagnosis 020 [place] hypertension HYPERTENSION 06:00:00 AM [facility] EDT Care [employer] R73.03 Prediabetes PREDIABETES Diagnosis 10/25/2019 [place] 06:00:[address] [facility] EDT Care [employer] F10.10 Alcohol abuse, ALCOHOL ABUSE, Diagnosis 10/25/2019 [place] uncomplicated UNCOMPLICATED 06:00:[address] [facility] EDT Care [facility] R74.8 Abnormal levels of ABNORMAL LEVELS OF Diagnosis 0 [place] other serum enzymes OTHER SERUM ENZYMES 06:00:0 0 [facility] Z20.828 Contact with and CONTACT W AND Diagnosis 10/21/[address] [facility] laney (suspected) EXPOSURE TO OTH 05:43:[address] [facility] exposure to other VIRAL COMMUNICABLE EDT Care viral communicable DISEASES Corpor ation diseases F32.9 Major depressive MAJOR DEPRESSIVE Diagnosis 10/21/2019 [facility] disorder, single DISORDER, SINGLE 05:43:00 AM C [employer] episode, EPISODE, EDT Care unspecified UNSPECIFIED Corporation F14.10 Cocaine abuse, COCAINE ABUSE, Diagnosis 10/21/2019 [place] adrianna uncomplicated UNCOMPLICATED 05:43:00 AM [facility] R07.89 Other chest pain OTHER CHEST PAIN Diagnosis 10/21/2019 [facility] 05:43:00 [facility] R00.2 Palpitations PALPITATIONS Diagnosis 10/21/2019 [facility] r 05:43:00 AM [facility] R94.5 Abnormal results of ABNORMAL RESULTS OF Diagnosis 020 [place] liver function LIVER FUNCTION 01:45:00 PM Count y Health studies STUDIES EST Care Corporation Z12.11 Encounter for ENCOUNTER FOR Diagnosis 07/19/2019 [facility] screening for SCREENING FOR 01:45:[address] [facility] malignant neoplasm MALIGNANT NEOPLASM EST Care of colon OF COLON Corporation F10.99 Alcohol use, ALCOHOL USE, UNSP Diagnosis 07/19/[address] 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 immunodeficiency IMMUNODEFICIENCY EDT Ca re virus [HIV] [employer] Z71.3 Dietary counseling Dietary counseling Diagnosis 9 JOEY and surveillance and surveillance 06:05:51 PM ( [facility]) F10.20 Alcohol dependence, Alcohol dependence, Diagnosis 018 [facility] uncomplicated uncomplicated 09:49:00 AM Hospita l EDT Surgeries/Procedures Procedure Description Date Indications Data Source(s) Computerized axial 12/11/2019 [facility] tomography of brain 10:15:00 System (procedure) PM EDT - 12/11/2019 10:15:[address] Maxillofacial without 12/11/2019 [facility] Contrast CT Maxillofacial 10:14:00 Sy stem without Contrast PM EDT - 12/11/2019 10:14:00 PM EDT Electrocardiographic 12/11/2019 [facility] procedure (procedure) 09:20:43 System PM EDT - 12/11/2019 09:52:00 PM EDT Electrocardiographic 11/15/2019 [facility] procedure (procedure) 04:46:58 System PM EDT - 11/15/2019 04:56:00 PM EDT No prior serious illness No prior serious 11/06/2019 [place] illness 12:00:00 [facility]) FINGER STICK BLOOD GLUCOSE FINGER STICK BLOOD 10/11/2019 [place] ([facility] GLUCOSE 12:00:00 [facility]) HEPATITIS B ADULT DOSE HEPATITIS B ADULT 10/11/2019 JOEY ([place] DOSE 12:00:00 [facility]) Administration of Hepatitis B Vaccine 10/11/2019 [facility] ([facility] hepatitis b vaccine Administration 12:00:00 [facility]) Alcohol and/or drug 06/18/2019 [employer] (Mental screening 04:40:00 [facility]) No prior serious illness No prior serious 06/06/2019 [place] ([place] illness 12:00:00 [facility]) Bmi is documented above BMI > NORMAL 06/05/2019 [facility] ([facility] normal parameters and a DOCUMENTED W F/U 12:00:00 [place] follow-up plan is PLAN AM [facility]) FINGER STICK BLOOD GLUCOSE FINGER STICK BLOOD 06/05/2019 [place] ([facility] GLUCOSE 12:00:00 [facility]) Administration of Hepatitis B Vaccine 06/05/2019 [facility] ([facility] hepatitis b vaccine Administration 12:00:00 [facility]) HEPATITIS B ADULT DOSE HEPATITIS B ADULT 06/05/2019 JOEY ([place] DOSE 12:00:00 [facility]) FINGER STICK BLOOD GLUCOSE FINGER STICK BLOOD 04/26/2019 [place] ([facility] GLUCOSE 12:00:00 [facility]) Bmi documented outside BMI OUTSIDE NORMAL 04/26/2019 [place] ([facility] normal parameters, no RANGE - NO F/U PLAN 12:00:00 [place] follow-up plan documented, AM EST N eighborhood no reason given Health Cente r) No intolerance to milk No intolerance to 04/19/2019 [place] ([facility] products milk products 12:00:00 [facility]) Bmi documented outside BMI OUTSIDE NORMAL 04/19/2019 [place] ([facility] normal parameters, no RANGE - NO F/U PLAN 12:00:00 [place] follow-up plan documented, AM EST N eighborhood no reason given Health Cente r) NUTRITION THERAPY RE-ASS NUTRITION THERAPY 04/19/2019 [place] ([facility] RE-ASS 12:00:00 [facility]) No history of diabetes No history of [facility]2019 [facility] mellitus diabetes mellitus 12:00:00 [facility]) No family history of CAD No family history of 03/08/2019 [place] ([place] in mother/sister at age CAD in mother/sister 12:00:00 [place] <65 at age <65 [facility]) No family history of CAD No family history of 03/08/2019 [place] ([place] in father/brother at age CAD in 12:00:00 Trudi non <55 father/brother at AM [facility] age <55 [facility]) History of hyperlipidemia History of 03/08/2019 REBECCA VALENTINO ([facility] hyperlipidemia 12:00:00 [facility]) Blood pressure was high Blood pressure was 03/08/2019 [place] ([facility] high 12:00:00 [facility]) NUTRITION THERAPY INITIAL NUTRITION THERAPY 02/08/2019 [place] ([facility] INITIAL 12:00:00 [facility]) No intolerance to milk No intolerance to 02/08/2019 [place] ([facility] products milk products 12:00:00 [facility]) No prior serious illness No prior serious 01/31/2019 [place] ([facility] illness 12:00:00 [facility]) Bmi is documented above BMI > NORMAL 01/29/2019 KATHRINE CHATTERJEE ([facility] normal parameters and a DOCUMENTED W F/U 12:00:00 Danial follow-up plan is PLAN AM EDT [place] documented [facility]) EKG EKG 01/29/2019 [place] ([facility] 12:00:00 [facility]) NUTRITION THERAPY INITIAL NUTRITION THERAPY 07/06/2018 [place] ([facility] INITIAL 12:00:00 [facility]) No intolerance to milk No intolerance to 07/06/2018 [place] ([facility] products milk products 12:00:00 [facility]) History of Eyes: normal History of Eyes: 05/05/2018 [place] ([facility] normal 12:00:00 [facility]) Bmi is documented above BMI > NORMAL 05/05/2018 [facility] ([facility] normal parameters and a DOCUMENTED W F/U 12:00:00 Danial follow-up plan is PLAN AM EST [place] documented [facility]) Tobacco assessment or Tobacco Assessment 05/05/2018 [place] ([facility] tobacco cessation 12:00:00 Danial intervention not AM EST Neighborhoo d performed, reason not Health Center) otherwise specified EKG EKG 05/05/2018 [place] ([facility] 12:00:00 [facility]) No prior serious illness No prior serious 05/05/2018 [place] ([facility] illness 12:00:00 [facility]) Venipuncture 11/19/2016 [facility] 11:01:22 System AM EDT - 11/19/2016 01:00:10 PM EDT Venipuncture 10/24/2015 [facility] 07:43:38 System AM EDT - 10/24/2015 09:00:02 AM EDT Protein, Spot Urine 10/21/2015 [facility] Protein, Spot Urine 07:52:00 System AM EDT - 10/21/2015 07:52:00 AM EDT Venipuncture 10/21/2015 [facility] 07:52:00 System AM EDT - 10/21/2015 09:00:05 AM EDT XR Chest PA and Left 07/29/2015 [facility] Lateral XR Chest PA and 09:41:00 Syst em Left Lateral AM EDT - 07/29/2015 09:41:00 AM EDT Venipuncture 05/26/2015 [facility] 08:29:00 System AM EST - 05/26/2015 10:00:06 AM EST Venipuncture 02/18/2015 [facility] 08:22:37 System AM EDT - 02/18/2015 10:00:07 AM EDT Venipuncture 11/27/2014 [facility] 08:18:41 System AM EDT - 11/27/2014 10:00:05 AM EDT Venipuncture 05/20/2014 [facility] 12:16:40 System PM EST - 05/20/2014 02:00:07 PM EST Electrocardiographic 05/20/2014 [facility] procedure (procedure) 11:56:00 System AM EST - 05/20/2014 11:57:00 AM EST US Scrotum US Scrotum 04/13/2014 [facility] 02:37:00 System PM EST - 04/13/2014 02:37:00 PM EST Venipuncture 12/06/2013 [facility] 08:28:50 System AM EDT - 12/06/2013 10:00:04 AM EDT XR Chest PA and Left 09/13/2013 [facility] Lateral XR Chest PA and 09:38:00 Syst em Left Lateral AM EDT - 09/13/2013 09:38:00 AM EDT Venipuncture 09/13/2013 [facility] 09:32:39 System AM EDT - 09/13/2013 12:00:00 AM EDT MRI Lumbar Spine without 09/16/2011 [facility] Contrast MRI Lumbar Spine 10:44:00 Sy stem without Contrast AM EDT - 09/16/2011 10:44:00 AM EDT History of No carotid History of No 08/05/2011 KATHYA DANIEL ([place] bruits carotid bruits 12:00:00 Danial AM EDT [facility]) Results ID Date Data Source [id number] 12/12/2019 02:42:12 AM EDT [facility] shawn System Name Value Range Interpretation Description [...] by Manual count ID Date Data Source [id number] 12/12/2019 02:42:12 AM EDT [facility] [...] Normal (applies to non-numeric A/G R atio [facility] results) ID Date Data Source [id number] 12/12/2019 02:42:12 AM EDT Tracy escobar System Name Value Range Interpretation Description Data Sup porting Code Source(s) Document(s ) Cholesterol 250 Above high normal Cholesterol, [facility] [Mass/volume] mg/dl Serum Health System in Serum or Plasma <200 mg/dL = [id number] - 239 md/dL = Borderline>240 mg/dL = [...] [facility] [Mass/volume] in non-numeric Lipoprotein, Health S ystem Serum or Plasma results) Calculated OPTIMAL: LESS THAN 100 mg/dLNEAR OPTIMAL : 100 - 129 mg/dLBODERLINE HIGH: 130 - 150 mg/dL Cholesterol in HDL 41.0 mg/dL Normal (applies HDL Cholestero l, [facility] [Mass/volume] in to non-numeric Serum Health S ystem Serum or Plasma results) ID Date Data Source [id number] 12/12/2019 02:42:12 AM EDMo escobar System Name [...] Serum or Plasma results) <200 mg/dL = [id number] - 239 md/dL = Borderline>240 mg/dL = [...] 5.00 Normal (applies to non-numeric CHD Risk [facility] results) ID Date Data Source [id number] 12/12/2019 02:42:12 AM EDT [facility] System Name Value Range Interpretation Description Data Sup porting Code Source(s) Document(s ) Deprecated NO GROWTH Aerobic [facility] Bacteria Culture, Urine Health System identified in Urine by Aerobe culture ID Date Data Source [id number] 12/12/2019 02:42:12 AM EDT [facility] System Name Value Range Interpretation Description Data Sup porting Code Source(s) Document(s ) Specific gravity 1.023 Normal (applies Urine Specific [facility] of Urine to non-numeric [facility] results) System Appearance of CLEAR Normal [...] [facility] [Units/volume] in to non-numeric Concentration Hea lt System Urine results) Leukocytes 1 {/HPF} Normal [...] by Wet preparation ID Date Data Source [id number] 12/12/2019 02:42:12 AM EDT [facility] [...] Health results) System ID Date Data Source [id number] 12/12/2019 02:42:12 AM EDT [facility] [...] urine test abnormalities ID Date Data Source [id number] 12/12/2019 02:42:12 AM EDT [facility] System Name Value Range Interpretation Description Data Sup porting Code Source(s) Document(s ) Bacteria NO GROWTH Culture [facility] identified in Bacteria Blood Health Syst em Blood by Aerobe culture ID Date Data Source [id number] 12/12/2019 02:42:12 AM EDT [facility] System Name Value Range Interpretation Description Data Sup porting Code Source(s) Document(s ) Bacteria NO GROWTH Culture [facility] identified in Bacteria Blood Health Syst em Blood by Aerobe culture ID Date Data Source [id number] 12/12/2019 02:42:12 AM EDT [facility] System Name Value Range Interpretation Description Data Sup porting Code Source(s) Document(s ) N.Gono Not Normal (applies N. Gonorrhea [facility] rrheab DetectedReference to non-numeric by [facility] yLCR Range: Not Detected results) System This test was performed using the APTIMA COMBO2(R) Assay (GEN-PROBE(R)). Test Performed at: [facility], [place] [address] Mayela Plasencia M.D. C.Trac Not Normal (applies C. [facility] homati DetectedReference to non-numeric [facility] sAmp Range: Not Detected results) Amp System ID Date Data Source [id number] 12/12/2019 02:42:12 AM EDT [facility] [...] System Automated count ID Date Data Source [id number] 12/12/2019 02:42:12 AM EDT [facility] shawn [...] in Serum 10.00 Normal (applies Anion Gap Chris kris or [...] urine test abnormalities ID Date Data Source [id number] 12/12/2019 02:42:12 AM EDT Tracy escobar System [...] Serum or Plasma results) <200 mg/dL = [id number] - 239 md/dL = Borderline>240 mg/dL = [...] Health System results) ID Date Data Source [id number] 12/12/2019 02:42:12 AM EDT [facility] System Name Value Range Interpretation Code Description Data Tammy rce(s) Supporting Document(s ) HbA1C 6.4 % Above high normal HbA1C [facility] System ID Date Data Source [id number] 12/12/2019 02:42:12 AM EDT [facility] [...] by Manual count ID Date Data Source [id number] 12/12/2019 02:42:12 AM EDNA escobar System Name [...] [facility] aminotransferase {IU/L} to non-numeric Transaminase, Heal [Enzymatic results) Serum System activity/volume] in Serum [...] urine test abnormalities ID Date Data Source [id number] 12/12/2019 02:42:12 AM EDMo escobar System Name [...] Serum or Plasma results) <200 mg/dL = [id number] - 239 md/dL = Borderline>240 mg/dL = [...] CHDRisk 3.82 Normal (applies to CHD Risk [facility] non-numeric results) System Cholesterol in VLDL 18.2 Normal (applies to VLDL, Serum [facility] [Mass/volume] in Serum non-numeric results) System or Plasma ID Date Data Source [id number] 12/12/2019 02:42:12 AM EDT [facility] System Name Value Range Interpretation Code Description Data Tammy rce(s) Supporting Document(s ) HbA1C 5.6 % Normal (applies to HbA1C [facility] non-numeric results) System ID Date Data Source [id number] 12/12/2019 02:42:12 AM EDT [facility] [...] System Automated count ID Date Data Source [id number] 12/12/2019 02:42:12 AM EDT [facility] Daniel escobar System Name Value Range Interpretation [...] urine test abnormalities ID Date Data Source [id number] 12/12/2019 02:42:12 AM EDT Tracy He shawn System Name Value Range Interpretation [...] Serum or Plasma results) <200 mg/dL = [id number] - 239 md/dL = Borderline>240 mg/dL = [...] Health System results) ID Date Data Source [id number] 12/12/2019 02:42:12 AM EDT [facility] [...] System Automated count ID Date Data Source [id number] 12/12/2019 02:42:12 AM EDMo escobar System Name [...] urine test abnormalities ID Date Data Source [id number] 12/12/2019 02:42:12 AM EDT Tracy escobar System [...] Serum or Plasma results) <200 mg/dL = [id number] - 239 md/dL = Borderline>240 mg/dL = [...] CHDRisk 3.42 Normal (applies to CHD Risk [facility] non-numeric results) System ID Date Data Source [id number] 12/12/2019 02:42:12 AM EDT [facility] System Name Value Range Interpretation Description Data Source(s ) Supporting Code Document(s ) Blood,Oc Negative Normal (applies to Blood, Occult [facility] non-numeric [facility] Health System s results) ID Date Data Source [id number] 12/12/2019 02:42:12 AM EDT [facility] System Name Value Range Interpretation [...] 241.00 Normal (applies to Creatinine , Urine. [facility] non-numeric System results) Test Performed at:[facility] - [employer] [place] [id number] Grigsby M.D. ID Date Data Source [id number] 12/12/2019 02:42:12 AM EDT [facility] alth System Name Value Range Interpretation Description Data Sup porting Code Source(s) Document(s ) Color YELLOW Normal (applies Color [facility] to non-numeric Health results) System Specific gravity 1.025 Normal (applies Urine Specific [facility] of Urine to non-numeric [facility] results) System Appearance of CLEAR Normal [...] Health results) System ID Date Data Source [id number] 12/12/2019 02:42:12 AM EDMo escobar System Name [...] System Automated count ID Date Data Source [id number] 12/12/2019 02:42:12 AM EDT Tracy escobar System Name Value Range Interpretation Description Data Sup porting Code Source(s) Document(s ) Thyrotropin 2.311 Normal (applies Thyroid [facility] [Mass/volume] {mIU/mL} to non-numeric Stimulating Health Sy stem in Serum or results) Hormone, Serum Plasma ID Date Data Source [id number] 12/12/2019 02:42:12 AM EDT [facility] Daniel shawn System Name Value Range Interpretation Description [...] urine test abnormalities ID Date Data Source [id number] 12/12/2019 02:42:12 AM EDT Tracy escobar System [...] Serum or Plasma results) <200 mg/dL = [id number] - 239 md/dL = Borderline>240 mg/dL = [...] non-numeric results) System ID Date Data Source [id number] 12/12/2019 02:42:12 AM EDT [facility] Daniel alth System Name Value Range Interpretation Code Description Data Tammy rce(s) Supporting Document(s ) HbA1C 5.6 % Normal (applies to HbA1C [facility] non-numeric results) System ID Date Data Source [id number] 12/12/2019 02:42:12 AM EDT [facility] He alth [...] Health System } ID Date Data Source [id number] 12/12/2019 02:42:12 AM EDT [facility] System Name Value Range Interpretation Code Description Data Tammy rce(s) Supporting Document(s ) GyX6UFh 189.80 Normal (applies to XzU9UTf [facility] non-numeric results) Health Sy stem tHbWB 3788.06 Normal (applies to tHbWB [facility] non-numeric results) Health Sy stem %HbA1C 6.74 % Above high normal %HbA1C [facility] System ID Date Data Source [id number] 12/12/2019 02:42:12 AM EDT [facility] System Name Value Range Interpretation Description Data Sup porting Code Source(s) Document(s ) Color YELLOW Normal (applies Color [facility] to non-numeric Health results) System Appearance of CLEAR Normal (applies Urine [facility] Urine to non-numeric Appearance Health results) System Specific gravity 1.025 Normal (applies Urine Specific [facility] of Urine to non-numeric [facility] results) System pH.. 6.0 Normal (applies [...] Health results) System ID Date Data Source [id number] 12/12/2019 02:42:12 AM EDT [facility] He shawn [...] Health } System ID Date Data Source [id number] 12/12/2019 02:42:12 AM EDT [facility] System Name Value Range Interpretation Description Data Sup porting Code Source(s) Document(s ) Thyrotropin 1.826 Normal (applies Thyroid [facility] [Mass/volume] {mIU/mL} to non-numeric Stimulating Health Sy stem in Serum or results) Hormone, Serum Plasma ID Date Data Source [id number] 12/12/2019 02:42:12 AM EDT [facility] He alth [...] urine test abnormalities ID Date Data Source [id number] 12/12/2019 02:42:12 AM EDT Tracy escobar System [...] Serum or Plasma results) <200 mg/dL = [id number] - 239 md/dL = Borderline>240 mg/dL = High Risk Cholesterol in HDL 38.0 mg/dL Normal (applies HDL Cholestero l, [facility] [Mass/volume] in to non-numeric Serum Health S te Serum or Plasma results) Cholesterol in LDL 125 mg/dL Normal (applies Low Density [facility] [Mass/volume] in to non-numeric Lipoprotein, Healt h System Serum or Plasma results) Calculated OPTIMAL: LESS THAN 100 mg/dLNEAR OPTIMAL : 100 - 129 mg/dLBODERLINE HIGH: 130 - 150 mg/dL Cholesterol in VLDL 27 Normal (applies to VLDL, Serum [facility] [Mass/volume] in Serum non-numeric results) System or Plasma CHDRisk 5.00 Normal (applies to CHD Risk [facility] non-numeric results) System ID Date Data Source [id number] 12/12/2019 02:42:12 AM EDT [facility] He [facility]awn System Name Value Range Interpretation [...] [facility] [Mass/volume] in to non-numeric [facility]rine [facility]) Cut-off = 200 ng/mL Cocaine Negative Normal (applies Cocaine [facility] metabolites.other to non-numeric [facility] [Mass/volume] in Urine results) Screen, Urine Cut-off = 300 ng/mL Methadone Negative Normal (applies to Methadone Level, [facility] [Mass/volume] in non-numeric Urine System Urine results) Cut-off = 300 ng/mL [id number],Urine Negative Normal (applies to Opiate 300, [facility] non-numeric results) Urine System Cut-off = 300 ng/mL Phencyclidine Positive Abnormal (applies Phencyclidine, Uri ne [facility] [Mass/volume] in to [facility]) Cut-off = 25 ng/mL Cannabinoid(THC) Negative Normal (applies to Cannabinoid (THC) [facility] non-numeric System results) Cutt-off = 50These results are for medic al treatment only. The positive findings are unconfirmed. Request confirmatory/quanti tative test if needed. ID Date Data Source [id number] 12/12/2019 02:42:12 AM EDT [facility] He alth [...] Health } System ID Date Data Source [id number] 12/12/2019 02:42:12 AM EDT Monte[facility] Sanchez alth System Name Value Range Interpretation Description Data Source(s ) Supporting Code Document(s ) AlcoholE 52.6 Normal (applies to Alcohol Ethyl, [facility] thyl,Blo mg/dl non-numeric Blood Health System od results) None Detected ID Date Data Source [id number] 12/12/2019 02:42:12 AM EDT [facility] System Name Value Range Interpretation Description Data Source(s ) Supporting Code Document(s ) Lipase 18 U/L Normal (applies to Lipase, Serum [facility] [Enzymatic non-numeric Health System activity/vo results) lume] in Serum or Plasma ID Date Data Source [id number] 12/12/2019 02:42:12 AM EDT [facility] He alth [...] urine test abnormalities ID Date Data Source [id number] 12/12/2019 02:42:12 AM EDT [facility] alth System Name Value Range Interpretation Description Data Source(s ) Supporting Code Document(s ) Troponin 0.07 Above high normal Troponin I [facility] IQuantit ng/mL [facility] ative-MV MV Only Only The Troponin I result is consistent with Severe Cardiac Ischemia. ID Date Data Source [id number] 12/12/2019 02:42:12 AM EDT [facility] alth System Name Value Range Interpretation Description Data Sup porting Code Source(s) Document(s ) 68873-9 NEGATIVE Testing Normal (applies COVID-19.. [facility] [...] Range: NEGATIVE . ID Date Data Source [id number] 12/12/2019 02:42:12 AM EDT [facility] alth System Name Value Range Interpretation Description Data Source(s ) Supporting Code Document(s ) PH* 7.388 Normal (applies to PH* [facility] {pH_units} non-numeric Health System results) PCO2* 43.9 Normal (applies to PCO2* [facility] {mm_Hg} non-[facility] Health System results) BaseExces 1.40 Normal (applies to Base Excess* [facility] s* {mEq/L} non-[facility] Health System results) HCO3* 26.4 Normal (applies to HCO3* [facility] mmol/L non-[facility] Health System results) Chloride, 112 mmol/L Above high normal Chloride, VB [facility] Health System Lactate. 2.1 mmol/L Above upper panic Lactate. [facility] System Result Reporting|Telephone|FRANCI VANESSA| at 10:31 PMCalled to:FRANCI Vora Name:LisaAnkita by:FRANCI VANESSA 12/11/2019 / 10:31 PM Glucose,VB 101 mg/dL Normal (applies to Glucose, [facility] non-numeric System results) Potassium,VB 4.0 mmol/L Normal (applies to Potassium, VB [facility] non-numeric System results) Sodium,VB 149 mmol/L Above high normal Sodium, [facility] System IonizedCalcium,VB 1.23 mmol/L Normal (applies to [facility]ized [facility] non-numeric Calcium, System results) [id number]* 78.50 % Normal (applies to O2 Saturation* [facility] non-numeric System results) ID Date Data Source [id number] 12/12/2019 02:42:12 AM EDT [facility] alth System Name Value Range Interpretation [...] [facility] [Mass/volume] in to non-numeric Urine Health S yste Urine results) Cut-off = 200 ng/mL Cocaine Positive Abnormal (applies Cocaine [facility] metabolites.other to non-numeric Metabolite Health System [Mass/volume] in Urine results) Screen, Urine Cut-off = 300 ng/mL Methadone Negative Normal (applies to Methadone Level, [facility] [Mass/volume] in non-numeric Urine System Urine results) Cut-off = 300 ng/mL Dkgomx243,Urine Negative Normal (applies to Opiate 300, [facility] non-numeric results) Urine System Cut-off = 300 ng/mL Phencyclidine Positive Abnormal (applies Phencyclidine, Uri ne [facility] [Mass/volume] in to non-[facility] S yste Urine results) Cut-off = 25 ng/mL Cannabinoid(THC) Negative Normal (applies to Cannabinoid (THC) [facility] non-numeric System results) Cutt-off = 50These results are for medic al treatment only. The positive findings are unconfirmed. Request confirmatory/quanti tative test if needed. ID Date Data Source [id number] 12/12/2019 02:42:12 AM EDT [facility] He shawn [...] Health } System ID Date Data Source [id number] 12/12/2019 02:42:12 AM EDT [facility] System Name Value Range Interpretation Description Data Source(s ) Supporting Code Document(s ) AlcoholE 139.7 Normal (applies to Alcohol Ethyl, [facility] thyl,Blo mg/dl non-numeric Blood Health System od results) None Detected ID Date Data Source [id number] 12/12/2019 02:42:12 AM EDT [facility] System Name Value Range Interpretation Description Data Source(s ) Supporting Code Document(s ) Lipase 19 U/L Normal (applies to Lipase, Serum [facility] [Enzymatic non-numeric Health System activity/vo results) lume] in Serum or Plasma ID Date Data Source [id number] 12/12/2019 02:42:12 AM EDT [facility] System Name Value Range Interpretation Description Data Sup porting Code Source(s) Document(s ) Amylase 593 Above high normal Amylase, Serum [facility] [Enzymatic {IU/L} Health System activity/vo lume] in Serum or Plasma ID Date Data Source [id number] 12/12/2019 02:42:12 AM EDT [facility] He alth [...] urine test abnormalities ID Date Data Source [id number] 12/12/2019 02:42:12 AM EDT [facility] alth System Name Value Range Interpretation Description Data Source(s ) Supporting Code Document(s ) Troponin 0.04 Normal (applies to Troponin I [facility] IQuantit ng/mL non-numeric Quantitative - Health System ative-MV results) MV Only Only ID Date Data Source [id number] 12/12/2019 02:42:12 AM EDT [facility] alth System Name Value Range Interpretation Description Data Sup porting Code Source(s) Document(s ) aPTT in Blood 24.9 Normal (applies Activated [facility] by Coagulation {Seconds to non-numeric Partial Health assay } results) Thromboplastin System Time ID Date Data Source [id number] 12/12/2019 02:42:12 AM EDT [facility] System Name Value Range Interpretation [...] Heart = 3.0-4.5 ID Date Data Source [id number] 12/11/2019 10:14:00 PM EDT [facility] HISTORY: right facial laceration s/p fal l;CT [...] at 2314Reported and signed by: Zack Bishop MDEnvision P [facility] DR ZACK BISHOP [phone] Mariajose d:Zack Bishop MD at 23:12 [phone], Service support [phone], [phone] Name Value Range Interpretation Code Description Data Tammy rce(s) Supporting Document(s ) ID Date Data Source [id number] 12/11/2019 10:15:00 PM EDT [facility] HISTORY: head injury;CT scan of the head [...] and signed by: Zack Bishop MDEnvision P [facility]ysicianServicesBO[facility] DR ZACK BISHOP [phone] Signed: Zack Bishop MD at 23:02 EDTTel , Service support , [phone] Name Value Range Interpretation Code Description Data Tammy rce(s) Supporting Document(s ) ID Date Data Source [id number] 12/11/2019 09:40:00 PM EDT [facility] Name Value Range Interpretation Code Description Data Tammy rce(s) Supporting Document(s ) COVID-19.. [facility] This lab was ordered by [facility] and reported by [facility]. ID Date Data Source [id number] 2019 12:00:00 AM EDT [facility] Name Value Range Interpretation Code Description Data Tammy rce(s) Supporting Document(s ) 2019-nCoV [facility] RNA XXX VALARIE+probe- Imp This lab was ordered by [facility] LEIF FLYNN([facility]) and reported by [employer] ID Date Data Source [id number] 10/30/2019 09:28:00 AM EDT JOE[facility] ([facility]) Name Value Range Interpretation Description Data Source(s ) Supporting Code Document(s ) Prostate 2.0 Prostate [place] ([facility] specific Ag ng/mL Specific Ag, Danial [Mass/volum Serum Neighborhood e] in [facility]) or Plasma Note: [place] ECLIA methodology.According to the [place] [employer], Serum PSA shoulddecrease and remain [...] of malignant disease. ID Date Data Source [id number] 10/30/2019 09:28:00 AM EDT [place] ([facility]) Name Value Range Interpretation Description Data Source(s ) Supporting Code Document(s ) Thyrotropin 1.060 TSH [facility] ([facility] [Units/volume] uIU/mL [facility] in Serum or Neighborhood Plasma [facility]) Detection limit <= 0.05 mIU/L ID Date Data Source [id number] 10/30/2019 09:28:00 AM EDT [place] ([facility]) Name Value Range Interpretation Description Data Source(s ) Supporting Code Document(s ) Thyroxine 1.25 T4,Free(Direct [facility] ([facility] (T4) free ng/dL ) Danial [Mass/volume Neighborhood ] in [facility]) or Plasma ID Date Data Source [id number] 10/30/2019 09:28:00 AM EDT [place] ([facility]) Name Value Range Interpretation Description Data Source(s ) Supporting Code Document(s ) Hemoglobin 6.1 % Above high normal Hemoglobin A1c [facility] ([facility] A1c/Hemoglobi Danial n.total in [facility] Blood [facility]) Note: Prediabetes: 5.7 - 6.4 Diabetes: >6.4 Glycemic control for adults with diabetes: <7.0 ID Date Data Source [id number] 10/30/2019 09:28:00 AM EDT [place] ([facility]) Name Value Range Interpretation Description Data Source(s ) Supporting Code Document(s ) Cholesterol 158 Cholesterol, JOEY [Mass/volume] mg/dL Total ([facility] in Serum or [facility] Plasma [facility]) Triglyceride 86 Triglycerides [place] [Mass/volume] mg/dL ([facility] in Serum or [facility] Plasma [facility]) Cholesterol in 51 HDL Cholesterol JOEY HDL mg/dL ([facility] [Mass/volume] [facility] in Serum or [facility]) Plasma Cholesterol in 1.8 LDL/HDL Ratio JOEY LDL/Cholestero ratio ([facility] l in HDL [Mass Neighborhood Ratio] in [facility]) Serum or Plasma Note: LDL/HDL Ratio Men Women 1/2 Avg.Risk 1.0 1.5 Avg.Risk 3.6 3.2 2X Avg.Risk 6.2 5.0 3X Avg.Risk 8.0 6.1 Laboratory comment N/A Comment: JOEY (M sotero [place] [Text] in Report [facility]) Cholesterol in VLDL 17 mg/dL VLDL Cholesterol Cheryl JOEY ([facility] [Mass/volume] in Serum [facility] or Plasma by calculation Cente r) Cholesterol in LDL 90 mg/dL LDL Cholesterol Calc JOEY ([facility] [Mass/volume] in Serum [facility] or Plasma by calculation Cente r) ID Date Data Source [id number] 10/30/2019 09:28:00 AM EDT [facility] ([facility]) Name Value Range Interpretation Description Data Sup porting Code Source(s) Document(s ) Calcium 9.5 Calcium [facility] [Mass/volume] in mg/dL ([facility] Serum or Plasma [facility]) Urea nitrogen 15 BUN [facility] [Mass/volume] in mg/dL ([facility] Serum or [facility]) Glucose 113 Above high Glucose JOEY [Mass/volume] in mg/dL normal ([facility]) Albumin 4.4 Albumin JOE[facility] [Mass/volume] in g/dL ([facility]) Protein 7.4 Protein, JOEY [Mass/volume] in g/dL Total ([facility] Serum or [facility]) Bilirubin.total 0.4 Bilirubin, JOEY [Mass/volume] in mg/dL Total ([facility] Serum or [facility]) Alkaline 68 IU/L Alkaline JOEY phosphatase Phosphatase ([facility] [Enzymatic Neighborhood activity/volume] Health in Serum or Plasma [place]) Aspartate 29 IU/L AST (SGOT) JOEY aminotransferase ([facility] [Enzymatic Neighborhood activity/volume] [facility] in Serum or Plasma [place]) Sodium 140 Sodium JOEY [Moles/volume] in mmol/L ([facility] Serum [facility]) Potassium 4.5 Potassium JOEY [Moles/volume] in mmol/L ([facility]) Chloride 104 Chloride JOEY [Moles/volume] in mmol/L ([facility] or [facility]) Creatinine 1.10 Creatinine JOEY [Mass/volume] in mg/dL ([facility] Serum or Plasma [facility]) Carbon dioxide, 22 Carbon JOEY total mmol/L Dioxide, ([facility] [Moles/volume] in Total [facility] Serum or [facility]) Alanine 30 IU/L ALT (SGPT) JOEY aminotransferase ([facility] [Enzymatic Neighborhood activity/volume] Health in Serum or Plasma [place]) Globulin 3.0 Globulin, JOEY [Mass/volume] in g/dL Total ([facility] Serum by [facility]) Urea 14 BUN/Creatinin JOEY nitrogen/Creatinin e Ratio ([facility] on e [Mass Ratio] in [facility] Serum or [facility]) Albumin/Globulin 1.5 A/G Ratio JOEY [Mass Ratio] in ([facility] Serum or [facility]) eGFR If Africn Am 86 eGFR If JOEY mL/min/ Africn Am ([facility] [address]) eGFR If NonAfricn 74 eGFR If JOEY Am mL/min/ NonAfricn Am ([address]) ID Date Data Source [id number] 10/21/2019 08:12:00 AM EDT [facility] [id number] Corporation Name Value Range Interpretation Description Data Sup porting Code Source(s) Document(s ) Hemoglobin 14.7 g/dL 14.0-18 <td> [facility] [Mass/volume] .0 g/dL 10/21/2019 [facility] in Blood 08:12</td><t Health Care d> HGB [employer] </td><td> 14.7
(14.0-18.0) g/dL </td> Leukocytes 6.4 k/mm3 4.8-10. <td> [facility] [#/volume] in 8 k/mm3 10/21/2019 [facility] Blood by 08:12</td><t Health Care Automated count d> WBC [employer] </td><td> 6.4
(4.8-10.8) k/mm3 </td> Hematocrit 46.8 % 40.8-46 <td> [facility] [Volume .9 % 10/21/2019 [facility] Fraction] of 08:12</td><t Health Care Blood by d> HCT [employer] Automated count </td><td> 46.8
(40.8-46.9) % </td> Erythrocytes 5.71 m/mm3 4.70-6. <td> [facility] [#/volume] in 10 10/21/2019 [facility] Blood m/mm3 08:12</td><t Health Care d> RBC [employer] </td><td> 5.71
(4.70-6.10) m/mm3 </td> Platelet mean 10.9 fL 9.8-12. <td> [facility] volume [Entitic 8 fL 10/21/2019 [facility] volume] in 08:12</td><t Health Care Blood by d> MPV [employer] Automated count </td><td> 10.9
(9.8-12.8) fL </td> Erythrocyte 31.4 % 32.0-36 <td> [facility] mean .0 % 10/21/2019 [facility] corpuscular 08:12</td><t Health Care hemoglobin d> MCHC [employer] concentration </td><td><pa [Mass/volume] ragraph in Blood from styleCode="B Fetus by old"> Automated count 31.4 L </paragraph>
(32.0-36.0) % </td> Erythrocyte 82.0 fL 80.0-94 <td> [facility] mean .0 fL 10/21/2019 [facility] corpuscular 08:12</td><t Health Care volume [Entitic d> [employer] volume] by </td><td> Automated count 82.0
(80.0-94.0) fL </td> Platelets 210 k/mm3 160-410 <td> [facility] [#/volume] in k/mm3 10/21/2019 [facility] Blood by 08:12</td><t Health Care Automated count d> Platelet [employer] Count </td><td> 210
(160-410) k/mm3 </td> Erythrocyte 25.7 pg 27.0-31 <td> [facility] mean .5 pg 10/21/2019 [facility] corpuscular 08:12</td><t Health Care hemoglobin d> [employer] [Entitic mass] </td><td><pa by Automated ragraph count styleCode="B old"> 25.7 L </paragraph>
(27.0-31.5) pg </td> Erythrocyte 15.5 % 11.5-14 <td> [facility] distribution .5 % 10/21/2019 [facility] width [Entitic 08:12</td><t Health Care volume] by d> RDW [employer] Automated count </td><td><pa ragraph styleCode="B old"> 15.5 H </paragraph>
(11.5-14.5) % </td> Carbon dioxide, 26 mEq/L 22-30 <td> [facility] total mEq/L 10/21/2019 [facility] [Moles/volume] 08:12</td><t Health Care in Serum or d> CO2 [employer] Plasma </td><td> 26
(22-30) mEq/L </td> Glucose 102 mg/dL 70-105 <td> [facility] [Mass/volume] mg/dL 10/21/2019 [facility] in Blood 08:12</td><t Health Care d> [employer] Glucose-Seru m </td><td> 102
(70-105) mg/dL </td> Potassium 4.0 mEq/L 3.5-5.1 <td> [facility] [Moles/volume] mEq/L 10/21/2019 [facility] in Serum or 08:12</td><t Health Care Plasma d> [employer] Potassium-Se rum </td><td> 4.0
(3.5-5.1) mEq/L </td> Urea nitrogen 16 mg/dL 6-22 <td> [facility] [Mass/volume] mg/dL 10/21/2019 [facility] in Blood 08:12</td><t Health Care d> BUN [employer] </td><td> 16
(6-22) mg/dL </td> Sodium 141 mEq/L 135-145 <td> [facility] [Moles/volume] mEq/L 10/21/2019 [facility] in Serum or 08:12</td><t Health Care Plasma d> [employer] Sodium-Serum </td><td> 141
(135-145) mEq/L </td> Chloride 107 mEq/L 98-107 <td> [facility] [Moles/volume] mEq/L 10/21/2019 [facility] in Serum or 08:12</td><t Health Care Plasma d> Chloride Corporation </td><td> 107
(98-107) mEq/L </td> Hemolysis index No <td> [facility] Serum or Hemolysis 10/21/2019 [facility] Plasma 08:12</td><t Health Care d> Hemolysis Corporation Index </td><td> No Hemolysis
</td> Creatinine 1.14 mg/dL 0.72-1. <td> [facility] [Moles/volume] 25 10/21/2019 [facility] in Serum or mg/dL 08:12</td><t Health Care Plasma d> [employer] Creatinine. </td><td> 1.14
(0.72-1.25) mg/dL </td> Calcium 9.0 mg/dL 8.6-10. <td> [facility] [Mass/volume] 2 mg/dL 10/21/2019 [facility] in Blood 08:12</td><t Health Care d> Calcium Corporation </td><td> 9.0
(8.6-10.2) mg/dL </td> Lipemic index No Lipemia <td> [facility] or 10/21/2019 [facility] Plasma 08:12</td><t Health Care d> Lipemia [employer] Index </td><td> No Lipemia
</td> Anion gap in 8 mEq/L 7-13 <td> [facility] Serum or Plasma mEq/L 10/21/2019 [facility] 08:12</td><t Health Care d> Anion Gap [employer] </td><td> 8
(7-13) mEq/L </td> Icteric index Non Icteric <td> [facility] or 10/21/2019 [facility] Plasma 08:12</td><t Health Care d> Icteric Corporation Index </td><td> Non Icteric
</td> ID Date Data Source [id number] 10/21/2019 12:00:00 AM EDT [facility] Name Value Range Interpretation Code Description Data Tammy rce(s) Supporting Document(s ) SARS-COV-2 [facility] RNA RT-PCR [facility] This lab was ordered by [facility] [facility] and reported by [facility]. ID Date Data Source [id number] 04/19/2019 12:00:00 AM EST JOEY ([facility]) Name Value Range Interpretation Description Data Source(s ) Supporting Code Document(s ) Hepatitis B Negative Hep Be Ag JOEY virus e Ag ([facility] [Presence] in Neighborhood Serum or Health Center) Plasma by Immunoassay ID Date Data Source [id number] 04/19/2019 12:00:00 AM EST JOEY ([facility]) Name Value Range Interpretation Description Data Source(s ) Supporting Code Document(s ) Hepatitis B Negative HBsAg Screen JOEY virus surface (Purvis Ag [Presence] Neighborhood in Serum or Health Center) Plasma by Immunoassay ID Date Data Source [id number] 04/19/2019 12:00:00 AM EST JOEY ([facility]) Name Value Range Interpretation Description Data Source(s ) Supporting Code Document(s ) Ferritin 89 ng/mL Ferritin, JOEY (Mount [Mass/volum Serum Danial e] in Serum [facility] or [facility]) ID Date Data Source [id number] 04/19/2019 12:00:00 AM EST JOEY ([facility]) Name Value Range Interpretation Description Data Source(s ) Supporting Code Document(s ) Microalbumin 5.6 Albumin, JOEY [Mass/volume] ug/mL Urine (Purvis in Urine [facility]) ID Date Data Source [id number] 04/19/2019 12:00:00 AM EST JOEY ([facility]) Name Value Range Interpretation Description Data Source(s ) Supporting Code Document(s ) Hepatitis C <0.1 Hep C Virus JOEY virus Ab s/co_rat Ab (Purvis Signal/Cutoff io [facility] in Serum or Health Center) Plasma by Immunoassay Note: Negative: < 0.8 Indeterm inate: 0.8 - 0.9 Positive: > 0.9 The CDC recommends that a positive HCV antibody result be followed up with a HCV Nucleic Acid Amplification test (61402 3). ID Date Data Source [id number] 04/19/2019 12:00:00 AM [facility] ([facility]) Name Value Range Interpretation Description Data Source(s ) Supporting Code Document(s ) Hepatitis B Non Hep B Surface JOEY virus Reactive Ab, Qual (Purvis surface Ab [facility] [[facility]] [facility]) in Serum Note: Non R eactive: Inconsistent with immunity, less th an 10 mIU/mL Reactive: Consistent with immunity, greater than 9.9 mIU/mL ID Date Data Source [id number] 04/19/2019 12:00:00 AM EST JOEY ([facility]) Name Value Range Interpretation Description Data Source(s ) Supporting Code Document(s ) Hemoglobin 6.4 % Above high normal Hemoglobin A1c GREENW AY ([facility] A1c/Hemoglobi Danial n.total in [facility] Blood [facility]) Note: Prediabetes: 5.7 - 6.4 Diabetes: >6.4 Glycemic control for adults with diabetes: <7.0 ID Date Data Source [id number] 04/19/2019 12:00:00 AM EST JOEY ([facility]) Name Value Range Interpretation Description Data Sup porting Code Source(s) Document(s ) Calcium 9.5 Calcium JOEY [Mass/volume] in mg/dL ([facility] Serum or Plasma [facility]) Glucose 100 Above high Glucose JOEY [Mass/volume] in mg/dL normal ([facility] Serum or [facility]) Urea nitrogen 16 BUN JOEY [Mass/volume] in mg/dL ([facility] Serum or [facility]) Protein 7.4 Protein, JOEY [Mass/volume] in g/dL Total ([facility] or [facility]) Albumin 4.5 Albumin JOEY [Mass/volume] in g/dL ([facility] or [facility]) Bilirubin.total 0.3 Bilirubin, JOEY [Mass/volume] in mg/dL Total ([facility] or [facility]) Alkaline 66 IU/L Alkaline JOEY phosphatase Phosphatase ([facility] [Enzymatic [facility] activity/volume] Health in Serum or Plasma [place]) Aspartate 37 IU/L AST (SGOT) JOEY aminotransferase ([facility] [Enzymatic [facility] activity/volume] [facility] in Serum or Plasma [place]) Potassium 4.5 Potassium JOEY [Moles/volume] in mmol/L ([facility] or [facility]) Sodium 141 Sodium JOEY [Moles/volume] in mmol/L ([facility] or [facility]) Chloride 101 Chloride JOEY [Moles/volume] in mmol/L ([facility] or [facility]) Creatinine 1.04 Creatinine JOEY [Mass/volume] in mg/dL ([facility] or [facility]) Carbon dioxide, 24 Carbon JOEY total mmol/L Dioxide, (Purvis [Moles/volume] in Total [facility] Serum or [facility]) Alanine 57 IU/L Above high ALT (SGPT) JOEY aminotransferase normal ([facility] [Enzymatic [facility] activity/volume] [facility] in Serum or Plasma [place]) Urea 15 BUN/Creatinin JOEY nitrogen/Creatinin e Ratio ([facility] on e [Mass Ratio] in [facility] Serum or [facility]) Globulin 2.9 Globulin, JOEY [Mass/volume] in g/dL Total ([facility] Serum by [facility]) Albumin/Globulin 1.6 A/G Ratio JOEY [Mass Ratio] in ([facility] or [facility]) eGFR If NonAfricn 79 eGFR If JOEY Am mL/min/ NonAfricn Am ([address]) eGFR If Africn Am 92 eGFR If JOEY mL/min/ Africn Am ([address]) ID Date Data Source [id number] 02/07/2019 05:33:26 PM EDT GHAZAL Solitario ([facility] [id number] [facility]) Name Value Range Interpretation Description Data Source(s ) Supporting Code Document(s ) No Results No Results No Results JOEY ([facility]) ID Date Data Source [id number] 02/02/2019 09:12:00 AM EDT JOEY ([facility]) Name Value Range Interpretation Description Data Source(s ) Supporting Code Document(s ) Urate 5.6 mg/dL Uric Acid JOEY (Mount [Mass/volu Danial me] in Neighborhood Serum or Health Center) Plasma Note: Therapeu tic target for gout patients: <6.0 ID Date Data Source [id number] 02/02/2019 09:12:00 AM EDT JOEY ([facility]) Name Value Range Interpretation Description Data Source(s ) Supporting Code Document(s ) Microalbumin 5.6 Albumin, JOEY [Mass/volume] ug/mL Urine ([facility] in Urine [facility]) ID Date Data Source [id number] 02/02/2019 09:12:00 AM EDT JOEY ([facility]) Name Value Range Interpretation Description Data Source(s ) Supporting Code Document(s ) Calcidiol 27.8 Below low normal Vitamin D, JOEY (Mo unt [Mass/volume ng/mL 25-Hydroxy Danial ] in Serum Neighborhood or Plasma [facility]) Note: Vitamin D deficiency has been defi jose by the [place] of[place]icine and an Endocrine Society practice guideline as alevel of serum 25-OH vitamin D less than 20 ng/mL (1,2).The Endocrine Society went o n to further define vitamin Dinsufficiency as a level between 21 and 29 ng/mL (2).1. I OM ([place] of Medicine). 2010. Dietary reference intakes for calcium and D. [place]: The National Academies Press.2. Perico MF, Kameron NC, Jm Pires WEST, et al. Evaluation, treatment, and prevention of vitamin D deficiency : an Endocrine Society clinical practice guideline. JCEM. 2010; 96(7):1911-30 . ID Date Data Source [id number] 02/02/2019 09:12:00 AM EDT JOEY ([facility]) Name Value Range Interpretation Description Data Source(s ) Supporting Code Document(s ) Thyrotropin 1.830 TSH JOEY ([facility] [Units/volume] uIU/mL Danial in Serum or Neighborhood Plasma by [facility]) Detection limit <= 0.05 mIU/L ID Date Data Source [id number] 02/02/2019 09:12:00 AM EDT JOEY ([facility]) Name Value Range Interpretation Description Data Source(s ) Supporting Code Document(s ) Hemoglobin 6.4 % Above high normal Hemoglobin A1c GREENW AY ([facility] A1c/Hemoglobi Danial n.total in [facility] Blood [facility]) Note: Prediabetes: 5.7 - 6.4 Diabetes: >6.4 Glycemic control for adults with diabetes: <7.0 ID Date Data Source [id number] 02/02/2019 09:12:00 AM EDT JOEY ([facility]) Name Value Range Interpretation Description Data Source(s ) Supporting Code Document(s ) Cholesterol 159 Cholesterol, JOEY [Mass/volume] mg/dL Total (Fabio Barrow in Serum or [facility] Plasma [facility]) Triglyceride 66 Triglycerides JOEY [Mass/volume] mg/dL ([facility] in Serum or [facility] Plasma [facility]) Cholesterol in 44 HDL Cholesterol JOEY HDL mg/dL ([facility] [Mass/volume] [facility] in Serum or Health [place]) Plasma Laboratory N/A Comment: JOEY comment [Text] (Fabio Barrow in Report [facility]) Cholesterol in 2.3 LDL/HDL Ratio JOEY LDL/Cholestero ratio (Fabio Barrow l in HDL [Mass Neighborhood Ratio] in [facility]) Serum or Plasma Note: LDL/HDL Ratio Men Women 1/2 Avg.Risk 1.0 1.5 Avg.Risk 3.6 3.2 2X Avg.Risk 6.2 5.0 3X Avg.Risk 8.0 6.1 Cholesterol in LDL 102 mg/dL Above high LDL Cholesterol GREE NWAY (Mount [Mass/volume] in normal Calc Danial [facility] orhood Serum or Plasma by Health Cent er) calculation Cholesterol in VLDL 13 mg/dL VLDL Cholesterol GRE ENWAY (Mount [Mass/volume] in Cheryl Danial Neighb orhood Serum or Plasma by Health Cent er) calculation ID Date Data Source [id number] 02/02/2019 09:12:00 AM EDT JOEY ([facility]) Name Value Range Interpretation Description Data Sup porting Code Source(s) Document(s ) Calcium 9.2 Calcium JOEY [Mass/volume] in mg/dL ([facility] Serum or Plasma [facility]) Glucose 94 Glucose JOEY [Mass/volume] in mg/dL ([facility] Serum or Plasma [facility]) Urea nitrogen 18 BUN JOEY [Mass/volume] in mg/dL ([facility] or [facility]) Protein 7.1 Protein, JOEY [Mass/volume] in g/dL Total ([facility]) Albumin 4.3 Albumin JOEY [Mass/volume] in g/dL ([facility]) Aspartate 33 IU/L AST (SGOT) JOEY aminotransferase ([facility] [Enzymatic [facility] activity/volume] Health in Serum or [facility]) Alkaline 75 IU/L Alkaline JOEY phosphatase Phosphatase ([facility]vis [Enzymatic [facility] activity/volume] [facility] in Serum or [facility]) Bilirubin.total 0.4 Bilirubin, JOEY [Mass/volume] in mg/dL Total ([facility] or [facility]) Sodium 142 Sodium JOEY [Moles/volume] in mmol/L ([facility]) Potassium 4.7 Potassium JOEY [Moles/volume] in mmol/L ([facility]) Chloride 106 Chloride JOEY [Moles/volume] in mmol/L ([facility] or [facility]) Creatinine 1.18 Creatinine JOEY [Mass/volume] in mg/dL ([facility]) Alanine 46 IU/L Above high ALT (SGPT) JOEY aminotransferase normal ([facility] [Enzymatic [facility] activity/volume] [facility] in Serum or [facility]) Carbon dioxide, 24 Carbon JOEY total mmol/L Dioxide, (Purvis [Moles/volume] in Total [facility]) Urea 15 BUN/Creatinin JOEY nitrogen/Creatinin e Ratio ([facility] on e [Mass Ratio] in [facility] or [facility]) Globulin 2.8 Globulin, JOEY [Mass/volume] in g/dL Total ([facility] Serum by [facility]) Albumin/Globulin 1.5 A/G Ratio JOEY [Mass Ratio] in ([facility] or [facility]) eGFR If Africn Am 79 eGFR If JOEY mL/min/ Africn Am ([address]) eGFR If NonAfricn 68 eGFR If JOEY Am mL/min/ NonAfricn Am ([address]) ID Date Data Source [id number] 01/31/2019 09:24:02 AM EDT GREENWA Y ([facility] [id number] [facility]) Name Value Range Interpretation Description Data Source(s ) Supporting Code Document(s ) No Results No Results No Results JOEY ([facility] Recorded For [place] Specified [facility]) ID Date Data Source [id number] 01/30/2019 12:00:00 AM EDT JOEY ([facility]) Name Value Range Interpretation Description Data Source(s ) Supporting Code Document(s ) Creatinine 190.2 Creatinine, JOEY [Mass/volume] mg/dL Urine ([facility]vis in Urine [facility]) ID Date Data Source [id number] 01/30/2019 12:00:00 AM EDT JOEY ([facility]) Name Value Range Interpretation Description Data Source(s ) Supporting Code Document(s ) Cannabinoids Negative Synthetic JOEY synthetic ng/mL Cannabinoids, (Purvis [Presence] in Urine [facility]) specimen by Screen method Note: This test was developed and its pe rformance characteristicsdetermined by [facility]. ID Date Data Source [id number] 01/30/2019 12:00:00 AM EDT JOEY ([facility]) Name Value Range Interpretation Description Data Source(s ) Supporting Code Document(s ) Ethanol Negative Ethanol U, JOEY [Presence] mg/dL Qual (Fabio Barrow in Urine [facility] by [facility] method Note: This analysis is performed by [employer] assay. Positive findings areunconfirmed analytical test results; if results do n ot supportexpected clinical finding, confirmation by an alternate methodology isrecommended. Patient metabolic variables, specific drug chemistry, andspecimen ben racteristics can affect test outcome.Technical consultation is availkrystina roberts at , or panfilo velez [phone]. ID Date Data Source [id number] 01/30/2019 12:00:00 AM EDT JOEY ([facility]) Name Value Range Interpretation Description Data Source(s ) Supporting Code Document(s ) Amphetamines Negative Amphetamines, JOEY [Presence] in ng/mL Urine ([facility] Urine by [facility]) Note: Amphetamine test includes Amphetam ine and Methamphetamine. ID Date Data Source [id number] 01/30/2019 12:00:00 AM EDT JOEY ([facility]) Name Value Range Interpretation Description Data Source(s ) Supporting Code Document(s ) Prostate 1.5 Prostate JOEY (Mount specific Ag ng/mL Specific Ag, Danial [Mass/volum Serum Neighborhood e] in [facility]) or Plasma Note: [place] ECLIA methodology.According to the [place] [employer], Serum PSA shoulddecrease and remain [...] of malignant disease. ID Date Data Source [id number] 01/30/2019 12:00:00 AM EDT JOEY ([facility]) Name Value Range Interpretation Description Data Source(s ) Supporting Code Document(s ) Hemoglobin 6.3 % Above high normal Hemoglobin A1c GREEN AY (Mount A1c/Hemoglobi Danial n.total in [facility]) Note: Prediabetes: 5.7 - 6.4 Diabetes: >6.4 Glycemic control for adults with diabetes: <7.0 ID Date Data Source [id number] 01/30/2019 12:00:00 AM EDT JOEY ([facility]) Name Value Range Interpretation Description Data Source(s ) Supporting Code Document(s ) Opiates Negative Opiates JOEY (Mount [Presence] ng/mL Danial in Urine Neighborhood [facility]) method Note: Opiate test includes Codeine, Morp josh, Hydromorphone, Hydrocodone. ID Date Data Source [id number] 01/30/2019 12:00:00 AM EDT JOEY ([facility]) Name Value Range Interpretation Description Data Source(s ) Supporting Code Document(s ) Methadone Negative Methadone JOEY [Presence] ng/mL Screen, Urine ([facility]vis in Urine by [facility]) method ID Date Data Source [id number] 01/30/2019 12:00:00 AM EDT JOEY ([facility]) Name Value Range Interpretation Description Data Source(s ) Supporting Code Document(s ) Cannabinoids Negative Cannabinoid JOEY [Presence] in ng/mL ([facility] Urine by [facility]) ID Date Data Source [id number] 01/30/2019 12:00:00 AM EDT JOEY ([facility]) Name Value Range Interpretation Description Data Sup porting Code Source(s) Document(s ) Phencyclidine Negative Phencyclidine JOEY [Presence] in ng/mL ([facility]) ID Date Data Source [id number] 01/30/2019 12:00:00 AM EDT JOEY ([facility]) Name Value Range Interpretation Description Data Source(s ) Supporting Code Document(s ) Oxycodone Negative Oxycodone/Oxym JOEY (Mount +Oxymorph ng/mL orphone, Urine [facility]) ] in Urine by Screen method Note: Test includes Oxycodone and Oxymor phone ID Date Data Source [id number] 01/30/2019 12:00:00 AM EDT JOEY ([facility]) Name Value Range Interpretation Description Data Sup porting Code Source(s) Document(s ) Benzodiazepine Negative Benzodiazepines JOEY s [Presence] ng/mL (Purvis in [facility]) ID Date Data Source [id number] 01/30/2019 12:00:00 AM EDT JOEY ([facility]) Name Value Range Interpretation Description Data Source(s ) Supporting Code Document(s ) Barbiturates Negative Barbiturates JOEY [Presence] in ng/mL ([facility] Urine by [facility]) ID Date Data Source [id number] 01/30/2019 12:00:00 AM EDT JOEY ([facility]) Name Value Range Interpretation Description Data Source(s ) Supporting Code Document(s ) Drug See Note Drug Screen JOEY ([facility] Screen Comment: Danial Comment: [facility]) Note: This analysis is performed by immu noassay. Positive findings areunconfirmed analytical test results; if results do n ot supportexpected clinical finding, confirmation by an alternate methodology isrecommended. Patient metabolic variables, specific drug chemistry, andspecimen ben racteristics can affect test outcome.Technical consultation is archel roberts at [email or web address], or panfilo velez [phone]. Benzoylecgonine Positive ng/mL Abnormal Cocaine JOEY (Mount [Presence] in Urine (applies to (Metab.) Danial non-numeric [facility] results) [facility]) ID Date Data Source [id number] 01/30/2019 12:00:00 AM EDT JOEY ([facility]) Name Value Range Interpretation Description Data Source(s ) Supporting Code Document(s ) Cholesterol 185 Cholesterol, JOEY [Mass/volume] mg/dL Total ([facility] in Serum or [facility] Plasma [facility]) Cholesterol in 43 HDL Cholesterol JOEY HDL mg/dL (Purvis [Mass/volume] [facility] in Serum or [facility]) Plasma Triglyceride 159 Above high Triglycerides JOEY [Mass/volume] mg/dL normal ([facility] in Serum or [facility] Plasma [facility]) Cholesterol in 32 VLDL JOEY VLDL mg/dL Cholesterol Cheryl (Purvis [Mass/volume] [facility] in Serum or [facility]) Plasma by calculation Laboratory N/A Comment: JOEY comment [Text] ([facility] in Report [facility]) Cholesterol in 2.6 LDL/HDL Ratio JOEY LDL/Cholestero ratio (Purvis l in HDL [Mass Neighborhood Ratio] in [facility]) Serum or Plasma Note: LDL/HDL Ratio Men Women 1/2 Avg.Risk 1.0 1.5 Avg.Risk 3.6 3.2 2X Avg.Risk 6.2 5.0 3X Avg.Risk 8.0 6.1 Cholesterol in LDL 110 mg/dL Above high LDL Cholesterol GREE NWAY (Mount [Mass/volume] in normal Calc Danial Neighb orhood Serum or Plasma by Health Cent er) calculation ID Date Data Source [id number] 01/30/2019 12:00:00 AM EDT JOEY ([facility]) Name Value Range Interpretation Description Data Sup porting Code Source(s) Document(s ) Calcium 9.9 Calcium JOEY [Mass/volume] in mg/dL (Purvis Serum or Plasma [facility]) Urea nitrogen 16 BUN JOEY [Mass/volume] in mg/dL ([facility] or [facility]) Glucose 117 Above high Glucose JOEY [Mass/volume] in mg/dL normal ([facility]) Protein 7.3 Protein, JOEY [Mass/volume] in g/dL Total ([facility]) Bilirubin.total 0.4 Bilirubin, JOEY [Mass/volume] in mg/dL Total ([facility]) Albumin 4.2 Albumin JOEY [Mass/volume] in g/dL ([facility]) Alkaline 70 IU/L Alkaline JOEY phosphatase Phosphatase (Purvis [Enzymatic [facility] activity/volume] [facility] in Serum or [facility]) Aspartate 27 IU/L AST (SGOT) JOEY aminotransferase (Purvis [Enzymatic [facility] activity/volume] [facility] in [email or web address] or [facility]) Chloride 106 Chloride JOEY [Moles/volume] in mmol/L ([facility]) Sodium 142 Sodium JOEY [Moles/volume] in mmol/L ([facility]) Potassium 4.2 Potassium JOEY [Moles/volume] in mmol/L ([facility]) Alanine 47 IU/L Above high ALT (SGPT) JOEY aminotransferase normal ([facility]vis [Enzymatic [facility] activity/volume] [facility] in [email or web address]] or [facility]) Creatinine 1.25 Creatinine JOEY [Mass/volume] in mg/dL ([facility]) Carbon dioxide, 22 Carbon JOEY total mmol/L Dioxide, (Purvis [Moles/volume] in Total [facility]) Urea 13 BUN/Creatinin JOEY nitrogen/Creatinin e Ratio ([facility] on e [Mass Ratio] in [facility]) Globulin 3.1 Globulin, JOEY [Mass/volume] in g/dL Total ([facility] by [facility]) Albumin/Globulin 1.4 A/G Ratio JOEY [Mass Ratio] in ([facility]) ID Date Data Source [id number] 01/30/2019 12:00:00 AM EDT JOEY ([facility]) Name Value Range Interpretation Description Data Source(s ) Supporting Code Document(s ) Leukocytes 6.1 WBC JOEY [#/volume] in x10E3/u ([facility] Blood by [facility] Automated count [facility] [place]) Hemoglobin 13.5 Hemoglobin JOEY [Mass/volume] g/dL ([facility] in Blood [facility]) Erythrocytes 5.21 RBC OJEY [#/volume] in x10E6/u ([facility] Blood by [facility] Automated count [facility] [place]) Erythrocyte 81 fL MCV JOEY mean (Purvis corpuscular [facility] [place] volume] by Automated count Erythrocyte 25.9 pg Below low normal MCH JOEY mean (Purvis corpuscular [facility] hemoglobin [facility]) [Entitic mass] by Automated count Hematocrit 42.1 % Hematocrit JOEY [Volume (Purvis Fraction] of [facility] Blood [facility]) Automated count Erythrocyte 32.1 MCHC JOEY mean g/dL (Purvis corpuscular [facility] hemoglobin [facility]) concentration [Mass/volume] by Automated count Neutrophils/100 67 % Neutrophils JOEY leukocytes in (Pur[facility] Blood by [facility]) Monocytes/100 10 % Monocytes JOEY leukocytes in ([facility] Blood by [facility]) Immature 0 % Immature JOEY granulocytes/10 [facility] Blood [facility]) Lymphocytes/100 22 % Lymphs JOEY leukocytes in ([facility] Blood by [facility]) Eosinophils/100 1 % Eos JOEY leukocytes in ([facility] Blood by [facility]) Basophils/100 0 % Basos JOEY leukocytes in ([facility] Blood by [facility]) Neutrophils 4.0 Neutrophils JOEY [#/volume] in x10E3/u (Absolute) (Pur[facility] Blood by [facility] Automated count [facility]) Morphology N/A Hematology JOEY [Interpretation Comments: (Purvis ] in Blood [facility]) Platelets 193 Platelets JOEY [#/volume] in x10E3/u (Pur[facility] Blood by [facility] Automated count [facility] [place]) Immature 0.0 Immature Grans JOEY granulocytes x10E3/u (Abs) (Purvis [#/volume] in [facility] Blood [facility]) Lymphocytes 1.3 Lymphs JOEY [#/volume] in x10E3/u (Absolute) (Purvis Blood by [facility] count [facility] [place]) Monocytes 0.6 Monocytes(Abso JOEY [#/volume] in x10E3/u lute) (Purvis Blood by [facility] Automated [facility]) Eosinophils 0.1 Eos (Absolute) JOEY [#/volume] in x10E3/u (Purvis Blood by [facility]) Basophils 0.0 Baso JOEY [#/volume] in x10E3/u (Absolute) (Purvis Blood by [facility] Automated count [facility]) Nucleated N/A NRBC JOEY erythrocytes/10 (Purvis 0 leukocytes Neighborhood [Ratio] in [facility] [place]) Blood by Automated count Erythrocyte 16.1 % Above high RDW JOEY distribution normal (Purvis width [Ratio] Neighborhood by [facility]) count Immature cells N/A Immature Cells JOEY [#/volume] in ([facility]) ID Date Data Source [id number] 07/06/2018 01:49:12 PM EST GREENWA Y (Purvis [id number] [facility]) Name Value Range Interpretation Description Data Source(s ) Supporting Code Document(s ) No Results No Results No Results JOEY ([facility] Recorded For [facility]) ID Date Data Source [id number] 05/25/2018 04:40:16 PM EST GREENWA Y (Purvis [id number] [facility]) Name Value Range Interpretation Description Data Source(s ) Supporting Code Document(s ) No Results No Results No Results JOEY ([facility] Recorded For [facility]) ID Date Data Source Urinalysis.[id number] 05/11/2018 08:02:00 AM EST Jeffrey [facility] 0 Name Value Range Interpretation Description Data Sup porting Code Source(s) Document(s ) Glucose NEGATIVE <content Saint [Mass/volume] styleCode="Elvira Regulo in Urine by d">Urine Medical Test strip Glucose Center </content>NEGA TIVE MG/DL<content styleCode="Fiona lics"> (NEGATIVE MG/DL)</conten t> Color of Urine YELLOW <content Saint styleCode="Elvira Regulo d">Color, Medical Urine Center </content>YELL OW <content styleCode="Fiona lics"> (YELLOW )</content> UNK CLEAR <content Saint styleCode="Elvira Regulo d">Urine Medical Clarity Center </content>LAVINIA R <content styleCode="Fioan lics"> (CLEAR )</content> Specific 1.015-1.02 <content Saint gravity of 5 styleCode="Elvira Rajput Urine by Test d">Urine Medical strip Specific Center [place] </content>1.02 0 NM<content styleCode="Fioan lics"> (1.015-1.025 NM)</content> Ketones NEGATIVE <content Saint [...] Hemoglobin NEGATIVE <content Saint [Presence] in styleCode="Elvira [place]ocks Urine by Test d">Urine Blood Medical strip </content>NEGA Center TIVE <content styleCode="Fiona lics"> (NEGATIVE )</content> Protein NEGATIVE <content Saint [Mass/volume] styleCode="Elvira Locks in Urine by d">Urine Medical Test strip Protein Center </content>NEGA TIVE MG/DL<content styleCode="Fiona lics"> (NEGATIVE MG/DL)</conten t> Urobilinogen 0.2-1.0 <content Saint [Units/volume] styleCode="Elvira Regulo in Urine by d">Urine Medical Test strip Urobilinogen Center </content>0.2 MG/DL<content styleCode="Fiona lics"> (0.2-1.0 MG/DL)</conten t> Nitrite NEGATIVE <content [Presence] in styleCode="Elvira Rajput Urine by Test d">Urine Medical strip Nitrite Center </content>NEGA TIVE <content styleCode="Fiona lics"> (NEGATIVE )</content> Leukocyte NEGATIVE <content Saint esterase styleCode="Elvira Rajput [Presence] in d">Urine Medical Urine by Test Leukocyte Center strip </content>NEGA TIVE <content styleCode="Fiona lics"> (NEGATIVE )</content> ID Date Data Source Liver 05/11/2018 08:02:00 AM EST [facility] [id number] Name Value Range Interpretation Description Data Sup [...] s"> (3.5-5.0 G/DL)</content> ID Date Data Source [id number] 05/11/2018 08:02:00 AM EST [facility] Center Name Value Range Interpretation Description Data Sup porting Code Source(s) Document(s ) Cholesterol -<200 <content Saint [Mass/volume] in styleCode="Elvira [facility] Serum or Plasma d">Cholesterol Medical </content>177 Center MG/DL<content styleCode="Fiona lics"> (-<200 MG/DL)</conten t> Triglyceride < 150 <content Saint [Mass/volume] in styleCode="Elvira Regulo Serum or Plasma d">Triglycerid [facility] </content>132 MG/DL<content styleCode="Fiona lics"> (< 150 MG/DL)</conten t> UNK > 60 Below low normal <content Saint styleCode="Elvira Regulo d">HDL- Medical Cholesterol Center </content>52 MG/DL L<content styleCode="Fiona lics"> (> 60 MG/DL)</conten t> UNK < 100 <content Saint styleCode="Elvira Regulo d">LDL-Cholest [facility] vickey [place] </content>99 MG/DL<content styleCode="Fiona lics"> (< 100 MG/DL)</conten t> ID Date Data Source [id number] 05/11/2018 08:02:00 AM EST Naz ayers [facility] Center Name Value Range [...] (0.465-4.68 MIU/L)</conten t> ID Date Data Source HematologyRou.[id number] 05/11/2018 08:02:00 AM MANOJ Murphy [facility] 0500 Name Value Range Interpretation Description [...] (0.0 KCUMM)</content > ID Date Data Source GFR(Creatinine).[id number] 05/11/2018 08:02:00 AM MANOJ [facility] 0-0500 Name Value Range Interpretation Code Description Data Tammy rce(s) Supporting Document(s ) UNK > 60 <content [facility] styleCode="Bold"> Medical Cent er EGFR </content>81 GFR<content styleCode="Italic s"> (> 60 GFR)</content> ID Date Data Source CHMROUTINECCDA.[id number] 05/11/2018 08:02:00 AM [facility] -0500 Name Value Range Interpretation Description Data Sup porting Code Source(s) Document(s ) UNK 2.3-3.5 <content [facility] styleCode="Bold Medical ">Globulin Center </content>3.2 G/DL<content styleCode="Ital ics"> (2.3-3.5 G/DL)</content> UNK >= 1.0 <content Saint Regulo styleCode="Bold Medical ">AG Ratio Center </content>1.4 NM<content styleCode="Ital ics"> (>= 1.0 NM)</content> UNK 4.2-5.8 Above high normal <content [place] s styleCode="Bold Medical ">Hemoglobin Center A1C </content>6.4 % H<content styleCode="Ital ics"> (4.2-5.8 %)</content> Protein 6.3-8.2 <content Saint Regulo [Mass/volum styleCode="Bold Medical e] in Serum ">Total Protein Center or Plasma </content>7.8 G/DL<content styleCode="Ital ics"> (6.3-8.2 G/DL)</content> ID Date Data Source [facility].[id number] 05/11/2018 08:02:00 AM [facility] Center Name Value Range Interpretation Description [...] Data Source Urinalysis 05/11/2018 08:02:00 AM EST [facility] Name Value Range Interpretation Description Data Sup porting Code Source(s) Document(s ) UNK CLEAR <content Saint styleCode="Elvira Regulo d">Urine Medical Clarity Center </content>LAVINIA R <content styleCode="Fiona lics"> (CLEAR )</content> Color of Urine YELLOW <content Saint styleCode="Elvira Regulo d">Color, Medical Urine Center </content>YELL OW <content styleCode="Fiona lics"> (YELLOW )</content> Ketones NEGATIVE <content Saint [Mass/volume] styleCode="Elvira Regulo in [...] by Test d">Urine Medical strip Specific Center [place] </content>1.02 0 NM<content styleCode="Fiona lics"> (1.015-1.025 NM)</content> pH of Urine by 4.5-8.0 <content Saint Test strip styleCode="Elvira Regulo d">Urine pH Medical </content>6.0 Center NM<content styleCode="Fiona lics"> (4.5-8.0 NM)</content> Protein NEGATIVE <content Saint [Mass/volume] styleCode="Levira Regulo in Urine by d">Urine Medical Test strip Protein Center </content>NEGA TIVE MG/DL<content styleCode="Fiona lics"> (NEGATIVE MG/DL)</conten t> Hemoglobin NEGATIVE <content [...] Source Liver Profile 05/11/2018 08:02:00 AM EST [facility] Name Value Range Interpretation Description Data Sup [...] Data Source LIPID 05/11/2018 08:02:00 AM EST [facility] Name Value Range Interpretation Description Data Sup porting Code Source(s) Document(s ) Triglyceride < 150 <content Saint [Mass/volume] in styleCode="Elvira [facility] Serum or Plasma d">Triglycerid Medical es Center [...] < 100 <content Saint styleCode="Elvira Regulo d">LDL-Cholest [facility] vickey Center </content>99 MG/DL<content styleCode="Fiona lics"> (< 100 MG/DL)</conten t> ID Date Data Source Hormones 05/11/2018 08:02:00 AM [facility] Name Value Range Interpretation Description Data Sup [...] Date Data Source HematologyRou 05/11/2018 08:02:00 AM [facility] Name Value Range Interpretation Description Data Sup [...] Date Data Source GFR(Creatinine) 05/11/2018 08:02:00 AM [facility] Name Value Range Interpretation Code Description Data Tammy rce(s) Supporting Document(s ) UNK > 60 <content [facility] styleCode="Bold"> Medical Cent er EGFR </content>81 GFR<content styleCode="Italic s"> (> 60 GFR)</content> ID Date Data Source CHMROUTINECCDA 05/11/2018 08:02:00 AM [facility] Name Value Range Interpretation Description Data Sup porting Code Source(s) Document(s ) UNK 4.2-5.8 Above high normal <content [facility] styleCode="Bold Medical ">Hemoglobin Center A1C </content>6.4 % H<content styleCode="Ital ics"> (4.2-5.8 %)</content> UNK >= 1.0 <content [facility] styleCode="Bold Medical ">AG Ratio Center </content>1.4 NM<content styleCode="Ital ics"> (>= 1.0 NM)</content> UNK 2.3-3.5 <content [facility] styleCode="Bold Medical ">Globulin Center </content>3.2 G/DL<content styleCode="Ital ics"> (2.3-3.5 G/DL)</content> Protein 6.3-8.2 <content [facility] [Mass/volum styleCode="Bold Medical e] in Serum ">Total Protein Center or Plasma </content>7.8 G/DL<content styleCode="Ital ics"> (6.3-8.2 G/DL)</content> ID Date Data Source BMP 05/11/2018 08:02:00 AM [facility] Name Value Range Interpretation Description Data Sup [...] s"> (7-50 IU/L)</content> ID Date Data Source [id number] 05/05/2018 03:47:50 PM EST GHAZAL Solitario (Fabio Barrow [id number] [facility]) Name Value Range Interpretation Description Data Source(s ) Supporting Code Document(s ) No Results No Results No Results JOEY ([facility] Recorded For Danial Specified [facility]) Procedure Social History Code Duration Value Status Description Data Source(s ) Smoking 04/26/2019 Smokes tobacco completed Smokes tobacco GREENW AY ([facility] 10:59:24 AM daily (finding) daily (finding) [facility] non [facility]) Smoking 04/19/2019 Smokes tobacco completed Smokes tobacco GREENW AY ([facility] 01:26:06 PM daily (finding) daily (finding) [facility] non [facility]) Smoking 08/05/2011 Smokes tobacco completed Smokes tobacco GREENW AY ([facility] 11:45:27 AM daily (finding) daily (finding) [facility] non EDT [facility]) Smoking Unknown if ever completed Unknown if ever Naz Rajput smoked smoked Medical Center Assertion Smoker (finding) completed Smoker (finding) GR EENWAY ([facility]) Assertion Dietary finding completed Dietary finding GREE NWAY ([facility] (finding) ([facility]) [facility]) Assertion Oral hygiene completed Oral hygiene JOEY ( [facility] finding (finding) finding [place] ([facility]) [facility]) Assertion Finding of life completed Finding of life GREE NWAY ([facility] event (finding) event (finding) [facility]) Assertion Finding of completed Finding of JOEY (Moun t functional functional [place] performance and performance and Neig hborhood activity (prime healthcare services) [facility]) (finding) Assertion Eats junk food ++ completed Eats junk food GRE ENWAY ([facility] (finding) ++ ([facility]) [facility]) Assertion sexual history completed JOEY ( [facility]) Assertion High sodium diet completed High sodium diet GR EENWAY ([facility] ([facility]) (prime healthcare services) [facility]) Assertion current diet completed JOEY ([facility] frequency of meals Latimer ___ snacks per day [facility]) Assertion Tobacco user completed Tobacco user JOEY ( [facility] ([facility] healthcare [facility]) (prime healthcare services) [facility]) Assertion social history completed JOEY ( [facility]) Assertion Irregular meal completed Irregular meal GREENAaron AY ([facility] frequency frequency Danial ([facility]) ([facility] healthcare services) [facility]) Assertion Dietary intake completed Dietary intake GREENAaron AY ([facility] finding (finding) finding [place]imer ([facility]) [facility]) Assertion Inadequate food completed Inadequate food GREE NWAY ([facility] diet (finding) diet (finding) [facility]) Assertion Physical handicap completed Physical GREENWA Y ([facility] ([facility]) handicap [place] ([facility]) [facility]) Assertion Excessive dietary completed Excessive GREENWA Y ([facility] intake of fat dietary intake Danial (finding) of fat (prime healthcare services) [facility]) Assertion meals taken at completed JOEY ( [facility] home (___ Danial times/week) [facility] ) Assertion frequent high completed JOEY (M ount carbohydrate meals [facility]) Assertion Exercises completed Exercises JOEY (Moun t regularly regularly Danial ([facility]) ([facility] healthcare services) [facility]) Assertion dietary excesses completed JOEY ([facility] juices [facility]) Assertion Eats snacks completed Eats snacks JOEY (Mo unt frequently frequently Danial ([facility]) ([facility] healthcare services) [facility]) Assertion dietary excesses completed JOEY ([facility]) Assertion Nutritional completed 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 [facility] (disorder) (disorder) [facility]) Assertion Excessive dietary completed Excessive GREENWA Y ([facility] caloric intake dietary caloric Verno n (finding) intake ([facility]) [facility]) Assertion Excessive dietary completed Excessive GREENWA Y ([facility] intake of fat dietary intake Danial ([facility]) of fat (prime healthcare services) [facility]) Assertion High fat diet completed High fat diet JOEY ([facility] (finding) ([facility]) [facility]) Assertion High fat diet completed High fat diet JOEY ([facility] ([facility] healthcare services) (prime healthcare services) [facility]) Assertion High fat diet completed High fat diet JOEY ([facility] (prime healthcare services) (prime healthcare services) [facility]) Assertion Caffeine user completed Caffeine user JOEY ([facility] ([facility] healthcare services) (prime healthcare services) [facility]) Assertion High sugar diet completed High sugar diet GREE NWAY ([facility] (prime healthcare services) (prime healthcare services) [facility]) Assertion High sugar diet completed High sugar diet GREE NWAY ([facility] (prime healthcare services) (prime healthcare services) [facility]) Assertion High sugar diet completed High sugar diet GREE NWAY ([facility] (prime healthcare services) (prime healthcare services) [facility]) Assertion High residue diet completed High residue GREEN WAY ([facility] ([facility] healthcare services) diet ([facility] healthcare [facility]) [facility]) Assertion current diet completed JOEY ([place] unt frequency of meals Danial ___ per day [facility]) Assertion Exercise history completed Exercise history GR E[place]WAY ([place] (finding) finding [place] ([facility]) [facility]) Assertion Finding of completed Finding of JOEY (Moun t activity of daily activity of Danial living (finding) daily living [facility] (prime healthcare services) [facility]) Assertion Finding relating completed Finding relating GR EENWAY ([facility] to drug misuse to drug misuse Danial behavior (finding) behavior [facility] ([facility] healthcare [facility]) [facility]) Assertion Current drinker of completed Current drinker G CHANNWAY ([facility] alcohol (finding) of alcohol [place] ([facility]) [facility]) Smoking Current every day completed Current every [place] smoker day smoker [facility] Assertion Finding relating completed Finding relating GR EENWAY ([facility] to drug misuse to drug misuse Danial behavior (finding) behavior [facility] ([facility]) [facility]) Assertion Current drinker of completed Current drinker G CHANNWAY ([facility] alcohol (finding) of alcohol [place] ([facility]) [facility]) Assertion Exercise history completed Exercise history GR EENWAY ([facility] finding (finding) finding [place] ([facility] healthcare [facility]) [facility]) Assertion Finding relating completed Finding relating GR EENWAY ([facility] to drug misuse to drug misuse Danial behavior (finding) behavior [facility] ([facility] healthcare services) [facility]) Assertion Current drinker of completed Current drinker G CHANNWAY ([facility] alcohol (finding) of alcohol [place] ([facility]) [facility]) Assertion Finding of completed Finding of JOEY (Moun t activity of daily activity of Danial living (finding) daily living [facility] ([facility] healthcare services) [facility]) Assertion meals taken at completed JOEY ( [facility] (___ Danial times/week) [facility] ) Assertion frequent high completed JOEY (M ount carbohydrate meals [facility]) Assertion Exercises completed Exercises JOEY (Moun t regularly regularly Danial (finding) ([facility]) [facility]) Assertion Eats snacks completed Eats snacks JOEY (Mo unt frequently frequently Danial (finding) ([facility]) [facility]) Assertion dietary excesses completed JOEY ([facility]) Assertion Nutritional completed 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 [facility] (disorder) (disorder) [facility]) Assertion Excessive dietary completed Excessive GREEN Y ([facility] caloric intake dietary caloric Verno n ([facility] healthcare services) intake (prime healthcare services) [facility]) Assertion Excessive dietary completed Excessive GREEN Y ([facility] intake of fat dietary intake Danial (finding) of fat ([facility] healthcare services) [facility]) Assertion High fat diet completed High fat diet JOEY ([facility] (finding) (finding) [facility]) Assertion High fat diet completed High fat diet JOEY ([facility] (finding) (finding) [facility]) Assertion High fat diet completed High fat diet JOEY ([facility] (finding) ([facility]) [facility]) Assertion Caffeine user completed Caffeine user JOEY ([facility] (finding) ([facility] healthcare [facility]) [facility]) Assertion High sugar diet completed High sugar diet GREE NWAY ([facility] (prime healthcare services) (prime healthcare services) [facility]) Assertion High sugar diet completed High sugar diet GREE NWAY ([facility] (prime healthcare services) (prime healthcare services) [facility]) Assertion High sugar diet completed High sugar diet GREE NWAY ([facility] (prime healthcare services) (prime healthcare services) [facility]) Assertion High residue diet completed High residue GREEN WAY ([facility] ([facility] healthcare services) diet (prime healthcare services) [facility]) Assertion current diet completed JOEY ([place] frequency of meals [place] ___ per day [facility]) Assertion Finding of completed Finding of JOEY (Moun t activity of daily activity of Danial living ([facility]) daily living [facility] ([facility]) Assertion Finding relating completed Finding relating GR EENWAY ([facility] to drug misuse to drug misuse Danial behavior (finding) behavior [facility] ([facility]) [facility]) Assertion Finding of completed Finding of JOEY (Moun t activity of daily activity of Danial living ([facility]) daily living [facility] ([facility]) [facility]) Assertion Current drinker of completed Current drinker G KELECHI ([facility] alcohol (finding) of alcohol [place] ([facility]) [facility]) Assertion Tobacco user completed Tobacco user JOEY ( [facility] (finding) ([facility]) [facility]) Assertion Tobacco user completed Tobacco user JOEY ( [facility] (finding) (finding) [facility]) Assertion social history completed JOEY ( [facility] unchanged [facility]) Assertion Dietary intake completed Dietary intake GREENW AY ([facility] finding (finding) finding [place] ([facility]) [facility]) Assertion Inadequate food completed Inadequate food GREE NWAY ([facility] diet (finding) diet ([facility]) [facility]) Assertion Finding of completed Finding of JOEY (Moun t activity of daily activity of [place] living (finding) daily living [facility]ighb [facility] ([facility] services) [facility]) Assertion social history completed JOEY ( [facility] unchanged [facility]) Assertion Irregular meal completed Irregular meal GREENW AY ([facility] frequency frequency Danial (prime healthcare services) (prime healthcare services) [facility]) Assertion Dietary intake completed Dietary intake GREENW AY ([facility] finding (finding) finding [place]imer ([facility] healthcare [facility]) [facility]) Assertion Inadequate food completed Inadequate food GREE NWAY ([facility] [facility] ([facility]) diet ([facility]) [facility]) Assertion Physical handicap completed Physical GREENWA Y ([facility] ([facility]) handicap Latimer ([facility]) Assertion Excessive dietary completed Excessive GREENWA Y ([facility] intake of fat dietary intake Latimer ([facility]) of fat ([facility]) [facility]) Assertion dietary excesses completed JOEY ([facility]) Assertion Physical handicap completed Physical GREENWA Y ([facility] ([facility]) handicap Lat[place] ([facility]) Assertion Irregular meal completed Irregular meal GREENW AY ([facility] frequency frequency Latimer ([facility]) ([facility]) Assertion meals taken at completed JOEY ( [facility] home (___ Latimer times/week) [facility] ) Assertion frequent high completed JOEY (M ount carbohydrate meals [facility]) Assertion Exercises completed Exercises JOEY (Moun t regularly regularly Danial ([facility]) ([facility] healthcare [facility]) [facility]) Assertion dietary excesses completed JOEY ([facility] juices [facility]) Assertion Eats snacks completed Eats snacks JOEY (Mo unt frequently frequently Danial ([facility]) ([facility]) [facility]) Assertion dietary excesses completed JOEY ([facility]) Assertion Nutritional completed 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) [facility]) Assertion Excessive dietary completed Excessive GREENWA Y ([facility] caloric intake dietary caloric Verno n (finding) intake ([facility]) [facility]) Assertion Excessive dietary completed Excessive GREENWA Y ([facility] intake of fat dietary intake Danial (finding) of fat (finding) [facility]) Assertion High fat diet completed High fat diet JOEY ([facility] ([facility]) ([facility]) [facility]) Assertion High fat diet completed High fat diet JOEY ([facility] ([facility]) ([facility]) [facility]) Assertion Caffeine user completed Caffeine user JOEY ([facility] ([facility]) ([facility]) [facility]) Assertion Current drinker of completed Current drinker Tevin LORENZ ([facility] alcohol (finding) of alcohol [place]imer ([facility]) [facility]) Assertion High sugar diet completed High sugar diet GREE NWAY ([facility] ([facility]) ([facility]) [facility]) Assertion High sugar diet completed High sugar diet GREE NWAY ([facility] ([facility]) ([facility]) [facility]) Assertion High sugar diet completed High sugar diet GREE NWAY ([facility] ([facility]) ([facility]) [facility]) Assertion High sodium diet completed High sodium diet GR EENWAY ([facility] ([facility]) ([facility]) [facility]) Assertion High residue diet completed High residue GREEN WAY ([facility] ([facility]) diet ([facility]) [facility]) Assertion Excessive dietary completed Excessive GREENWA Y ([facility] intake of fat dietary intake Latimer ([facility]) of fat ([facility]) [facility]) Assertion current diet completed JOEY (Mo unt frequency of meals Danial ___ snacks per day [facility]) Assertion current diet completed JOEY (Mo unt frequency of meals Danial ___ per day [facility]) Assertion sexual history completed JOEY ( [facility]) Assertion Tobacco user completed Tobacco user JOEY ( [facility] ([facility]) ([facility]) [facility]) Assertion Current drinker of completed Current drinker Tevin LORENZ ([facility] alcohol (finding) of alcohol [place]imer ([facility]) [facility]) Assertion social history completed JOEY ( [facility]) Assertion Finding of completed Finding of JOEY (Moun t activity of daily activity of [facility] (finding) daily living [facility]) Assertion Physical handicap completed Physical GREENWA Y ([facility] (finding) handicap Latimer ([facility]) [facility]) Vital Signs ID Date Data Source UNK Name Value Range Interpretation Code Description Data Source(s) Heart rate 69 /min 69 /min [facility] Diastolic blood 94 mm[Hg] 94 mm[Hg] [facility] pressure [facility] Systolic blood 157 mm[Hg] 157 mm[Hg] [facility] Body temperature 36.614363 [id number] [facility] Respiratory rate 18 /min 18 /min [facility] Oxygen 97 % 97 % [facility] saturation in Medical Sharmin ter Arterial blood by Pulse oximetry Heart rate 71 /min 71 /min [facility] Diastolic blood 96 mm[Hg] 96 mm[Hg] [facility] pressure [facility] Systolic blood 175 mm[Hg] 175 mm[Hg] [facility] Body surface 2.2 m2 2.2 m2 [facility] area Derived System from formula Body mass index 29.8 kg/m2 29.8 kg/m2 [facility] App[employer] (BMI) [Ratio] System Body weight 99.79 kg 99.79 kg [facility] Body height 182.88 cm 182.88 cm [facility] Body temperature 98 [degF] 0 - 200 Normal (applies to 98 [degF] [facility] [employer] non-numeric System results) Body temperature 36.6 Staci 0 - 99.9 Normal (applies to 36.6 Staci [facility] [employer] non-numeric System results) Diastolic blood 86 mm[Hg] 0 - 999 Above high normal 86 mm[Hg] [facility] [employer] pressure System Systolic blood 134 mm[Hg] 0 - 999 Normal (applies to 134 mm[Hg] [facility] [employer] pressure non-numeric System results) Oxygen 99 % 0 - 999 Normal (applies to 99 % [facility] [employer] saturation in non-numeric System Arterial blood results) by Pulse oximetry Respiratory rate 18 0 - 999 Above high normal 18 M [facility] Heart rate 86 0 - 999 Normal (applies to 86 [facility] non-numeric System results) Body surface 2.2 m2 2.2 m2 [facility] area Derived System from formula Body mass index 29.8 kg/m2 29.8 kg/m2 [facility] App[employer] (BMI) [Ratio] System Body weight 99.79 kg 99.79 kg [facility] System Body height 182.88 cm 182.88 cm [facility] alth System Body temperature 98.8 0 - 200 Normal (applies to 98.8 [degF] [facility] [degF] non-numeric System results) Body temperature 37.1 Staci 0 - 99.9 Normal (applies to 37.1 Staci [facility] [employer] non-numeric System results) Diastolic blood 90 mm[Hg] 0 - 999 Above high normal 90 mm[Hg] [facility] Systolic blood 162 mm[Hg] 0 - 999 Above high normal 162 mm[Hg] [facility] [employer] pressure System Oxygen 98 % 0 - 999 Normal (applies to 98 % [facility] [employer] saturation in non-numeric System Arterial blood results) by Pulse oximetry Respiratory rate 17 0 - 999 Normal (applies to 17 [facility] System results) Heart rate 88 0 - 999 Normal (applies to 88 [facility] [employer] non-numeric System results) Body surface 2.2 m2 2.2 m2 [facility] area Derived System from formula Body mass index 29.8 kg/m2 29.8 kg/m2 [facility] [employer] (BMI) [Ratio] System Body weight 99.79 kg 99.79 kg [facility] alth System Body height 182.88 cm 182.88 cm [facility] alth System Body temperature 97.7 0 - 200 Normal (applies to 97.7 [degF] [facility] [employer] [degF] non-numeric System results) Body temperature 36.5 Staci 0 - 99.9 Normal (applies to 36.5 Staci [facility] [employer] non-numeric System results) Diastolic blood 66 mm[Hg] 0 - 999 Below low normal 66 mm[Hg] [facility] Systolic blood 117 mm[Hg] 0 - 999 Normal (applies to 117 mm[Hg] [facility] pressure non-numeric System results) Oxygen 94 % 0 - 999 Normal (applies to 94 % [facility] [employer] saturation in non-numeric System Arterial blood results) by Pulse oximetry Respiratory rate 17 0 - 999 Normal (applies to 17 [facility] non-numeric System results) Heart rate 100 0 - 999 Above high normal 100 [facility] [employer] System PhenX - pain, 0 0 JOEY (M ount abdominal - type Danial and intensity [facility]) Pt presents today for follow up Body surface area Derived from 2.21 m2 2.21 m2 JOEY ([facility]) Pt presents today for follow up Body mass index (BMI) 29.6 kg/m2 29.6 kg/m2 KATHRINE CHATTERJEE ([facility] [Ratio] [facility] Pt presents today for follow up Body weight 218 [lb_av] 218 [lb_av] JOEY (M ount [facility]) Pt presents today for follow up Body height 72 [in_us] 72 [in_us] JOEY ([facility]) Pt presents today for follow up Body temperature 98.5 [degF] 98.5 [degF] SHOSHONEAaron AY ([facility]) Pt presents today for follow up Heart rate 83 /min 83 /min JOEY (N[facility] t [facility]) Pt presents today for follow up Diastolic blood pressure 81 mm[Hg] 81 mm[Hg] JOEY ([facility]) Pt presents today for follow up Systolic blood pressure 134 mm[Hg] 134 mm[Hg] G REENWAY ([facility]) Pt presents today for follow up Diastolic blood 65 {} Normal (applies to 65 {} [facility] pressure non-numeric results) [facility] Systolic blood 147 {} Normal (applies to 147 {} [facility] pressure non-numeric results) [facility] First Respiration 16.0000 {} Normal (applies to 16.0000 {} [facility] rate Set non-numeric results) [facility] Heart rate 65.0000 {} Normal (applies to 65.0000 {} [facility] non-numeric results) [facility] Body temperature 97.6000 {} Normal (applies to 97.6000 {} [facility] non-numeric results) [facility] wt - obtain Normal (applies to {} [facility] non-numeric results) [facility] weight - kg 100.0000 {} Normal (applies to 100.0000 {} [facility] Oxygen saturation in 98 % 98 % SHAYY PIÑA ([facility] Arterial blood by [facility] Pulse oximetry Health Shar[facility]) Pt state He's here for Hep B Vaccine. PhenX - pain, abdominal - type and 0 0 JOEY ([facility]) Pt state He's here for Hep B Vaccine. Body surface area Derived from 2.25 m2 2.25 m2 [place]O ([facility]) Pt state He's here for Hep B Vaccine. Body mass index (BMI) 31.0 kg/m2 31.0 kg/m2 [facility] ([facility] [[facility]] [facility]) Pt state He's here for Hep B Vaccine. Body weight 228.375 [lb_av] 228.375 [lb_av] [facility] ([facility]) Pt state He's here for Hep B Vaccine. Body height 72 [in_us] 72 [in_us] [place] ([facility]) Pt state He's here for Hep B Vaccine. Body temperature 97.1 [degF] 97.1 [degF] GREENW AY ([facility]) Pt state He's here for Hep B Vaccine. Heart rate rhythm 1 1 GREENWA Y ([facility]) Pt state He's here for Hep B Vaccine. Heart rate 69 /min 69 /min [place] ([facility]) Pt state He's here for Hep B Vaccine. Diastolic blood pressure 75 mm[Hg] 75 mm[Hg] [place] ([facility]) Pt state He's here for Hep B Vaccine. Systolic blood pressure 130 mm[Hg] 130 mm[Hg] [facility] ([facility]) Pt state He's here for Hep B Vaccine. Body weight 237 [lb_av] 237 [lb_av] [place] [facility] pt needs refills for some medicine Body height 72 [in_us] 72 [in_us] [place] ([facility]) pt needs refills for some medicine Body temperature 97.3 [degF] 97.3 [degF] GREENW AY ([facility]) pt needs refills for some medicine Respiratory rate 18 /min 18 /min [place] ([facility]) pt needs refills for some medicine Heart rate 73 /min 73 /min [place] ([facility]) pt needs refills for some medicine Diastolic blood pressure 78 mm[Hg] 78 mm[Hg] JOEY ([facility]) pt needs refills for some medicine Systolic blood pressure 131 mm[Hg] 131 mm[Hg] [facility]) pt needs refills for some medicine PhenX - pain, abdominal - type and 0 0 JOEY ([facility]) pt needs refills for some medicine Body surface area Derived from 2.29 m2 2.29 m2 JOEY ([facility]) pt needs refills for some medicine Body mass index (BMI) 32.1 kg/m2 32.1 kg/m2 [facility] ENWAY ([facility] [[facility]] [facility]) pt needs refills for some medicine PhenX - pain, abdominal - type and 0 0 [place] ([facility]) Pt is here for lab results. Body surface area Derived from 2.24 m2 2.24 m2 [place] ([facility]) Pt is here for lab results. Body mass index (BMI) 33.7 kg/m2 33.7 kg/m2 [facility] ([facility] [[facility]] [facility]) Pt is here for lab results. Body weight 235 [lb_av] 235 [lb_av] [place] ([facility]) Pt is here for lab results. Body height 70 [in_us] 70 [in_us] [place] ([facility]) Pt is here for lab results. Body temperature 97.2 [degF] 97.2 [degF] [facility] ([facility]) Pt is here for lab results. Heart rate 66 /min 66 /min [place] ([facility]) Pt is here for lab results. Diastolic blood pressure 83 mm[Hg] 83 mm[Hg] JOEY ([facility]) Pt is here for lab results. Systolic blood pressure 139 mm[Hg] 139 mm[Hg] [facility]) Pt is here for lab results. Body surface area Derived 2.22 m2 2.22 m2 JOEY ([facility]) Body mass index (BMI) 33.1 kg/m2 33.1 kg/m2 GRE ENWAY ([facility] [[facility]] [facility]) Body weight 231 [lb_av] 231 [lb_av] JOEY ([facility]) Body height 70 [in_us] 70 [in_us] JOEY ([facility]) PhenX - pain, abdominal - 3 3 JOEY ([facility] type and intensity [facility]) Pt. presenting for f/u. Body surface area Derived from 2.24 m2 2.24 m2 JOEY ([facility]) Pt. presenting for f/u. Body mass index (BMI) 33.7 kg/m2 33.7 kg/m2 GRE ENWAY ([facility] [[facility]] [facility]) Pt. presenting for f/u. Body weight 235 [lb_av] 235 [lb_av] JOEY ([facility]) Pt. presenting for f/u. Body height 70 [in_us] 70 [in_us] JOEY ([facility]) Pt. presenting for f/u. Body temperature 97.5 [degF] 97.5 [degF] [facility] ([facility]) Pt. presenting for f/u. Respiratory rate 18 /min 18 /min JOEY ([facility]) Pt. presenting for f/u. Heart rate 61 /min 61 /min JOEY ([facility]) Pt. presenting for f/u. Diastolic blood pressure 78 mm[Hg] 78 mm[Hg] JOEY ([facility]) Pt. presenting for f/u. Systolic blood pressure 120 mm[Hg] 120 mm[Hg] G REENWAY ([facility]) Pt. presenting for f/u. PhenX - pain, abdominal - type and 0 0 JOEY ([facility]) pt is here to f/u with financial foundations representative Body surface area Derived from 2.24 m2 2.24 m2 JOEY ([facility]) pt is here to f/u with financial [employer] representative Body mass index (BMI) 33.7 kg/m2 33.7 kg/m2 GRE ENWAY ([facility] [[facility]] [facility]) pt is here to f/u with financial [employer] representative Body weight 235.2 [lb_av] 235.2 [lb_av] GREENWA Y ([facility]) pt is here to f/u with financial [employer] representative Body height 70 [in_us] 70 [in_us] JOEY ([facility]) pt is here to f/u with financial [employer] representative Body temperature 97.8 [degF] 97.8 [degF] SHOSHONEW AY ([facility]) pt is here to f/u with financial [employer] representative Respiratory rate 18 /min 18 /min JOEY ([facility]) pt is here to f/u with financial [employer] representative Heart rate 69 /min 69 /min JOEY ([facility]) pt is here to f/u with financial [employer] representative Diastolic blood pressure 71 mm[Hg] 71 mm[Hg] JOEY ([facility]) pt is here to f/u with financial [employer] representative Systolic blood pressure 119 mm[Hg] 119 mm[Hg] G REENWAY ([facility]) pt is here to f/u with financial foundations representative Body surface area Derived 2.23 m2 2.23 m2 JOEY ([facility]) Body mass index (BMI) 33.4 kg/m2 33.4 kg/m2 [facility] ENWAY ([facility] [[facility]] [facility]) Body weight 233 [lb_av] 233 [lb_av] JOEY ( ount [facility]) Body height 70 [in_us] 70 [in_us] JOEY ([facility]) PhenX - pain, abdominal - 0 0 JOEY ([facility] type and intensity protocol [facility]) pt is here today for a f/u with provider and need Rx refill Body surface area Derived from 2.25 m2 2.25 m2 JOEY ([facility]) pt is here today for a f/u with provider and need Rx refill Body mass index (BMI) 34.1 kg/m2 34.1 kg/m2 GRE ENWAY ([facility] [[facility]] [facility]) pt is here today for a f/u with provider and need Rx refill Body weight 237.8 [lb_av] 237.8 [lb_av] GREENWA Y ([facility]) pt is here today for a f/u with provider and need Rx refill Body height 70 [in_us] 70 [in_us] JOEY ([facility]) pt is here today for a f/u with provider and need Rx refill Body temperature 96.8 [degF] 96.8 [degF] SHOSHONEW AY ([facility]) pt is here today for a f/u with provider and need Rx refill Respiratory rate 18 /min 18 /min JOEY ([facility]) pt is here today for a f/u with provider and need Rx refill Heart rate 62 /min 62 /min [place] ([facility]) pt is here today for a f/u with provider and need Rx refill Diastolic blood pressure 75 mm[Hg] 75 mm[Hg] JOEY ([facility]) pt is here today for a f/u with provider and need Rx refill Systolic blood pressure 123 mm[Hg] 123 mm[Hg] G REENWAY ([facility]) pt is here today for a f/u with provider and need Rx refill Body surface area Derived 2.24 m2 2.24 m2 JOEY ([facility]) Body mass index (BMI) 33.7 kg/m2 33.7 kg/m2 [facility] ([facility] [[facility]] [facility]) Body weight 235 [lb_av] 235 [lb_av] JOEY (M ount [facility]) Body height 70 [in_us] 70 [in_us] JOEY ([facility]) PhenX - pain, abdominal - 0 0 JOEY ([facility] type and intensity protocol [facility]) PT here for medication refills and medic al examination. Body surface area Derived from 2.24 m2 2.24 m2 JOEY ([facility]) PT here for medication refills and medic al examination. Body mass index (BMI) 33.7 kg/m2 33.7 kg/m2 GRE ENWAY ([facility] [Ratio] [facility]) PT here for medication refills and medic al examination. Body weight 235 [lb_av] 235 [lb_av] JOEY ( [facility]) PT here for medication refills and medic al examination. Body height 70 [in_us] 70 [in_us] JOEY ([facility]) PT here for medication refills and medic al examination. Body temperature 98 [degF] 98 [degF] JOEY ([facility]) PT here for medication refills and medic al examination. Heart rate 65 /min 65 /min JOEY ([facility]) PT here for medication refills and medic al examination. Diastolic blood pressure 75 mm[Hg] 75 mm[Hg] [place] ([facility]) PT here for medication refills and medic al examination. Systolic blood pressure 148 mm[Hg] 148 mm[Hg] [facility]) PT here for medication refills and medic al examination. Diastolic blood pressure 84 mmHg 84 mmHg [facility] Systolic blood pressure 151 mmHg 151 mmHg [facility] Respiratory rate 18 bpm 18 bpm [employer] Heart rate 78 bpm 78 bpm [facility] Body [facility] 97.4 [facility] Di[facility] blood pressure 76 mmHg 76 mmHg [facility] Systolic blood pressure 135 mmHg 135 mmHg [facility] Respiratory rate 18 bpm 18 bpm [employer] Heart rate 90 bpm 90 bpm [facility] Body temperature 97.8 [facility]heit [facility] 80 bpm 80 bpm [facility] Body temperature 98.9 F[facility]heit 98.[facility] Diastolic blood pressure 68 mmHg 68 mmHg [facility] Systolic blood pressure 140 mmHg 140 mmHg [facility] Respiratory rate 18 bpm 18 bpm [employer] Diastolic blood pressure 85 mmHg 85 mmHg [facility] Systolic blood pressure 133 mmHg 133 mmHg [facility] Respiratory rate 18 bpm 18 bpm [employer] Heart rate 85 bpm 85 bpm [facility] Body temperature 97.9 [facility]heit [facility] Diastolic blood pressure 91 mmHg 91 mmHg [facility] Systolic blood pressure 150 mmHg 150 mmHg S [facility] Respiratory rate 18 bpm 18 bpm [facility] [employer] Heart rate 80 bpm 80 bpm [facility] Body temperature 97.2 Fahrenheit 97.2 [facility] [place] Diastolic blood pressure 85 mmHg 85 mmHg [facility] Systolic blood pressure 137 mmHg 137 mmHg S [facility] Respiratory rate 18 bpm 18 bpm [facility] Heart rate 73 bpm 73 bpm [facility] Body temperature 98 Fahrenheit 98 Fahrenheit [facility] Diastolic blood pressure 100 mmHg 100 mmHg [facility] Systolic blood pressure 149 mmHg 149 mmHg S [facility] Respiratory rate 18 bpm 18 bpm [facility] [employer] [facility] [employer] Heart rate 79 bpm 79 bpm [facility] Body temperature 97.9 [facility] 97.9 [facility] Measured 240 lbs 240 lbs [facility] Diastolic blood pressure 82 mmHg 82 mmHg [facility] Systolic blood pressure 140 mmHg 140 mmHg S [facility] Respiratory rate 18 bpm 18 bpm [facility] [employer] [facility] [employer] Heart rate 89 bpm 89 bpm [facility] Body temperature 98.6 Fahrenheit 98.6 [facility] [place] Patient Treatment Plan of Care Planned Activity Planned Date Details Description Data Source (s) Aspirin Chewable Or 10/20/2019 [facility] 11:13:17 PM [facility] Metoprolol Tartrate 25 MG 10/11/2019 [facility] [place] ([place] Oral Tablet 12:00:00 AM [facility]) atorvastatin 10 MG Oral 10/11/2019 [place] ([place] Tablet 12:00:00 AM [facility]) Norvasc 10MG Oral Tablet 10/11/2019 [place] ([place] 12:00:00 AM [facility]) atorvastatin 10 MG Oral 08/13/2019 [place] ([place] Tablet 12:00:00 AM [facility]) Norvasc 10MG Oral Tablet 08/13/2019 [place] ([place] 12:00:00 AM [facility]) Metoprolol Tartrate 25 MG 08/13/2019 [place] ([place] Oral Tablet 12:00:00 AM [facility]) Norvasc 10MG Oral Tablet 06/05/2019 [place] ([place] 12:00:00 AM [facility]) Simvastatin 40 MG Oral 06/05/[address] ([place] Tablet 12:00:00 AM [facility]) atorvastatin 10 MG Oral 06/05/2019 [place] ([place] Tablet 12:00:00 AM [facility]) Metoprolol Tartrate 25 MG 06/05/2019 [place] ([place] Oral Tablet 12:00:00 AM [facility]) Metoprolol Tartrate 25 MG 04/19/2019 [facility] [place] ([place] Oral Tablet 12:00:00 AM [facility]) Simvastatin 40 MG Oral 04/19/[address] ([place] Tablet 12:00:00 AM [facility]) Norvasc 10MG Oral Tablet 04/19/2019 [place] ([place] 12:00:00 AM [facility]) Aspirin 81 MG Chewable 04/19/[address] ([place] Tablet 12:00:00 AM [facility]) Simvastatin 40 MG Oral 01/29/[address] ([place] Tablet 12:00:00 AM [facility]) Norvasc 10MG Oral Tablet 01/29/2019 [place] ([place] 12:00:00 AM [facility]) Metoprolol Tartrate 25 MG 01/29/2019 [place] ([place] Oral Tablet 12:00:00 AM [facility]) Simvastatin 40 MG Oral 01/29/[address] ([place] Tablet 12:00:00 AM [facility]) Norvasc 10MG Oral Tablet 01/29/2019 [place] ([place] 12:00:00 AM [facility]) Metoprolol Tartrate 25 MG 01/29/2019 [place] ([place] Oral Tablet 12:00:00 AM [facility]) Aspirin 81 MG Chewable 01/29/[address] ([place] Tablet 12:00:00 AM [facility]) Aspirin 81 MG Chewable 05/05/[address] ([place] Tablet 12:00:00 AM EST [facility]) Metoprolol Tartrate 25 MG 05/05/2018 [place] ([place] Oral Tablet 12:00:00 AM EST [facility]) Norvasc 10MG Oral Tablet 05/05/2018 [place] ([place] 12:00:00 AM EST [facility]) Simvastatin 40 MG Oral 05/05/[address] ([place] Tablet 12:00:00 AM EST [facility]) Simvastatin 20 MG Oral 11/19/2016 [facility] Tablet 09:51:08 AM EDT System Metoprolol Tartrate 25 MG 11/19/2016 [facility] [employer] Oral Tablet 09:50:54 AM EDT System Aspirin 81 MG Oral Tablet 11/19/2016 [facility] Health 09:50:44 AM EDT System Amlodipine 10 MG Oral Tablet 11/19/2016 [facility] [employer] 09:50:20 AM EDT System Amlodipine 10 MG Oral Tablet 08/03/2016 [facility] [employer] 01:41:47 PM EDT System Betamethasone 0.5 MG/ML / 05/22/2015 [facility] [employer] Clotrimazole 10 MG/ML 02:02:24 PM EST Sys tem Topical Cream Hydrochlorothiazide 12.5 MG 05/22/2015 [facility] [employer] Oral Tablet 02:01:49 PM EST System Furosemide 20 MG Oral Tablet 05/22/2015 [facility] [employer] [Lasix] 01:40:52 PM EST System pneumococcal 13-valent 03/03/2015 [facility] [employer] conjugate vaccine 02:07:16 PM EDT System intramuscular suspension influenza virus vaccine, 03/03/2015 [facility] [employer] inactivated high-dose 02:06:17 PM EDT Sys tem preservative-free trivalent intramuscular suspension atorvastatin 10 MG Oral 11/04/2014 [facility] [employer] Tablet 03:07:39 PM EDT System Chlorpromazine hydrochloride 05/20/2014 [facility] 25 MG Oral Tablet 11:31:05 AM EST System Acetaminophen 325 MG / 04/13/2014 [facility] [employer] Hydrocodone Bitartrate 5 MG 07:29:18 PM EST System Oral Tablet Levofloxacin 500 MG Oral 04/13/2014 [facility] Tablet 07:23:54 PM EST System Levofloxacin 500 MG Oral 04/13/2014 [facility] Tablet [Levaquin] 04:50:44 PM EST System Amlodipine 5 MG Oral Tablet 07/23/2011 [facility] ([place] 12:00:00 AM EST [facility]) Dextromethorphan 07/23/2011 JOEY ( ount Hydrobromide 2 MG/ML / 12:00:00 AM EST Ve [facility] Guaifenesin 20 MG/ML Oral [facility]) Solution Ibuprofen 800 MG Oral Tablet [facility] Norvasc [facility] Simvastatin [facility] Aspirin [facility]
[2020-02-07] MEDS ORDERED: hydrOXYzine PAMOATE 25 MG CAPSULE (FP) PO SCH (10:00)
[2020-02-07] MEDS: chlordiazePOXIDE HCL 25 MG CAPSULE PO SCH ×3 (10:41→22:19)
[2020-02-07] MEDS: ASPIRIN COATED 81 MG TABLET.EC PO SCH (10:42)
[2020-02-07] MEDS: METOPROLOL TARTRATE 25 MG TABLET (FP) PO SCH (10:42)
[2020-02-07] MEDS: NICOTINE 7 MG/24 HOURS TOPICAL PATCH TD SCH (10:42)
[2020-02-07] MEDS: amLODIPine BESYLATE 10 MG TABLET (FP) PO SCH (10:42)
[2020-02-07] MEDS: PRENATAL VITAMINS W/ FOLIC ACID TABLET (FP) PO SCH (10:43)
[2020-02-07] MEDS ORDERED: hydrOXYzine PAMOATE 25 MG CAPSULE (FP) PO PRN (11:32)
[2020-02-07] MEDS ORDERED: PNEUMOCOCCAL 23 VACCINE 0.5 ML VIAL IM ONE (12:00)
[2020-02-07 14:32] LABS: HEMATOCRIT 43.4 % (35.4-49); HEMOGLOBIN 14.3 GM/dL (11.7-16.9); MCH 27.5 pg (25.7-33.7); MCHC 32.9 g/dl (32.0-35.9); MEAN CELL VOLUME 83.6 fl (80-96); PLATELET COUNT 182 K/MM3 (134-434); RBC 5.19 M/mm3 (4.00-5.60); RDW 15.7 % (11.9-15.9); WHITE BLOOD COUNT 6.2 K/mm3 (4.0-10.0)
[2020-02-07 14:54] LABS: ALBUMIN 3.9 g/dl (3.4-5.0); BILIRUBIN,TOTAL 0.4 mg/dL (0.2-1); BLOOD UREA NITROGEN 18.2 mg/dL (7-18); CALCIUM 8.5 mg/dL (8.5-10.1); POTASSIUM 4.3 mmol/L (3.5-5.1); TOT PROT 7.6 g/dl (6.4-8.2)
[2020-02-07] MEDS: ATORVASTATIN CA 10 MG TABLET (FP) PO SCH (22:19)
[2020-02-07] MEDS: MELATONIN 5 MG TABLETS PO SCH (22:19)
[2020-02-07] MEDS: THIAMINE HCL 100 MG TABLET (FP) PO SCH (22:19)
[2020-02-08] MEDS: chlordiazePOXIDE HCL 25 MG CAPSULE PO SCH ×4 (06:07→23:01)
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
[2020-02-08] MEDS: ASPIRIN COATED 81 MG TABLET.EC PO SCH (10:40)
[2020-02-08] MEDS: PRENATAL VITAMINS W/ FOLIC ACID TABLET (FP) PO SCH (10:41)
[2020-02-08] MEDS: ESCITALOPRAM OXALATE 20 MG TABLET PO SCH (10:41)
[2020-02-08] MEDS: NICOTINE 7 MG/24 HOURS TOPICAL PATCH TD SCH (10:41)
[2020-02-08] MEDS: METOPROLOL TARTRATE 25 MG TABLET (FP) PO SCH (10:41)
[2020-02-08] MEDS: amLODIPine BESYLATE 10 MG TABLET (FP) PO SCH (10:41)
--- NOTE | 2020-02-08 10:57 | PN ---
[facility] CIWA - CIWA Score Nausea/Vomitin-No Nausea/No Vomiting Muscle Tremors: 3 Anxiety: 3 Agitation: 3 Paroxysmal Sweats: 3 Orientation: 0-Oriented Tacttile Disturbances: 0-None Auditory Disturbances: 0-None Visual Disturbances: 0-None Headache: 0-None Present CIWA-Ar Total Score: 12 BHS Progress Note (SOAP) Subjective: sweats shakes body aches interrupted sleep Objective: 02/08/20 10:57 Vital Signs Temperature 97.8 F 02/08/20 08:35 Pulse Rate 79 02/08/20 08:35 Respiratory Rate 18 02/08/20 08:35 Blood Pressure 151/79 02/08/20 08:35 O2 Sat by Pulse Oximetry (%) 99 02/08/20 08:35 Laboratory Tests 02/07/20 02/07/20 02/07/20 09:35 09:35 09:35 WBC 6.2 RBC 5.19 Hgb 14.3 Hct 43.4 MCV 83.6 MCH 27.5 MCHC 32.9 RDW 15.7 Plt Count 182 MPV 10.0 Sodium 140 Potassium 4.3 Chloride 106 Carbon Dioxide 29 Anion Gap 5 L BUN 18.2 H Creatinine 1.0 Est GFR (CKD-EPI)AfAm 95.73 Est GFR (CKD-EPI)NonAf 82.60 POC Glucometer Random Glucose 107 H Calcium 8.5 Total Bilirubin 0.4 AST 57 H ALT 61 Alkaline Phosphatase 75 Total Protein 7.6 Albumin 3.9 Syphilis Serology Non-reactive COVID-19 (VALARIE) 02/07/20 02/07/20 09:38 11:50 WBC RBC Hgb Hct MCV MCH MCHC RDW Plt Count MPV Sodium Potassium Chloride Carbon Dioxide Anion Gap BUN Creatinine Est GFR (CKD-EPI)AfAm Est GFR (CKD-EPI)NonAf POC Glucometer 112 Random Glucose Calcium Total Bilirubin AST ALT Alkaline Phosphatase Total Protein Albumin Syphilis Serology COVID-19 (VALARIE) Not detected labs noted aaox3 ambulating no acute distress Assessment: 02/08/20 10:58 withdrawals Plan: continue detox increase fluids
[2020-02-08] MEDS ORDERED: PNEUMOC 13-VAL CONJ-DIP CRM/PF 0.5 ML DISP.SYRIN IM ONE (12:00)
[2020-02-08] MEDS: ATORVASTATIN CA 10 MG TABLET (FP) PO SCH (23:02)
[2020-02-08] MEDS: THIAMINE HCL 100 MG TABLET (FP) PO SCH (23:02)
[2020-02-08] MEDS: MELATONIN 5 MG TABLETS PO SCH (23:05)
[2020-02-08] MEDS: traZODone HCL 50 MG TABLET (FP) PO SCH (23:05)
[2020-02-09] MEDS: chlordiazePOXIDE HCL 25 MG CAPSULE PO SCH ×4 (05:19→22:31)
[2020-02-09] MEDS: ESCITALOPRAM OXALATE 20 MG TABLET PO SCH (11:01)
[2020-02-09] MEDS: METOPROLOL TARTRATE 25 MG TABLET (FP) PO SCH (11:01)
[2020-02-09] MEDS: NICOTINE 7 MG/24 HOURS TOPICAL PATCH TD SCH (11:01)
[2020-02-09] MEDS: ASPIRIN COATED 81 MG TABLET.EC PO SCH (11:01)
[2020-02-09] MEDS: amLODIPine BESYLATE 10 MG TABLET (FP) PO SCH (11:02)
[2020-02-09] MEDS: PRENATAL VITAMINS W/ FOLIC ACID TABLET (FP) PO SCH (11:05)
--- NOTE | 2020-02-09 14:33 | PN ---
S CIWA - CIWA Score Nausea/Vomitin-No Nausea/No Vomiting Muscle Tremors: 3 Anxiety: 3 Agitation: 2 Paroxysmal Sweats: 2 Orientation: 0-Oriented Tacttile Disturbances: 0-None Auditory Disturbances: 0-None Visual Disturbances: 0-None Headache: 1-Very Mild CIWA-Ar Total Score: 11 BHS Progress Note (SOAP) Subjective: Tremors, Anxious, Sweating, Fatigue. Patient reports mild improvement in withdrawal symptoms in comparison to yesterday. Objective: Patient A & O X 3; In No Acute Distress. 02/09/20 14:34 Vital Signs Temperature 97.3 F L 02/09/20 12:32 Pulse Rate 68 02/09/20 12:32 Respiratory Rate 18 02/09/20 12:32 Blood Pressure 116/74 02/09/20 12:32 O2 Sat by Pulse Oximetry (%) 98 02/09/20 12:32 Laboratory Tests 02/07/20 02/07/20 02/07/20 09:35 09:35 09:35 WBC 6.2 RBC 5.19 Hgb 14.3 Hct 43.4 MCV 83.6 MCH 27.5 MCHC 32.9 RDW 15.7 Plt Count 182 MPV 10.0 Sodium 140 Potassium 4.3 Chloride 106 Carbon Dioxide 29 Anion Gap 5 L BUN 18.2 H Creatinine 1.0 Est GFR (CKD-EPI)AfAm 95.73 Est GFR (CKD-EPI)NonAf 82.60 POC Glucometer Random Glucose 107 H Calcium 8.5 Total Bilirubin 0.4 AST 57 H ALT 61 Alkaline Phosphatase 75 Total Protein 7.6 Albumin 3.9 Syphilis Serology Non-reactive COVID-19 (VALARIE) 02/07/20 02/07/20 02/09/20 09:38 11:50 05:18 WBC RBC Hgb Hct MCV MCH MCHC RDW Plt Count MPV Sodium Potassium Chloride Carbon Dioxide Anion Gap BUN Creatinine Est GFR (CKD-EPI)AfAm Est GFR (CKD-EPI)NonAf POC Glucometer 112 132 Random Glucose Calcium Total Bilirubin AST ALT Alkaline Phosphatase Total Protein Albumin Syphilis Serology COVID-19 (VALARIE) Not detected Lab Results noted. Assessment: 02/09/20 14:36 WITHDRAWAL SYMPTOMS. ELEVATED AST LEVEL. 02/09/20 14:37 Plan: Continue Detox. Increase Daily Oral Water Intake.
[2020-02-09] MEDS: traZODone HCL 50 MG TABLET (FP) PO SCH (22:31)
[2020-02-09] MEDS: THIAMINE HCL 100 MG TABLET (FP) PO SCH (22:31)
[2020-02-09] MEDS: ATORVASTATIN CA 10 MG TABLET (FP) PO SCH (22:31)
[2020-02-09] MEDS: MELATONIN 5 MG TABLETS PO SCH (22:32)
[2020-02-10] MEDS ORDERED: chlordiazePOXIDE HCL 10 MG CAPSULE PO PRN
[2020-02-10] MEDS: chlordiazePOXIDE HCL 10 MG CAPSULE PO SCH ×4 (05:10→22:03)
[2020-02-10] MEDS: ESCITALOPRAM OXALATE 20 MG TABLET PO SCH (10:23)
[2020-02-10] MEDS: METOPROLOL TARTRATE 25 MG TABLET (FP) PO SCH (10:23)
[2020-02-10] MEDS: PRENATAL VITAMINS W/ FOLIC ACID TABLET (FP) PO SCH (10:23)
[2020-02-10] MEDS: ASPIRIN COATED 81 MG TABLET.EC PO SCH (10:23)
[2020-02-10] MEDS: amLODIPine BESYLATE 10 MG TABLET (FP) PO SCH (10:23)
[2020-02-10] MEDS: NICOTINE 7 MG/24 HOURS TOPICAL PATCH TD SCH (10:24)
--- NOTE | 2020-02-10 10:24 | PN ---
S CIWA - CIWA Score Nausea/Vomitin-No Nausea/No Vomiting Muscle Tremors: 2 Anxiety: 3 Agitation: 1-Slight > Activity Paroxysmal Sweats: 2 Orientation: 0-Oriented Tacttile Disturbances: 0-None Auditory Disturbances: 0-None Visual Disturbances: 0-None Headache: 0-None Present CIWA-Ar Total Score: 8 BHS Progress Note (SOAP) Subjective: Complaints of sweats, anxiety, and tremors. Objective: 02/10/20 10:23 Vital Signs 02/10/20 02/10/20 05:02 08:23 Temperature 98.2 F 97.1 F L Pulse Rate 63 98 H Respiratory 16 18 Rate Blood Pressure 104/71 123/87 O2 Sat by Pulse 98 98 Oximetry (%) Vital Signs 02/10/20 02/10/20 05:02 08:23 Temperature 98.2 F 97.1 F L Pulse Rate 63 98 H Respiratory 16 18 Rate Blood Pressure 104/71 123/87 O2 Sat by Pulse 98 98 Oximetry (%) Laboratory Last Values WBC 6.2 K/mm3 (4.0-10.0) 02/07/20 09:35 RBC 5.19 M/mm3 (4.00-5.60) 02/07/20 09:35 Hgb 14.3 GM/dL (11.7-16.9) 02/07/20 09:35 Hct 43.4 % (35.4-49) 02/07/20 09:35 MCV 83.6 fl (80-96) 02/07/20 09:35 MCH 27.5 pg (25.7-33.7) 02/07/20 09:35 MCHC 32.9 g/dl (32.0-35.9) 02/07/20 09:35 RDW 15.7 % (11.9-15.9) 02/07/20 09:35 Plt Count 182 K/MM3 (134-434) 02/07/20 09:35 MPV 10.0 fl (7.5-11.1) 02/07/20 09:35 Sodium 140 mmol/L (136-145) 02/07/20 09:35 Potassium 4.3 mmol/L (3.5-5.1) 02/07/20 09:35 Chloride 106 mmol/L (98-107) 02/07/20 09:35 Carbon Dioxide 29 mmol/L (21-32) 02/07/20 09:35 Anion Gap 5 MMOL/L (8-16) L 02/07/20 09:35 BUN 18.2 mg/dL (7-18) H 02/07/20 09:35 Creatinine 1.0 mg/dL (0.55-1.3) 02/07/20 09:35 Est GFR (CKD-EPI)AfAm 95.73 02/07/20 09:35 Est GFR (CKD-EPI)NonAf 82.60 02/07/20 09:35 POC Glucometer 132 UNITS (80-120) 02/09/20 05:18 Random Glucose 107 mg/dL (74-106) H 02/07/20 09:35 Calcium 8.5 mg/dL (8.5-10.1) 02/07/20 09:35 Total Bilirubin 0.4 mg/dL (0.2-1) 02/07/20 09:35 AST 57 U/L (15-37) H 02/07/20 09:35 ALT 61 U/L (13-61) 02/07/20 09:35 Alkaline Phosphatase 75 U/L (45-117) 02/07/20 09:35 Total Protein 7.6 g/dl (6.4-8.2) 02/07/20 09:35 Albumin 3.9 g/dl (3.4-5.0) 02/07/20 09:35 Syphilis Serology Non-reactive (NONREACTIVE) 02/07/20 09:35 COVID-19 ([facility]ARIE) Not detected (Not Detected) 02/07/20 11:50 Labs noted. Assessment: 02/10/20 10:23 Alert and oriented x3, in no acute respiratory distress. Full ROM, ambulatory in the unit without assistance. Skin warm to touch. Withdrawal symptoms. Plan: Continue detox protocol.
[2020-02-10] MEDS: ATORVASTATIN CA 10 MG TABLET (FP) PO SCH (22:03)
[2020-02-10] MEDS: MELATONIN 5 MG TABLETS PO SCH (22:03)
[2020-02-10] MEDS: THIAMINE HCL 100 MG TABLET (FP) PO SCH (22:03)
[2020-02-10] MEDS: traZODone HCL 50 MG TABLET (FP) PO SCH (22:04)
[2020-02-11] MEDS: chlordiazePOXIDE HCL 10 MG CAPSULE PO SCH ×2 (05:12→17:52)
--- NOTE | 2020-02-11 07:58 | PN ---
S CIWA - CIWA Score Nausea/Vomitin-No Nausea/No Vomiting Muscle Tremors: 2 Anxiety: 1-Mildly Anxious Agitation: 1-Slight > Activity Paroxysmal Sweats: No Perspiration Orientation: 0-Oriented Tacttile Disturbances: 1-Very Mild Itch/Numbness Auditory Disturbances: 0-None Visual Disturbances: 0-None Headache: 1-Very Mild CIWA-Ar Total Score: 6 BHS Progress Note (SOAP) Subjective: alert,irritable,anxious,interrupted sleep,ambulation on the unit Objective: 02/11/20 10:20 Vital Signs Temperature 98.0 F 02/11/20 05:06 Pulse Rate 70 02/11/20 05:06 Respiratory Rate 18 02/11/20 05:06 Blood Pressure 128/71 02/11/20 05:06 O2 Sat by Pulse Oximetry (%) 94 L 02/11/20 05:06 02/11/20 10:24 Laboratory Last Values WBC 6.2 K/mm3 (4.0-10.0) 02/07/20 09:35 RBC 5.19 M/mm3 (4.00-5.60) 02/07/20 09:35 Hgb 14.3 GM/dL (11.7-16.9) 02/07/20 09:35 Hct 43.4 % (35.4-49) 02/07/20 09:35 MCV 83.6 fl (80-96) 02/07/20 09:35 MCH 27.5 pg (25.7-33.7) 02/07/20 09:35 MCHC 32.9 g/dl (32.0-35.9) 02/07/20 09:35 RDW 15.7 % (11.9-15.9) 02/07/20 09:35 Plt Count 182 K/MM3 (134-434) 02/07/20 09:35 MPV 10.0 fl (7.5-11.1) 02/07/20 09:35 Sodium 140 mmol/L (136-145) 02/07/20 09:35 Potassium 4.3 mmol/L (3.5-5.1) 02/07/20 09:35 Chloride 106 mmol/L (98-107) 02/07/20 09:35 Carbon Dioxide 29 mmol/L (21-32) 02/07/20 09:35 Anion Gap 5 MMOL/L (8-16) L 02/07/20 09:35 BUN 18.2 mg/dL (7-18) H 02/07/20 09:35 Creatinine 1.0 mg/dL (0.55-1.3) 02/07/20 09:35 Est GFR (CKD-EPI)AfAm 95.73 02/07/20 09:35 Est GFR (CKD-EPI)NonAf 82.60 02/07/20 09:35 POC Glucometer 132 UNITS (80-120) 02/09/20 05:18 Random Glucose 107 mg/dL (74-106) H 02/07/20 09:35 Calcium 8.5 mg/dL (8.5-10.1) 02/07/20 09:35 Total Bilirubin 0.4 mg/dL (0.2-1) 02/07/20 09:35 AST 57 U/L (15-37) H 02/07/20 09:35 ALT 61 U/L (13-61) 02/07/20 09:35 Alkaline Phosphatase 75 U/L (45-117) 02/07/20 09:35 Total Protein 7.6 g/dl (6.4-8.2) 02/07/20 09:35 Albumin 3.9 g/dl (3.4-5.0) 02/07/20 09:35 Syphilis Serology Non-reactive (NONREACTIVE) 02/07/20 09:35 COVID-19 ([facility]ARIE) Not detected (Not Detected) 02/07/20 11:50 Assessment: 02/11/20 10:24 withdrawal symptom Plan: continue detox librium regimen ,discharge in an,advise life style change on diet,no sugar,discharge in am
[2020-02-11] MEDS: ASPIRIN COATED 81 MG TABLET.EC PO SCH (10:08)
[2020-02-11] MEDS: PRENATAL VITAMINS W/ FOLIC ACID TABLET (FP) PO SCH (10:08)
[2020-02-11] MEDS: ESCITALOPRAM OXALATE 20 MG TABLET PO SCH (10:08)
[2020-02-11] MEDS: METOPROLOL TARTRATE 25 MG TABLET (FP) PO SCH (10:08)
[2020-02-11] MEDS: amLODIPine BESYLATE 10 MG TABLET (FP) PO SCH (10:09)
[2020-02-11] MEDS: NICOTINE 7 MG/24 HOURS TOPICAL PATCH TD SCH (10:09)
[2020-02-11] MEDS: MELATONIN 5 MG TABLETS PO SCH (23:12)
[2020-02-11] MEDS: ATORVASTATIN CA 10 MG TABLET (FP) PO SCH (23:12)
[2020-02-11] MEDS: traZODone HCL 50 MG TABLET (FP) PO SCH (23:12)
[2020-02-11] MEDS: THIAMINE HCL 100 MG TABLET (FP) PO SCH (23:13)
[2020-02-12] MEDS ORDERED: chlordiazePOXIDE HCL 10 MG CAPSULE PO ONE (05:00)
[2020-02-12 06:01] VITALS: BP 132/76; PULSE 71; TEMP 98.4
--- NOTE | 2020-02-12 08:53 | DS ---
[facility] Detox Discharge Summary Admission Date: 02/07/20 Discharge Date: 02/12/20 - History Present History: Alcohol Dependence, Cocaine Dependence, Pcp Dependence - Physical Exam Results Vital Signs: Vital Signs Temperature 98.4 F 02/12/20 05:01 Pulse Rate 71 02/12/20 05:01 Respiratory Rate 16 02/12/20 05:01 Blood Pressure 132/76 02/12/20 05:01 O2 Sat by Pulse Oximetry (%) 95 02/12/20 05:01 - Treatment Hospital Course: Detox Protocol Followed, Detoxed Safely, Responded well, Discharged Condition Good, Rehab Referral Accepted - Medication Discharge Medications: Ambulatory Orders Aspirin Coated [Ecotrin -] 81 mg PO DAILY #30 tablet.ec 05/25/17 Amlodipine Besylate [Norvasc -] 10 mg PO DAILY #30 tablet MDD 1 02/19/18 Metoprolol Tartrate [Lopressor -] 25 mg PO DAILY #30 tablet 02/19/18 Simvastatin [Zocor -] 20 mg PO HS #30 tablet 02/19/18 Escitalopram Oxalate [Lexapro -] 10 mg PO DAILY 02/07/20 - Diagnosis (1) Elevated aspartate aminotransferase level Current Visit: Yes Status: Acute (2) Nicotine dependence Current Visit: Yes Status: Chronic Qualifiers: Nicotine product type: cigarettes Substance use status: uncomplicated Qualified Code(s): F17.210 - Nicotine dependence, cigarettes, uncomplicated (3) Phencyclidine dependence Current Visit: Yes Status: Acute (4) Substance-induced sleep disorder Current Visit: Yes Status: Acute (5) Psychotic disorder Current Visit: Yes Status: Chronic (6) Schizoaffective disorder Current Visit: Yes Status: Ruled-out (7) Substance-induced psychotic disorder Current Visit: Yes Status: Ruled-out (8) Alcohol dependence with withdrawal Current Visit: Yes Status: Chronic Qualifiers: Complication of substance-induced condition: uncomplicated Qualified Code(s): F10.230 - Alcohol dependence with withdrawal, uncomplicated (9) Encounter for screening for HIV Current Visit: No Status: Acute (10) Need for hepatitis C screening test Current Visit: No Status: Acute (11) Substance induced mood disorder Current Visit: No Status: Acute (12) Unspecified psychosis Current Visit: No Status: Acute (13) Cocaine dependence Current Visit: No Status: Chronic (14) Diabetes mellitus type 2 in nonobese Current Visit: No Status: Chronic (15) Essential hypertension Current Visit: No Status: Chronic (16) Hypercholesterolemia Current Visit: No Status: Chronic (17) Schizoaffective disorder Current Visit: No Status: Suspected Qualifiers: Schizoaffective disorder type: unspecified Qualified Code(s): F25.9 - Schizoaffective disorder, unspecified (18) PPD positive Current Visit: No Status: Resolved - AMA Did Patient Leave Against Medical Advice: No
== END 2020-02-12 09:45 | disposition home or self-care (01) | DRG 774 ==
LOC: YASAS 08:33 → Y6N 09:20
PROVIDERS: ADMIT Allergy & Immunology; ATTEND Allergy & Immunology
PROC: HZ2ZZZZ Detoxification Services for Substance Abuse Treatment (ICD-10-PCS; principal; 2020-02-07)
DX: F10.230 Alcohol dependence with withdrawal, uncomplicated (principal); F14.20 Cocaine dependence, uncomplicated; F16.10 Hallucinogen abuse, uncomplicated; F17.210 Nicotine dependence, cigarettes, uncomplicated; F19.282 Other psychoactive substance dependence with psychoactive substance-induced sleep disorder; F19.24 Other psychoactive substance dependence with psychoactive substance-induced mood disorder; F29 Unspecified psychosis not due to a substance or known physiological condition; F25.9 Schizoaffective disorder, unspecified; I10 Essential (primary) hypertension; E11.9 Type 2 diabetes mellitus without complications; R74.0 Nonspecific elevation of levels of transaminase and lactic acid dehydrogenase [LDH]; R76.11 Nonspecific reaction to tuberculin skin test without active tuberculosis; Z59.0 Homelessness
CPT/HCPCS: 36415; 71046-TC-FY; 80053; 82962; 85027; 86780; 90732; G0009; U0003

== ENCOUNTER 2020-04-03 13:37 | Inpatient (IN) | payer OTHER ==
[2020-04-03 14:31] VITALS: BMI 30.1
[2020-04-03] MEDS ORDERED: MAGNESIUM CITRATE 300 ML BOTTLE PO PRN (17:26)
[2020-04-03] MEDS ORDERED: P-EPHED 60MG/TRIPROLIDI 2.5MG TABLET PO PRN (17:26)
[2020-04-03] MEDS ORDERED: LOPERAMIDE HCL 2 MG CAPSULE PO PRN (17:26)
[2020-04-03] MEDS ORDERED: MAG HYDROX/AL HYDROX/SIMETH 30 ML UNIT-DOSE CUP PO PRN (17:26)
[2020-04-03] MEDS ORDERED: NICOTINE POLACRILEX 2 MG GUM BC PRN (17:26)
[2020-04-03] MEDS ORDERED: ACETAMINOPHEN 325 MG TABLET (FP) PO PRN (17:26)
[2020-04-03] MEDS ORDERED: MAGNESIUM HYDROX 2400MG/30ML ORAL SUSPENSION 30 ML CUP PO PRN (17:26)
[2020-04-03] MEDS ORDERED: IBUPROFEN 400 MG TABLET (FP) PO PRN (17:26)
[2020-04-03] MEDS ORDERED: guaiFENesin 200 MG/10 ML 10 ML UNIT-DOSE CUPS PO PRN (17:26)
[2020-04-03] MEDS: hydrOXYzine PAMOATE 25 MG CAPSULE (FP) PO PRN (21:33)
[2020-04-03] MEDS: ATORVASTATIN CA 10 MG TABLET (FP) PO SCH (21:33)
[2020-04-03] MEDS: THIAMINE HCL 100 MG TABLET (FP) PO SCH (21:33)
[2020-04-03] MEDS: MELATONIN 5 MG TABLETS PO SCH (21:33)
[2020-04-03] MEDS ORDERED: PATIENT'S OWN MEDICATION (NON-FORMULARY) (Simvastatin 20 MG Tablet) PO SCH (22:00)
[2020-04-03] MEDS ORDERED: traZODone HCL 50 MG TABLET (FP) PO ONE ×2 (23:00)
[2020-04-04 00:46] LABS: PH,URINE 5.5 (5.0-8.0); URINE APPEARANCE TURBID; URINE BILIRUBIN NEGATIVE (NEGATIVE); URINE COLOR DK YELLOW; URINE GLUCOSE (UA) NEGATIVE (NEGATIVE); URINE KETONE TRACE (NEGATIVE); URINE LEUK ESTERASE NEGATIVE (NEGATIVE); URINE NITRITE NEGATIVE (NEGATIVE); URINE PROTEIN TRACE (NEGATIVE)
[2020-04-04] MEDS: METOPROLOL TARTRATE 25 MG TABLET (FP) PO SCH (09:55)
[2020-04-04] MEDS: ASPIRIN COATED 81 MG TABLET.EC PO SCH (09:55)
[2020-04-04] MEDS: amLODIPine BESYLATE 10 MG TABLET (FP) PO SCH (09:55)
[2020-04-04] MEDS: PRENATAL VITAMINS W/ FOLIC ACID TABLET (FP) PO SCH (09:55)
[2020-04-04] MEDS: NICOTINE 7 MG/24 HOURS TOPICAL PATCH TD SCH (09:56)
[2020-04-04] MEDS: ESCITALOPRAM OXALATE 20 MG TABLET PO SCH (09:56)
[2020-04-04 10:09] LABS: POTASSIUM 4.7 mmol/L (3.5-5.1)
[2020-04-04 10:10] LABS: CALCIUM 9.3 mg/dL (8.5-10.1)
[2020-04-04 10:11] LABS: HEMATOCRIT 43.8 % (35.4-49); HEMOGLOBIN 14.2 GM/dL (11.7-16.9); MCH 26.5 pg (25.7-33.7); MCHC 32.4 g/dl (32.0-35.9); MEAN CELL VOLUME 81.8 fl (80-96); MEAN PLT VOLUME 9.9 fl (7.5-11.1); PLATELET COUNT 181 K/MM3 (134-434); RBC 5.36 M/mm3 (4.00-5.60); RDW 15.5 % (11.9-15.9); WHITE BLOOD COUNT 5.4 K/mm3 (4.0-10.0)
[2020-04-04 10:12] LABS: ALBUMIN 3.6 g/dl (3.4-5.0); BLOOD UREA NITROGEN 16.8 mg/dL (7-18)
[2020-04-04 10:14] LABS: CREATININE 1.3 mg/dL (0.55-1.3)
[2020-04-04 10:16] LABS: BILIRUBIN,TOTAL 0.8 mg/dL (0.2-1)
[2020-04-04 10:17] LABS: TOT PROT 6.9 g/dl (6.4-8.2)
[2020-04-04] MEDS: traZODone HCL 50 MG TABLET (FP) PO SCH (21:36)
[2020-04-04] MEDS: ATORVASTATIN CA 10 MG TABLET (FP) PO SCH (21:36)
[2020-04-04] MEDS: MELATONIN 5 MG TABLETS PO SCH (21:36)
[2020-04-04] MEDS: THIAMINE HCL 100 MG TABLET (FP) PO SCH (21:37)
[2020-04-04] MEDS: hydrOXYzine PAMOATE 25 MG CAPSULE (FP) PO PRN (21:37)
[2020-04-05] MEDS: PRENATAL VITAMINS W/ FOLIC ACID TABLET (FP) PO SCH (09:50)
[2020-04-05] MEDS: amLODIPine BESYLATE 10 MG TABLET (FP) PO SCH (09:50)
[2020-04-05] MEDS: METOPROLOL TARTRATE 25 MG TABLET (FP) PO SCH (09:50)
[2020-04-05] MEDS: ASPIRIN COATED 81 MG TABLET.EC PO SCH (09:50)
[2020-04-05] MEDS: ESCITALOPRAM OXALATE 20 MG TABLET PO SCH (09:50)
[2020-04-05] MEDS: NICOTINE 7 MG/24 HOURS TOPICAL PATCH TD SCH (09:50)
[2020-04-05] MEDS ORDERED: FLU VACCINE (FLULAVAL) PF 60 MCG/0.5 ML SYRINGE 2020-2021 IM ONE (12:00)
[2020-04-05] MEDS: ATORVASTATIN CA 10 MG TABLET (FP) PO SCH (21:35)
[2020-04-05] MEDS: MELATONIN 5 MG TABLETS PO SCH (21:35)
[2020-04-05] MEDS: THIAMINE HCL 100 MG TABLET (FP) PO SCH (21:35)
[2020-04-05] MEDS: traZODone HCL 50 MG TABLET (FP) PO SCH (21:35)
[2020-04-06] MEDS: METOPROLOL TARTRATE 25 MG TABLET (FP) PO SCH (09:41)
[2020-04-06] MEDS: ASPIRIN COATED 81 MG TABLET.EC PO SCH (09:41)
[2020-04-06] MEDS: ESCITALOPRAM OXALATE 20 MG TABLET PO SCH (09:41)
[2020-04-06] MEDS: PRENATAL VITAMINS W/ FOLIC ACID TABLET (FP) PO SCH (09:41)
[2020-04-06] MEDS: amLODIPine BESYLATE 10 MG TABLET (FP) PO SCH (09:41)
[2020-04-06] MEDS: NICOTINE 7 MG/24 HOURS TOPICAL PATCH TD SCH (09:42)
[2020-04-06] MEDS: MELATONIN 5 MG TABLETS PO SCH (21:22)
[2020-04-06] MEDS: THIAMINE HCL 100 MG TABLET (FP) PO SCH (21:22)
[2020-04-06] MEDS: traZODone HCL 50 MG TABLET (FP) PO SCH (21:22)
[2020-04-06] MEDS: ATORVASTATIN CA 10 MG TABLET (FP) PO SCH (21:23)
[2020-04-07] MEDS: amLODIPine BESYLATE 10 MG TABLET (FP) PO SCH (10:10)
[2020-04-07] MEDS: METOPROLOL TARTRATE 25 MG TABLET (FP) PO SCH (10:10)
[2020-04-07] MEDS: ASPIRIN COATED 81 MG TABLET.EC PO SCH (10:10)
[2020-04-07] MEDS: ESCITALOPRAM OXALATE 20 MG TABLET PO SCH (10:10)
[2020-04-07] MEDS: PRENATAL VITAMINS W/ FOLIC ACID TABLET (FP) PO SCH (10:10)
[2020-04-07] MEDS: NICOTINE 7 MG/24 HOURS TOPICAL PATCH TD SCH (10:11)
[2020-04-07] MEDS: traZODone HCL 50 MG TABLET (FP) PO SCH (21:30)
[2020-04-07] MEDS: MELATONIN 5 MG TABLETS PO SCH (21:31)
[2020-04-07] MEDS: THIAMINE HCL 100 MG TABLET (FP) PO SCH (21:31)
[2020-04-07] MEDS: hydrOXYzine PAMOATE 25 MG CAPSULE (FP) PO PRN (21:31)
[2020-04-07] MEDS: ATORVASTATIN CA 10 MG TABLET (FP) PO SCH (21:31)
[2020-04-08] MEDS: PRENATAL VITAMINS W/ FOLIC ACID TABLET (FP) PO SCH (09:45)
[2020-04-08] MEDS: amLODIPine BESYLATE 10 MG TABLET (FP) PO SCH (09:45)
[2020-04-08] MEDS: ASPIRIN COATED 81 MG TABLET.EC PO SCH (09:45)
[2020-04-08] MEDS: ESCITALOPRAM OXALATE 20 MG TABLET PO SCH (09:45)
[2020-04-08] MEDS: NICOTINE 7 MG/24 HOURS TOPICAL PATCH TD SCH (09:45)
[2020-04-08] MEDS: METOPROLOL TARTRATE 25 MG TABLET (FP) PO SCH (09:45)
[2020-04-08] MEDS: ATORVASTATIN CA 10 MG TABLET (FP) PO SCH (21:31)
[2020-04-08] MEDS: traZODone HCL 50 MG TABLET (FP) PO SCH (21:31)
[2020-04-08] MEDS: THIAMINE HCL 100 MG TABLET (FP) PO SCH (21:31)
[2020-04-08] MEDS: MELATONIN 5 MG TABLETS PO SCH (21:31)
[2020-04-09] MEDS: ASPIRIN COATED 81 MG TABLET.EC PO SCH (10:03)
[2020-04-09] MEDS: ESCITALOPRAM OXALATE 20 MG TABLET PO SCH (10:03)
[2020-04-09] MEDS: PRENATAL VITAMINS W/ FOLIC ACID TABLET (FP) PO SCH (10:03)
[2020-04-09] MEDS: NICOTINE 7 MG/24 HOURS TOPICAL PATCH TD SCH (10:03)
[2020-04-09] MEDS: METOPROLOL TARTRATE 25 MG TABLET (FP) PO SCH (10:51)
[2020-04-09] MEDS: amLODIPine BESYLATE 10 MG TABLET (FP) PO SCH (10:51)
[2020-04-09] MEDS: hydrOXYzine PAMOATE 25 MG CAPSULE (FP) PO PRN (21:29)
[2020-04-09] MEDS: ATORVASTATIN CA 10 MG TABLET (FP) PO SCH (21:29)
[2020-04-09] MEDS: traZODone HCL 50 MG TABLET (FP) PO SCH (21:29)
[2020-04-09] MEDS: MELATONIN 5 MG TABLETS PO SCH (21:29)
[2020-04-09] MEDS: THIAMINE HCL 100 MG TABLET (FP) PO SCH (21:29)
[2020-04-10] MEDS: ESCITALOPRAM OXALATE 20 MG TABLET PO SCH (09:51)
[2020-04-10] MEDS: PRENATAL VITAMINS W/ FOLIC ACID TABLET (FP) PO SCH (09:51)
[2020-04-10] MEDS: amLODIPine BESYLATE 10 MG TABLET (FP) PO SCH (09:51)
[2020-04-10] MEDS: ASPIRIN COATED 81 MG TABLET.EC PO SCH (09:51)
[2020-04-10] MEDS: METOPROLOL TARTRATE 25 MG TABLET (FP) PO SCH (09:51)
[2020-04-10] MEDS: NICOTINE 7 MG/24 HOURS TOPICAL PATCH TD SCH (09:52)
[2020-04-10] MEDS: ATORVASTATIN CA 10 MG TABLET (FP) PO SCH (23:18)
[2020-04-10] MEDS: MELATONIN 5 MG TABLETS PO SCH (23:18)
[2020-04-10] MEDS: traZODone HCL 50 MG TABLET (FP) PO SCH (23:18)
[2020-04-10] MEDS: THIAMINE HCL 100 MG TABLET (FP) PO SCH (23:19)
[2020-04-11] MEDS: ESCITALOPRAM OXALATE 20 MG TABLET PO SCH (10:21)
[2020-04-11] MEDS: PRENATAL VITAMINS W/ FOLIC ACID TABLET (FP) PO SCH (10:21)
[2020-04-11] MEDS: METOPROLOL TARTRATE 25 MG TABLET (FP) PO SCH (10:21)
[2020-04-11] MEDS: hydrOXYzine PAMOATE 25 MG CAPSULE (FP) PO PRN (10:21)
[2020-04-11] MEDS: NICOTINE 7 MG/24 HOURS TOPICAL PATCH TD SCH (10:21)
[2020-04-11] MEDS: ASPIRIN COATED 81 MG TABLET.EC PO SCH (10:21)
[2020-04-11] MEDS: amLODIPine BESYLATE 10 MG TABLET (FP) PO SCH (10:21)
[2020-04-11] MEDS: THIAMINE HCL 100 MG TABLET (FP) PO SCH (21:49)
[2020-04-11] MEDS: traZODone HCL 50 MG TABLET (FP) PO SCH (21:49)
[2020-04-11] MEDS: MELATONIN 5 MG TABLETS PO SCH (21:49)
[2020-04-11] MEDS: ATORVASTATIN CA 10 MG TABLET (FP) PO SCH (21:49)
[2020-04-12] MEDS: hydrOXYzine PAMOATE 25 MG CAPSULE (FP) PO PRN (09:47)
[2020-04-12] MEDS: amLODIPine BESYLATE 10 MG TABLET (FP) PO SCH (09:47)
[2020-04-12] MEDS: ASPIRIN COATED 81 MG TABLET.EC PO SCH (09:47)
[2020-04-12] MEDS: ESCITALOPRAM OXALATE 20 MG TABLET PO SCH (09:47)
[2020-04-12] MEDS: NICOTINE 7 MG/24 HOURS TOPICAL PATCH TD SCH (09:48)
[2020-04-12] MEDS: PRENATAL VITAMINS W/ FOLIC ACID TABLET (FP) PO SCH (09:48)
[2020-04-12] MEDS: METOPROLOL TARTRATE 25 MG TABLET (FP) PO SCH (09:49)
[2020-04-12] MEDS: traZODone HCL 50 MG TABLET (FP) PO SCH (22:15)
[2020-04-12] MEDS: THIAMINE HCL 100 MG TABLET (FP) PO SCH (22:15)
[2020-04-12] MEDS: ATORVASTATIN CA 10 MG TABLET (FP) PO SCH (22:15)
[2020-04-12] MEDS: MELATONIN 5 MG TABLETS PO SCH (22:15)
[2020-04-13] MEDS: METOPROLOL TARTRATE 25 MG TABLET (FP) PO SCH (09:49)
[2020-04-13] MEDS: ASPIRIN COATED 81 MG TABLET.EC PO SCH (09:49)
[2020-04-13] MEDS: PRENATAL VITAMINS W/ FOLIC ACID TABLET (FP) PO SCH (09:49)
[2020-04-13] MEDS: amLODIPine BESYLATE 10 MG TABLET (FP) PO SCH (09:49)
[2020-04-13] MEDS: ESCITALOPRAM OXALATE 20 MG TABLET PO SCH (09:49)
[2020-04-13] MEDS: NICOTINE 7 MG/24 HOURS TOPICAL PATCH TD SCH (09:50)
[2020-04-13] MEDS: MELATONIN 5 MG TABLETS PO SCH (21:23)
[2020-04-13] MEDS: ATORVASTATIN CA 10 MG TABLET (FP) PO SCH (21:23)
[2020-04-13] MEDS: traZODone HCL 50 MG TABLET (FP) PO SCH (21:23)
[2020-04-13] MEDS: hydrOXYzine PAMOATE 25 MG CAPSULE (FP) PO PRN (21:23)
[2020-04-13] MEDS: THIAMINE HCL 100 MG TABLET (FP) PO SCH (21:23)
[2020-04-14] MEDS: METOPROLOL TARTRATE 25 MG TABLET (FP) PO SCH (09:22)
[2020-04-14] MEDS: ASPIRIN COATED 81 MG TABLET.EC PO SCH (09:22)
[2020-04-14] MEDS: ESCITALOPRAM OXALATE 20 MG TABLET PO SCH (09:22)
[2020-04-14] MEDS: PRENATAL VITAMINS W/ FOLIC ACID TABLET (FP) PO SCH (09:23)
[2020-04-14] MEDS: NICOTINE 7 MG/24 HOURS TOPICAL PATCH TD SCH (09:23)
[2020-04-14] MEDS: amLODIPine BESYLATE 10 MG TABLET (FP) PO SCH (09:23)
[2020-04-14] MEDS: hydrOXYzine PAMOATE 25 MG CAPSULE (FP) PO PRN (21:27)
[2020-04-14] MEDS: MELATONIN 5 MG TABLETS PO SCH (21:28)
[2020-04-14] MEDS: ATORVASTATIN CA 10 MG TABLET (FP) PO SCH (21:28)
[2020-04-14] MEDS: THIAMINE HCL 100 MG TABLET (FP) PO SCH (21:28)
[2020-04-14] MEDS: traZODone HCL 50 MG TABLET (FP) PO SCH (21:28)
[2020-04-15] MEDS: hydrOXYzine PAMOATE 25 MG CAPSULE (FP) PO PRN ×2 (09:45→21:24)
[2020-04-15] MEDS: amLODIPine BESYLATE 10 MG TABLET (FP) PO SCH (09:45)
[2020-04-15] MEDS: ASPIRIN COATED 81 MG TABLET.EC PO SCH (09:45)
[2020-04-15] MEDS: METOPROLOL TARTRATE 25 MG TABLET (FP) PO SCH (09:45)
[2020-04-15] MEDS: ESCITALOPRAM OXALATE 20 MG TABLET PO SCH (09:45)
[2020-04-15] MEDS: PRENATAL VITAMINS W/ FOLIC ACID TABLET (FP) PO SCH (09:45)
[2020-04-15] MEDS: NICOTINE 7 MG/24 HOURS TOPICAL PATCH TD SCH (09:46)
[2020-04-15] MEDS: ATORVASTATIN CA 10 MG TABLET (FP) PO SCH (21:24)
[2020-04-15] MEDS: traZODone HCL 50 MG TABLET (FP) PO SCH (21:24)
[2020-04-15] MEDS: MELATONIN 5 MG TABLETS PO SCH (21:24)
[2020-04-15] MEDS: THIAMINE HCL 100 MG TABLET (FP) PO SCH (21:24)
[2020-04-16 08:58] VITALS: PULSE 68
[2020-04-16] MEDS: ASPIRIN COATED 81 MG TABLET.EC PO SCH (09:46)
[2020-04-16] MEDS: amLODIPine BESYLATE 10 MG TABLET (FP) PO SCH (09:46)
[2020-04-16] MEDS: PRENATAL VITAMINS W/ FOLIC ACID TABLET (FP) PO SCH (09:46)
[2020-04-16] MEDS: METOPROLOL TARTRATE 25 MG TABLET (FP) PO SCH (09:46)
[2020-04-16] MEDS: ESCITALOPRAM OXALATE 20 MG TABLET PO SCH (09:46)
[2020-04-16] MEDS: NICOTINE 7 MG/24 HOURS TOPICAL PATCH TD SCH (09:47)
[2020-04-16] MEDS: MELATONIN 5 MG TABLETS PO SCH (21:28)
[2020-04-16] MEDS: THIAMINE HCL 100 MG TABLET (FP) PO SCH (21:28)
[2020-04-16] MEDS: ATORVASTATIN CA 10 MG TABLET (FP) PO SCH (21:28)
[2020-04-16] MEDS: traZODone HCL 50 MG TABLET (FP) PO SCH (21:28)
[2020-04-16] MEDS: hydrOXYzine PAMOATE 25 MG CAPSULE (FP) PO PRN (21:28)
[2020-04-17 06:53] VITALS: BP 141/96; TEMP 97.5
[2020-04-17] MEDS: ASPIRIN COATED 81 MG TABLET.EC PO SCH (09:09)
[2020-04-17] MEDS: METOPROLOL TARTRATE 25 MG TABLET (FP) PO SCH (09:09)
[2020-04-17] MEDS: ESCITALOPRAM OXALATE 20 MG TABLET PO SCH (09:09)
[2020-04-17] MEDS: amLODIPine BESYLATE 10 MG TABLET (FP) PO SCH (09:09)
[2020-04-17] MEDS: PRENATAL VITAMINS W/ FOLIC ACID TABLET (FP) PO SCH (09:09)
[2020-04-17] MEDS: NICOTINE 7 MG/24 HOURS TOPICAL PATCH TD SCH (09:10)
== END 2020-04-17 09:40 | disposition home or self-care (01) | DRG 772 ==
LOC: YASAS 13:37 → Y5N 16:38
PROVIDERS: ADMIT Allergy & Immunology; ATTEND Allergy & Immunology
PROC: HZ42ZZZ Group Counseling for Substance Abuse Treatment, Cognitive-Behavioral (ICD-10-PCS; principal; 2020-04-03)
DX: F10.20 Alcohol dependence, uncomplicated (principal); F14.20 Cocaine dependence, uncomplicated; F16.10 Hallucinogen abuse, uncomplicated; F17.210 Nicotine dependence, cigarettes, uncomplicated; F25.9 Schizoaffective disorder, unspecified; F19.24 Other psychoactive substance dependence with psychoactive substance-induced mood disorder; F19.282 Other psychoactive substance dependence with psychoactive substance-induced sleep disorder; F19.959 Other psychoactive substance use, unspecified with psychoactive substance-induced psychotic disorder, unspecified; I10 Essential (primary) hypertension; I25.10 Atherosclerotic heart disease of native coronary artery without angina pectoris; E78.00 Pure hypercholesterolemia, unspecified; E66.9 Obesity, unspecified; Z68.30 Body mass index [BMI] 30.0-30.9, adult; R73.03 Prediabetes; H55.00 Unspecified nystagmus; Z87.438 Personal history of other diseases of male genital organs; Z56.0 Unemployment, unspecified; Z59.0 Homelessness
CPT/HCPCS: 36415; 71046-TC-FY; 80053; 81003; 85027; 86780; 93005; 93010; C9803; G0008; Q2036; U0003